=== PATIENT | female | born 1960 | race Caucasian/White ===

== ENCOUNTER → 2016-08-19 | Outpatient (CLI) | payer OTHER ==
[2016-08-05 15:55] VITALS: BP 181/69
[~2016-08-19] VITALS: Ht 152.4 cm; Wt 68.0 kg
[~2016-08-19] MED LIST: ESCI10TA PO; HYDR-971 PO; LEVO112T2 PO; OMEP20TA PO; PANT40TA3 PO; SINCALIDE 1.36 MCG in IV NORMAL SALINE 50ML 30 ML IV ONE
--- NOTE | 2016-08-19 08:55 | RAD ---
Indication:Left upper quadrant pain Grayscale images of the abdomen were obtained. Comparison note is made of a previous similar examination 05/15/2007. Liver:A focal mass lesion is not seen and the visualized liver. There is some increased attenuation of the ultrasound beam compatible with fatty infiltration. Gallbladder:There is an echogenic focus adjacent to the wall of the gallbladder compatible with a polyp. This was referenced on the previous exam. No cholelithiasis is seen. The common bile duct diameter of approximately 5 mm is normal Spleen:Normal Pancreas:As visualized normal. Kidneys:Normal Abdominal aorta and IVC:Normal Ancillary findings:None Impression:Fatty infiltration of the liver. Gallbladder polyp.
--- NOTE | 2016-08-19 10:42 | RAD ---
Indication abdominal pain. Hepatobiliary scan was performed. 5.5 mCi of technetium labeled Choletec was administered. 1.4 mcg of CCK was diluted in saline and administered over several minutes. Following the CCK administration a gallbladder ejection fraction calculation was made. There is normal uptake of the radiopharmaceutical in the liver. Activity is seen early in the biliary system and gallbladder. Normal activity is seen in the small bowel. Following the Kinevac administration the estimated gallbladder ejection fraction approaches 90%. IMPRESSION: Normal study
== END | disposition home or self-care (01) ==
LOC: US 07:01
PROVIDERS: ATTEND Internal Medicine Gastroenterology
DX: R10.12 Left upper quadrant pain (principal); Z87.19 Personal history of other diseases of the digestive system; K82.4 Cholesterolosis of gallbladder; K76.0 Fatty (change of) liver, not elsewhere classified
CPT/HCPCS: 76700; 78226; 96374; A9537; J2805

== ENCOUNTER 2017-05-16 19:45 | Emergency (ER) | payer OTHER ==
[~2017-05-16] VITALS: Ht 152.4 cm; Wt 45.4 kg
[~2017-05-16 19:45] MED LIST changes: -ESCI10TA PO; +ESCITALOPRAM OX10 MG PO; -OMEP20TA PO; +OMEP20TA8 PO; -SINCALIDE 1.36 MCG in IV NORMAL SALINE 50ML 30 ML IV ONE
--- NOTE | 2017-05-16 20:19 | PHYS DOC ---
Past Medical History Past Medical History: Asthma, Depression, GERD, Hypothyroid Additional Past Medical Histor: fibroids Past Surgical History: Tubal ligation Alcohol Use: None Drug Use: None Adult General Chief Complaint Chief Complaint: ABDOMINAL PAIN HPI HPI Patient is a 56 year old female who presents with abdominal pain. Pain is epigastric and burning in nature, started this evening, not controlled with home medications. H/o GERD, seen in ED for similar complaints in the past. She 's unsure what normally controls her pain. She see's Dr. Villa. Mild nausea, no vomiting, reports normal stools and urination. No fevers. Review of Systems Review of Systems Constitutional: Denies fever or chills [] Eyes: Denies change in visual acuity, redness, or eye pain [] HENT: Denies nasal congestion or sore throat [] Respiratory: Denies cough or shortness of breath [] Cardiovascular: denies chest pain GI: per hpi : Denies dysuria or hematuria [] Musculoskeletal: Denies back pain or joint pain [] Integument: Denies rash or skin lesions [] Neurologic: Denies headache, focal weakness or sensory changes [] Current Medications Current Medications Current Medications Medications (Trade) Dose Ordered Sig/Mary Start Time Stop Time Status Last Admin Dose Admin Famotidine (Pepcid) 20 mg 1X ONCE 05/16/17 21:00 05/16/17 21:01 DC 05/16/17 20:45 20 MG Haloperidol Lactate (Haldol) 5 mg 1X ONCE 05/16/17 21:00 05/16/17 21:01 DC 05/16/17 20:45 5 MG Multi-Ingredient Mouthwash/Gargle (Gi Cocktail Single Dose) 15 ml 1X ONCE 05/16/17 20:30 05/16/17 20:31 DC 05/16/17 20:10 15 ML Ondansetron HCl (Zofran Odt) 4 mg 1X ONCE 05/16/17 20:30 05/16/17 20:31 DC 05/16/17 20:10 4 MG Allergies Allergies Allergies Coded Allergies Type Severity Reaction Last Updated Verified No Known Drug Allergies 08/05/16 No Physical Exam Physical Exam Constitutional: Well developed, well nourished, no acute distress, non-toxic appearance. Crying HENT: Normocephalic, atraumatic, bilateral external ears normal, oropharynx moist, no oral exudates, nose normal. [] Eyes: PERRLA, EOMI, conjunctiva normal, no discharge. [] Neck: Normal range of motion, no tenderness, supple, no stridor. [] Cardiovascular:Heart rate regular regular rhythm, no murmur [] Lungs & Thorax: Bilateral breath sounds clear to auscultation [] Abdomen: Bowel sounds normal, soft, minimal tenderness in the epigastric region , no guarding or peritoneal signs, negative Campbell's, negative McBurney's Skin: Warm, dry, no erythema, no rash. [] Back: No tenderness, no CVA tenderness. [] Extremities: No tenderness, no cyanosis, no clubbing, ROM intact, no edema. [] Neurologic: Alert and oriented X 3, normal motor function, normal sensory function, no focal deficits noted. [] Psychologic: Affect normal, judgement normal, mood normal. [] Current Patient Data Vital Signs Vital Signs Date Time Temp Pulse Resp B/P (MAP) Pulse Ox O2 Delivery O2 Flow Rate FiO2 05/16/17 19:53 97.9 98 18 149/88 (108) 74 Room Air 97.9 Lab Values Laboratory Tests Test 05/16/17 19:55 05/16/17 20:40 Urine Collection Type Unknown Urine Color Yellow Urine Clarity Clear Urine pH 6.0 Urine Specific [place] >=1.030 Urine Protein Negative mg/dL (NEG-TRACE) Urine Glucose (UA) Negative mg/dL (NEG) Urine Ketones (Stick) Negative mg/dL (NEG) Urine Blood Negative (NEG) Urine Nitrite Negative (NEG) Urine Bilirubin Negative (NEG) Urine Urobilinogen Dipstick 0.2 mg/dL (0.2 mg/dL) Urine Leukocyte Esterase Negative (NEG) Urine RBC Occ /HPF (0-2) Urine WBC Occ /HPF (0-4) Urine Squamous Epithelial Cells Many /LPF Urine Bacteria Many /HPF (0-FEW) Urine Mucus Slight /LPF White Blood Count 7.0 x10^3/uL (4.0-11.0) Red Blood Count 4.24 x10^6/uL (3.50-5.40) Hemoglobin 10.8 g/dL (12.0-15.5) L Hematocrit 33.8 % (36.0-47.0) L Mean Corpuscular Volume 80 fL (79-100) Mean Corpuscular Hemoglobin 26 pg (25-35) Mean Corpuscular Hemoglobin Concent 32 g/dL (31-37) Red Cell Distribution Width 18.7 % (11.5-14.5) H Platelet Count 267 x10^3/uL (140-400) Neutrophils (%) (Auto) 63 % (31-73) Lymphocytes (%) (Auto) 28 % (24-48) Monocytes (%) (Auto) 7 % (0-9) Eosinophils (%) (Auto) 1 % (0-3) Basophils (%) (Auto) 1 % (0-3) Neutrophils # (Auto) 4.4 x10^3uL (1.8-7.7) Lymphocytes # (Auto) 1.9 x10^3/uL (1.0-4.8) Monocytes # (Auto) 0.5 x10^3/uL (0.0-1.1) Eosinophils # (Auto) 0.1 x10^3/uL (0.0-0.7) Basophils # (Auto) 0.1 x10^3/uL (0.0-0.2) Sodium Level 137 mmol/L (136-145) Potassium Level 3.4 mmol/L (3.5-5.1) L Chloride Level 103 mmol/L (98-107) Carbon Dioxide Level 27 mmol/L (21-32) Anion Gap 7 (6-14) Blood Urea Nitrogen 13 mg/dL (7-20) Creatinine 0.9 mg/dL (0.6-1.0) Estimated GFR (Cockcroft-Gault) 65.2 Glucose Level 129 mg/dL (70-99) H Calcium Level 8.8 mg/dL (8.5-10.1) Total Bilirubin 0.1 mg/dL (0.2-1.0) L Direct Bilirubin < 0.1 mg/dL (0.0-0.2) Aspartate Amino Transferase (AST) 21 U/L (15-37) Alanine Aminotransferase (ALT) 27 U/L (14-59) Alkaline Phosphatase 82 U/L (46-116) Total Protein 6.7 g/dL (6.4-8.2) Albumin 3.3 g/dL (3.4-5.0) L Lipase 187 U/L (73-393) Laboratory Tests 05/16/17 20:40 Laboratory Tests 05/16/17 20:40 EKG EKG [] Radiology/Procedures Radiology/Procedures [] Course & Med Decision Making Course & Med Decision Making Pertinent Labs and Imaging studies reviewed. (See chart for details) Initially attempted Zofran ODT and GI cocktail. After approximate 40 minutes rechecked on the patient and she reported no improvement of her symptoms area however, the patient was talking on her phone and appeared in no distress until she started to tell me how her pain hadn't gotten any better and she immediately started crying. She was talking to her work and telling them that she would not be coming in tonight. I ordered an IV with IV Pepcid and Haldol. Labs were ordered along with urinalysis. Pt improved, requesting work note, no acute findings on ED workup, urine dirty and pt asx. DC'd with return precautions and f/u with Dr. King Story Disclaimer Jez Disclaimer This electronic medical record was generated, in whole or in part, using a voice recognition dictation system. Departure Departure Impression: Primary Impression: Abdominal pain Disposition: HOME, SELF-CARE Condition: IMPROVED Referrals: Clif VILLA MD (PCP) CHRISTEN BRADEN MD May 16, 2017 20:19
[2017-05-16] MEDS ORDERED: ONDANSETRON ODT 4 MG TAB.RAPDIS. PO ONE (20:30)
[2017-05-16] MEDS ORDERED: LIDO:MAALOX:DONNATAL 1:1:1 15 ML SINGLE DOSE SWSW ONE (20:30)
[2017-05-16 20:47] LABS: BILIRUBIN,URINE NEGATIVE (NEG); GLUCOSE,URINE NEGATIVE (NEG); NITRITE,URINE NEGATIVE (NEG); PROTEIN,URINE NEGATIVE (NEG-TRACE); UROBILINOGEN,URINE 0.2 mg/dL (0.2 mg/dL)
[2017-05-16 20:48] LABS: BASO # 0.1 x10^3/uL (0.0-0.2); BASO % 1 % (0-3); EOS % 1 % (0-3); HEMATOCRIT 33.8 % (36.0-47.0); HEMOGLOBIN 10.8 g/dL (12.0-15.5); LYMPH # 1.9 x10^3/uL (1.0-4.8); LYMPH % 28 % (24-48); MEAN CORPUSCULAR HEMOGLOBIN 26 pg (25-35); MEAN CORPUSCULAR HGB CONC 32 g/dL (31-37); MEAN CORPUSCULAR VOLUME 80 fL (79-100); MONO % 7 % (0-9); NEUT % 63 % (31-73); PLATELET COUNT 267 x10^3/uL (140-400); RED BLOOD COUNT 4.24 x10^6/uL (3.50-5.40); RED CELL DISTRIBUTION WIDTH 18.7 % (11.5-14.5)
[2017-05-16 20:54] LABS: ANION GAP 7 (6-14); BLOOD UREA NITROGEN 13 mg/dL (7-20); CALCIUM 8.8 mg/dL (8.5-10.1); CARBON DIOXIDE 27 mmol/L (21-32); CHLORIDE 103 mmol/L (98-107); CREATININE 0.9 mg/dL (0.6-1.0); GFR 65.2; GLUCOSE 129 mg/dL (70-99); POTASSIUM 3.4 mmol/L (3.5-5.1); SODIUM 137 mmol/L (136-145)
[2017-05-16 20:56] LABS: BACTERIA,URINE MANY /HPF (0-FEW); RBC,URINE OCC /HPF (0-2); SQUAMOUS EPITHELIAL CELL,UR MANY /LPF; WBC,URINE OCC /HPF (0-4)
[2017-05-16 20:58] VITALS: BP 120/60
[2017-05-16] MEDS ORDERED: FAMOTIDINE 20 MG/2 ML VIAL IVP ONE (21:00)
[2017-05-16] MEDS ORDERED: HALOPERIDOL LACTATE 5 MG/ML VIAL. IVP ONE (21:00)
[2017-05-16 21:02] LABS: ALBUMIN 3.3 g/dL (3.4-5.0); ALK PHOS 82 U/L (46-116); ALT (SGPT) 27 U/L (14-59); AST (SGOT) 21 U/L (15-37); DIRECT BILIRUBIN < 0.1 mg/dL (0.0-0.2); TOTAL BILIRUBIN 0.1 mg/dL (0.2-1.0); TOTAL PROTEIN 6.7 g/dL (6.4-8.2)
== END 2017-05-16 21:18 | disposition home or self-care (01) ==
LOC: ER 19:45
DX: R10.13 Epigastric pain (principal); R11.0 Nausea; J45.909 Unspecified asthma, uncomplicated; F32.9 Major depressive disorder, single episode, unspecified; E03.9 Hypothyroidism, unspecified; K21.9 Gastro-esophageal reflux disease without esophagitis
CPT/HCPCS: 36415; 80048; 80076; 81001; 83690; 85025; 87086; 96374; 96375; 99284; J1630; Q0162; S0028

== ENCOUNTER 2017-08-28 03:22 | Emergency (ER) | payer OTHER | END 2017-08-28 04:24 | disposition home or self-care (01) | LOC: ER 03:22 | DX: S63.502A Unspecified sprain of left wrist, initial encounter (principal); J45.909 Unspecified asthma, uncomplicated; F32.9 Major depressive disorder, single episode, unspecified; K21.9 Gastro-esophageal reflux disease without esophagitis; E03.9 Hypothyroidism, unspecified; X58.XXXA Exposure to other specified factors, initial encounter; Y93.89 Activity, other specified; Y92.69 Other specified industrial and construction area as the place of occurrence of the external cause; Y99.8 Other external cause status | CPT/HCPCS: 29125; 73110; 99284-25 ==

== ENCOUNTER 2017-12-11 17:07 | Emergency (ER) | payer OTHER ==
[2017-12-11] MEDS: HYDROcodone/APAP 5/325MG 1 TAB TABLET PO (17:45)
== END 2017-12-11 18:15 | disposition home or self-care (01) ==
LOC: ER 17:07
DX: K08.89 Other specified disorders of teeth and supporting structures (principal); E03.9 Hypothyroidism, unspecified; K21.9 Gastro-esophageal reflux disease without esophagitis; J45.909 Unspecified asthma, uncomplicated
CPT/HCPCS: 99283

== ENCOUNTER 2017-12-26 05:27 | Emergency (ER) | payer OTHER | END 2017-12-26 05:54 | disposition home or self-care (01) | LOC: ER 05:27 | DX: K05.10 Chronic gingivitis, plaque induced (principal); J45.909 Unspecified asthma, uncomplicated; K21.9 Gastro-esophageal reflux disease without esophagitis; E03.9 Hypothyroidism, unspecified | CPT/HCPCS: 99283 ==

== ENCOUNTER 2018-01-08 10:27 | Emergency (ER) | payer OTHER ==
[2018-01-08 11:01] LABS: URINE HCG POC HCG NEGATIVE (Negative)
[2018-01-08] MEDS: IV NORMAL SALINE 1000ML BAG 1,000 ML IV (11:04)
[2018-01-08 11:06] LABS: BILIRUBIN,URINE NEGATIVE (NEG); CLARITY,URINE CLEAR; COLOR,URINE YELLOW; GLUCOSE,URINE NEGATIVE (NEG); NITRITE,URINE NEGATIVE (NEG); PH,URINE 5.5; PROTEIN,URINE NEGATIVE (NEG-TRACE); UROBILINOGEN,URINE 0.2 mg/dL (0.2 mg/dL)
[2018-01-08 11:12] LABS: AGAP ISTAT 15 mmol/L (6-14); BUN ISTAT 13 mg/dL (8-26); CHLORIDE ISTAT 105 mmol/L (98-110); CREATININE ISTAT 0.7 mg/dL (0.5-1.4); GLUCOSE ISTAT 110 mg/dL (70-99); HEMATOCRIT ISTAT 29 % (36-40); HEMOGLOBIN ISTAT 9.9 g/dL (12-15); ION CA ISTAT 1.13 mmol/L (1.13-1.32); POTASSIUM ISTAT 3.7 mmol/L (3.5-5.0); SODIUM ISTAT 138 mmol/L (135-145); TOT CO2 ISTAT 22 mmol/L (23-32)
[2018-01-08 11:22] LABS: BACTERIA,URINE FEW /HPF (0-FEW); RBC,URINE 0 /HPF (0-2); SQUAMOUS EPITHELIAL CELL,UR MANY /LPF; WBC,URINE OCC /HPF (0-4); YEAST,URINE PRESENT /HPF
== END 2018-01-08 11:49 | disposition home or self-care (01) ==
LOC: ER 10:27
DX: R42 Dizziness and giddiness (principal); E78.00 Pure hypercholesterolemia, unspecified
CPT/HCPCS: 36415; 80047; 81001; 81025; 85014; 85018; 93005; 96360; 99285-25; J7030

== ENCOUNTER 2018-06-26 12:59 | Emergency (ER) | payer OTHER ==
[~2018-06-26] VITALS: Ht 162.6 cm; Wt 59.0 kg
[~2018-06-26 12:59] MED LIST changes: +AMOX875T PO; +CLIN300C8 PO; +NAPR-514 PO
[2018-06-26] MEDS ORDERED: PSEUDOEPHEDRINE 30 MG TABLET. PO STA (13:33)
[2018-06-26] MEDS ORDERED: IPRATRPIUM/ALBUTEROL 0.5/2.5MG 3 ML NEBU. NEB ONE (13:45)
[2018-06-26] MEDS ORDERED: AMOXICILLIN/K CLAV 875/125MG TABLET. PO ONE (13:45)
[2018-06-26] MEDS ORDERED: BENZONATATE 100 MG CAPSULE. PO ONE (13:45)
--- NOTE | 2018-06-26 14:14 | RAD ---
CHEST PA LATERAL History: cough and chest pain x 1 week Comparison: May 20, 2014 Findings: 2 views of the chest are submitted. There is no infiltrate, pneumothorax, or effusion. There is moderate size hiatal hernia. Pericardial cardiac silhouette is stable, borderline in size.. Impression: 1. No acute radiographic abnormality is identified. There is hiatal hernia. Electronically signed by: Taye Loepz MD (06/26/2018 2:10 PM) [id number]
[2018-06-26] MEDS ORDERED: PSEU120T58 PO (14:48)
[2018-06-26] MEDS ORDERED: AMOX1TAB61 PO (14:48)
[2018-06-26] MEDS ORDERED: BENZ100C PO (14:48)
--- NOTE | 2018-06-26 14:48 | PHYS DOC ---
Past Medical History Past Medical History: High Cholesterol, Uterine Fibroids Additional Past Medical Histor: fibroids Past Surgical History: Tubal ligation Alcohol Use: None Drug Use: None Adult General Chief Complaint Chief Complaint: Congestion HPI HPI Patient is a 57 year old female with a history of high cholesterol who presents today complaining of cough, sore throat and nasal congestion for one week. Patient denies any fever. She states she has history of sinus infections and feels her symptoms have gotten worse in the last 3 days despite trying over- the-counter remedies. Patient denies any fever. Review of Systems Review of Systems Constitutional: Denies fever or chills [] Eyes: Denies change in visual acuity, redness, or eye pain [] HENT: Reports nasal congestion and sore throat [] Respiratory: Reports cough denies shortness of breath [] Cardiovascular: No additional information not addressed in HPI [] GI: Denies abdominal pain, nausea, vomiting, bloody stools or diarrhea [] : Denies dysuria or hematuria [] Musculoskeletal: Denies back pain or joint pain [] Integument: Denies rash or skin lesions [] Neurologic: Denies headache, focal weakness or sensory changes [] All other systems were reviewed and found to be within normal limits, except as documented in this note. Current Medications Current Medications Current Medications Medications (Trade) Dose Ordered Sig/Mary Start Time Stop Time Status Last Admin Dose Admin Albuterol/ Ipratropium (Duoneb) 3 ml 1X ONCE 06/26/18 13:45 06/26/18 13:46 DC 06/26/18 14:00 3 ML Amoxicillin/ Clavulanate Potassium (Augmentin 875/ 125mg) 1 tab 1X ONCE 06/26/18 13:45 06/26/18 13:46 DC 06/26/18 13:52 1 TAB Benzonatate (Tessalon Perle) 100 mg 1X ONCE 06/26/18 13:45 06/26/18 13:46 DC 06/26/18 13:51 100 MG Pseudoephedrine HCl (Sudafed) 30 mg 1X STAT 06/26/18 13:33 06/26/18 13:37 DC 06/26/18 13:59 30 MG Allergies Allergies Allergies Coded Allergies Type Severity Reaction Last Updated Verified No Known Drug Allergies 01/08/18 No Physical Exam Physical Exam Constitutional: Well developed, well nourished, no acute distress, non-toxic appearance. [] HENT: Normocephalic, atraumatic, bilateral external ears normal, oropharynx moist, no oral exudates, patient sounds congested nasally. Bilateral maxillary sinus tenderness on exam. Frontal sinuses are also tendon exam. Eyes: PERRLA, EOMI, conjunctiva normal, no discharge. [] Neck: Normal range of motion, no tenderness, supple, no stridor. [] Cardiovascular:Heart rate regular rhythm, no murmur [] Lungs & Thorax: Bilateral breath sounds clear to auscultation [] Abdomen: Bowel sounds normal, soft, no tenderness, no masses, no pulsatile masses. [] Skin: Warm, dry, no erythema, no rash. [] Back: No tenderness, no CVA tenderness. [] Extremities: No tenderness, no cyanosis, no clubbing, ROM intact, no edema. [] Neurologic: Alert and oriented X 3, normal motor function, normal sensory function, no focal deficits noted. [] Psychologic: Affect normal, judgement normal, mood normal. [] Current Patient Data Vital Signs Vital Signs Date Time Temp Pulse Resp B/P (MAP) Pulse Ox O2 Delivery O2 Flow Rate FiO2 06/26/18 14:03 97 Room Air 06/26/18 13:37 98.1 82 20 142/75 (97) 98.1 EKG EKG [] Radiology/Procedures Radiology/Procedures []PROCEDURE: CHEST PA & LATERAL CHEST PA LATERAL History: cough and chest pain x 1 week Comparison: May 20, 2014 Findings: 2 views of the chest are submitted. There is no infiltrate, pneumothorax, or effusion. There is moderate size hiatal hernia. Pericardial cardiac silhouette is stable, borderline in size.. Impression: 1. No acute radiographic abnormality is identified. There is hiatal hernia. Electronically signed by: Nina Castaneda MD (06/26/2018 2:10 PM) [facility] DICTATED and SIGNED BY: NINA CASTANEDA MD DATE: 06/26/18 141 Course & Med Decision Making Course & Med Decision Making Pertinent Labs and Imaging studies reviewed. (See chart for details) This is a 57-year-old female patient presenting to the ED today with cough and congestion for one week. Patient has history of sinus infection and symptoms are consistent with it. 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 Chest x-ray interpreted by radiologist was negative for any acute findings. Patient will be discharged with Augmentin, Tessalon Perles, and prescription for pseudoephedrine. Follow-up with PCP in one week. Jez Disclaimer Dragon Disclaimer This electronic medical record was generated, in whole or in part, using a voice recognition dictation system. Departure Departure Impression: Primary Impression: Acute sinusitis Additional Impression: Cough Disposition: 01 HOME, SELF-CARE Condition: STABLE Referrals: Clif RIZVI MD (PCP) follow up in one week Patient Instructions: Cough, Adult, [id number], Sinusitis Additional Instructions: You were evaluated in the emergency room and noted to have a sinus infection. We put you on antibiotics, ensure you complete them. Take the rest of the prescribed medications as ordered. Follow-up with your doctor in 1-2 weeks. Scripts Pseudoephedrine Hcl (PSEUDOEPHEDRINE) 120 Mg Tablet.er 1 TAB PO BID, #14 TAB Prov: LINH MCINTYRE APRN 06/26/18 Benzonatate (TESSALON PERLE) 100 Mg Capsule 1 CAP PO TID, #30 CAP Prov: LINH MCINTYRE APRN 18 Amoxicillin/Potassium Clav (AUGMENTIN 875-125 TABLET) 1 Each Tablet 1 TAB PO BID, #20 TAB Prov: LINH MCINTYRE APRN 06/26/18 Problem Qualifiers Primary Impression: Acute sinusitis Sinusitis location: maxillary Recurrence: non-recurrent Qualified Codes: J01.00 - Acute maxillary sinusitis, unspecified LINH MCINTYRE APRN Jun 26, 2018 14:48
[2018-06-26 14:59] VITALS: BP 129/62
== END 2018-06-26 14:59 | disposition home or self-care (01) ==
LOC: ER 12:59
DX: J01.00 Acute maxillary sinusitis, unspecified (principal); E78.00 Pure hypercholesterolemia, unspecified
CPT/HCPCS: 71046; 94640; 99284; J7620

== ENCOUNTER → 2018-08-02 | Outpatient (CLI) | payer OTHER ==
[~2018-08-02] MED LIST changes: +AMOX1TAB61 PO; +BENZ100C PO; +HYDR-3164 PO; -HYDR-971 PO; +PSEU120T58 PO
--- NOTE | 2018-08-03 10:36 | RAD ---
DATE: 08/02/2018 12:30 PM EXAM: MAMMO JANNY SCREENING BILATERAL HISTORY: routine screening evaluation COMPARISON: Baseline Bilateral CC and MLO views of the breasts were performed. Bilateral breast tomosynthesis was performed in CC and MLO projections. This study was interpreted with the benefit of Computerized Aided Detection (CAD ). Breast Density: The breast parenchyma is primarily fatty replaced. Breast parenchyma level density A. FINDINGS: No suspicious masses, microcalcifications or architectural distortion is present to suggest malignancy in either breast. The visualized axillae are unremarkable. IMPRESSION: No mammographic evidence of malignancy. BI-RADS CATEGORY: 1 NEGATIVE RECOMMENDED FOLLOW-UP: 12M 12 MONTH FOLLOW-UP Annual screening mammography is recommended, unless clinically indicated sooner based on symptoms or change in physical exam. PQRS compliance statement: Patient information was entered into a reminder system with a target due date 08/02/2019 for the next mammogram. Mammography is a sensitive method for finding small breast cancers, but it does not detect them all and is not a substitute for careful clinical examination. A negative mammogram does not negate a clinically suspicious finding and should not result in delay in biopsying a clinically suspicious abnormality. "Our facility is accredited by the [employer] Mammography Program." MTDD
== END | disposition home or self-care (01) ==
LOC: MAMMO 07:49
PROVIDERS: ATTEND Family Medicine
DX: Z12.31 Encounter for screening mammogram for malignant neoplasm of breast (principal)
CPT/HCPCS: 77063; 77067

== ENCOUNTER → 2018-09-25 | Day surgery (SDC) | payer OTHER ==
[~2018-09-25] MED LIST changes: +FERR325T14 PO; +GUAI-108 PO; +HYDROmorphone 2 MG/ML VIAL IV PRN; +IV RINGERS,LACTATED 1000ML 1,000 ML IV SCH; +LEVO125T5 PO; +LIDOCAINE 1% PF 2 ML VIAL. ID PRN; +MORPHINE SULFATE 4 MG/ML VIAL. IV PRN; +OXYC1TAB15 PO; -PANT40TA3 PO; +PANT40TA77 PO; +POLY17PO28 PO; +PRIM250T PO; +PROCHLORPERAZINE 10 MG/2 ML VIAL. IV PRN; +PROPOFOL 40 ML IV ONE; +VALA500T PO; +fentaNYL PF VIAL 100 MCG/2 ML VIAL IV PRN
[2018-09-25 16:33] VITALS: BP 152/79
== END | disposition home or self-care (01) ==
LOC: ENDOS 15:19
PROVIDERS: ATTEND Internal Medicine Gastroenterology
DX: K29.50 Unspecified chronic gastritis without bleeding (principal); I10 Essential (primary) hypertension; Z85.850 Personal history of malignant neoplasm of thyroid; D64.9 Anemia, unspecified; K21.9 Gastro-esophageal reflux disease without esophagitis; Z79.899 Other long term (current) drug therapy
CPT/HCPCS: 43235; J2704

== ENCOUNTER → 2018-10-04 | Outpatient (CLI) | payer OTHER ==
[2018-09-25 16:33] VITALS: BP 152/79
[~2018-10-04] MED LIST changes: -GUAI-108 PO; -HYDROmorphone 2 MG/ML VIAL IV PRN; -IV RINGERS,LACTATED 1000ML 1,000 ML IV SCH; -LEVO125T5 PO; -LIDOCAINE 1% PF 2 ML VIAL. ID PRN; -MORPHINE SULFATE 4 MG/ML VIAL. IV PRN; -OXYC1TAB15 PO; +PANT40TA3 PO; -PANT40TA77 PO; -POLY17PO28 PO; -PROCHLORPERAZINE 10 MG/2 ML VIAL. IV PRN; -PROPOFOL 40 ML IV ONE; -fentaNYL PF VIAL 100 MCG/2 ML VIAL IV PRN
--- NOTE | 2018-10-04 14:46 | RAD ---
Radionuclide gastric emptying study, 10/04/2018: HISTORY: Abdominal pain and nausea The study was performed utilizing a solid test meal radiolabeled with 2.0 mCi of technetium 99m sulfur colloid. The following gastric retention values were obtained: 1 hour-42 percent 2 hours-21 percent 3 hours-11 percent 4 hours-5 percent. These values are in the normal range. A T1/T2 of 38 minutes was also calculated, which is in the normal range. IMPRESSION: Normal gastric emptying study Electronically signed by: Dino Moore MD (10/04/2018 2:43 PM) [facility]
== END | disposition home or self-care (01) ==
LOC: NM 08:51
PROVIDERS: ATTEND Internal Medicine Gastroenterology
DX: R10.13 Epigastric pain (principal); R14.0 Abdominal distension (gaseous)
CPT/HCPCS: 78264; A9541

== ENCOUNTER 2018-11-02 05:10 | Emergency (ER) | payer OTHER ==
[~2018-11-02] VITALS: Ht 152.4 cm; Wt 47.6 kg
[2018-11-02 05:10] VITALS: BP 133/83
--- NOTE | 2018-11-02 05:42 | PHYS DOC ---
Past Medical History Past Medical History: High Cholesterol, Uterine Fibroids Additional Past Medical Histor: fibroids Past Surgical History: Tubal ligation Alcohol Use: None Drug Use: None Adult General Chief Complaint Chief Complaint: SORE THROAT HPI HPI Patient is a 58-year-old female who presents with complaint of sore throat, cough congestion and just not feeling well. She denies any fever. She denies any chest pain or shortness breath. She indicates the cough is been nonproductive. Review of Systems Review of Systems Constitutional: Denies fever or chills [] HENT: Positive congestion and sore throat [] Respiratory: Positive cough without shortness of breath [] Cardiovascular: No additional information not addressed in HPI [] Neurologic: Denies headache, focal weakness or sensory changes [] Allergies Allergies Allergies Coded Allergies Type Severity Reaction Last Updated Verified No Known Drug Allergies 09/25/18 No Physical Exam Physical Exam Constitutional: Well developed, well nourished, no acute distress, non-toxic appearance. [] HENT: Normocephalic, atraumatic, TMs are normal-appearing, oropharynx moist, pharyngeal erythema without exudates. Frontal sinuses are tender to palpation. [ ] Cardiovascular: Regular rate and rhythm[] Lungs & Thorax: Bilateral breath sounds clear to auscultation [] Neurologic: Alert and oriented X 3, no focal deficits noted. [] Current Patient Data Vital Signs Vital Signs Date Time Temp Pulse Resp B/P (MAP) Pulse Ox O2 Delivery O2 Flow Rate FiO2 11/02/18 05:10 97.8 87 14 133/83 (100) 96 Room Air 97.8 EKG EKG [] Radiology/Procedures Radiology/Procedures [] Course & Med Decision Making Course & Med Decision Making Pertinent Labs and Imaging studies reviewed. (See chart for details) [] Dragon Disclaimer Dragon Disclaimer This electronic medical record was generated, in whole or in part, using a voice recognition dictation system. Departure Departure Impression: Primary Impression: Acute sinusitis Disposition: 01 HOME, SELF-CARE Condition: STABLE Referrals: Clif RIZVI MD (PCP) Patient Instructions: Form - Excuse from Work, School, or Physical Activity, Sinusitis Scripts Amoxicillin/Potassium Clav (AUGMENTIN 875-125 TABLET) 1 Each Tablet 1 TAB PO BID, #20 TAB Prov: ELLY FORD Jr. DO 11/02/18 Problem Qualifiers Primary Impression: Acute sinusitis Sinusitis location: frontal Recurrence: not specified as recurrent Qualified Codes: J01.10 - Acute frontal sinusitis, unspecified ELLY FORD Jr. DO Nov 02, 2018 05:42
[2018-11-02] MEDS ORDERED: AMOX1TAB61 PO (05:49)
== END 2018-11-02 06:04 | disposition home or self-care (01) ==
LOC: ER 05:10
DX: J01.10 Acute frontal sinusitis, unspecified (principal); E78.00 Pure hypercholesterolemia, unspecified
CPT/HCPCS: 87070; 87880; 99283

== ENCOUNTER 2018-12-10 09:41 | Emergency (ER) | payer OTHER ==
[~2018-12-10] VITALS: Ht 154.9 cm; Wt 68.9 kg
[2018-12-10 10:21] VITALS: BP 128/85
[2018-12-10] MEDS ORDERED: LIDO:MAALOX 1:1 20 ML SINGLE DOSE. SWSW ONE (10:45)
--- NOTE | 2018-12-10 11:57 | PHYS DOC ---
Past Medical History Past Medical History: High Cholesterol, Uterine Fibroids Additional Past Medical Histor: fibroids Past Surgical History: Tubal ligation Alcohol Use: None Drug Use: None Adult General Chief Complaint Chief Complaint: GENERALIZED BODY ACHES [facility] HPI Patient is a 58 year old female who presents with a gastric pain from her acid reflux. The patient was scoped approximately 1 month ago by her GI specialist and diagnosed with acid reflux. She does have home meds to take but states that these are not working today. She states when she has this kind of pain she needs to have a GI cocktail. She denies chest pain, diaphoresis or shortness of air. She states that this feels like her other acid reflux attacks. Review of Systems Review of Systems Constitutional: Denies fever or chills [] Eyes: Denies change in visual acuity, redness, or eye pain [] HENT: Denies nasal congestion or sore throat [] Respiratory: Denies cough or shortness of breath [] Cardiovascular: No additional information not addressed in HPI [] GI: see history of present illness : Denies dysuria or hematuria [] Musculoskeletal: Denies back pain or joint pain [] Integument: Denies rash or skin lesions [] Neurologic: Denies headache, focal weakness or sensory changes [] Endocrine: Denies polyuria or polydipsia [] All other systems were reviewed and found to be within normal limits, except as documented in this note. Current Medications Current Medications Current Medications Medications (Trade) Dose Ordered Sig/Mary Start Time Stop Time Status Last Admin Dose Admin Multi-Ingredient Mouthwash/Gargle (Gi Cocktail) 20 ml 1X ONCE 12/10/18 10:45 12/10/18 10:46 DC 12/10/18 11:12 20 ML Allergies Allergies Allergies Coded Allergies Type Severity Reaction Last Updated Verified No Known Drug Allergies 09/25/18 No Physical Exam Physical Exam Constitutional: Well developed, well nourished, no acute distress, non-toxic appearance. [] Cardiovascular:Heart rate regular rhythm, no murmur [] Lungs & Thorax: Bilateral breath sounds clear to auscultation [] Abdomen: Bowel sounds normal, soft, epigastric tenderness, no masses, no pulsatile masses. [] Skin: Warm, dry, no erythema, no rash. [] Back: No tenderness, no CVA tenderness. [] Extremities: No tenderness, no cyanosis, no clubbing, ROM intact, no edema. [] Neurologic: Alert and oriented X 3, normal motor function, normal sensory f unction, no focal deficits noted. [] Psychologic: Affect normal, judgement normal, mood normal. [] Current Patient Data Vital Signs Vital Signs Date Time Temp Pulse Resp B/P (MAP) Pulse Ox O2 Delivery O2 Flow Rate FiO2 12/10/18 10:21 98.1 69 18 128/85 (99) 97 Room Air 98.1 EKG EKG [] Radiology/Procedures Radiology/Procedures [] Course & Med Decision Making Course & Med Decision Making Pertinent Labs and Imaging studies reviewed. (See chart for details) []The patient was given a GI cocktail with relief of her symptoms. Dragon Disclaimer Dragon Disclaimer This electronic medical record was generated, in whole or in part, using a voice recognition dictation system. Departure Departure Impression: Primary Impression: Acid reflux Disposition: HOME, SELF-CARE Condition: STABLE Referrals: Clif RIZVI MD (PCP) Patient Instructions: Diet for Gastroesophageal Reflux Disease, Adult Additional Instructions: Take your home medications as directed. Follow-up with your GI specialist for further evaluation and management of your chronic acid reflux. If worsening return to the emergency department. LISA KEY APRN Dec 10, 2018 11:57
== END 2018-12-10 12:08 | disposition home or self-care (01) ==
LOC: ER 09:41
DX: K21.9 Gastro-esophageal reflux disease without esophagitis (principal); E78.00 Pure hypercholesterolemia, unspecified; Z98.51 Tubal ligation status
CPT/HCPCS: 99283

== ENCOUNTER → 2019-01-02 | Outpatient (CLI) | payer OTHER ==
[2018-12-10 10:21] VITALS: BP 128/85
[2019-01-02 07:11] LABS: BASO % 1 % (0-3); EOS # 0.1 x10^3/uL (0.0-0.7); EOS % 1 % (0-3); HEMATOCRIT 44.6 % (36.0-47.0); HEMOGLOBIN 14.8 g/dL (12.0-15.5); LYMPH # 1.5 x10^3/uL (1.0-4.8); LYMPH % 28 % (24-48); MEAN CORPUSCULAR HEMOGLOBIN 30 pg (25-35); MEAN CORPUSCULAR HGB CONC 33 g/dL (31-37); MEAN CORPUSCULAR VOLUME 89 fL (79-100); MONO # 0.5 x10^3/uL (0.0-1.1); MONO % 9 % (0-9); NEUT # 3.2 x10^3uL (1.8-7.7); NEUT % 61 % (31-73); PLATELET COUNT 272 x10^3/uL (140-400); RED CELL DISTRIBUTION WIDTH 18.7 % (11.5-14.5); WHITE BLOOD COUNT 5.3 x10^3/uL (4.0-11.0)
[2019-01-02 08:06] LABS: ALBUMIN 3.8 g/dL (3.4-5.0); ALBUMIN/GLOBULIN RATIO 1.2 (1.0-1.7); CALCIUM 9.2 mg/dL (8.5-10.1); CREATININE 0.8 mg/dL (0.6-1.0); GFR 74.2; POTASSIUM 3.6 mmol/L (3.5-5.1); TOTAL BILIRUBIN 0.6 mg/dL (0.2-1.0); TOTAL PROTEIN 7.1 g/dL (6.4-8.2)
[2019-01-02 16:13] LABS: HEMOGLOBIN A1C 5.7 % (4.8-5.6)
== END | disposition home or self-care (01) ==
LOC: LAB 05:40
PROVIDERS: ATTEND Family Medicine
DX: D64.9 Anemia, unspecified (principal); E03.9 Hypothyroidism, unspecified; R53.83 Other fatigue; R73.09 Other abnormal glucose
CPT/HCPCS: 36415; 80053; 82607; 82746; 83036; 83540; 83550; 84443; 85025

== ENCOUNTER 2019-03-19 09:31 | Inpatient (IN) | payer OTHER ==
[~2019-03-19] VITALS: Ht 152.4 cm; Wt 69.6 kg
[~2019-03-19 09:31] MED LIST changes: -PANT40TA3 PO; +PANT40TA77 PO
--- NOTE | 2019-03-19 10:56 | EKG ---
[facility] [address] [place] [address] Test Date: 2019-03-19 Test Time: 10:39:47 Pat Name: NIMISHA BLAKE Department: Room: Gender: F [employer] Officer: FORTINO : 1960 Requested By: BARB YE Order Number: [id number] Reading MD: Measurements Intervals [place] Rate: 58 P: 34 IN: 152 QRS: -18 QRSD: 86 T: -12 QT: 404 QTc: 400 Interpretive Statements SINUS RHYTHM LEFTWARD AXIS CONSIDER LEFT VENTRICULAR HYPERTROPHY QRS(T) CONTOUR ABNORMALITY CONSISTENT WITH ANTEROSEPTAL INFARCT PROBABLY OLD ABNORMAL ECG No previous ECG available for comparison
[2019-03-19 11:05] LABS: BASO % 1 % (0-3); EOS % 1 % (0-3); HEMATOCRIT 43.5 % (36.0-47.0); HEMOGLOBIN 14.9 g/dL (12.0-15.5); LYMPH # 1.4 x10^3/uL (1.0-4.8); LYMPH % 28 % (24-48); MEAN CORPUSCULAR HEMOGLOBIN 32 pg (25-35); MEAN CORPUSCULAR HGB CONC 34 g/dL (31-37); MEAN CORPUSCULAR VOLUME 95 fL (79-100); MONO # 0.4 x10^3/uL (0.0-1.1); MONO % 8 % (0-9); NEUT # 3.3 x10^3/uL (1.8-7.7); NEUT % 63 % (31-73); PLATELET COUNT 235 x10^3/uL (140-400); RED BLOOD COUNT 4.59 x10^6/uL (3.50-5.40); RED CELL DISTRIBUTION WIDTH 13.7 % (11.5-14.5); WHITE BLOOD COUNT 5.2 x10^3/uL (4.0-11.0)
--- NOTE | 2019-03-19 11:12 | PHYS DOC ---
Past Medical History Past Medical History: High Cholesterol, Uterine Fibroids Additional Past Medical Histor: fibroids, ACID REFLUX Past Surgical History: Tubal ligation Alcohol Use: None Drug Use: None Adult General Chief Complaint Chief Complaint: DIZZY/LIGHT HEADED HPI HPI Patient is a 58 year old -year-old female presents with epigastric pain starting last evening which is worse this morning after eating. Patient reports lightheaded dizziness, and fatigued this morning while at work. Abdominal pain is worse with palpation. Reports nausea, no vomiting. No episodes of loose stools yesterday. No fever chills or sweats. No other acute symptoms or complaints.[] Review of Systems Review of Systems Review symptoms as prescribed. All other review symptoms are negative. All other systems were reviewed and found to be within normal limits, except as documented in this note. Current Medications Current Medications Current Medications Medications (Trade) Dose Ordered Sig/Mary Start Time Stop Time Status Last Admin Dose Admin Famotidine (Pepcid Vial) 20 mg 1X ONCE 03/19/19 11:15 03/19/19 11:16 DC 03/19/19 11:21 20 MG Fentanyl Citrate (Fentanyl 2ml Vial) 50 mcg 1X ONCE 03/19/19 11:15 03/19/19 11:16 DC 03/19/19 11:21 50 MCG Morphine Sulfate (Morphine Sulfate) 4 mg 1X ONCE 03/19/19 12:15 03/19/19 12:16 DC 03/19/19 12:20 4 MG Ondansetron HCl (Zofran) 4 mg 1X ONCE 03/19/19 11:15 03/19/19 11:16 DC 03/19/19 11:21 4 MG Allergies Allergies Allergies Coded Allergies Type Severity Reaction Last Updated Verified No Known Drug Allergies 09/25/18 No Physical Exam Physical Exam Constitutional: Well developed, anxious moderate discomfort secondary to pain.. [] HENT: Normocephalic, atraumatic, bilateral external ears normal, oropharynx moist, no oral exudates, nose normal. [] Eyes: PERRLA, EOMI, conjunctiva normal, no discharge. [] Neck: Normal range of motion, no tenderness, supple, no stridor. [] Cardiovascular:Heart rate regular rhythm, no murmur [] Lungs & Thorax: Bilateral breath sounds clear to auscultation [] Abdomen: Bowel sounds normal, soft, gastric pain, tenderness, no pulsatile masses. [] Skin: Warm, dry, no erythema, no rash. [] Back: No tenderness. [] Extremities: No tenderness, no edema. [] Neurologic: Alert and oriented X 3, normal motor function, normal sensory function, no focal deficits noted. [] Psychologic: Affect normal, judgement normal, mood normal. [] Current Patient Data Vital Signs Vital Signs Date Time Temp Pulse Resp B/P (MAP) Pulse Ox O2 Delivery O2 Flow Rate FiO2 03/19/19 12:20 18 97 Room Air 03/19/19 10:35 97.7 67 104/61 (75) 97.7 Lab Values Laboratory Tests Test 03/19/19 10:50 03/19/19 10:54 03/19/19 11:55 Glucose (Fingerstick) 79 mg/dL (70-99) White Blood Count 5.2 x10^3/uL (4.0-11.0) Red Blood Count 4.59 x10^6/uL (3.50-5.40) Hemoglobin 14.9 g/dL (12.0-15.5) Hematocrit 43.5 % (36.0-47.0) Mean Corpuscular Volume 95 fL (79-100) Mean Corpuscular Hemoglobin 32 pg (25-35) Mean Corpuscular Hemoglobin Concent 34 g/dL (31-37) Red Cell Distribution Width 13.7 % (11.5-14.5) Platelet Count 235 x10^3/uL (140-400) Neutrophils (%) (Auto) 63 % (31-73) Lymphocytes (%) (Auto) 28 % (24-48) Monocytes (%) (Auto) 8 % (0-9) Eosinophils (%) (Auto) 1 % (0-3) Basophils (%) (Auto) 1 % (0-3) Neutrophils # (Auto) 3.3 x10^3/uL (1.8-7.7) Lymphocytes # (Auto) 1.4 x10^3/uL (1.0-4.8) Monocytes # (Auto) 0.4 x10^3/uL (0.0-1.1) Eosinophils # (Auto) 0.0 x10^3/uL (0.0-0.7) Basophils # (Auto) 0.0 x10^3/uL (0.0-0.2) Sodium Level 142 mmol/L (136-145) Potassium Level 4.0 mmol/L (3.5-5.1) Chloride Level 106 mmol/L (98-107) Carbon Dioxide Level 27 mmol/L (21-32) Anion Gap 9 (6-14) Blood Urea Nitrogen 12 mg/dL (7-20) Creatinine 0.7 mg/dL (0.6-1.0) Estimated GFR (Cockcroft-Gault) 86.6 BUN/Creatinine Ratio 17 (6-20) Glucose Level 90 mg/dL (70-99) Calcium Level 9.0 mg/dL (8.5-10.1) Total Bilirubin 0.3 mg/dL (0.2-1.0) Aspartate Amino Transferase (AST) 21 U/L (15-37) Alanine Aminotransferase (ALT) 20 U/L (14-59) Alkaline Phosphatase 102 U/L (46-116) Troponin I Quantitative < 0.017 ng/mL (0.000-0.055) Total Protein 7.2 g/dL (6.4-8.2) Albumin 3.8 g/dL (3.4-5.0) Albumin/Globulin Ratio 1.1 (1.0-1.7) Lipase 121 U/L (73-393) Urine Collection Type Unknown Urine Color Yellow Urine Clarity Clear Urine pH 5.5 Urine Specific [place] 1.015 Urine Protein Negative mg/dL (NEG-TRACE) Urine Glucose (UA) Negative mg/dL (NEG) Urine Ketones (Stick) Negative mg/dL (NEG) Urine Blood Negative (NEG) Urine Nitrite Negative (NEG) Urine Bilirubin Negative (NEG) Urine Urobilinogen Dipstick 0.2 mg/dL (0.2 mg/dL) Urine Leukocyte Esterase Negative (NEG) Urine RBC Rare /HPF (0-2) Urine WBC Occ /HPF (0-4) Urine Squamous Epithelial Cells Few /LPF Urine Bacteria Few /HPF (0-FEW) Laboratory Tests 03/19/19 10:54 Laboratory Tests 03/19/19 10:54 EKG EKG [EKG: Reviewed] Radiology/Procedures Radiology/Procedures [Abdominal ultrasound: Sludge present.] Course & Med Decision Making Course & Med Decision Making Pertinent Labs and Imaging studies reviewed. (See chart for details) [Persistent midepigastric pain despite repeat chronic pain medication, hasn't gallbladder. Patient states she has had similar gallbladder attacks. Will admit to PCP with general surgical consult.] Dragon Disclaimer Dragon Disclaimer This electronic medical record was generated, in whole or in part, using a voice recognition dictation system. Departure Departure Impression: Primary Impression: Epigastric abdominal pain Additional Impression: Biliary colic Disposition: ADMITTED INPATIENT Condition: STABLE Referrals: Clif RIZVI MD (PCP) Problem Qualifiers BARB YE DO Mar 19, 2019 11:11
[2019-03-19 11:14] LABS: CREATININE 0.7 mg/dL (0.6-1.0); GFR 86.6
[2019-03-19] MEDS ORDERED: FAMOTIDINE 20 MG/2 ML VIAL IVP ONE (11:15)
[2019-03-19] MEDS ORDERED: fentaNYL PF VIAL 100 MCG/2 ML VIAL IV ONE (11:15)
[2019-03-19] MEDS ORDERED: ONDANSETRON PF 4 MG/2 ML VIAL. IV ONE (11:15)
[2019-03-19 11:20] LABS: ALBUMIN 3.8 g/dL (3.4-5.0); ALBUMIN/GLOBULIN RATIO 1.1 (1.0-1.7); TOTAL BILIRUBIN 0.3 mg/dL (0.2-1.0); TOTAL PROTEIN 7.2 g/dL (6.4-8.2)
--- NOTE | 2019-03-19 11:53 | RAD ---
EXAM: Abdomen sonogram. HISTORY: Pain. TECHNIQUE: Sonographic imaging of the abdomen was performed. COMPARISON: 08/19/2016 FINDINGS: The liver is normal in size. No focal hepatic lesion is seen. The there is suspected gallbladder sludge. The common bile duct is normal in caliber. The right kidney is unremarkable. The pancreas and inferior cava are obscured due to body habitus. IMPRESSION: 1. Suspected gallbladder sludge. 2. Obscured midline structures due to bowel gas. Electronically signed by: Sudha Kowalski MD (03/19/2019 11:50 AM) [facility]
[2019-03-19] MEDS ORDERED: MORPHINE SULFATE 4 MG/ML VIAL. IV ONE ×2 (12:15→14:15)
[2019-03-19 12:24] LABS: BILIRUBIN,URINE NEGATIVE (NEG); CLARITY,URINE CLEAR; COLOR,URINE YELLOW
[2019-03-19 12:25] LABS: BACTERIA,URINE FEW /HPF (0-FEW); NITRITE,URINE NEGATIVE (NEG); PH,URINE 5.5; PROTEIN,URINE NEGATIVE (NEG-TRACE); RBC,URINE RARE /HPF (0-2); SQUAMOUS EPITHELIAL CELL,UR FEW /LPF; UROBILINOGEN,URINE 0.2 mg/dL (0.2 mg/dL); WBC,URINE OCC /HPF (0-4)
[2019-03-19] MEDS ORDERED: ONDANSETRON PF 4 MG/2 ML VIAL. IV PRN (14:30)
[2019-03-19] MEDS ORDERED: POTASSIUM CL 20MEQ D5-0.45NACL 1,000 ML IV ONE (14:30)
[2019-03-19] MEDS ORDERED: LEVO125T5 PO (17:53)
[2019-03-19] MEDS: MORPHINE SULFATE 2 MG/ML VIAL. IV PRN ×2 (18:36→20:57)
[2019-03-19 19:00] VITALS: BP 99/45
[2019-03-19] MEDS: FAMOTIDINE 20 MG/2 ML VIAL IVP SCH (20:57)
[2019-03-19 23:00] VITALS: BP 100/57
[2019-03-20] MEDS: MORPHINE SULFATE 2 MG/ML VIAL. IV PRN ×2 (01:52→09:37)
[2019-03-20 03:00] VITALS: BP 104/47
[2019-03-20 07:00] VITALS: BP 101/58
--- NOTE | 2019-03-20 09:00 | NUR ---
SW consulted for Advance directives. Chart reviewed and discussed with RN. Pt lives at home and is an employee at [employer]. Pt completed form and is provided with Original and copies to take home. A copy also placed in pt's chart. No other SW needs noted at this time. Discussed with RN.
[2019-03-20] MEDS: FAMOTIDINE 20 MG/2 ML VIAL IVP SCH ×2 (09:37→20:48)
--- NOTE | 2019-03-20 09:53 | PDOC2 ---
CONSULT Date of Consult Date of Consult DATE: 03/20/19 TIME: 09:49 History of Present Illness Reason for Visit: The patient is a 58 year old female who is employed at [employer]. While working she developed severe upper abdominal pain. The pain was located in the upper mid abdomen with radiation to the right and left. She states she has had multiple of similar episodes in the past. She has seen other MDs and was told she has "gallbladder problems". She reports associated nausea, and denies changes in bowel function. Past Medical History Past Medical History anxiety Past Surgical History Past Surgical History tubal ligation Social History No Current Problem List Problem List Problems Medical Problems: (1) Biliary colic Status: Acute (2) Epigastric abdominal pain Status: Acute Current Medications Current Medications Current Medications Famotidine (Pepcid Vial) 20 mg 1X ONCE IVP Last administered on 03/19/19at 11:21; Start 03/19/19 at 11:15; Stop 03/19/19 at 11:16; Status DC Ondansetron HCl (Zofran) 4 mg 1X ONCE IV Last administered on 03/19/19at 11:21; Start 03/19/19 at 11:15; Stop 03/19/19 at 11:16; Status DC Fentanyl Citrate (Fentanyl 2ml Vial) 50 mcg 1X ONCE IV Last administered on 03/19/19at 11:21; Start 03/19/19 at 11:15; Stop 03/19/19 at 11:16; Status DC Morphine Sulfate (Morphine Sulfate) 4 mg 1X ONCE IV Last administered on 03/19/19at 12:20; Start 03/19/19 at 12:15; Stop 03/19/19 at 12:16; Status DC Morphine Sulfate (Morphine Sulfate) 4 mg 1X ONCE IV ; Start 03/19/19 at 14:15; Stop 03/19/19 at 14:18; Status DC Ondansetron HCl (Zofran) 4 mg PRN Q8HRS PRN IV NAUSEA/VOMITING Last administered on 03/20/19at 01:52; Start 03/19/19 at 14:30; Stop 03/20/19 at 14:29 Morphine Sulfate (Morphine Sulfate) 2 mg PRN Q2HR PRN IV PAIN Last administered on 03/20/19at 09:38; Start 03/19/19 at 14:30; Stop 03/20/19 at 14:29 Famotidine (Pepcid Vial) 20 mg Q12HR IVP Last administered on 03/20/19at 09:38; Start 03/19/19 at 21:00 Potassium Chloride/Dextrose/ Sod Cl 1,000 ml @ 125 mls/hr 1X ONCE IV Last administered on 03/19/19at 14:43; Start 03/19/19 at 14:30; Stop 03/19/19 at 22:29; Status DC Lorazepam (Ativan Inj) 0.5 mg 1X ONCE IV Last administered on 03/19/19at 14:57; Start 03/19/19 at 15:00; Stop 03/19/19 at 15:01; Status DC Lorazepam (Ativan Inj) 1 mg PRN Q6HRS PRN IV ANXIETY / AGITATION; Start 03/19/19 at 18:30 Active Scripts Active Augmentin 875-125 Tablet (Amoxicillin/Potassium Clav) 1 Each Tablet 1 Tab PO BID Reported Levothyroxine Sodium 125 Mcg Tablet 125 Mcg PO DAILY Ferrous Sulfate 325 Mg Tablet 1 Tab PO DAILY Valacyclovir (Valacyclovir Hcl) 500 Mg Tablet 1 Tab PO DAILY Primidone 250 Mg Tablet 250 Mg PO DAILY Omeprazole 20 Mg Tablet.dr 1 Tab PO DAILY Synthroid (Levothyroxine Sodium) 112 Mcg Tablet 125 Mcg PO DAILY Allergies Allergies: Coded Allergies: No Known Drug Allergies (Unverified , 09/25/18) ROS General: No: Chills, Night Sweats, Fatigue, Malaise, Appetite, Other PSYCHOLOGICAL ROS: No: Anxiety, Behavioral Disorder, Concentration difficultie, Decreased libido, Depression, Disorientation, Hallucinations, Hostility, Irritab lity, Memory difficulties, Mood Swings, Obsessive thoughts, Physical abuse, Sexual abuse, Sleep disturbances, Suicidal ideation, Other Eyes: No Blurry vision, No Decreased vision, No Double vision, No Dry eyes, No Excessive tearing, No Eye Pain, No Itchy Eyes, No Loss of vision, No Photophobia, No Scotomata, No Uses contacts, No Uses glasses, No Other HEENT: No: Heacaches, Visual Changes, Hearing change, Nasal congestion, Nasal discharge, Oral lesions, Sinus pain, Sore Throat, Epistaxis, Sneezing, Snoring, Tinnitus, Vertigo, Vocal changes, Other Hematological and Lymphatic: No: Bleeding Problems, Blood Clots, Blood Transfusions, Brusing, Night Sweats, Pallor, Swollen Lymph Nodes, Other ENDOCRINE: No: Breast Changes, Galactorrhea, Hair Pattern Changes, Hot Flashes, Malaise/lethargy, Mood Swings, Palpitations, Polydipsia/polyuria, Skin Changes, Temperature Intolerance, Unexpected Weight Changes, Other Cardiovascular: No Chest Pain, No Palpitations, No Orthopnea, No Paroxysmal Noc. Dyspnea, No Edema, No Lt Headedness, No Other Gastrointestinal: Yes Nausea, Yes Abdominal Pain Genitourinary: No Dysuria, No Frequency, No Incontinence, No Hematuria, No Retention, No Discharge, No Urgency, No Pain, No Flank Pain, No Other, No , No , No , No , No , No , No Musculoskeletal: No Gait Disturbance, No Joint Pain, No Joint Stiffness, No Joint Swelling, No Muscle Pain, No Muscular Weakness, No Pain In:, No Swelling In:, No Other Neurological: No Behavorial Changes, No Bowel/Bladder ControlChng, No Confusion, No Dizziness, No Gait Disturbance, No Headaches, No Impaired Coord/balance, No Memory Loss, No Numbness/Tingling, No Seizures, No Speech Problems, No Tremors, No Visual Changes, No Weakness, No Other Skin: No Dry Skin, No Eczema, No Hair Changes, No Lumps, No Mole Changes, No Mottling, No Nail Changes, No Pruritus, No Rash, No Skin Lesion Changes, No Other, No Acne Physical Exam General: Alert, Oriented X3, Cooperative HEENT: Atraumatic Lungs: Clear to auscultation Abdomen: Soft (tender in upper abdomen, R and L upper quadrants, no masses) Extremities: No clubbing, No cyanosis Skin: No rashes Neuro: Normal speech, Strength at 5/5 X4 ext Psych/Mental Status: Mental status NL MUSCULOSKELETAL: No joint tenderness, No deformity Vitals VITALS Vital Signs Date Time Temp Pulse Resp B/P (MAP) Pulse Ox O2 Delivery O2 Flow Rate FiO2 03/20/19 09:38 20 Room Air 03/20/19 07:00 97.9 73 101/58 (72) 100 97.9 Labs Labs Laboratory Tests Test 03/19/19 10:50 03/19/19 10:54 03/19/19 11:55 Glucose (Fingerstick) 79 mg/dL (70-99) White Blood Count 5.2 x10^3/uL (4.0-11.0) Red Blood Count 4.59 x10^6/uL (3.50-5.40) Hemoglobin 14.9 g/dL (12.0-15.5) Hematocrit 43.5 % (36.0-47.0) Mean Corpuscular Volume 95 fL (79-100) Mean Corpuscular Hemoglobin 32 pg (25-35) Mean Corpuscular Hemoglobin Concent 34 g/dL (31-37) Red Cell Distribution Width 13.7 % (11.5-14.5) Platelet Count 235 x10^3/uL (140-400) Neutrophils (%) (Auto) 63 % (31-73) Lymphocytes (%) (Auto) 28 % (24-48) Monocytes (%) (Auto) 8 % (0-9) Eosinophils (%) (Auto) 1 % (0-3) Basophils (%) (Auto) 1 % (0-3) Neutrophils # (Auto) 3.3 x10^3/uL (1.8-7.7) Lymphocytes # (Auto) 1.4 x10^3/uL (1.0-4.8) Monocytes # (Auto) 0.4 x10^3/uL (0.0-1.1) Eosinophils # (Auto) 0.0 x10^3/uL (0.0-0.7) Basophils # (Auto) 0.0 x10^3/uL (0.0-0.2) Sodium Level 142 mmol/L (136-145) Potassium Level 4.0 mmol/L (3.5-5.1) Chloride Level 106 mmol/L (98-107) Carbon Dioxide Level 27 mmol/L (21-32) Anion Gap 9 (6-14) Blood Urea Nitrogen 12 mg/dL (7-20) Creatinine 0.7 mg/dL (0.6-1.0) Estimated GFR (Cockcroft-Gault) 86.6 BUN/Creatinine Ratio 17 (6-20) Glucose Level 90 mg/dL (70-99) Calcium Level 9.0 mg/dL (8.5-10.1) Total Bilirubin 0.3 mg/dL (0.2-1.0) Aspartate Amino Transf (AST/SGOT) 21 U/L (15-37) Alanine Aminotransferase (ALT/SGPT) 20 U/L (14-59) Alkaline Phosphatase 102 U/L (46-116) Troponin I Quantitative < 0.017 ng/mL (0.000-0.055) Total Protein 7.2 g/dL (6.4-8.2) Albumin 3.8 g/dL (3.4-5.0) Albumin/Globulin Ratio 1.1 (1.0-1.7) Lipase 121 U/L (73-393) Urine Collection Type Unknown Urine Color Yellow Urine Clarity Clear Urine pH 5.5 Urine Specific [place] 1.015 Urine Protein Negative mg/dL (NEG-TRACE) Urine Glucose (UA) Negative mg/dL (NEG) Urine Ketones (Stick) Negative mg/dL (NEG) Urine Blood Negative (NEG) Urine Nitrite Negative (NEG) Urine Bilirubin Negative (NEG) Urine Urobilinogen Dipstick 0.2 mg/dL (0.2 mg/dL) Urine Leukocyte Esterase Negative (NEG) Urine RBC Rare /HPF (0-2) Urine WBC Occ /HPF (0-4) Urine Squamous Epithelial Cells Few /LPF Urine Bacteria Few /HPF (0-FEW) Laboratory Tests Test 03/19/19 10:50 03/19/19 10:54 03/19/19 11:55 Glucose (Fingerstick) 79 mg/dL (70-99) White Blood Count 5.2 x10^3/uL (4.0-11.0) Red Blood Count 4.59 x10^6/uL (3.50-5.40) Hemoglobin 14.9 g/dL (12.0-15.5) Hematocrit 43.5 % (36.0-47.0) Mean Corpuscular Volume 95 fL (79-100) Mean Corpuscular Hemoglobin 32 pg (25-35) Mean Corpuscular Hemoglobin Concent 34 g/dL (31-37) Red Cell Distribution Width 13.7 % (11.5-14.5) Platelet Count 235 x10^3/uL (140-400) Neutrophils (%) (Auto) 63 % (31-73) Lymphocytes (%) (Auto) 28 % (24-48) Monocytes (%) (Auto) 8 % (0-9) Eosinophils (%) (Auto) 1 % (0-3) Basophils (%) (Auto) 1 % (0-3) Neutrophils # (Auto) 3.3 x10^3/uL (1.8-7.7) Lymphocytes # (Auto) 1.4 x10^3/uL (1.0-4.8) Monocytes # (Auto) 0.4 x10^3/uL (0.0-1.1) Eosinophils # (Auto) 0.0 x10^3/uL (0.0-0.7) Basophils # (Auto) 0.0 x10^3/uL (0.0-0.2) Sodium Level 142 mmol/L (136-145) Potassium Level 4.0 mmol/L (3.5-5.1) Chloride Level 106 mmol/L (98-107) Carbon Dioxide Level 27 mmol/L (21-32) Anion Gap 9 (6-14) Blood Urea Nitrogen 12 mg/dL (7-20) Creatinine 0.7 mg/dL (0.6-1.0) Estimated GFR (Cockcroft-Gault) 86.6 BUN/Creatinine Ratio 17 (6-20) Glucose Level 90 mg/dL (70-99) Calcium Level 9.0 mg/dL (8.5-10.1) Total Bilirubin 0.3 mg/dL (0.2-1.0) Aspartate Amino Transf (AST/SGOT) 21 U/L (15-37) Alanine Aminotransferase (ALT/SGPT) 20 U/L (14-59) Alkaline Phosphatase 102 U/L (46-116) Troponin I Quantitative < 0.017 ng/mL (0.000-0.055) Total Protein 7.2 g/dL (6.4-8.2) Albumin 3.8 g/dL (3.4-5.0) Albumin/Globulin Ratio 1.1 (1.0-1.7) Lipase 121 U/L (73-393) Urine Collection Type Unknown Urine Color Yellow Urine Clarity Clear Urine pH 5.5 Urine Specific [place] 1.015 Urine Protein Negative mg/dL (NEG-TRACE) Urine Glucose (UA) Negative mg/dL (NEG) Urine Ketones (Stick) Negative mg/dL (NEG) Urine Blood Negative (NEG) Urine Nitrite Negative (NEG) Urine Bilirubin Negative (NEG) Urine Urobilinogen Dipstick 0.2 mg/dL (0.2 mg/dL) Urine Leukocyte Esterase Negative (NEG) Urine RBC Rare /HPF (0-2) Urine WBC Occ /HPF (0-4) Urine Squamous Epithelial Cells Few /LPF Urine Bacteria Few /HPF (0-FEW) Images Images Abdominal Sonogram: IMPRESSION: 1. Suspected gallbladder sludge. 2. Obscured midline structures due to bowel gas. Assessment/Plan Assessment/Plan Abdominal pain, consistent with biliary colic, gallbladder sludge. I discussed surgical treatment with the patient with lap kaelyn, the details and risks were discussed. She understands and would like to proceed. JULIUS MENDEZ MD Mar 20, 2019 09:53
[2019-03-20 11:00] VITALS: BP 108/60
--- NOTE | 2019-03-20 11:24 | NUR ---
Late entry: The patient, NIMISHA BLAKE, 58 y/o, F admitted by Clif RIZVI MD, was given written information regarding hospital policies, unit procedures and contact persons. Valuables were checked sent home with fam. Daughter at bedside.
[2019-03-20] MEDS ORDERED: SURGICEL HEMOSTAT 4X8 EACH. ONE (12:17)
[2019-03-20] MEDS ORDERED: IOHEXOL 300 MG/ML 50 ML VIAL. ONE (12:17)
[2019-03-20] MEDS ORDERED: BUPIVACAINE MPF 0.5% 30 ML VIAL. ONE (12:30)
[2019-03-20] MEDS ORDERED: fentaNYL PF VIAL 100 MCG/2 ML VIAL ONE ×2 (12:37→15:19)
[2019-03-20] MEDS ORDERED: PROPOFOL 20 ML IV ONE (12:37)
[2019-03-20] MEDS ORDERED: ONDANSETRON PF 4 MG/2 ML VIAL. ONE (12:37)
[2019-03-20] MEDS ORDERED: DEXAMETHASONE SOD PHOS 4 MG/ML VIAL ONE (12:37)
[2019-03-20] MEDS ORDERED: ROCURONIUM 50 MG/5 ML VIAL. ONE (12:38)
[2019-03-20] MEDS ORDERED: SUCCINYLCHOLINE 200 MG/10 ML VIAL. ONE (13:09)
[2019-03-20] MEDS: IV RINGERS,LACTATED 1000ML 1,000 ML IV SCH ×2 (13:15→16:36)
[2019-03-20] MEDS ORDERED: PHENYLEPHRINE in 0.9% NACL PF 1 MG/10 ML SYRINGE. IV ONE (14:04)
[2019-03-20] MEDS ORDERED: GLYCOPYRROLATE 1 MG/5 ML VIAL. ONE (14:27)
[2019-03-20] MEDS ORDERED: NEOSTIGMINE METHYLSULFATE 5 MG/5 ML SYRINGE. ONE (14:28)
[2019-03-20] MEDS ORDERED: LIDOCAINE 2% PF 5 ML VIAL. ONE (14:29)
[2019-03-20] MEDS ORDERED: KETOROLAC 30 MG/ML INJ FOR OR. INJ ONE (14:29)
[2019-03-20] MEDS ORDERED: SEVOFLURANE 61 TO 120 MINUTES. IH ONE (14:30)
--- NOTE | 2019-03-20 14:30 | PDOC1 ---
History and Physical Date of Admission Date of Admission 03/19/19 Identification/Chief Complaint Chief Complaint sudden severe RUQ abdominal pain with nausea History of Present Illness History of Present Illness She works here at [employer] and yesterday am developed sudden onset of abdominal pain and source determined to likely be from diseased gallbladder, admitted for pain and nausea control and surgical consultation and agreed to lap kaelyn as tx Past Medical History Cardiovascular: HTN GI: GERD, Other ([place]) Psych: Anxiety Infectious disease: Herpes simplex2 ENT: No pertinent hx Renal/: No pertinent hx Endocrine: No pertinent hx Dermatology: No pertinent hx Past Surgical History Past Surgical History: Tubal Ligation Social History Smoke: No Current Problem List Problem List Problems Medical Problems: (1) Biliary colic Status: Acute (2) Epigastric abdominal pain Status: Acute Current Medications Current Medications Current Medications Medications (Trade) Dose Ordered Sig/Mary Start Time Stop Time Status Last Admin Dose Admin Bupivacaine HCl (Sensorcaine Mpf 0.5%) 30 ml STK-MED ONCE 03/20/19 12:30 03/20/19 13:30 DC Cefazolin Sodium/ Dextrose 50 ml @ 100 mls/hr 1X PREOP PRN 03/20/19 13:21 03/21/19 13:20 Cellulose (Surgicel Hemostat 4x8) 1 each STK-MED ONCE 03/20/19 12:17 03/20/19 13:17 DC Dexamethasone Sodium Phosphate (Decadron) 4 mg STK-MED ONCE 03/20/19 12:37 03/20/19 12:37 DC Famotidine (Pepcid Vial) 20 mg Q12HR 03/19/19 21:00 03/20/19 09:38 20 MG Fentanyl Citrate (Fentanyl 2ml Vial) 100 mcg STK-MED ONCE 03/20/19 12:37 03/20/19 12:38 DC Iohexol (Omnipaque 300 Mg/ml) 50 ml STK-MED ONCE 03/20/19 12:17 03/20/19 13:17 DC Lorazepam (Ativan Inj) 1 mg PRN Q6HRS PRN 03/19/19 18:30 Morphine Sulfate (Morphine Sulfate) 2 mg PRN Q2HR PRN 03/19/19 14:30 03/20/19 14:29 03/20/19 09:38 2 MG Ondansetron HCl (Zofran) 4 mg STK-MED ONCE 03/20/19 12:37 03/20/19 12:37 DC Phenylephrine HCl (PHENYLEPHRINE in 0.9% NACL PF) 1 mg STK-MED ONCE 03/20/19 14:04 03/20/19 14:04 DC Potassium Chloride/Dextrose/ Sod Cl 1,000 ml @ 125 mls/hr 1X ONCE 03/19/19 14:30 03/19/19 22:29 DC 03/19/19 14:43 125 MLS/HR Propofol 20 ml @ As Directed STK-MED ONCE 03/20/19 12:37 03/20/19 12:37 DC Rocuronium [place] (Zemuron) 50 mg STK-MED ONCE 03/20/19 12:38 03/20/19 12:38 DC Succinylcholine Chloride (Anectine) 200 mg STK-MED ONCE 03/20/19 13:09 03/20/19 13:09 DC Allergies Allergies Allergies Coded Allergies Type Severity Reaction Last Updated Verified No Known Drug Allergies 09/25/18 No ROS Review of System CONSTITUTIONAL: No fever or chills EYES: No recent changes SKIN: No rash or itching CARDIOVASCULAR: No chest pain, syncope, palpitations, or edema RESPIRATORY: No SOB or cough GASTROINTESTINAL: see HPI NEUROLOGICAL: No headaches or weakness ENDOCRINE: No cold or heat intolerance GENITOURINARY: No urgency or frequency of urination MUSCULOSKELETAL: No back pain or joint pain LYMPHATICS: No enlarged lymph nodes PSYCHIATRIC: + anxiety Physical Exam Physical Exam GEN.: No apparent distress. Alert and oriented. HEENT: Head is normocephalic, atraumatic NECK: Supple. LUNGS: Clear to auscultation. HEART: RRR, S1, S2 present. Peripheral pulses intact ABDOMEN: Soft, nontender. Positive bowel sounds. EXTREMITIES: Without any cyanosis. NEUROLOGIC: Normal speech, normal tone PSYCHIATRIC: Normal affect, normal mood. SKIN: No ulcerations Vitals Vitals Vital Signs Date Time Temp Pulse Resp B/P (MAP) Pulse Ox O2 Delivery O2 Flow Rate FiO2 03/20/19 14:14 16 Room Air 03/20/19 12:52 97.8 55 130/71 95 97.8 Labs Labs Laboratory Tests Test 03/19/19 10:50 03/19/19 10:54 03/19/19 11:55 Glucose (Fingerstick) 79 mg/dL (70-99) White Blood Count 5.2 x10^3/uL (4.0-11.0) Red Blood Count 4.59 x10^6/uL (3.50-5.40) Hemoglobin 14.9 g/dL (12.0-15.5) Hematocrit 43.5 % (36.0-47.0) Mean Corpuscular Volume 95 fL (79-100) Mean Corpuscular Hemoglobin 32 pg (25-35) Mean Corpuscular Hemoglobin Concent 34 g/dL (31-37) Red Cell Distribution Width 13.7 % (11.5-14.5) Platelet Count 235 x10^3/uL (140-400) Neutrophils (%) (Auto) 63 % (31-73) Lymphocytes (%) (Auto) 28 % (24-48) Monocytes (%) (Auto) 8 % (0-9) Eosinophils (%) (Auto) 1 % (0-3) Basophils (%) (Auto) 1 % (0-3) Neutrophils # (Auto) 3.3 x10^3/uL (1.8-7.7) Lymphocytes # (Auto) 1.4 x10^3/uL (1.0-4.8) Monocytes # (Auto) 0.4 x10^3/uL (0.0-1.1) Eosinophils # (Auto) 0.0 x10^3/uL (0.0-0.7) Basophils # (Auto) 0.0 x10^3/uL (0.0-0.2) Sodium Level 142 mmol/L (136-145) Potassium Level 4.0 mmol/L (3.5-5.1) Chloride Level 106 mmol/L (98-107) Carbon Dioxide Level 27 mmol/L (21-32) Anion Gap 9 (6-14) Blood Urea Nitrogen 12 mg/dL (7-20) Creatinine 0.7 mg/dL (0.6-1.0) Estimated GFR (Cockcroft-Gault) 86.6 BUN/Creatinine Ratio 17 (6-20) Glucose Level 90 mg/dL (70-99) Calcium Level 9.0 mg/dL (8.5-10.1) Total Bilirubin 0.3 mg/dL (0.2-1.0) Aspartate Amino Transf (AST/SGOT) 21 U/L (15-37) Alanine Aminotransferase (ALT/SGPT) 20 U/L (14-59) Alkaline Phosphatase 102 U/L (46-116) Troponin I Quantitative < 0.017 ng/mL (0.000-0.055) Total Protein 7.2 g/dL (6.4-8.2) Albumin 3.8 g/dL (3.4-5.0) Albumin/Globulin Ratio 1.1 (1.0-1.7) Lipase 121 U/L (73-393) Urine Collection Type Unknown Urine Color Yellow Urine Clarity Clear Urine pH 5.5 Urine Specific [place] 1.015 Urine Protein Negative mg/dL (NEG-TRACE) Urine Glucose (UA) Negative mg/dL (NEG) Urine Ketones (Stick) Negative mg/dL (NEG) Urine Blood Negative (NEG) Urine Nitrite Negative (NEG) Urine Bilirubin Negative (NEG) Urine Urobilinogen Dipstick 0.2 mg/dL (0.2 mg/dL) Urine Leukocyte Esterase Negative (NEG) Urine RBC Rare /HPF (0-2) Urine WBC Occ /HPF (0-4) Urine Squamous Epithelial Cells Few /LPF Urine Bacteria Few /HPF (0-FEW) VTE Prophylaxis Ordered VTE Prophylaxis Devices: No VTE Pharmacological Prophylaxi: No Assessment/Plan Assessment/Plan abdominal pain, likely gallbladder origin - surgical consult for Clif Whaley MD Mar 20, 2019 2:30 pm
--- NOTE | 2019-03-20 14:46 | PDOC4 ---
Operative Note Operative Note Operative Note: Preoperative Diagnosis: Biliary colic Postoperative Diagnosis: Same Procedure: Laparoscopic cholecystectomy with intraoperative cholangiogram Surgeons: David Manager Car: Mima MOSLEY Anesthesia: Gen. Estimated Blood Loss: 10 mL Specimen: Gallbladder to pathology Drains: None Complications: None Indications: The patient is a 58 year old who is been experiencing recurrent upper abdominal pain consistent with biliary colic. She reported to the ER with worsening pain and a sonogram showed gallbladder sludge. Surgical treatment was offered by means of a laparoscopic cholecystectomy. The risks of surgery were discussed which include bleeding, infection, bile duct injury, bile leak, pain, the potential for additional surgeries or procedures. The patient understands and would like to proceed. Description: The patient was taken to the operating room and laid supine on the operating table. General anesthesia was performed. The abdomen was prepped with ChloraPrep and draped in a standard surgical fashion. A small supraumbilical incision was made with a scalpel. The Veress needle was then inserted and a pneumoperitoneum was then created. A 5 mm trocar was then inserted and the laparoscope was introduced. In the upper midabdomen a 5 mm trocar was inserted and in the right upper quadrant two 2.3 mm mini lap graspers were inserted. The gallbladder was retracted cephalad. The cystic duct was dissected free from surrounding tissues. One clip was placed on the duct near the gallbladder junction. An opening was made in the duct and a c holangiocatheter placed within and secured with a clip. Using contrast dye and fluoroscopy an intraoperative cholangiogram was performed that appeared unremarkable. The clip and catheter were then withdrawn. Three clips were placed on the cystic duct and it was divided. The cystic artery was then identified, dissected free, doubly clipped and divided as well. The gallbladder was then mobilized away from the liver with cautery. The umbilical 5 millimeter trocar was exchanged for an 11 millimeter trocar. The gallbladder was then placed in an endoscopic bag and extracted at the umbilical trocar site. The fascia there was closed with an 0 Vicryl suture. All blood and irrigation fluid was suctioned and hemostasis was good. The remaining ports were removed and the pneumoperitoneum was relieved. The skin incisions were injected with half percent Marcaine with epinephrine, and all were closed using 4-0 Monocryl suture. Steri-Strips and dressings were then applied. The patient tolerated the procedure well and was sent to the recovery room in stable condition. At the end of the case all counts were correct. JULIUS MENDEZ MD Mar 20, 2019 14:46
--- NOTE | 2019-03-20 14:56 | RAD ---
EXAM: Intraoperative cholangiogram. HISTORY: Cholecystectomy. COMPARISON: None. FINDINGS: 3 fluoroscopic images were obtained during an intraoperative cholangiogram. The total fluoroscopy time is 0.21 minutes. The images demonstrate contrast opacification of a mildly dilated downstream biliary tree and proximal duodenum. No retained stone is seen within the opacified biliary tree. IMPRESSION: Intraoperative galactogram without evidence of retained stone. There is mild common bile duct dilatation. Electronically signed by: Sudha Kowalski MD (03/20/2019 2:53 PM) [place] [id number]
[2019-03-20] MEDS ORDERED: oxyCODONE/APAP 5/325 1 TAB TABLET PO PRN (15:00)
[2019-03-20] MEDS ORDERED: IV RINGERS,LACTATED 1000ML 1,000 ML IV SCH (15:21)
[2019-03-20] MEDS ORDERED: HYDROmorphone 2 MG/ML VIAL IV PRN (15:30)
[2019-03-20] MEDS ORDERED: LIDOCAINE 1% PF 2 ML VIAL. ID PRN (15:30)
[2019-03-20] MEDS ORDERED: fentaNYL PF VIAL 100 MCG/2 ML VIAL IV PRN ×2 (15:30)
[2019-03-20] MEDS ORDERED: ONDANSETRON PF 4 MG/2 ML VIAL. IV PRN (15:30)
[2019-03-20] MEDS ORDERED: MORPHINE SULFATE 2 MG/ML VIAL. IV PRN (15:30)
[2019-03-20] MEDS ORDERED: PROCHLORPERAZINE 10 MG/2 ML VIAL. IV PRN (15:30)
[2019-03-20 19:00] VITALS: BP 135/78
[2019-03-20] MEDS: oxyCODONE/APAP 5/325 1 TAB TABLET PO PRN (20:50)
[2019-03-20 23:59] VITALS: BP 153/63
[2019-03-21] MEDS: oxyCODONE/APAP 5/325 1 TAB TABLET PO PRN ×4 (01:35→22:36)
[2019-03-21 03:28] VITALS: BP 104/56
[2019-03-21 07:00] VITALS: BP 125/63
--- NOTE | 2019-03-21 08:53 | PDOC ---
PROGRESS NOTES Subjective Anxious, tremor present, no nausea or vomiting, no chest pain or SOA, typical post op pain, able to get up with assist Objective Afebrile General: anxious, A&O Heart: RRR Lungs: CTA Abd: dressings dry, bowels quiet Ext: no C/C/E Vital Signs Vital Signs Date Time Temp Pulse Resp B/P (MAP) Pulse Ox O2 Delivery O2 Flow Rate FiO2 03/21/19 07:33 22 Room Air 03/21/19 07:00 98.0 42 125/63 (83) 94 98.0 03/20/19 16:38 2.0 I & O Intake and Output 03/21/19 06:59 Intake Total 1375 ml Output Total 215 ml Balance 1160 ml Intake Oral 525 ml IV Total 850 ml Output Urine Total 205 ml Estimated Blood Loss 10 ml # Voids 2 Assessment and Plan (1) Biliary colic Status: Acute (2) Epigastric abdominal pain Status: Acute POD #1 lap kaelyn, post op care - add prn bowel meds, pain control Clif RIZVI MD Mar 21, 2019 08:53
[2019-03-21] MEDS ORDERED: FERROUS SULFATE 325 MG TABLET. PO SCH (09:00)
[2019-03-21] MEDS: PRIMIDONE 250 MG TABLET PO SCH (09:00)
[2019-03-21] MEDS: valACYclovir 500 MG TABLET. PO SCH (09:59)
[2019-03-21] MEDS: PANTOPRAZOLE 40 MG TABLET.DR. PO SCH (09:59)
[2019-03-21] MEDS: POLYETHYLENE GLYCOL 3350 17 GM PACKET. PO PRN (10:00)
[2019-03-21] MEDS: FAMOTIDINE 20 MG/2 ML VIAL IVP SCH ×2 (10:00→20:35)
--- NOTE | 2019-03-21 10:14 | PDOC ---
PROGRESS NOTES Subjective Subjective complains of pain, worse with coughing Objective Objective Vital Signs Date Time Temp Pulse Resp B/P (MAP) Pulse Ox O2 Delivery O2 Flow Rate FiO2 03/21/19 10:01 18 Room Air 03/21/19 07:00 98.0 42 125/63 (83) 94 98.0 03/20/19 16:38 2.0 Intake and Output 03/21/19 06:59 Intake Total 1375 ml Output Total 215 ml Balance 1160 ml Intake Oral 525 ml IV Total 850 ml Output Urine Total 205 ml Estimated Blood Loss 10 ml # Voids 2 Physical Exam Abdomen: Soft Assessment Assessment Problems Medical Problems: (1) Biliary colic Status: Acute (2) Epigastric abdominal pain Status: Acute Plan Plan of Care Stable postop, pain control today, add toradol, prob DC tomorrow Comment Review of Relevant I have reviewed the following items willian (where applicable) has been applied. Labs Laboratory Tests Test 03/19/19 10:50 03/19/19 10:54 03/19/19 11:55 Glucose (Fingerstick) 79 mg/dL (70-99) White Blood Count 5.2 x10^3/uL (4.0-11.0) Red Blood Count 4.59 x10^6/uL (3.50-5.40) Hemoglobin 14.9 g/dL (12.0-15.5) Hematocrit 43.5 % (36.0-47.0) Mean Corpuscular Volume 95 fL (79-100) Mean Corpuscular Hemoglobin 32 pg (25-35) Mean Corpuscular Hemoglobin Concent 34 g/dL (31-37) Red Cell Distribution Width 13.7 % (11.5-14.5) Platelet Count 235 x10^3/uL (140-400) Neutrophils (%) (Auto) 63 % (31-73) Lymphocytes (%) (Auto) 28 % (24-48) Monocytes (%) (Auto) 8 % (0-9) Eosinophils (%) (Auto) 1 % (0-3) Basophils (%) (Auto) 1 % (0-3) Neutrophils # (Auto) 3.3 x10^3/uL (1.8-7.7) Lymphocytes # (Auto) 1.4 x10^3/uL (1.0-4.8) Monocytes # (Auto) 0.4 x10^3/uL (0.0-1.1) Eosinophils # (Auto) 0.0 x10^3/uL (0.0-0.7) Basophils # (Auto) 0.0 x10^3/uL (0.0-0.2) Sodium Level 142 mmol/L (136-145) Potassium Level 4.0 mmol/L (3.5-5.1) Chloride Level 106 mmol/L (98-107) Carbon Dioxide Level 27 mmol/L (21-32) Anion Gap 9 (6-14) Blood Urea Nitrogen 12 mg/dL (7-20) Creatinine 0.7 mg/dL (0.6-1.0) Estimated GFR (Cockcroft-Gault) 86.6 BUN/Creatinine Ratio 17 (6-20) Glucose Level 90 mg/dL (70-99) Calcium Level 9.0 mg/dL (8.5-10.1) Total Bilirubin 0.3 mg/dL (0.2-1.0) Aspartate Amino Transf (AST/SGOT) 21 U/L (15-37) Alanine Aminotransferase (ALT/SGPT) 20 U/L (14-59) Alkaline Phosphatase 102 U/L (46-116) Troponin I Quantitative < 0.017 ng/mL (0.000-0.055) Total Protein 7.2 g/dL (6.4-8.2) Albumin 3.8 g/dL (3.4-5.0) Albumin/Globulin Ratio 1.1 (1.0-1.7) Lipase 121 U/L (73-393) Urine Collection Type Unknown Urine Color Yellow Urine Clarity Clear Urine pH 5.5 Urine Specific At[place]issa 1.015 Urine Protein Negative mg/dL (NEG-TRACE) Urine Glucose (UA) Negative mg/dL (NEG) Urine Ketones (Stick) Negative mg/dL (NEG) Urine Blood Negative (NEG) Urine Nitrite Negative (NEG) Urine Bilirubin Negative (NEG) Urine Urobilinogen Dipstick 0.2 mg/dL (0.2 mg/dL) Urine Leukocyte Esterase Negative (NEG) Urine RBC Rare /HPF (0-2) Urine WBC Occ /HPF (0-4) Urine Squamous Epithelial Cells Few /LPF Urine Bacteria Few /HPF (0-FEW) Medications Current Medications Famotidine (Pepcid Vial) 20 mg 1X ONCE IVP Last administered on 03/19/19 11:21; Start 03/19/19 at 11:15; Stop 03/19/19 at 11:16; Status DC Ondansetron HCl (Zofran) 4 mg 1X ONCE IV Last administered on 03/19/19 11:21; Start 03/19/19 at 11:15; Stop 03/19/19 at 11:16; Status DC Fentanyl Citrate (Fentanyl 2ml Vial) 50 mcg 1X ONCE IV Last administered on 03/19/19 11:21; Start 03/19/19 at 11:15; Stop 03/19/19 at 11:16; Status DC Morphine Sulfate (Morphine Sulfate) 4 mg 1X ONCE IV Last administered on 03/19/19 12:20; Start 03/19/19 at 12:15; Stop 03/19/19 at 12:16; Status DC Morphine Sulfate (Morphine Sulfate) 4 mg 1X ONCE IV ; Start 03/19/19 at 14:15; Stop 03/19/19 at 14:18; Status DC Ondansetron HCl (Zofran) 4 mg PRN Q8HRS PRN IV NAUSEA/VOMITING Last administered on 03/20/19 01:52; Start 03/19/19 at 14:30; Stop 03/20/19 at 14:29; Status DC Morphine Sulfate (Morphine Sulfate) 2 mg PRN Q2HR PRN IV PAIN Last administered on 03/20/19 09:38; Start 03/19/19 at 14:30; Stop 03/20/19 at 14:29; Status DC Famotidine (Pepcid Vial) 20 mg Q12HR IVP Last administered on 03/21/19 10:01; Start 03/19/19 at 21:00 Potassium Chloride/Dextrose/ Sod Cl 1,000 ml @ 125 mls/hr 1X ONCE IV Last adm inistered on 03/19/19 14:43; Start 03/19/19 at 14:30; Stop 03/19/19 at 22:29; Status DC Lorazepam (Ativan Inj) 0.5 mg 1X ONCE IV Last administered on 03/19/19 14:57; Start 03/19/19 at 15:00; Stop 03/19/19 at 15:01; Status DC Lorazepam (Ativan Inj) 1 mg PRN Q6HRS PRN IV ANXIETY / AGITATION Last administered on 03/21/19at 10:01; Start 03/19/19 at 18:30 Propofol 20 ml @ As Directed STK-MED ONCE IV ; Start 03/20/19 at 12:37; Stop 03/20/19 at 12:37; Status DC Ondansetron HCl (Zofran) 4 mg STK-MED ONCE .ROUTE ; Start 03/20/19 at 12:37; Stop 03/20/19 at 12:37; Status DC Dexamethasone Sodium Phosphate (Decadron) 4 mg STK-MED ONCE .ROUTE ; Start 03/20/19 at 12:37; Stop 03/20/19 at 12:37; Status DC Fentanyl Citrate (Fentanyl 2ml Vial) 100 mcg STK-MED ONCE .ROUTE ; Start 03/20/19 at 12:37; Stop 03/20/19 at 12:38; Status DC Rocuronium [place] (Zemuron) 50 mg STK-MED ONCE .ROUTE ; Start 03/20/19 at 12:38; Stop 03/20/19 at 12:38; Status DC Succinylcholine Chloride (Anectine) 200 mg STK-MED ONCE .ROUTE ; Start 03/20/19 at 13:09; Stop 03/20/19 at 13:09; Status DC Iohexol (Omnipaque 300 Mg/ml) 50 ml STK-MED ONCE .ROUTE Last administered on 03/20/19at 14:35; Start 03/20/19 at 12:17; Stop 03/20/19 at 13:17; Status DC Cellulose (Surgicel Hemostat 4x8) 1 each STK-MED ONCE .ROUTE ; Start 03/20/19 at 12:17; Stop 03/20/19 at 13:17; Status DC Cefazolin Sodium/ Dextrose 50 ml @ 100 mls/hr 1X PREOP PRN IV Pre Op dose Last administered on 03/20/19at 14:23; Start 03/20/19 at 13:21; Stop 03/21/19 at 13:20 Bupivacaine HCl (Sensorcaine Mpf 0.5%) 30 ml STK-MED ONCE .ROUTE Last administered on 03/20/19at 14:47; Start 03/20/19 at 12:30; Stop 03/20/19 at 13:30; Status DC Phenylephrine HCl (PHENYLEPHRINE in 0.9% NACL PF) 1 mg STK-MED ONCE IV ; Start 03/20/19 at 14:04; Stop 03/20/19 at 14:04; Status DC Glycopyrrolate (Robinul) 1 mg STK-MED ONCE .ROUTE ; Start 03/20/19 at 14:27; Stop 03/20/19 at 14:28; Status DC Neostigmine Methylsulfate (Neostigmine Methylsulfate) 5 mg STK-MED ONCE .ROUTE ; Start 03/20/19 at 14:28; Stop 03/20/19 at 14:28; Status DC Ketorolac Tromethamine (Toradol For Or Only) 30 mg STK-MED ONCE INJ ; Start 03/20/19 at 14:29; Stop 03/20/19 at 14:29; Status DC Lidocaine HCl (Lidocaine Pf 2% Vial) 5 ml STK-MED ONCE .ROUTE ; Start 03/20/19 at 14:29; Stop 03/20/19 at 14:30; Status DC Sevoflurane (Ultane) 60 ml STK-MED ONCE IH ; Start 03/20/19 at 14:30; Stop 03/20/19 at 14:30; Status DC Ringer's Solution 1,000 ml @ 125 mls/hr Q8H IV Last administered on 03/20/19at 14:39; Start 03/20/19 at 13:00; Stop 03/21/19 at 00:59; Status DC Oxycodone/ Acetaminophen (Percocet 5/325) 1 tab PRN Q4HRS PRN PO PAIN; Start 03/20/19 at 15:00 Oxycodone/ Acetaminophen (Percocet 5/325) 2 tab PRN Q4HRS PRN PO PAIN Last administered on 03/21/19at 07:33; Start 03/20/19 at 15:00 Fentanyl Citrate (Fentanyl 2ml Vial) 100 mcg STK-MED ONCE .ROUTE ; Start 03/20/19 at 15:19; Stop 03/20/19 at 15:20; Status DC Ondansetron HCl (Zofran) 4 mg PRN Q6HRS PRN IV NAUSEA/VOMITING Last administered on 03/20/19at 20:54; Start 03/20/19 at 15:30; Stop 03/21/19 at 15:29 Fentanyl Citrate (Fentanyl 2ml Vial) 25 mcg PRN Q5MIN PRN IV MILD PAIN 1-3 Last administered on 03/20/19at 16:22; Start 03/20/19 at 15:30; Stop 03/21/19 at 08:45; Status DC Fentanyl Citrate (Fentanyl 2ml Vial) 50 mcg PRN Q5MIN PRN IV MODERATE TO SEVERE PAIN Last administered on 03/20/19at 16:38; Start 03/20/19 at 15:30; Stop 03/21/19 at 08:45; Status DC Morphine Sulfate (Morphine Sulfate) 1 mg PRN Q10MIN PRN IV SEVERE PAIN 7-10; S tart 03/20/19 at 15:30; Stop 03/21/19 at 08:45; Status DC Ringer's Solution 1,000 ml @ 30 mls/hr Q24H IV ; Start 03/20/19 at 15:21; Stop 03/21/19 at 03:20; Status DC Lidocaine HCl (Xylocaine-Mpf 1% 2ml Vial) 2 ml PRN 1X PRN ID PRIOR TO IV START; Start 03/20/19 at 15:30; Stop 03/21/19 at 15:29 Hydromorphone HCl (Dilaudid) 0.5 mg PRN Q10MIN PRN IV SEV PAIN, Second choice; Start 03/20/19 at 15:30; Stop 03/21/19 at 08:45; Status DC Prochlorperazine Edisylate (Compazine) 5 mg PACU PRN PRN IV NAUSEA, MRX1; Start 03/20/19 at 15:30; Stop 03/21/19 at 15:29 Ferrous Sulfate (Feosol) 325 mg DAILY PO ; Start 03/21/19 at 09:00; Stop 03/21/19 at 08:56; Status DC Primidone (Mysoline) 250 mg DAILY PO ; Start 03/21/19 at 09:00 Valacyclovir HCl (Valtrex) 500 mg DAILY PO Last administered on 03/21/19at 10:01; Start 03/21/19 at 09:00 Pantoprazole Sodium (Protonix) 40 mg DAILYAC PO Last administered on 03/21/19at 10:01; Start 03/21/19 at 07:30 Polyethylene Glycol (miraLAX PACKET) 17 gm PRN DAILY PRN PO CONSTIPATION Last administered on 03/21/19at 10:01; Start 03/21/19 at 08:45 Active Scripts Active Augmentin 875-125 Tablet (Amoxicillin/Potassium Clav) 1 Each Tablet 1 Tab PO BID Reported Levothyroxine Sodium 125 Mcg Tablet 125 Mcg PO DAILY Ferrous Sulfate 325 Mg Tablet 1 Tab PO DAILY Valacyclovir (Valacyclovir Hcl) 500 Mg Tablet 1 Tab PO DAILY Primidone 250 Mg Tablet 250 Mg PO DAILY Omeprazole 20 Mg Tablet.dr 1 Tab PO DAILY Synthroid (Levothyroxine Sodium) 112 Mcg Tablet 125 Mcg PO DAILY Vitals/I & O Vital Sign - Last 24 Hours 03/20/19 03/20/19 03/20/19 03/20/19 11:00 12:52 14:14 14:51 Temp 98.4 97.8 98.4 97.8 Pulse 50 55 Resp 17 18 16 B/P (MAP) 108/60 (76) 130/71 Pulse Ox 94 95 O2 Delivery Room Air Room Air Room Air Mask O2 Flow Rate 8 03/20/19 03/20/19 03/20/19 03/20/19 14:51 15:06 15:21 15:36 Temp 97.6 97.6 97.6 97.6 Pulse 66 46 50 48 Resp 14 16 16 16 B/P (MAP) 133/75 119/43 118/87 116/52 Pulse Ox 99 98 97 97 O2 Delivery Simple Mask Simple Mask Nasal Cannula Nasal Cannula O2 Flow Rate 8 8 2 2 03/20/19 03/20/19 03/20/19 03/20/19 15:51 16:22 16:38 18:40 Pulse 54 Resp 18 18 26 16 B/P (MAP) 110/61 Pulse Ox 97 97 97 O2 Delivery Nasal Cannula Nasal Cannula Nasal Cannula O2 Flow Rate 2 2.0 2.0 03/20/19 03/20/19 03/20/19 03/20/19 19:00 19:57 20:54 23:01 Temp 97.6 97.6 Pulse 99 Resp 17 B/P (MAP) 135/78 (97) Pulse Ox 96 O2 Delivery Room Air Room Air Room Air Room Air 03/20/19 03/21/19 03/21/19 03/21/19 23:59 01:35 03:03 03:28 Temp 97.6 98.0 97.6 98.0 Pulse 59 60 Resp 18 18 B/P (MAP) 153/63 (93) 104/56 (72) Pulse Ox 94 95 O2 Delivery Room Air Room Air Room Air Room Air 03/21/19 03/21/19 03/21/19 07:00 07:33 10:01 Temp 98.0 98.0 Pulse 42 Resp 16 22 18 B/P (MAP) 125/63 (83) Pulse Ox 94 O2 Delivery Room Air Room Air Room Air Intake and Output 03/20/19 03/20/19 03/21/19 14:59 22:59 06:59 Intake Total 700 ml 275 ml 400 ml Output Total 215 ml Balance 485 ml 275 ml 400 ml JULIUS MENDEZ MD Mar 21, 2019 10:14
[2019-03-21] MEDS ORDERED: KETOROLAC 30 MG/ML VIAL. IV PRN (10:15)
[2019-03-21 11:00] VITALS: BP 85/46
[2019-03-21 15:00] VITALS: BP 103/59
[2019-03-21 19:00] VITALS: BP 106/59
[2019-03-21 22:49] VITALS: BP 89/53
[2019-03-22 02:56] VITALS: BP_SYST 100; BP_DIAS 53; BP_DIAS 55
[2019-03-22 07:00] VITALS: BP 119/86
[2019-03-22] MEDS: ALBUTEROL SULFATE 2.5 MG/3 ML NEBU. NEB SCH ×3 (09:00→15:38)
[2019-03-22] MEDS ORDERED: ALPRAZolam 0.5 MG TABLET PO PRN (09:00)
[2019-03-22] MEDS ORDERED: guaiFENesin DM 600/30MG 1 TAB TAB.ER.12H PO SCH (09:00)
[2019-03-22] MEDS: oxyCODONE/APAP 5/325 1 TAB TABLET PO PRN ×2 (09:15→16:48)
[2019-03-22] MEDS: PRIMIDONE 250 MG TABLET PO SCH (09:16)
[2019-03-22] MEDS: PANTOPRAZOLE 40 MG TABLET.DR. PO SCH (09:16)
[2019-03-22] MEDS: FAMOTIDINE 20 MG/2 ML VIAL IVP SCH (09:17)
[2019-03-22] MEDS: BENZONATATE 100 MG CAPSULE. PO SCH ×2 (09:17→16:44)
[2019-03-22] MEDS: valACYclovir 500 MG TABLET. PO SCH (09:18)
[2019-03-22] MEDS: POLYETHYLENE GLYCOL 3350 17 GM PACKET. PO PRN (09:38)
--- NOTE | 2019-03-22 09:38 | PDOC ---
SURGICAL PROGRESS NOTE Subjective Patient doing okay tolerated diet she does have a cough she has difficulty getting phlegm up she says and hurts when she does cough Vital Signs Vital Signs Date Time Temp Pulse Resp B/P (MAP) Pulse Ox O2 Delivery O2 Flow Rate FiO2 03/22/19 09:28 98 03/22/19 09:22 20 Room Air 03/22/19 07:00 98.1 61 119/86 (97) 98.1 I&O Intake and Output 03/22/19 06:59 Intake Total 1160 ml Balance 1160 ml Intake Oral 1160 ml # Voids 5 PATIENT HAS A RODRIGUEZ: No General: Alert, Oriented X3, Cooperative, mild distress Lungs: Other (cough) Abdomen: Normal bowel sounds, Soft, Other (mild incisional tenderness wounds clean dry and intact) Problem List Problems Medical Problems: (1) Biliary colic Status: Acute (2) Epigastric abdominal pain Status: Acute Assessment/Plan Status post laparoscopic cholecystectomy from surgical point of view she could be discharged to home to follow-up with Dr. Cee in 2 weeks FAMILIA MELÉNDEZ MD Mar 22, 2019 09:38
[2019-03-22 11:00] VITALS: BP 114/65
[2019-03-22 15:00] VITALS: BP 105/58
[2019-03-22] MEDS ORDERED: GUAI-108 PO (16:07)
[2019-03-22] MEDS ORDERED: OXYC1TAB15 PO (16:07)
[2019-03-22] MEDS ORDERED: POLY17PO28 PO (16:07)
--- NOTE | 2019-03-22 16:48 | PDOC3 ---
Discharge Summary [facility] Date of Admission: Mar 19, 2019 Discharge Date: Mar 22, 2019 Admitting Diagnosis biliary colic Final Diagnosis Problems Medical Problems: (1) Biliary colic Status: Acute (2) Epigastric abdominal pain Status: Acute CONSULTS Hernandez Daphnie art, [facility] Brief Hospital Course Ms. Ag is a 58 old who presented with abdominal pain from biliary colic and taken to OR / for lap kaelyn, needed an extra post op day due to pain, cough, anxiety but now ready for discharge. She is making arrangements for help at home. She will be off work this week and f/u with me and surgery in the next week or two Disposition home Diet lo fat Scheduled Guaifenesin/Dextromethorphan (Mucinex Dm Er 600-30 Mg Tablet), 1 TAB PO BID Levothyroxine Sodium (Levothyroxine Sodium), 125 MCG PO DAILY, (Reported) Omeprazole (Omeprazole), 1 TAB PO DAILY, (Reported) Primidone (Primidone), 250 MG PO DAILY, (Reported) Valacyclovir Hcl (Valacyclovir), 1 TAB PO DAILY, (Reported) Scheduled PRN Oxycodone/Apap 5-325 (Percocet 5-325 Mg Tablet ), 1 TAB PO PRN Q4HRS PRN for PAIN Oxycodone/Apap 5-325 (Percocet 5-325 Mg Tablet ), 2 TAB PO PRN Q4HRS PRN for PAIN Polyethylene Glycol 3350 (Polyethylene Glycol 3350), 17 GM PO PRN DAILY PRN for CONSTIPATION Discontinued Medications Amoxicillin/Potassium Clav (Augmentin 875-125 Tablet), 1 TAB PO BID Ferrous Sulfate (Ferrous Sulfate), 1 TAB PO DAILY, (Reported) Levothyroxine Sodium (Synthroid), 125 MCG PO DAILY, (Reported) Follow Up 1-2 weeks Clif RIZVI MD Mar 22, 2019 4:48 pm
--- NOTE | 2019-03-25 14:07 | PATHOLOGY ---
[facility] Accession Number: [id number] . 01 Material submitted: . gallbladder - GALLBLADDER . 01 Clinical history: . Biliary colic . . 02 Diagnosis: Gallbladder, laparoscopic cholecystectomy: - Cholesterolosis, focal. - Chronic cholecystitis. ([facility] 03/25/2019) QTP/03/25/2019 . 02 Comment: There are no calculi present within the gallbladder lumen or specimen container. Sections of the gallbladder show focal microscopic cholesterolosis and patchy mild chronic inflammation. There is no evidence of malignancy. ([facility] 03/25/2019) . 02 Electronically signed: . Nick Huertas MD, Pathologist NPI- [id number] . 01 Gross description: . Received in formalin labeled "Ancelmo, Capri, gallbladder," is an intact, turgid gallbladder measuring 8.1 x 2.9 x 2.8 cm in greatest dimensions. The serosal surface is smooth to shaggy and dark green in appearance, partially covered in yellow adipose tissue. Opening the specimen reveals a velvety, dark green mucosa measuring 0.1 cm in thickness, with a gallbladder wall thickness of up to 0.3 cm including attached adipose tissue. A single dark yellow-green possible mucosal polyp is noted, measuring 0.2 cm in maximum dimension and extending to within 5.1 cm of the infundibulum. Calculi are not present within the specimen or specimen container. Facilities Maintenance Manager sections of the infundibulum, body and fundus are submitted in cassette A1, to include the possible mucosal polyp ([facility]; 03/22/2019) XDC/XDC . 02 Pathologist provided ICD-10: K81.1, K82.4 . 02 CPT . 945135 Specimen Comment: A courtesy copy of this report has been sent to Specimen Comment: [phone], . Specimen Comment: Report sent to / DR RIZVI Performed at: [address] [place], [place] [id number] MD Jaylen Butler MD Phone: [phone] Performed at: [facility] [address] [place], [place] [id number] MD Nick Huertas MD Phone: [phone]
== END 2019-03-22 16:50 | disposition home or self-care (01) | DRG 419 ==
LOC: ER 09:31 → 5 NORTH 15:20
PROVIDERS: ADMIT Family Medicine; ATTEND Family Medicine
PROC: BF101ZZ Fluoroscopy of Bile Ducts using Low Osmolar Contrast (ICD-10-PCS; 2019-03-20)
PROC: 0FT44ZZ Resection of Gallbladder, Percutaneous Endoscopic Approach (ICD-10-PCS; principal; 2019-03-20 12:45)
DX: K80.50 Calculus of bile duct without cholangitis or cholecystitis without obstruction (principal); E78.00 Pure hypercholesterolemia, unspecified; F41.9 Anxiety disorder, unspecified; I10 Essential (primary) hypertension; K21.9 Gastro-esophageal reflux disease without esophagitis; K59.00 Constipation, unspecified; K82.8 Other specified diseases of gallbladder; Z98.51 Tubal ligation status
CPT/HCPCS: 36415; 74300; 76705; 80053; 81001; 82962; 83690; 84484; 85025; 88304; 93005; 94640; 96361; 96374; 96375; A7015; G0238; J0330; J0696; J1100; J1885; J2001; J2060; J2270; J2370; J2405; J2704; J2710; J3010; J3490; J7030; J7120; J7613; Q9967; 99285-25; G0378

== ENCOUNTER → 2019-05-21 | Outpatient (CLI) | payer OTHER ==
[~2019-05-21] MED LIST changes: +GUAI-108 PO; +LEVO125T5 PO; +OXYC1TAB15 PO; +POLY17PO28 PO
[2019-05-21 10:28] LABS: BASO % 1 % (0-3); EOS # 0.1 x10^3/uL (0.0-0.7); EOS % 1 % (0-3); HEMATOCRIT 44.1 % (36.0-47.0); LYMPH # 1.5 x10^3/uL (1.0-4.8); LYMPH % 35 % (24-48); MEAN CORPUSCULAR HEMOGLOBIN 32 pg (25-35); MEAN CORPUSCULAR HGB CONC 34 g/dL (31-37); MEAN CORPUSCULAR VOLUME 94 fL (79-100); MONO # 0.4 x10^3/uL (0.0-1.1); MONO % 9 % (0-9); NEUT # 2.2 x10^3/uL (1.8-7.7); NEUT % 54 % (31-73); PLATELET COUNT 245 x10^3/uL (140-400); RED BLOOD COUNT 4.67 x10^6/uL (3.50-5.40); RED CELL DISTRIBUTION WIDTH 13.2 % (11.5-14.5); WHITE BLOOD COUNT 4.2 x10^3/uL (4.0-11.0)
== END ==
LOC: LAB 10:08
PROVIDERS: ATTEND Family Medicine
DX: E53.8 Deficiency of other specified B group vitamins (principal); E03.9 Hypothyroidism, unspecified; D64.9 Anemia, unspecified
CPT/HCPCS: 36415; 82607; 84443; 85025

== ENCOUNTER 2019-07-27 07:33 | Emergency (ER) | payer OTHER ==
[~2019-07-27] VITALS: Ht 167.6 cm; Wt 71.7 kg
[2019-07-27 07:37] VITALS: BP 114/68
[2019-07-27] MEDS ORDERED: DICL50TA4 PO (08:09)
[2019-07-27] MEDS ORDERED: TRAM50TA PO (08:09)
[2019-07-27] MEDS ORDERED: ORPH100T PO (08:09)
--- NOTE | 2019-07-27 08:09 | PHYS DOC ---
Past Medical History Past Medical History: High Cholesterol, Uterine Fibroids Additional Past Medical Histor: fibroids, ACID REFLUX Past Surgical History: Tubal ligation Alcohol Use: None Drug Use: None Adult General Chief Complaint Chief Complaint: BACK PAIN OR INJURY [facility] is a 58-year-old female who presents with complaint of left-sided lower back pain after moving an ICU bed by herself last yesterday. She states the motor was not on and she feels like she must have strained her back when she was twisting and trying to pull the bed. She rates pain as moderate and states that pain is worsened with movement. She denies any radiation of the pain into her legs and has no loss of bowel or bladder control.[] Review of Systems Review of Systems Constitutional: Denies fever or chills [] Respiratory: Denies cough or shortness of breath [] Cardiovascular: No additional information not addressed in HPI [] Musculoskeletal: Complains of lower back pain [] Integument: Denies rash or skin lesions [] Neurologic: Denies headache, focal weakness or sensory changes [] Current Medications Current Medications Current Medications Medications (Trade) Dose Ordered Sig/Mary Start Time Stop Time Status Last Admin Dose Admin Ketorolac Tromethamine (Toradol Im) 60 mg 1X ONCE 07/27/19 08:15 07/27/19 08:16 Orphenadrine Citrate (Norflex) 60 mg 1X ONCE 07/27/19 08:15 07/27/19 08:16 Allergies Allergies Allergies Coded Allergies Type Severity Reaction Last Updated Verified No Known Drug Allergies 09/25/18 No Physical Exam Physical Exam Constitutional: Well developed, well nourished, no acute distress, non-toxic appearance. [] Cardiovascular: Regular rate and rhythm[] Lungs & Thorax: Bilateral breath sounds clear to auscultation [] Skin: Warm, dry, no erythema, no rash. [] Back: There is tenderness to palpation with palpable spasm noted around T12 on the left, extending down into the lumbar paraspinal musculature. [] Neurologic: Alert and oriented X 3, normal motor function, normal sensory function, no focal deficits noted. [] Current Patient Data Vital Signs Vital Signs Date Time Temp Pulse Resp B/P (MAP) Pulse Ox O2 Delivery O2 Flow Rate FiO2 07/27/19 07:37 98.2 82 18 114/68 (83) 96 Room Air 98.2 EKG EKG [] Radiology/Procedures Radiology/Procedures [] Course & Med Decision Making Course & Med Decision Making Pertinent Labs and Imaging studies reviewed. (See chart for details) [] Dragon Disclaimer Dragon Disclaimer This electronic medical record was generated, in whole or in part, using a voice recognition dictation system. Departure Departure Impression: Primary Impression: Acute lumbar myofascial strain Disposition: 01 HOME, SELF-CARE Condition: STABLE Referrals: Clif RIZVI MD (PCP) Patient Instructions: Form - Excuse from Work, School, or Physical Activity, Lumbosacral Strain Scripts Diclofenac Sodium (DICLOFENAC SODIUM) 50 Mg Tablet.dr 1 TAB PO BID PRN for PAIN, #20 TAB Prov: ELLY FORD Jr. DO 07/27/19 Orphenadrine Citrate (ORPHENADRINE CITRATE) 100 Mg Tablet.er 1 TAB PO BID PRN for MUSCLE SPASMS, #14 TAB Prov: ELLY FORD Jr. DO 07/27/19 Tramadol Hcl (TRAMADOL HCL) 50 Mg Tablet 50 MG PO Q6HRS PRN for PAIN, #1 TAB Prov: ELLY FORD Jr. DO 07/27/19 Problem Qualifiers Primary Impression: Acute lumbar myofascial strain Encounter type: initial encounter Qualified Codes: S39.012A - Strain of muscle, fascia and tendon of lower back, initial encounter ELLY FORD Jr. DO Jul 27, 2019 08:09
[2019-07-27] MEDS ORDERED: KETOROLAC 60 MG/2 ML VIAL. IM ONE (08:15)
[2019-07-27] MEDS ORDERED: ORPHENADRINE CITRATE 60 MG/2 ML VIAL. IM ONE (08:15)
== END 2019-07-27 08:57 | disposition home or self-care (01) ==
LOC: ER 07:33
DX: S39.012A Strain of muscle, fascia and tendon of lower back, initial encounter (principal); D25.9 Leiomyoma of uterus, unspecified; E78.00 Pure hypercholesterolemia, unspecified; Z98.51 Tubal ligation status; X58.XXXA Exposure to other specified factors, initial encounter; Y93.89 Activity, other specified; Y92.89 Other specified places as the place of occurrence of the external cause; Y99.8 Other external cause status
CPT/HCPCS: 96372; 99284; J1885; J2360

== ENCOUNTER 2019-10-23 19:13 | Emergency (ER) | payer OTHER ==
[~2019-10-23] VITALS: Ht 154.9 cm; Wt 47.7 kg
[~2019-10-23 19:13] MED LIST changes: +DICL50TA4 PO; +ORPH100T PO; +TRAM50TA PO; -VALA500T PO; +VALA500T9 PO
[2019-10-23 19:45] LABS: BASO # 0.1 x10^3/uL (0.0-0.2); BASO % 1 % (0-3); EOS # 0.1 x10^3/uL (0.0-0.7); EOS % 1 % (0-3); HEMATOCRIT 39.2 % (36.0-47.0); HEMOGLOBIN 13.1 g/dL (12.0-15.5); LYMPH # 3.2 x10^3/uL (1.0-4.8); LYMPH % 36 % (24-48); MEAN CORPUSCULAR HEMOGLOBIN 30 pg (25-35); MEAN CORPUSCULAR HGB CONC 33 g/dL (31-37); MEAN CORPUSCULAR VOLUME 90 fL (79-100); MONO # 0.9 x10^3/uL (0.0-1.1); MONO % 10 % (0-9); NEUT # 4.5 x10^3/uL (1.8-7.7); NEUT % 52 % (31-73); PLATELET COUNT 322 x10^3/uL (140-400); RED BLOOD COUNT 4.36 x10^6/uL (3.50-5.40); RED CELL DISTRIBUTION WIDTH 14.2 % (11.5-14.5); WHITE BLOOD COUNT 8.8 x10^3/uL (4.0-11.0)
[2019-10-23 19:54] LABS: PROTHROMBIN TIME PATIENT 12.2 SEC (11.7-14.0)
[2019-10-23] MEDS: IV NORMAL SALINE 1000ML BAG 1,000 ML IV SCH (19:57)
[2019-10-23 20:19] LABS: CREATININE 0.9 mg/dL (0.6-1.0); GFR 64.5; POTASSIUM 3.3 mmol/L (3.5-5.1)
[2019-10-23 20:24] LABS: ALBUMIN 3.5 g/dL (3.4-5.0); ALBUMIN/GLOBULIN RATIO 1.1 (1.0-1.7); TOTAL BILIRUBIN 0.2 mg/dL (0.2-1.0); TOTAL PROTEIN 6.7 g/dL (6.4-8.2)
--- NOTE | 2019-10-23 20:52 | PHYS DOC ---
Past Medical History Past Medical History: GERD, High Cholesterol, Hypothyroid, Uterine Fibroids Additional Past Medical Histor: fibroids, ACID REFLUX Past Surgical History: Tubal ligation Smoking Status: Never Smoker Alcohol Use: None Drug Use: None Adult General Chief Complaint Chief Complaint: SHORTNESS OF BREATH HPI HPI Patient is a 59 year old female with history of hypothyroidism, GERD, dyslipidemia who presents with complaint of shortness of breath. Patient states she was walking her dog about an hour and half minutes prior to arrival here and felt sudden onset of shortness of breath without cough, chest pain, fever and chills, focal neuro deficit. Patient states she went to home and rest and her shortness of breath partially improved but he still feels shortness of breath. Patient denies history of the same problem. Patient complaining of mild nasal c ongestion without sore throat, earache, nausea and vomiting, diarrhea and constipation. Patient had O2 sat of 99% at room air at arrival to ER. Review of Systems Review of Systems Constitutional: Denies fever or chills [] Eyes: Denies change in visual acuity, redness, or eye pain [] HENT: Denies nasal congestion or sore throat [] Respiratory: Denies cough, report shortness of breath [] Cardiovascular: No additional information not addressed in HPI [] GI: Denies abdominal pain, nausea, vomiting, bloody stools or diarrhea [] : Denies dysuria or hematuria [] Musculoskeletal: Denies back pain or joint pain [] Integument: Denies rash or skin lesions [] Neurologic: Denies headache, focal weakness or sensory changes [] Endocrine: Denies polyuria or polydipsia [] All other systems were reviewed and found to be within normal limits, except as documented in this note. Current Medications Current Medications Current Medications Medications (Trade) Dose Ordered Sig/Mary Start Time Stop Time Status Last Admin Dose Admin Lorazepam (Ativan Inj) 0.5 mg 1X ONCE 10/23/19 19:45 10/23/19 19:46 DC 10/23/19 19:58 0.5 MG Potassium Chloride (Klor-Con) 40 meq 1X ONCE 10/23/19 21:00 10/23/19 21:01 DC 10/23/19 21:21 40 MEQ Sodium Chloride 1,000 ml @ 1,000 mls/hr 1X ONCE 10/23/19 21:30 10/23/19 22:29 DC Allergies Allergies Allergies Coded Allergies Type Severity Reaction Last Updated Verified No Known Drug Allergies 09/25/18 No Physical Exam Physical Exam Constitutional: Well developed, well nourished, mild distress, non-toxic appearance. [] HENT: Normocephalic, atraumatic, bilateral external ears normal, oropharynx moist, no oral exudates, nose normal. [] Eyes: PERRLA, EOMI, conjunctiva normal, no discharge. [] Neck: Normal range of motion, no tenderness, supple, no stridor. [] Cardiovascular:Heart rate regular rhythm, no murmur [] Lungs & Thorax: Hyperventilation, bilateral breath sounds clear to auscultation [] Abdomen: Bowel sounds normal, soft, no tenderness, no masses, no pulsatile masses. [] Skin: Warm, dry, no erythema, no rash. [] Back: No tenderness, no CVA tenderness. [] Extremities: No tenderness, no cyanosis, no clubbing, ROM intact, no edema. [] Neurologic: Alert and oriented X 3, normal motor function, normal sensory function, no focal deficits noted. [] Psychologic: Affect anxious, judgement normal, mood normal. [] Current Patient Data Vital Signs Vital Signs Date Time Temp Pulse Resp B/P (MAP) Pulse Ox O2 Delivery O2 Flow Rate FiO2 10/23/19 21:40 98.7 63 20 110/64 (79) 98 Room Air 98.7 Lab Values Laboratory Tests Test 10/23/19 19:30 10/23/19 19:55 White Blood Count 8.8 x10^3/uL (4.0-11.0) Red Blood Count 4.36 x10^6/uL (3.50-5.40) Hemoglobin 13.1 g/dL (12.0-15.5) Hematocrit 39.2 % (36.0-47.0) Mean Corpuscular Volume 90 fL (79-100) Mean Corpuscular Hemoglobin 30 pg (25-35) Mean Corpuscular Hemoglobin Concent 33 g/dL (31-37) Red Cell Distribution Width 14.2 % (11.5-14.5) Platelet Count 322 x10^3/uL (140-400) Neutrophils (%) (Auto) 52 % (31-73) Lymphocytes (%) (Auto) 36 % (24-48) Monocytes (%) (Auto) 10 % (0-9) H Eosinophils (%) (Auto) 1 % (0-3) Basophils (%) (Auto) 1 % (0-3) Neutrophils # (Auto) 4.5 x10^3/uL (1.8-7.7) Lymphocytes # (Auto) 3.2 x10^3/uL (1.0-4.8) Monocytes # (Auto) 0.9 x10^3/uL (0.0-1.1) Eosinophils # (Auto) 0.1 x10^3/uL (0.0-0.7) Basophils # (Auto) 0.1 x10^3/uL (0.0-0.2) Prothrombin Time 12.2 SEC (11.7-14.0) Prothrombin Time INR 0.9 (0.8-1.1) Lactic Acid Level 1.5 mmol/L (0.4-2.0) Sodium Level 143 mmol/L (136-145) Potassium Level 3.3 mmol/L (3.5-5.1) L Chloride Level 108 mmol/L (98-107) H Carbon Dioxide Level 26 mmol/L (21-32) Anion Gap 9 (6-14) Blood Urea Nitrogen 20 mg/dL (7-20) Creatinine 0.9 mg/dL (0.6-1.0) Estimated GFR (Cockcroft-Gault) 64.5 BUN/Creatinine Ratio 22 (6-20) H Glucose Level 108 mg/dL (70-99) H Calcium Level 9.0 mg/dL (8.5-10.1) Total Bilirubin 0.2 mg/dL (0.2-1.0) Aspartate Amino Transferase (AST) 18 U/L (15-37) Alanine Aminotransferase (ALT) 22 U/L (14-59) Alkaline Phosphatase 113 U/L (46-116) Creatine Kinase 131 U/L (26-192) Troponin I Quantitative < 0.017 ng/mL (0.000-0.055) KB-Epj-W-Type Natriuretic Peptide 52 pg/mL (0-124) Total Protein 6.7 g/dL (6.4-8.2) Albumin 3.5 g/dL (3.4-5.0) Albumin/Globulin Ratio 1.1 (1.0-1.7) Laboratory Tests 10/23/19 19:30 Laboratory Tests 10/23/19 19:55 EKG EKG EKG interpreted by me. EKG 1927 showed normal sinus rhythm at rate of 81 with multiple artifact, leftward axis, poor R wave progression anteroseptal leads, no acute ST and T wave elevation. Radiology/Procedures Radiology/Procedures [facility] [address] [place] [address] IMAGING REPORT Signed PATIENT: NIMISHA BLAKE ACCOUNT: [id number] : 1960 LOCATION: ER AGE: 59 SEX: F EXAM STATUS: REG ER ORD. PHYSICIAN: CLARIE WEBSTER MD REASON: Shortness of breath PROCEDURE: PORTABLE CHEST 1V EXAM: AP View of the chest DATE: 10/23/2019 7:32 PM INDICATION: Shortness of breath COMPARISON: 06/26/2018 FINDINGS/ IMPRESSION: The heart is not enlarged. Mediastinal and hilar contours are normal. Patchy opacities left lung base likely atelectasis. Trace left pleural effusion. No pneumothorax. Electronically signed by: Franklin Wolf MD (10/23/2019 10:02 PM) [id number] DICTATED and SIGNED BY: FRANKLIN WOLF MD DATE: 10/23/192201 Course & Med Decision Making Course & Med Decision Making Pertinent Labs and Imaging studies reviewed. (See chart for details) Evaluation of patient ER showed 59-year-old female patient presented to ER with complaining of shortness of breath. Patient had stressful condition at work today. Patient had a stable vital sign and O2 sat 0f 98% without oxygen but had anxiety and hyperventilation. Patient treated with IV fluids and Ativan with improvement of her condition. Patient had unremarkable labs except for potassium of 3.3 and treated with oral potassium. I've spoken with the patient and/or caregivers. I've explained the patient's condition, diagnosis and treatment plan based on information available to me at this time. I've answered the patient's and/or caregivers questions and addressed any concerns. The patient and/or caregivers have a good understanding the patient's diagnosis, condition and treatment plan as can be expected at this point. Vital signs have been stabilized. The patient's condition is stable for discharge from the emergency department. The patient will pursue further outpatient evaluation with her primary care provider or other designated consulting physician as outlined in the discharge instructions. Patient and/or caregivers are agreeable to this plan of care and follow-up instructions have been explained in detail. The patient and/or caregivers have received these instructions in written format and expressed understanding of these discharge instructions. The patient and her caregivers are aware that if any significant change in condition or worsening of symptoms should prompt him to immediately return to this of the closest emergency department. If an emergent department is not readily available I would encourage him to call 911. Dragon Disclaimer Dragon Disclaimer This electronic medical record was generated, in whole or in part, using a voice recognition dictation system. Departure Departure Impression: Primary Impression: Panic attack Additional Impression: Hypokalemia Disposition: HOME, SELF-CARE (At 2119) Condition: IMPROVED Referrals: Clif RIZVI MD (PCP) Patient Instructions: Anxiety and Panic Attacks, Hypokalemia Additional Instructions: Drink plenty of liquids Follow-up with your primary care physician in 3-5 days Return to ER if not getting better Scripts Hydroxyzine Hcl (HYDROXYZINE HCL) 25 Mg Tablet 1 TAB PO TID PRN for ANXIETY, #10 TAB Prov: CLAIRE WEBSTER MD 10/23/19 Problem Qualifiers CLAIRE WEBSTER MD Oct 23, 2019 20:52
[2019-10-23] MEDS: POTASSIUM CHLORIDE 20 MEQ TABLET.ER. PO ONE (21:21)
[2019-10-23] MEDS ORDERED: HYDR25TA PO (21:30)
[2019-10-23] MEDS: IV NORMAL SALINE 1000ML BAG 1,000 ML IV ONE (21:30)
[2019-10-23 21:40] VITALS: BP 110/64
--- NOTE | 2019-10-23 22:05 | RAD ---
EXAM: AP View of the chest DATE: 10/23/2019 7:32 PM INDICATION: Shortness of breath COMPARISON: 06/26/2018 FINDINGS/ IMPRESSION: The heart is not enlarged. Mediastinal and hilar contours are normal. Patchy opacities left lung base likely atelectasis. Trace left pleural effusion. No pneumothorax. Electronically signed by: Franklin Nieves MD (10/23/2019 10:02 PM) [id number]
--- NOTE | 2019-10-24 05:27 | EKG ---
[address] [place] [address] Test Date: 2019-10-23 Test Time: 19:28:55 Pat Name: NIMISHA BLAKE Department: Room: Gender: F [employer]: : 1960 Requested By: CLAIRE WEBSTER Order Number: [id number] Reading MD: Measurements Intervals [place] Rate: 81 P: NE: QRS: -24 QRSD: 98 T: -8 QT: 354 QTc: 412 Interpretive Statements ATRIAL FLUTTER LEFTWARD AXIS CONSIDER LEFT VENTRICULAR HYPERTROPHY QRS(T) CONTOUR ABNORMALITY CONSISTENT WITH ANTEROSEPTAL INFARCT PROBABLY OLD ABNORMAL ECG RI6.01 No previous ECG available for comparison
== END 2019-10-23 21:39 | disposition home or self-care (01) ==
LOC: ER 19:13
DX: F41.0 Panic disorder [episodic paroxysmal anxiety] (principal); E87.6 Hypokalemia; R06.02 Shortness of breath; R09.81 Nasal congestion; K21.9 Gastro-esophageal reflux disease without esophagitis; E78.00 Pure hypercholesterolemia, unspecified; E03.9 Hypothyroidism, unspecified; Z98.51 Tubal ligation status
CPT/HCPCS: 71045; 80053; 82550; 83605; 83880; 84484; 85025; 85610; 87040; 93005; 96374; 99285; J2060; J7030; 36415

== ENCOUNTER → 2019-11-12 | Outpatient (CLI) | payer OTHER ==
[2019-10-23 21:40] VITALS: BP 110/64
[~2019-11-12] MED LIST changes: +HYDR25TA PO
--- NOTE | 2019-11-12 10:09 | RAD ---
CHEST PA LATERAL Clinical indications: Walking pneumonia. Follow-up study. COMPARISON: October 23, 2019. Findings: The previously seen left lung base infiltrate or atelectasis with small subpleural effusion has resolved. No pneumothorax is seen. Again seen is a moderate-sized hiatal hernia. Heart size is stable. The pulmonary vasculature and both tracey are unremarkable. The osseous structures appear intact. Impression: Clearing of left lung base infiltrate or atelectasis and small left-sided pleural effusion seen previously. No new finding. Moderate-sized hiatal hernia. Electronically signed by: Haseeb Moreira MD (11/12/2019 10:07 AM) [id number]
== END | disposition home or self-care (01) ==
LOC: RAD 09:13
PROVIDERS: ATTEND Family Medicine
DX: J18.9 Pneumonia, unspecified organism (principal); K44.9 Diaphragmatic hernia without obstruction or gangrene
CPT/HCPCS: 71046

== ENCOUNTER → 2019-12-04 | Outpatient (CLI) | payer OTHER ==
--- NOTE | 2019-12-04 10:51 | KCIC ---
Study: CR LUMBAR SPINE MIN 4V Indication: Right-sided low back pain. No known injury. Comparison: None recently. Findings: 5 nonrib-bearing lumbar vertebral elements. No acute fracture or aggressive osseous process is identified. No pars interarticularis defect appreciated on the oblique views. Facet degeneration is greatest at L4-L5 particularly on the left. Grade 1 anterolisthesis of L4 on L5. Disc space narrowing at L5-S1 with a ventral bridging osteophyte lateralized to the left. Cholecystectomy clips. Impression: 1. Grade 1 anterolisthesis of L4 on L5 in the setting of facet degeneration on the left more so than right. Less pronounced facet degeneration at the adjacent levels. 2. Disc space narrowing at L5-S1 with maintained disc space height elsewhere. Electronically signed by: ALIX POLO MD (12/04/2019 10:48 AM) [id number]
== END | disposition home or self-care (01) ==
LOC: KCIC 10:12
PROVIDERS: ATTEND Family Medicine
DX: M43.16 Spondylolisthesis, lumbar region (principal); M48.07 Spinal stenosis, lumbosacral region; M47.816 Spondylosis without myelopathy or radiculopathy, lumbar region; M25.78 Osteophyte, vertebrae
CPT/HCPCS: 72110

== ENCOUNTER → 2020-01-23 | Outpatient (CLI) | payer OTHER ==
--- NOTE | 2020-01-23 11:09 | RAD ---
MRI Lumbar Spine without contrast History: Lumbar spondylosis Technique: Multiplanar, multi sequential noncontrast MR imaging was performed of the lumbar spine. Comparison: None Findings: Most inferior fully formed although rudimentary and narrowed intervertebral disc space is considered L5-S1 for this report. Lumbar vertebral body stature is maintained. There is negligible anterior spondylolisthesis at what is considered L4-5. There is moderate narrowing of what is considered L5-S1 intervertebral disc space with associated degenerative endplate change. There are small hemangiomas of L3, L1, T12 vertebral bodies. Conus terminates near the inferior aspect of L1. There are posterior and anterior annular tears at L2-3. L1-L2: This level was not included on the axial images, neural foramina and spinal canal adequate. L2-L3: This level was not included on the axial images, neural foramina and spinal canal overall adequate. L3-L4: Spinal canal and neural foramina are adequate. L4-L5: There is mild to moderate left facet degenerative change, minimally on the right. Spinal canal and neural foramina are adequate. L5-S1: Neural foramina and spinal canal are adequate. Impression: 1. There is degenerative disc disease at L5-S1 although also likely degree of narrowing of the intervertebral disc space on a developmental basis. There is no significant lumbar spinal stenosis or neural foramina compromise. There is minimal grade 1 anterior spondylolisthesis at L4-5 at which there is facet degenerative change. Electronically signed by: Taye Lopez MD (01/23/2020 11:06 AM) [id number]
== END ==
LOC: MRI 09:26
PROVIDERS: ATTEND Family Medicine
DX: M51.37 Other intervertebral disc degeneration, lumbosacral region (principal); M48.07 Spinal stenosis, lumbosacral region; M43.16 Spondylolisthesis, lumbar region
CPT/HCPCS: 72148

== ENCOUNTER → 2020-01-27 | Outpatient (CLI) | payer OTHER ==
[2020-01-27 16:19] LABS: BASO % 1 % (0-3); EOS # 0.1 x10^3/uL (0.0-0.7); EOS % 1 % (0-3); HEMATOCRIT 30.5 % (36.0-47.0); LYMPH # 1.6 x10^3/uL (1.0-4.8); LYMPH % 37 % (24-48); MEAN CORPUSCULAR HEMOGLOBIN 26 pg (25-35); MEAN CORPUSCULAR HGB CONC 33 g/dL (31-37); MEAN CORPUSCULAR VOLUME 79 fL (79-100); MONO # 0.5 x10^3/uL (0.0-1.1); MONO % 11 % (0-9); NEUT # 2.2 x10^3/uL (1.8-7.7); NEUT % 50 % (31-73); PLATELET COUNT 380 x10^3/uL (140-400); RED BLOOD COUNT 3.89 x10^6/uL (3.50-5.40); RED CELL DISTRIBUTION WIDTH 18.1 % (11.5-14.5); WHITE BLOOD COUNT 4.3 x10^3/uL (4.0-11.0)
== END | disposition home or self-care (01) ==
LOC: LAB 11:07
PROVIDERS: ATTEND Family Medicine
DX: E03.9 Hypothyroidism, unspecified (principal); D64.9 Anemia, unspecified; R53.83 Other fatigue; R53.1 Weakness; E53.8 Deficiency of other specified B group vitamins
CPT/HCPCS: 36415; 82607; 82728; 83540; 83550; 84443; 85025

== ENCOUNTER → 2020-04-17 | Outpatient (CLI) | payer OTHER ==
[~2020-04-17] MED LIST changes: +ALBU2.5V8 IH; +APIX5TAB PO; +ASCO-78 PO; +BACL10TA PO; +FERR-36 PO; +SUCR1TAB PO
== END | disposition home or self-care (01) ==
LOC: LAB 11:52
PROVIDERS: ATTEND Internal Medicine Pulmonary Disease
DX: Z20.828 Contact with and (suspected) exposure to other viral communicable diseases (principal)
CPT/HCPCS: U0003-CS

== ENCOUNTER 2020-05-05 11:25 | Inpatient (IN) | payer OTHER ==
[2020-05-05] VITALS (10 sets, daily range): BP systolic 120–142; BP diastolic 61–85
[~2020-05-05] VITALS: Ht 152.4 cm; Wt 76.8 kg
[~2020-05-05 11:25] MED LIST changes: -ALBU2.5V8 IH; -APIX5TAB PO; -ASCO-78 PO; -BACL10TA PO; -FERR-36 PO; -SUCR1TAB PO
[2020-05-05] MEDS ORDERED: IV NORMAL SALINE 1000ML BAG 1,000 ML IV SCH (12:01)
--- NOTE | 2020-05-05 12:04 | PHYS DOC ---
Past Medical History Past Medical History: GERD, High Cholesterol, Hypothyroid, Uterine Fibroids Additional Past Medical Histor: fibroids, ACID REFLUX Past Surgical History: Tubal ligation Smoking Status: Never Smoker Alcohol Use: None Drug Use: None General Adult EDM: Chief Complaint: CHEST PAIN HPI: HPI: Patient is a 59 year old female who presents with midsternal chest pain that does not radiate and dizziness and SOA with exertion intermittently for the last 2 days. She states that the SOA has been going on for a few months and she has an inhaler that she uses for that. Denies smoking. Patient is unable to tell me if she has asthma or COPD and to why the doctor ordered her the albuterol inhaler. She states is a sharp type pain. She states nothing makes it worse or better. She states she is not taken aspirin. She states that she does not have any heart history but her family does have heart history. She rates her pain a 10 out of 10. Patient denies nausea, vomiting, abdominal pain, cough, fever, headache, focal weakness, vision changes, numbness or tingling, syncope. She states she was working today here at [employer] when she started to be diaphoretic, short of breath and dizzy. Patient has a history of acid reflux, uterine fibroids, high cholesterol, hypothyroidism. Review of Systems: Review of Systems: Constitutional: Denies fever or chills. [] Eyes: Denies change in visual acuity. [] HENT: Denies nasal congestion or sore throat. [] Respiratory: Denies cough. + shortness of breath. [] Cardiovascular: + chest pain or denies edema. [] GI: Denies abdominal pain, nausea, vomiting, bloody stools or diarrhea. [] : Denies dysuria. [] Musculoskeletal: Denies back pain or joint pain. [] Integument: Denies rash. Diaphoresis. [] Neurologic: Denies headache, focal weakness or sensory changes. Positive for dizziness. [] Endocrine: Denies polyuria or polydipsia. [] Lymphatic: Denies swollen glands. [] Psychiatric: Denies depression or anxiety. [] Heart Score: HEART Score for Chest Pain: HEART Score for Chest Pain Response (Comments) Value History Slighlty/Non-Suspicious 0 ECG Normal 0 Age >45 - < 65 1 Risk Factors 1 or 2 Risk Factors 1 Troponin < Normal Limit 0 Total 2 Risk Factors: Risk Factors: DM, Current or recent (<one month) smoker, HTN, HLP, family history of CAD, obesity. Risk Scores: Score 0 - 3: 2.5% MACE over next 6 weeks - Discharge Home Score 4 - 6: 20.3% MACE over next 6 weeks - Admit for Clinical Observation Score 7 - 10: 72.7% MACE over next 6 weeks - Early Invasive Strategies Allergies: Allergies: Allergies Coded Allergies Type Severity Reaction Last Updated Verified No Known Drug Allergies 09/25/18 No Physical Exam: PE: Constitutional: Well developed, well nourished, no acute distress, non-toxic appearance. [] HENT: Normocephalic, atraumatic, bilateral external ears normal, oropharynx moist, no oral exudates, nose normal. [] Eyes: PERRLA, EOMI, conjunctiva normal, no discharge. [] Neck: Normal range of motion, no tenderness, supple, no stridor. [] Cardiovascular:Heart rate regular rhythm, no murmur [] Lungs & Thorax: Bilateral breath sounds clear to auscultation [] Abdomen: Bowel sounds normal, soft, no tenderness, no masses, no pulsatile masses. [] Skin: Warm, dry, no erythema, no rash. [] Back: No tenderness, no CVA tenderness. [] Extremities: No tenderness, no cyanosis, no clubbing, ROM intact, no edema. [] Neurologic: Alert and oriented X 3, normal motor function, normal sensory function, no focal deficits noted. [] Psychologic: Affect normal, judgement normal, mood normal. Normal physical exam [] Current Patient Data: Vital Signs: Vital Signs Date Time Temp Pulse Resp B/P (MAP) Pulse Ox O2 Delivery O2 Flow Rate FiO2 05/05/20 11:38 100.0 96 20 153/71 (98) 96 Room Air 100.0 EKG: EK and read by Dr. Downing as sinus rhythm and no STEMI. [] Radiology/Procedures: Radiology/Procedures: [] Impression: [facility] [address] [place] [address] IMAGING REPORT Signed PATIENT: NIMISHA BLAKE ACCOUNT: [id number] : 1960 LOCATION: ER AGE: 59 SEX: F EXAM STATUS: REG ER ORD. PHYSICIAN: ASHOK SANTOS APRN REASON: chest pain PROCEDURE: PORTABLE CHEST 1V PORTABLE CHEST 1V History: Chest pain Comparison: November 12, 2019 Findings: Single view of the chest is submitted. There is again hiatal hernia. Pericardial cardiac silhouette is similar, somewhat prominent. There is no dependent pleural fluid, pneumothorax, or lobar infiltrate. Impression: 1. No acute radiographic abnormality is identified. 2. There is again hiatal hernia. Electronically signed by: Nina Castaneda MD (05/05/2020 12:41 PM) [id number] DICTATED and SIGNED BY: NINA CASTANEDA MD DATE: 05/05/20 1241 [facility] [address] [place] [address] IMAGING REPORT Signed PATIENT: NIMISHA BLAKE ACCOUNT: [id number] : 1960 LOCATION: ER AGE: 59 SEX: F EXAM STATUS: REG ER ORD. PHYSICIAN: ASHOK SANTOS APRN REASON: chest pain, soa, diarrhea, low hemoglobin PROCEDURE: CT ANGIO CHEST ABD PELVIS CT angiography chest, abdomen and pelvis with contrast HISTORY: Chest pain, shortness of breath. TECHNIQUE: CT imaging the chest with 3-D MIP reconstructions of the arteries with 75 mL Omnipaque 350 intravenous contrast. Exposure: One or more of the following individualized dose reduction techniques were utilized for this examination: 1. Automated exposure control 2. Adjustment of the mA and/or kV according to patient size 3. Use of iterative reconstruction technique Chest findings: There are pulmonary artery emboli with nonocclusive filling defects at the left lower lobe and right upper lobe. There may be additional small peripheral subpleural right lower lobe pulmonary artery emboli as well although this is a region of motion artifact. Mild cardia megaly. Hiatal hernia of the upper stomach. No thoracic aortic aneurysm or dissection is mild motion artifact at the ascending aorta limiting assessment for subtle dissection. Ascending aorta diameter 3.1 cm. No adenopathy. Smooth pulmonary interstitial thickening at segments of the upper and lower lobes could represent mild interstitial edema. No pleural effusions. Bones unremarkable. Abdomen findings: No aneurysm or dissection of the abdominal aorta or arteries. No thrombus, stenosis or occlusion of the aorta or arteries either. Kidneys, adrenal glands, spleen unremarkable. Prominence of the common bile duct likely related to cholecystectomy. Indeterminate 6 mm hypodense lesion segment 4 the liver image [address] abdomen imaging from 2011 to small characterize due to volume averaging. 1 cm fatty density focus at the head of the pancreas is stable to CT imaging in 2011 considered benign. No obstruction or inflammation of the GI tract. No abdominal fluid or adenopathy. Lower lumbar disc disease and facet arthritis. Pelvis findings: No aneurysm, dissection, thrombus, stenosis or occlusion of the iliac arteries. Uterus, ovaries, bladder, rectum and bones are unremarkable. No pelvic fluid or adenopathy. IMPRESSION: 1. Pulmonary emboli as described above. 2. No aneurysm or dissection of the thoracic aorta, abdominal aorta or iliac arteries. 3. Mild pulmonary interstitial thickening may represent mild interstitial edema. No pleural effusions. 4. 0.6 cm hypodense lesion of the liver segment [address] CT imaging. This is indeterminate. This could be further assessed with outpatient MR imaging. 5. Hiatal hernia of the upper stomach. FOR INTERNAL CODING PURPOSES Critical result: Findings discussed with ASHOK SANTOS at 05/05/2020 2:36 PM. RESULT CODE: (C) Electronically signed by: Bailee Leahy MD (05/05/2020 2:41 PM) [id number] DICTATED and SIGNED BY: BAILEE LEAHY MD DATE: 05/05/20 1441 Course & Med Decision Making: Course & Med Decision Making Pertinent Labs and Imaging studies reviewed. (See chart for details) COVID-19 CRITERIA: The patient was evaluated during the global COVID-19 pandemic, and that diagnosis was suspected/considered upon their initial presentation. Their evaluation, treatment and testing was consistent with current guidelines for patients who present with complaints or symptoms that may be related to COVID-19. See HPI. Lungs are clear to auscultation all lobes. Speaks in full complete sentences. Ambulatory with steady gait. No extremity edema. Skin pink warm and dry. Patient states that she does have a history of uterine fibroids but states that she has not been bleeding vaginally or rectally. I have ordered 1 unit of packed RBC for the patient. Patient is admitted to Dr Ordonez. 1334 Patient now tells me that she hasa been having diarrhea intermittently for the last year but still denies blood in stool. 1435: Radiology called me and stated that the patient has bilateral PE's. I have relayed this message to Dr. Ordonez who states that he will order medication for this. [] Dragon Disclaimer: Dragon Disclaimer: This electronic medical record was generated, in whole or in part, using a voice recognition dictation system. Departure Departure Impression: Primary Impression: Low hemoglobin Additional Impression: Pulmonary embolism Qualified Codes: I26.99 - Other pulmonary embolism without acute cor pulmonale Disposition: ADMITTED INPATIENT Admitting Physician: EKATERINA Condition: STABLE Referrals: Clif RIZVI MD (PCP) Justicifation of Admission Dx: Justifications for Admission: Justification of Admission Dx: Yes (low hemoglobin) ASHOK SANTOS ANIMAL KILLER May 05, 2020 12:04
[2020-05-05] MEDS ORDERED: FAMOTIDINE 20 MG/2 ML VIAL IVP ONE (12:15)
[2020-05-05] MEDS ORDERED: ASPIRIN 325 MG TABLET PO ONE (12:15)
[2020-05-05 12:16] LABS: BASO % 1 % (0-3); EOS % 0 % (0-3); LYMPH % 13 % (24-48); MEAN CORPUSCULAR HEMOGLOBIN 17 pg (25-35); MEAN CORPUSCULAR HGB CONC 29 g/dL (31-37); MEAN CORPUSCULAR VOLUME 58 fL (79-100); MONO # 0.5 x10^3/uL (0.0-1.1); MONO % 6 % (0-9); NEUT # 6.5 x10^3/uL (1.8-7.7); NEUT % 81 % (31-73); PLATELET COUNT 311 x10^3/uL (140-400); RED BLOOD COUNT 3.23 x10^6/uL (3.50-5.40); RED CELL DISTRIBUTION WIDTH 22.4 % (11.5-14.5); WHITE BLOOD COUNT 8.1 x10^3/uL (4.0-11.0)
[2020-05-05 12:27] LABS: HEMATOCRIT 18.8 % (36.0-47.0); HEMOGLOBIN 5.4 g/dL (12.0-15.5)
[2020-05-05 12:29] LABS: PROTHROMBIN TIME PATIENT 13.3 SEC (11.7-14.0)
[2020-05-05 12:33] LABS: AMPHETAMINE/METHAMPHETAMINE NEG (NEG); BARBITURATES POS (NEG); BENZODIAZEPINES NEG (NEG); CANNABINOIDS NEG (NEG); COCAINE NEG (NEG); METHADONE NEG (NEG); OPIATES NEG (NEG); PHENCYCLIDINE NEG (NEG)
[2020-05-05 12:33] LABS: CALCIUM 8.9 mg/dL (8.5-10.1); CREATININE 0.8 mg/dL (0.6-1.0); D-DIMER 2.09 ug/mlFEU (0.00-0.50); GFR 73.9; POTASSIUM 3.7 mmol/L (3.5-5.1)
[2020-05-05 12:40] LABS: BILIRUBIN,URINE NEGATIVE (NEG); CLARITY,URINE CLEAR; COLOR,URINE YELLOW; NITRITE,URINE NEGATIVE (NEG); PH,URINE 5.5 (<5.0-8.0); PROTEIN,URINE NEGATIVE (NEG-TRACE); UROBILINOGEN,URINE 0.2 mg/dL (0.2 mg/dL)
[2020-05-05 12:41] LABS: SQUAMOUS EPITHELIAL CELL,UR MANY /LPF
[2020-05-05 12:41] LABS: ALBUMIN 3.6 g/dL (3.4-5.0); TOTAL BILIRUBIN 0.4 mg/dL (0.2-1.0); TOTAL PROTEIN 7.2 g/dL (6.4-8.2)
[2020-05-05 12:42] LABS: BACTERIA,URINE MANY /HPF (0-FEW)
--- NOTE | 2020-05-05 12:44 | RAD ---
PORTABLE CHEST 1V History: Chest pain Comparison: November 12, 2019 Findings: Single view of the chest is submitted. There is again hiatal hernia. Pericardial cardiac silhouette is similar, somewhat prominent. There is no dependent pleural fluid, pneumothorax, or lobar infiltrate. Impression: 1. No acute radiographic abnormality is identified. 2. There is again hiatal hernia. Electronically signed by: Taye Lopez MD (05/05/2020 12:41 PM) [id number]
[2020-05-05 13:03] LABS: ANISOCYTOSIS MOD; HYPOCHROMIA MARKED; MICROCYTOSIS MARKED; OVALOCYTES MOD; PLT ESTIMATE ADEQUATE (ADEQUATE); POLYCHROMASIA SLIGHT; TEAR DROP CELLS FEW
[2020-05-05 13:41] LABS: FECAL OB PT NEGATIVE (NEG)
[2020-05-05] MEDS ORDERED: IOHEXOL 350 MG/ML 100 ML VIAL. IV ONE (13:45)
[2020-05-05] MEDS ORDERED: CONTRAST GIVEN. MC PRN (13:45)
--- NOTE | 2020-05-05 14:44 | RAD ---
CT angiography chest, abdomen and pelvis with contrast HISTORY: Chest pain, shortness of breath. TECHNIQUE: CT imaging the chest with 3-D MIP reconstructions of the arteries with 75 mL Omnipaque 350 intravenous contrast. Exposure: One or more of the following individualized dose reduction techniques were utilized for this examination: 1. Automated exposure control 2. Adjustment of the mA and/or kV according to patient size 3. Use of iterative reconstruction technique Chest findings: There are pulmonary artery emboli with nonocclusive filling defects at the left lower lobe and right upper lobe. There may be additional small peripheral subpleural right lower lobe pulmonary artery emboli as well although this is a region of motion artifact. Mild cardia megaly. Hiatal hernia of the upper stomach. No thoracic aortic aneurysm or dissection is mild motion artifact at the ascending aorta limiting assessment for subtle dissection. Ascending aorta diameter 3.1 cm. No adenopathy. Smooth pulmonary interstitial thickening at segments of the upper and lower lobes could represent mild interstitial edema. No pleural effusions. Bones unremarkable. Abdomen findings: No aneurysm or dissection of the abdominal aorta or arteries. No thrombus, stenosis or occlusion of the aorta or arteries either. Kidneys, adrenal glands, spleen unremarkable. Prominence of the common bile duct likely related to cholecystectomy. Indeterminate 6 mm hypodense lesion segment 4 the liver image [address] abdomen imaging from 2010 to small characterize due to volume averaging. 1 cm fatty density focus at the head of the pancreas is stable to CT imaging in 2011 considered benign. No obstruction or inflammation of the GI tract. No abdominal fluid or adenopathy. Lower lumbar disc disease and facet arthritis. Pelvis findings: No aneurysm, dissection, thrombus, stenosis or occlusion of the iliac arteries. Uterus, ovaries, bladder, rectum and bones are unremarkable. No pelvic fluid or adenopathy. IMPRESSION: 1. Pulmonary emboli as described above. 2. No aneurysm or dissection of the thoracic aorta, abdominal aorta or iliac arteries. 3. Mild pulmonary interstitial thickening may represent mild interstitial edema. No pleural effusions. 4. 0.6 cm hypodense lesion of the liver segment [address] CT imaging. This is indeterminate. This could be further assessed with outpatient MR imaging. 5. Hiatal hernia of the upper stomach. FOR INTERNAL CODING PURPOSES Critical result: Findings discussed with ASHOK SANTOS at 05/05/2020 2:36 PM. RESULT CODE: (C) Electronically signed by: Tavon Leahy MD (05/05/2020 2:41 PM) [id number]
[2020-05-05] MEDS ORDERED: POTASSIUM CHLORIDE 20 MEQ TABLET.ER. PO PRN (16:15)
[2020-05-05] MEDS ORDERED: POTASSIUM CHLORIDE 10MEQ 100 ML IV PRN (16:15)
[2020-05-05] MEDS ORDERED: SENNOSIDES 8.6 MG TABLET PO PRN (16:15)
[2020-05-05] MEDS ORDERED: HEPARIN for IV BOLUS 10,000 UNIT/10 ML VIAL. IV ONE (16:15)
[2020-05-05] MEDS ORDERED: DEXTROSE 50% 25 GM / 50ML DISP.SYRIN. IV PRN (16:15)
[2020-05-05] MEDS ORDERED: ACETAMINOPHEN 325 MG TABLET. PO PRN (16:15)
[2020-05-05] MEDS ORDERED: POTASSIUM CHLORIDE 10MEQ 100 ML IV SCH (16:15)
[2020-05-05] MEDS ORDERED: HEPARIN for IV BOLUS 10,000 UNIT/10 ML VIAL. IV PRN (16:15)
[2020-05-05] MEDS ORDERED: ONDANSETRON PF 4 MG/2 ML VIAL. IVP PRN (16:15)
[2020-05-05] MEDS ORDERED: MAGNESIUM SULFATE 2GM 50 ML IV SCH (16:15)
[2020-05-05] MEDS ORDERED: DOCUSATE SODIUM 100 MG CAPSULE. PO PRN (16:15)
--- NOTE | 2020-05-05 16:15 | PDOC1 ---
History and Physical Date of Service: DOS: DATE: 05/05/20 TIME: 15:56 Chief Complaint: Chief Complain: Dizziness and generalized weakness History of Present Illness: HPI: 59 year old female who presents with midsternal chest pain that does not radiate and dizziness and SOA with exertion intermittently for the last 2 days. She states that the SOA has been going on for a few months and she has an inhaler that she uses for that. Denies smoking. Patient is unable to tell me if she has asthma or COPD and to why the doctor ordered her the albuterol inhaler. She states is a sharp type pain. She states nothing makes it worse or better. She states she is not taken aspirin. She states that she does not have any heart history but her family does have heart history. She rates her pain a 10 out of 10. Patient denies nausea, vomiting, abdominal pain, cough, fever, headache, focal weakness, vision changes, numbness or tingling, syncope. She states she was working today here at [employer] [facility] when she started to be diaphoretic, short of breath and dizzy. Patient has a history of acid reflux, uterine fibroids, high cholesterol, hypothyroidism. Past Medical/Surgical History: PMH/PSH: Past Medical History: GERD, High Cholesterol, Hypothyroid, Uterine Fibroids, ACID REFLUX Past Surgical History: Tubal ligation Allergies: Allergies: Coded Allergies: No Known Drug Allergies (Unverified , 09/25/18) Family History: Family History: Reviewed and none reported Social History: Social History: Smoking Status: Never Smoker Alcohol Use: None Drug Use: None Current Medications: Current Medications Current Medications Aspirin (Barron Aspirin) 325 mg 1X ONCE PO Last administered on 05/05/20at 12:16; Start 05/05/20 at 12:15; Stop 05/05/20 at 12:16; Status DC Sodium Chloride 1,000 ml @ 1,000 mls/hr Q1H IV Last administered on 05/05/20at 12:16; Start 05/05/20 at 12:01; Stop 05/05/20 at 13:00; Status DC Famotidine (Pepcid Vial) 20 mg 1X ONCE IVP Last administered on 05/05/20at 12:16; Start 05/05/20 at 12:15; Stop 05/05/20 at 12:16; Status DC Iohexol (Omnipaque 350 Mg/ml) 75 ml 1X ONCE IV Last administered on 05/05/20at 13:46; Start 05/05/20 at 13:45; Stop 05/05/20 at 13:46; Status DC Info (CONTRAST GIVEN -- Rx MONITORING) 1 each PRN DAILY PRN MC SEE COMMENTS; Start 05/05/20 at 13:45; Stop 05/07/20 at 13:44 Active Scripts Active Hydroxyzine Hcl 25 Mg Tablet 1 Tab PO TID PRN Diclofenac Sodium 50 Mg Tablet.dr 1 Tab PO BID PRN Orphenadrine Citrate 100 Mg Tablet.er 1 Tab PO BID PRN Tramadol Hcl 50 Mg Tablet 50 Mg PO Q6HRS PRN Percocet 5-325 Mg Tablet (Oxycodone/Acetaminophen) 1 Each Tablet 2 Tab PO PRN Q4HRS PRN 7 Days Polyethylene Glycol 3350 17 Gm Powd.pack 17 Gm PO PRN DAILY PRN 14 Days Mucinex Dm Er 600-30 Mg Tablet (Guaifenesin/Dextromethorphan) 1 Each Tab.er.12h 1 Tab PO BID 14 Days Percocet 5-325 Mg Tablet (Oxycodone/Acetaminophen) 1 Each Tablet 1 Tab PO PRN Q4HRS PRN 7 Days Reported Levothyroxine Sodium 125 Mcg Tablet 125 Mcg PO DAILY Valacyclovir (Valacyclovir Hcl) 500 Mg Tablet 1 Tab PO DAILY Primidone 250 Mg Tablet 250 Mg PO DAILY Omeprazole 20 Mg Tablet. 1 Tab PO DAILY ROS: Review of Systems Review of System REVIEW OF SYSTEMS: GENERAL: Denies weakness SKIN: No bruising, hair changes or rashes. EYES: No blurred, double or loss of vision. NOSE AND THROAT: No history of nosebleeds, hoarseness or sore throat. HEART: No history of palpitations, chest pain or shortness of breath on exertion. LUNGS: Denies cough, hemoptysis, wheezing or shortness of breath. GASTROINTESTINAL: Denies changes in appetite, nausea, vomiting, diarrhea or constipation. GENITOURINARY: No history of frequency, urgency, hesitancy or nocturia. NEUROLOGIC: Denies history of numbness, tingling, or tremor. PSYCHIATRIC: No history of panic, anxiety or depression. ENDOCRINE: No history of heat or cold intolerance, polyuria or polydipsia. EXTREMITIES: Denies joint pain, pain on walking or stiffness. Physical Exam: Vital Signs: Vital Signs Date Time Temp Pulse Resp B/P (MAP) Pulse Ox O2 Delivery O2 Flow Rate FiO2 05/05/20 15:38 99.5 84 18 120/70 99.5 05/05/20 14:29 98 Room Air Physcial Exam: GEN: No apparent distress. Alert and oriented HEENT: Normal cephalic, atraumatic, external auditory canals are patent EYES: Extraocular muscles are intact, pupil are equally round and reactive to light and accommodation MUSCULOSKELETAL: Well developed , well nourished, good range of motion ENDOCRINE: No thyromegaly was palpated LYMPHATICS: No cervical chain or axillary nodes were noted HEMATOPOIETIC: No bruising NECK: Supple, no JVD, no thyromegaly was noted LUNGS: Clear to auscultation in all lung jordan without rhonchi or wheezing HEART: RRR, S!, S2 present. Peripheral pulses intact, no obvious murmurs noted ABDOMEN: Soft, nontender. Positive bowel sounds, no organomegaly, normal bowel sounds EXTREMITIES: Without clubbing, cyanosis, or edema. Pedal pulses intact. Negative Homans sign NEUROLOGIC: Normal speech and tone. A&O x 3, moves all extremities, no obvious focal deficits PSYCHIATRIC: Normal affect, normal mood. Stable SKIN: No ulcerations or rashes, good skin turgor, no jaundice VASCULAR: Good capillary refill, neurovascular bundle appears to be intact Labs: Labs: Laboratory Tests Test 05/05/20 11:55 05/05/20 12:11 05/05/20 13:25 White Blood Count 8.1 x10^3/uL (4.0-11.0) Red Blood Count 3.23 x10^6/uL (3.50-5.40) Hemoglobin 5.4 g/dL (12.0-15.5) Hematocrit 18.8 % (36.0-47.0) Mean Corpuscular Volume 58 fL (79-100) Mean Corpuscular Hemoglobin 17 pg (25-35) Mean Corpuscular Hemoglobin Concent 29 g/dL (31-37) Red Cell Distribution Width 22.4 % (11.5-14.5) Platelet Count 311 x10^3/uL (140-400) Neutrophils (%) (Auto) 81 % (31-73) Lymphocytes (%) (Auto) 13 % (24-48) Monocytes (%) (Auto) 6 % (0-9) Eosinophils (%) (Auto) 0 % (0-3) Basophils (%) (Auto) 1 % (0-3) Neutrophils # (Auto) 6.5 x10^3/uL (1.8-7.7) Lymphocytes # (Auto) 1.0 x10^3/uL (1.0-4.8) Monocytes # (Auto) 0.5 x10^3/uL (0.0-1.1) Eosinophils # (Auto) 0.0 x10^3/uL (0.0-0.7) Basophils # (Auto) 0.0 x10^3/uL (0.0-0.2) Platelet Estimate Adequate (ADEQUATE) Polychromasia Slight Hypochromasia Marked Anisocytosis Mod Microcytosis Marked Tear Drop Cells Few Ovalocytes Mod Prothrombin Time 13.3 SEC (11.7-14.0) Prothromb Time International Ratio 1.1 (0.8-1.1) D-Dimer (Bel) 2.09 ug/mlFEU (0.00-0.50) Sodium Level 139 mmol/L (136-145) Potassium Level 3.7 mmol/L (3.5-5.1) Chloride Level 104 mmol/L (98-107) Carbon Dioxide Level 23 mmol/L (21-32) Anion Gap 12 (6-14) Blood Urea Nitrogen 12 mg/dL (7-20) Creatinine 0.8 mg/dL (0.6-1.0) Estimated GFR (Cockcroft-Gault) 73.9 BUN/Creatinine Ratio 15 (6-20) Glucose Level 99 mg/dL (70-99) Calcium Level 8.9 mg/dL (8.5-10.1) Total Bilirubin 0.4 mg/dL (0.2-1.0) Aspartate Amino Transf (AST/SGOT) 23 U/L (15-37) Alanine Aminotransferase (ALT/SGPT) 18 U/L (14-59) Alkaline Phosphatase 99 U/L (46-116) Troponin I Quantitative < 0.017 ng/mL (0.000-0.055) GN-Uru-G-Type Natriuretic Peptide 95 pg/mL (0-124) Total Protein 7.2 g/dL (6.4-8.2) Albumin 3.6 g/dL (3.4-5.0) Albumin/Globulin Ratio 1.0 (1.0-1.7) Lipase 89 U/L (73-393) Urine Collection Type Unknown Urine Color Yellow Urine Clarity Clear Urine pH 5.5 (<5.0-8.0) Urine Specific [place] 1.020 (1.000-1.030) Urine Protein Negative mg/dL (NEG-TRACE) Urine Glucose (UA) Negative mg/dL (NEG) Urine Ketones (Stick) 15 mg/dL (NEG) Urine Blood Negative (NEG) Urine Nitrite Negative (NEG) Urine Bilirubin Negative (NEG) Urine Urobilinogen Dipstick 0.2 mg/dL (0.2 mg/dL) Urine Leukocyte Esterase Negative (NEG) Urine RBC 1-2 /HPF (0-2) Urine WBC 1-4 /HPF (0-4) Urine Squamous Epithelial Cells Many /LPF Urine Bacteria Many /HPF (0-FEW) Urine Mucus Marked /LPF Urine Opiates Screen Neg (NEG) Urine Methadone Screen Neg (NEG) Urine Barbiturates Pos (NEG) Urine Phencyclidine Screen Neg (NEG) Urine Amphetamine/Methamphetamine Neg (NEG) Urine Benzodiazepines Screen Neg (NEG) Urine Cocaine Screen Neg (NEG) Urine Cannabinoids Screen Neg (NEG) Urine Ethyl Alcohol Neg (NEG) Stool Occult Blood Negative (NEG) Laboratory Tests Test 05/05/20 11:55 05/05/20 12:11 05/05/20 13:25 White Blood Count 8.1 x10^3/uL (4.0-11.0) Red Blood Count 3.23 x10^6/uL (3.50-5.40) Hemoglobin 5.4 g/dL (12.0-15.5) Hematocrit 18.8 % (36.0-47.0) Mean Corpuscular Volume 58 fL (79-100) Mean Corpuscular Hemoglobin 17 pg (25-35) Mean Corpuscular Hemoglobin Concent 29 g/dL (31-37) Red Cell Distribution Width 22.4 % (11.5-14.5) Platelet Count 311 x10^3/uL (140-400) Neutrophils (%) (Auto) 81 % (31-73) Lymphocytes (%) (Auto) 13 % (24-48) Monocytes (%) (Auto) 6 % (0-9) Eosinophils (%) (Auto) 0 % (0-3) Basophils (%) (Auto) 1 % (0-3) Neutrophils # (Auto) 6.5 x10^3/uL (1.8-7.7) Lymphocytes # (Auto) 1.0 x10^3/uL (1.0-4.8) Monocytes # (Auto) 0.5 x10^3/uL (0.0-1.1) Eosinophils # (Auto) 0.0 x10^3/uL (0.0-0.7) Basophils # (Auto) 0.0 x10^3/uL (0.0-0.2) Platelet Estimate Adequate (ADEQUATE) Polychromasia Slight Hypochromasia Marked Anisocytosis Mod Microcytosis Marked Tear Drop Cells Few Ovalocytes Mod Prothrombin Time 13.3 SEC (11.7-14.0) Prothromb Time International Ratio 1.1 (0.8-1.1) D-Dimer (Bel) 2.09 ug/mlFEU (0.00-0.50) Sodium Level 139 mmol/L (136-145) Potassium Level 3.7 mmol/L (3.5-5.1) Chloride Level 104 mmol/L (98-107) Carbon Dioxide Level 23 mmol/L (21-32) Anion Gap 12 (6-14) Blood Urea Nitrogen 12 mg/dL (7-20) Creatinine 0.8 mg/dL (0.6-1.0) Estimated GFR (Cockcroft-Gault) 73.9 BUN/Creatinine Ratio 15 (6-20) Glucose Level 99 mg/dL (70-99) Calcium Level 8.9 mg/dL (8.5-10.1) Total Bilirubin 0.4 mg/dL (0.2-1.0) Aspartate Amino Transf (AST/SGOT) 23 U/L (15-37) Alanine Aminotransferase (ALT/SGPT) 18 U/L (14-59) Alkaline Phosphatase 99 U/L (46-116) Troponin I Quantitative < 0.017 ng/mL (0.000-0.055) FY-Axa-N-Type Natriuretic Peptide 95 pg/mL (0-124) Total Protein 7.2 g/dL (6.4-8.2) Albumin 3.6 g/dL (3.4-5.0) Albumin/Globulin Ratio 1.0 (1.0-1.7) Lipase 89 U/L (73-393) Urine Collection Type Unknown Urine Color Yellow Urine Clarity Clear Urine pH 5.5 (<5.0-8.0) Urine Specific [place] 1.020 (1.000-1.030) Urine Protein Negative mg/dL (NEG-TRACE) Urine Glucose (UA) Negative mg/dL (NEG) Urine Ketones (Stick) 15 mg/dL (NEG) Urine Blood Negative (NEG) Urine Nitrite Negative (NEG) Urine Bilirubin Negative (NEG) Urine Urobilinogen Dipstick 0.2 mg/dL (0.2 mg/dL) Urine Leukocyte Esterase Negative (NEG) Urine RBC 1-2 /HPF (0-2) Urine WBC 1-4 /HPF (0-4) Urine Squamous Epithelial Cells Many /LPF Urine Bacteria Many /HPF (0-FEW) Urine Mucus Marked /LPF Urine Opiates Screen Neg (NEG) Urine Methadone Screen Neg (NEG) Urine Barbiturates Pos (NEG) Urine Phencyclidine Screen Neg (NEG) Urine Amphetamine/Methamphetamine Neg (NEG) Urine Benzodiazepines Screen Neg (NEG) Urine Cocaine Screen Neg (NEG) Urine Cannabinoids Screen Neg (NEG) Urine Ethyl Alcohol Neg (NEG) Stool Occult Blood Negative (NEG) Images: Images CT chest/ABD/Pelvis IMPRESSION: 1. Pulmonary emboli as described above. 2. No aneurysm or dissection of the thoracic aorta, abdominal aorta or iliac arteries. 3. Mild pulmonary interstitial thickening may represent mild interstitial edema. No pleural effusions. 4. 0.6 cm hypodense lesion of the liver segment [address] from [address] CT imaging. This is indeterminate. This could be further assessed with outpatient MR imaging. 5. Hiatal hernia of the upper stomach. Assessment/Plan Assessment/Plan Generalized weakness due to microcytic anemia due to iron deficiency versus acute blood loss Acute bilateral pulmonary emboli, hemodynamically stable Multiple hypodense liver lesions concerning for metastasis due to colorectal malignancy Hiatal hernia Low health literacy History of uterine fibroids, however CT imaging does not reveal any obvious lesions in her uterus Questionable history of asthma versus COPD Admit to medicine for further management Transfused 2 units PRBC Continue heparin IV drip Pending GI evaluation for liver lesions and hiatal hernia and low hemoglobin PE treatment for DVT prophylaxis Protonix GI prophylaxis ADA diet Full code Discussed with RN and SW Disposition pending GI evaluation Surrogate decision maker is the Justifications for Admission Other Justification CARLOS MANE MD May 05, 2020 16:15
[2020-05-05] MEDS: IPRATRPIUM/ALBUTEROL 0.5/2.5MG 3 ML NEBU. NEB SCH ×2 (16:25→18:48)
[2020-05-05] MEDS ORDERED: ELECTROLYTE (NON-ICU) PROTOCOL MC PRN (16:30)
[2020-05-05] MEDS: HEPARIN 25,000UTS/250ML PREMIX 250 ML IV PRN (16:45)
--- NOTE | 2020-05-05 16:50 | NUR ---
SW following. Reviewed chart and spoke with RN. SW consulted for discharge planning. Pt from home. PT/OT to evaluate. Pt currently on room air, IV Dextrose, COVID pending. Hgb is 5.4. SW following.
[2020-05-05] MEDS ORDERED: MAGNESIUM OXIDE 400 MG TABLET PO SCH (21:00)
[2020-05-06] VITALS (10 sets, daily range): BP systolic 109–144; BP diastolic 53–75
[2020-05-06] MEDS: HEPARIN for IV BOLUS 10,000 UNIT/10 ML VIAL. IV PRN ×3 (00:06→21:35)
[2020-05-06 05:45] LABS: BASO # 0.1 x10^3/uL (0.0-0.2); BASO % 1 % (0-3); EOS % 1 % (0-3); HEMATOCRIT 22.9 % (36.0-47.0); HEMOGLOBIN 7.3 g/dL (12.0-15.5); LYMPH # 1.6 x10^3/uL (1.0-4.8); LYMPH % 22 % (24-48); MEAN CORPUSCULAR HEMOGLOBIN 21 pg (25-35); MEAN CORPUSCULAR HGB CONC 32 g/dL (31-37); MEAN CORPUSCULAR VOLUME 64 fL (79-100); MONO # 0.7 x10^3/uL (0.0-1.1); MONO % 9 % (0-9); NEUT % 68 % (31-73); PLATELET COUNT 272 x10^3/uL (140-400); RED BLOOD COUNT 3.57 x10^6/uL (3.50-5.40); RED CELL DISTRIBUTION WIDTH 30.4 % (11.5-14.5); WHITE BLOOD COUNT 7.4 x10^3/uL (4.0-11.0)
[2020-05-06 06:04] LABS: CALCIUM 8.5 mg/dL (8.5-10.1); CREATININE 0.6 mg/dL (0.6-1.0); MAGNESIUM 2.1 mg/dL (1.8-2.4); PHOSPHORUS 3.2 mg/dL (2.6-4.7); POTASSIUM 3.7 mmol/L (3.5-5.1)
--- NOTE | 2020-05-06 08:00 | EKG ---
[facility] [address] [place] [address] Test Date: 2020-05-05 Test Time: 11:34:11 Pat Name: NIMISHA BLAKE Department: Room: Gender: F Trim Mounter: : 1960 Requested By: ASHOK SANTOS Order Number: [id number] Reading MD: Measurements Intervals [place] Rate: 98 P: 50 DC: 144 QRS: -14 QRSD: 82 T: 28 QT: 356 QTc: 456 Interpretive Statements SINUS RHYTHM LEFT ATRIAL ABNORMALITY LEFTWARD AXIS QRS(T) CONTOUR ABNORMALITY CONSISTENT WITH ANTEROSEPTAL INFARCT PROBABLY OLD ABNORMAL ECG RI6.02 No previous ECG available for comparison
[2020-05-06] MEDS: IPRATRPIUM/ALBUTEROL 0.5/2.5MG 3 ML NEBU. NEB SCH ×4 (08:10→20:01)
--- NOTE | 2020-05-06 08:25 | PDOC2 ---
GI CONSULT Date of Service: DATE: 05/06/20 TIME: 08:21 Reason For Consult: liver lesions HPI: HPI: 59 y/o female seen this morning w/ Dr. Dela Cruz. Presented w/ CP, SOA, dizziness. Imaging noted PEs, now on Heparin. Also noted w/ profound anemia. We are asked to see re: liver lesion on CT. Says she thinks her PCP said she was anemic. Denies hematemesis, hematochezia, and melena. Has some stomach pain after eating (though currently without abdominal pain) and poor appetite. Reviewed past office notes - has been seen for epigastric pain w/ bloating, anorexia, weight loss, and nausea - improved w/ omeprazole. Colonoscopy 07/2018: non-bleeding internal hemorrhoids, otherwise normal exam. EGD 09/2018: normal esophagus, chronic gastritis, normal duodenum. No biopsies. GES 09/2018: normal. S/p cholecystectomy 03/2019 (path: focal cholesterolosis, chronic cholecystitis). CT this time noted hiatal hernia and 0.6cm hypodense indeterminate lesion of liver - suggestion to assess w/ outpt MRI. Fatty liver on past US. Iron deficient and low folate w/ normal B12 in 01/2020. Hepatitis panel, Hemoccult negative, and COVID test negative this admission. Currently short of breath and feeling really cold w/ RLE pain. Med list includes Diclofenac. PMH: PMH: per chart: HTN, thyroid cancer, tubal ligation, thyroidectomy FH: Family History: No pertinent hx Social History: Smoke: No ALCOHOL: none Drugs: None ROS: GEN: +chills HEENT: Denies blurred vision, sore throat CV: Denies chest pain RESP: +SOA GI: Per HPI : Denies hematuria, dysuria ENDO: Denies weight changes NEURO: Denies confusion, dizziness MSK: +RLE pain SKIN: Denies jaundice, pruritus Vitals: Vitals: Vital Signs Date Time Temp Pulse Resp B/P (MAP) Pulse Ox O2 Delivery O2 Flow Rate FiO2 05/06/20 08:10 96 Room Air 05/06/20 03:51 99.0 81 18 123/69 (87) 99.0 Labs: Labs: Laboratory Tests Test 05/05/20 11:55 05/05/20 12:11 05/05/20 12:05/05/20 13:25 White Blood Count 8.1 x10^3/uL (4.0-11.0) Red Blood Count 3.23 x10^6/uL (3.50-5.40) Hemoglobin 5.4 g/dL (12.0-15.5) Hematocrit 18.8 % (36.0-47.0) Mean Corpuscular Volume 58 fL (79-100) Mean Corpuscular Hemoglobin 17 pg (25-35) Mean Corpuscular Hemoglobin Concent 29 g/dL (31-37) Red Cell Distribution Width 22.4 % (11.5-14.5) Platelet Count 311 x10^3/uL (140-400) Neutrophils (%) (Auto) 81 % (31-73) Lymphocytes (%) (Auto) 13 % (24-48) Monocytes (%) (Auto) 6 % (0-9) Eosinophils (%) (Auto) 0 % (0-3) Basophils (%) (Auto) 1 % (0-3) Neutrophils # (Auto) 6.5 x10^3/uL (1.8-7.7) Lymphocytes # (Auto) 1.0 x10^3/uL (1.0-4.8) Monocytes # (Auto) 0.5 x10^3/uL (0.0-1.1) Eosinophils # (Auto) 0.0 x10^3/uL (0.0-0.7) Basophils # (Auto) 0.0 x10^3/uL (0.0-0.2) Platelet Estimate Adequate (ADEQUATE) Polychromasia Slight Hypochromasia Marked Anisocytosis Mod Microcytosis Marked Tear Drop Cells Few Ovalocytes Mod Prothrombin Time 13.3 SEC (11.7-14.0) Prothromb Time International Ratio 1.1 (0.8-1.1) D-Dimer (Bel) 2.09 ug/mlFEU (0.00-0.50) Sodium Level 139 mmol/L (136-145) Potassium Level 3.7 mmol/L (3.5-5.1) Chloride Level 104 mmol/L (98-107) Carbon Dioxide Level 23 mmol/L (21-32) Anion Gap 12 (6-14) Blood Urea Nitrogen 12 mg/dL (7-20) Creatinine 0.8 mg/dL (0.6-1.0) Estimated GFR (Cockcroft-Gault) 73.9 BUN/Creatinine Ratio 15 (6-20) Glucose Level 99 mg/dL (70-99) Calcium Level 8.9 mg/dL (8.5-10.1) Total Bilirubin 0.4 mg/dL (0.2-1.0) Aspartate Amino Transf (AST/SGOT) 23 U/L (15-37) Alanine Aminotransferase (ALT/SGPT) 18 U/L (14-59) Alkaline Phosphatase 99 U/L (46-116) Troponin I Quantitative < 0.017 ng/mL (0.000-0.055) QE-Rla-W-Type Natriuretic Peptide 95 pg/mL (0-124) Total Protein 7.2 g/dL (6.4-8.2) Albumin 3.6 g/dL (3.4-5.0) Albumin/Globulin Ratio 1.0 (1.0-1.7) Lipase 89 U/L (73-393) Hepatitis A IgM Antibody Nonreactive (Nonreactive) Hepatitis B Surface Antigen Nonreactive (Nonreactive) Hepatitis B Core IgM Antibody Nonreactive (Nonreactive) Hepatitis C IgG Antibody Nonreactive (Nonreactive) Urine Collection Type Unknown Urine Color Yellow Urine Clarity Clear Urine pH 5.5 (<5.0-8.0) Urine Specific [place] 1.020 (1.000-1.030) Urine Protein Negative mg/dL (NEG-TRACE) Urine Glucose (UA) Negative mg/dL (NEG) Urine Ketones (Stick) 15 mg/dL (NEG) Urine Blood Negative (NEG) Urine Nitrite Negative (NEG) Urine Bilirubin Negative (NEG) Urine Urobilinogen Dipstick 0.2 mg/dL (0.2 mg/dL) Urine Leukocyte Esterase Negative (NEG) Urine RBC 1-2 /HPF (0-2) Urine WBC 1-4 /HPF (0-4) Urine Squamous Epithelial Cells Many /LPF Urine Bacteria Many /HPF (0-FEW) Urine Mucus Marked /LPF Urine Opiates Screen Neg (NEG) Urine Methadone Screen Neg (NEG) Urine Barbiturates Pos (NEG) Urine Phencyclidine Screen Neg (NEG) Urine Amphetamine/Methamphetamine Neg (NEG) Urine Benzodiazepines Screen Neg (NEG) Urine Cocaine Screen Neg (NEG) Urine Cannabinoids Screen Neg (NEG) Urine Ethyl Alcohol Neg (NEG) Coronavirus (PCR) Not detected (Not Detected) Stool Occult Blood Negative (NEG) Test 05/05/20 15:05 05/05/20 18:20 05/05/20 23:03 05/06/20 05:25 Troponin I Quantitative < 0.017 ng/mL (0.000-0.055) < 0.017 ng/mL (0.000-0.055) Heparin Anti-Xa Act, Unfractionated 0.22 IU/mL (0.30-0.70) 0.28 IU/mL (0.30-0.70) White Blood Count 7.4 x10^3/uL (4.0-11.0) Red Blood Count 3.57 x10^6/uL (3.50-5.40) Hemoglobin 7.3 g/dL (12.0-15.5) Hematocrit 22.9 % (36.0-47.0) Mean Corpuscular Volume 64 fL (79-100) Mean Corpuscular Hemoglobin 21 pg (25-35) Mean Corpuscular Hemoglobin Concent 32 g/dL (31-37) Red Cell Distribution Width 30.4 % (11.5-14.5) Platelet Count 272 x10^3/uL (140-400) Neutrophils (%) (Auto) 68 % (31-73) Lymphocytes (%) (Auto) 22 % (24-48) Monocytes (%) (Auto) 9 % (0-9) Eosinophils (%) (Auto) 1 % (0-3) Basophils (%) (Auto) 1 % (0-3) Neutrophils # (Auto) 5.0 x10^3/uL (1.8-7.7) Lymphocytes # (Auto) 1.6 x10^3/uL (1.0-4.8) Monocytes # (Auto) 0.7 x10^3/uL (0.0-1.1) Eosinophils # (Auto) 0.0 x10^3/uL (0.0-0.7) Basophils # (Auto) 0.1 x10^3/uL (0.0-0.2) Sodium Level 140 mmol/L (136-145) Potassium Level 3.7 mmol/L (3.5-5.1) Chloride Level 107 mmol/L (98-107) Carbon Dioxide Level 24 mmol/L (21-32) Anion Gap 9 (6-14) Blood Urea Nitrogen 9 mg/dL (7-20) Creatinine 0.6 mg/dL (0.6-1.0) Estimated GFR (Cockcroft-Gault) 103.0 Glucose Level 97 mg/dL (70-99) Calcium Level 8.5 mg/dL (8.5-10.1) Phosphorus Level 3.2 mg/dL (2.6-4.7) Magnesium Level 2.1 mg/dL (1.8-2.4) URINE CULTURE Final Final 20,000 CFU/ML Normal genitourinary yessenia, not indicative of infection on 05/06/20 at 0930 Allergies: Coded Allergies: No Known Drug Allergies (Unverified , 09/25/18) Medications: Current Medications Medications (Trade) Dose Ordered Sig/Mary Route PRN Reason Start Time Stop Time Status Last Admin Dose Admin Aspirin (Barron Aspirin) 325 mg 1X ONCE PO 05/05/20 12:15 05/05/20 12:16 DC 05/05/20 12:16 Sodium Chloride 1,000 ml @ 1,000 mls/hr Q1H IV 05/05/20 12:01 05/05/20 13:00 DC 05/05/20 12:16 Famotidine (Pepcid Vial) 20 mg 1X ONCE IVP 05/05/20 12:15 05/05/20 12:16 DC 05/05/20 12:16 Iohexol (Omnipaque 350 Mg/ml) 75 ml 1X ONCE IV 05/05/20 13:45 05/05/20 13:46 DC 05/05/20 13:46 Heparin Sodium (Porcine) (Heparin Sodium) 4,000 unit 1X ONCE IV 05/05/20 16:15 05/05/20 16:16 DC 05/05/20 16:34 Heparin Sodium/ Dextrose 250 ml @ 0 mls/hr CONT PRN IV PER PROTOCOL 05/05/20 16:15 05/05/20 16:45 Heparin Sodium (Porcine) (Heparin Sodium) 750 unit PRN Q6HRS PRN IV FOR UFH LEVEL 0.2 - 0.29 05/05/20 16:15 05/06/20 07:34 Albuterol/ Ipratropium (Duoneb) 3 ml RTQID NEB 05/05/20 16:30 05/06/20 08:10 Imaging: Imaging: C/A/P CTA IMPRESSION: 1. Pulmonary emboli as described above. 2. No aneurysm or dissection of the thoracic aorta, abdominal aorta or iliac arteries. 3. Mild pulmonary interstitial thickening may represent mild interstitial edema. No pleural effusions. 4. 0.6 cm hypodense lesion of the liver segment [address] from [address] CT imaging. This is indeterminate. This could be further assessed with outpatient MR imaging. 5. Hiatal hernia of the upper stomach. PE: GEN: uncomfortable HEENT: atraumatic, PERRL LUNGS: diminished HEART: RR ABD: NABS, S/ND/NT EXTREMITY: right calf tenderness SKIN: No rashes, no jaundice NEURO/PSYCH: A & O 3, anxious A/P: A/P: PEs, RLE pain JELENA - improved w/ transfusion, no obvious bleeding and negative Hemoccult Liver lesion on CT - normal LFTs, Hep panel negative, radiology recs for outpt MRI Probable h/o GERD w/ chronic anorexia, post-prandial pain - improved w/ PPI - normal EGD and GES 09/2018, CT notes hiatal hernia CRC screen - UTD (07/2018) S/p cholecystectomy H/o fatty liver COVID negative 05/05 -- Continue PPI, monitor Hgb and transfuse as needed, consider addition of iron in some form. ADAT. Plan for outpt scopes and outpt MRI re: liver lesion. Has had a couple past abd US - will review any need to repeat this while inpt w/ Dr. Dela Cruz. HARSHA BAUTISTA May 06, 2020 08:25
[2020-05-06] MEDS ORDERED: ANTI-COAG MONITOR BY PHARMACY. MC PRN (08:30)
--- NOTE | 2020-05-06 09:00 | PDOC ---
PROGRESS NOTES Date of Service: DATE: 05/06/20 TIME: 09:00 Chief Complaint Chief Complaint IMPRESSION: 1. Pulmonary emboli as described above. 2. No aneurysm or dissection of the thoracic aorta, abdominal aorta or iliac arteries. 3. Mild pulmonary interstitial thickening may represent mild interstitial edema. No pleural effusions. 4. 0.6 cm hypodense lesion of the liver segment [address] imaging. This is indeterminate. This could be further assessed with outpatient MR imaging. 5. Hiatal hernia of the upper stomach. IMPRESSION Assessment/Plan Generalized weakness due to microcytic anemia due to iron deficiency versus acute blood loss Acute bilateral pulmonary emboli, hemodynamically stable Multiple hypodense liver lesions concerning for metastasis due to colorectal malignancy Hiatal hernia Low health literacy History of uterine fibroids, however CT imaging does not reveal any obvious lesions in her uterus Questionable history of asthma versus COPD Admit to medicine for further management Transfused 2 units PRBC Continue heparin IV drip Pending GI evaluation for liver lesions and hiatal hernia and low hemoglobin PE treatment for DVT prophylaxis Protonix GI prophylaxis ADA diet Full code Discussed with RN and SW Disposition pending GI evaluation Surrogate decision maker is the GI CONSULT FNH/hepatic adenoma, AVM/hemangioma, and/or malignancy in differential. O/p MRI liver recommended. 37 MIN pt exam, chart review, ,> 50% of time spent with exam, chart review., pt care coordination Justifications for Admission Justifications for Admission Other Justification History of Present Illness History of Present Illness Chief Complaint: Chief Complain: Dizziness and generalized weakness History of Present Illness: HPI: 59 year old female who presents with midsternal chest pain that does not radiate and dizziness and SOA with exertion intermittently for the last 2 days. She states that the SOA has been going on for a few months and she has an inhaler that she uses for that. Denies smoking. Patient is unable to tell me if she has asthma or COPD and to why the doctor ordered her the albuterol inhaler. She states is a sharp type pain. She states nothing makes it worse or better. She states she is not taken aspirin. She states that she does not have any heart history but her family does have heart history. She rates her pain a 10 out of 10. Patient denies nausea, vomiting, abdominal pain, cough, fever, headache, focal weakness, vision changes, numbness or tingling, syncope. She states she was working today here at [place] [facility] when she started to be diaphoretic, short of breath and dizzy. Patient has a history of acid reflux, uterine fibroids, high cholesterol, hypothyroidism. Past Medical/Surgical History: PMH/PSH: Past Medical History: GERD, High Cholesterol, Hypothyroid, Uterine Fibroids, ACID REFLUX Past Surgical History: Tubal ligation Allergies: Allergies: Coded Allergies: No Known Drug Allergies (Unverified , 09/25/18) Family History: Family History: Reviewed and none reported Social History: Social History: Smoking Status: Never Smoker Alcohol Use: None Drug Use: None Vitals Vitals Vital Signs Date Time Temp Pulse Resp B/P (MAP) Pulse Ox O2 Delivery O2 Flow Rate FiO2 05/06/20 08:10 96 Room Air 05/06/20 03:51 99.0 81 18 123/69 (87) 99.0 Physical Exam Physical Exam Physcial Exam: GEN: No apparent distress. Alert and oriented HEENT: Normal cephalic, atraumatic, external auditory canals are patent EYES: Extraocular muscles are intact, pupil are equally round and reactive to light and accommodation MUSCULOSKELETAL: Well developed , well nourished, good range of motion ENDOCRINE: No thyromegaly was palpated LYMPHATICS: No cervical chain or axillary nodes were noted HEMATOPOIETIC: No bruising NECK: Supple, no JVD, no thyromegaly was noted LUNGS: Clear to auscultation in all lung jordan without rhonchi or wheezing HEART: RRR, S!, S2 present. Peripheral pulses intact, no obvious murmurs noted ABDOMEN: Soft, nontender. Positive bowel sounds, no organomegaly, normal bowel sounds EXTREMITIES: Without clubbing, cyanosis, or edema. Pedal pulses intact. Negative Homans sign NEUROLOGIC: Normal speech and tone. A&O x 3, moves all extremities, no o bvious focal deficits PSYCHIATRIC: Normal affect, normal mood. Stable SKIN: No ulcerations or rashes, good skin turgor, no jaundice VASCULAR: Good capillary refill, neurovascular bundle appears to be intact General: Alert, Oriented X3, Cooperative, No acute distress Heart: Regular rate Abdomen: Normal bowel sounds, Soft Extremities: No cyanosis Skin: No breakdown Labs LABS Laboratory Tests Test 05/05/20 11:55 05/05/20 12:11 05/05/20 12:19 05/05/20 13:25 White Blood Count 8.1 x10^3/uL (4.0-11.0) Red Blood Count 3.23 x10^6/uL (3.50-5.40) Hemoglobin 5.4 g/dL (12.0-15.5) Hematocrit 18.8 % (36.0-47.0) Mean Corpuscular Volume 58 fL (79-100) Mean Corpuscular Hemoglobin 17 pg (25-35) Mean Corpuscular Hemoglobin Concent 29 g/dL (31-37) Red Cell Distribution Width 22.4 % (11.5-14.5) Platelet Count 311 x10^3/uL (140-400) Neutrophils (%) (Auto) 81 % (31-73) Lymphocytes (%) (Auto) 13 % (24-48) Monocytes (%) (Auto) 6 % (0-9) Eosinophils (%) (Auto) 0 % (0-3) Basophils (%) (Auto) 1 % (0-3) Neutrophils # (Auto) 6.5 x10^3/uL (1.8-7.7) Lymphocytes # (Auto) 1.0 x10^3/uL (1.0-4.8) Monocytes # (Auto) 0.5 x10^3/uL (0.0-1.1) Eosinophils # (Auto) 0.0 x10^3/uL (0.0-0.7) Basophils # (Auto) 0.0 x10^3/uL (0.0-0.2) Platelet Estimate Adequate (ADEQUATE) Polychromasia Slight Hypochromasia Marked Anisocytosis Mod Microcytosis Marked Tear Drop Cells Few Ovalocytes Mod Prothrombin Time 13.3 SEC (11.7-14.0) Prothromb Time International Ratio 1.1 (0.8-1.1) D-Dimer (Bel) 2.09 ug/mlFEU (0.00-0.50) Sodium Level 139 mmol/L (136-145) Potassium Level 3.7 mmol/L (3.5-5.1) Chloride Level 104 mmol/L (98-107) Carbon Dioxide Level 23 mmol/L (21-32) Anion Gap 12 (6-14) Blood Urea Nitrogen 12 mg/dL (7-20) Creatinine 0.8 mg/dL (0.6-1.0) Estimated GFR (Cockcroft-Gault) 73.9 BUN/Creatinine Ratio 15 (6-20) Glucose Level 99 mg/dL (70-99) Calcium Level 8.9 mg/dL (8.5-10.1) Total Bilirubin 0.4 mg/dL (0.2-1.0) Aspartate Amino Transf (AST/SGOT) 23 U/L (15-37) Alanine Aminotransferase (ALT/SGPT) 18 U/L (14-59) Alkaline Phosphatase 99 U/L (46-116) Troponin I Quantitative < 0.017 ng/mL (0.000-0.055) QF-Uex-G-Type Natriuretic Peptide 95 pg/mL (0-124) Total Protein 7.2 g/dL (6.4-8.2) Albumin 3.6 g/dL (3.4-5.0) Albumin/Globulin Ratio 1.0 (1.0-1.7) Lipase 89 U/L (73-393) Hepatitis A IgM Antibody Nonreactive (Nonreactive) Hepatitis B Surface Antigen Nonreactive (Nonreactive) Hepatitis B Core IgM Antibody Nonreactive (Nonreactive) Hepatitis C IgG Antibody Nonreactive (Nonreactive) Urine Collection Type Unknown Urine Color Yellow Urine Clarity Clear Urine pH 5.5 (<5.0-8.0) Urine Specific [place] 1.020 (1.000-1.030) Urine Protein Negative mg/dL (NEG-TRACE) Urine Glucose (UA) Negative mg/dL (NEG) Urine Ketones (Stick) 15 mg/dL (NEG) Urine Blood Negative (NEG) Urine Nitrite Negative (NEG) Urine Bilirubin Negative (NEG) Urine Urobilinogen Dipstick 0.2 mg/dL (0.2 mg/dL) Urine Leukocyte Esterase Negative (NEG) Urine RBC 1-2 /HPF (0-2) Urine WBC 1-4 /HPF (0-4) Urine Squamous Epithelial Cells Many /LPF Urine Bacteria Many /HPF (0-FEW) Urine Mucus Marked /LPF Urine Opiates Screen Neg (NEG) Urine Methadone Screen Neg (NEG) Urine Barbiturates Pos (NEG) Urine Phencyclidine Screen Neg (NEG) Urine Amphetamine/Methamphetamine Neg (NEG) Urine Benzodiazepines Screen Neg (NEG) Urine Cocaine Screen Neg (NEG) Urine Cannabinoids Screen Neg (NEG) Urine Ethyl Alcohol Neg (NEG) Coronavirus (PCR) Not detected (Not Detected) Stool Occult Blood Negative (NEG) Test 05/05/20 15:05 05/05/20 18:20 05/05/20 23:03 05/06/20 05:25 Troponin I Quantitative < 0.017 ng/mL (0.000-0.055) < 0.017 ng/mL (0.000-0.055) Heparin Anti-Xa Act, Unfractionated 0.22 IU/mL (0.30-0.70) 0.28 IU/mL (0.30-0.70) White Blood Count 7.4 x10^3/uL (4.0-11.0) Red Blood Count 3.57 x10^6/uL (3.50-5.40) Hemoglobin 7.3 g/dL (12.0-15.5) Hematocrit 22.9 % (36.0-47.0) Mean Corpuscular Volume 64 fL (79-100) Mean Corpuscular Hemoglobin 21 pg (25-35) Mean Corpuscular Hemoglobin Concent 32 g/dL (31-37) Red Cell Distribution Width 30.4 % (11.5-14.5) Platelet Count 272 x10^3/uL (140-400) Neutrophils (%) (Auto) 68 % (31-73) Lymphocytes (%) (Auto) 22 % (24-48) Monocytes (%) (Auto) 9 % (0-9) Eosinophils (%) (Auto) 1 % (0-3) Basophils (%) (Auto) 1 % (0-3) Neutrophils # (Auto) 5.0 x10^3/uL (1.8-7.7) Lymphocytes # (Auto) 1.6 x10^3/uL (1.0-4.8) Monocytes # (Auto) 0.7 x10^3/uL (0.0-1.1) Eosinophils # (Auto) 0.0 x10^3/uL (0.0-0.7) Basophils # (Auto) 0.1 x10^3/uL (0.0-0.2) Sodium Level 140 mmol/L (136-145) Potassium Level 3.7 mmol/L (3.5-5.1) Chloride Level 107 mmol/L (98-107) Carbon Dioxide Level 24 mmol/L (21-32) Anion Gap 9 (6-14) Blood Urea Nitrogen 9 mg/dL (7-20) Creatinine 0.6 mg/dL (0.6-1.0) Estimated GFR (Cockcroft-Gault) 103.0 Glucose Level 97 mg/dL (70-99) Calcium Level 8.5 mg/dL (8.5-10.1) Phosphorus Level 3.2 mg/dL (2.6-4.7) Magnesium Level 2.1 mg/dL (1.8-2.4) Assessment and Plan Assessmemt and Plan Problems Medical Problems: (1) Low hemoglobin Status: Acute (2) Pulmonary embolism Status: Acute DPOA REVIEW 17 MIN What Is a Power of Spring Former? A power of document review attorney (POA) is a legal document giving one person (the agent or [id number]-jiry) the power to act for another person (the principal). The agent can have broad legal authority or limited authority to make legal decisions about the principal's property, finances or medical care. The power of document review attorney is frequently used in the event of a principal's illness or disability, or when the principal can't be present to sign necessary legal documents for financial transactions. A power of document review attorney can end for a number of reasons, such as when the principal dies, the principal revokes it, a court invalidates it, the principal divorces their spouse, who happens to be the agent, or the agent can no longer carry out the outlined responsibilities. Conventional POAs lapse when the creator becomes incapacitated, but a durable POA remains in force to enable the agent to manage the creators affairs, and a springing POA comes into effect only if and when the creator of the POA becomes incapacitated. A medical or healthcare POA enables an agent to make medical decisions on behalf of an incapacitated person. [employer] Takeaways A power of document review attorney (POA) is a legal document giving one person, the agent or [id number] the power to act for another person, the principal. The agent can have broad legal authority or limited authority to make decisions about the principal's property, finances or medical care. The power of document review attorney is often used when a principal becomes ill or disabled, or when they can't be present to sign necessary legal documents for financial transactions. Understanding Power of Spring Former A power of document review attorney should be considered when planning for long-term care. There are different types of POAs that fall under either a general power of document review attorney or limited power of document review attorney. A general power of document review attorney acts on behalf of the principal in any and all matters, as allowed by the state. The agent under a general POA agreement may be authorized to take care of issues such as handling bank accounts, signing checks, selling property and assets like stocks, f A limited power of document review attorney gives the agent the power to act on behalf of the principal in specific matters or events. For example, the limited POA may explicitly state that the agent is only allowed to manage the principal's prison accounts. A limited POA may also be limited to a specific period of time (e.g., if the principal will be out of the country for, say, two years). Most madden of document review attorney documents allow an agent to represent the principal in all property and financial matters as long as the principals mental state of mind is good. If a situation occurs where the principal becomes incapable of making decisions for him or herself, the POA agreement would automatically end. However, someone who wants the POA to remain in effect after the persons health deteriorates would need to sign a durable power of document review attorney (DPOA). Comment Comment Review of Relevant I have reviewed the following items willian (where applicable) has been applied. Labs Laboratory Tests Test 05/05/20 11:55 05/05/20 12:11 05/05/20 12:19 05/05/20 13:25 White Blood Count 8.1 x10^3/uL (4.0-11.0) Red Blood Count 3.23 x10^6/uL (3.50-5.40) Hemoglobin 5.4 g/dL (12.0-15.5) Hematocrit 18.8 % (36.0-47.0) Mean Corpuscular Volume 58 fL (79-100) Mean Corpuscular Hemoglobin 17 pg (25-35) Mean Corpuscular Hemoglobin Concent 29 g/dL (31-37) Red Cell Distribution Width 22.4 % (11.5-14.5) Platelet Count 311 x10^3/uL (140-400) Neutrophils (%) (Auto) 81 % (31-73) Lymphocytes (%) (Auto) 13 % (24-48) Monocytes (%) (Auto) 6 % (0-9) Eosinophils (%) (Auto) 0 % (0-3) Basophils (%) (Auto) 1 % (0-3) Neutrophils # (Auto) 6.5 x10^3/uL (1.8-7.7) Lymphocytes # (Auto) 1.0 x10^3/uL (1.0-4.8) Monocytes # (Auto) 0.5 x10^3/uL (0.0-1.1) Eosinophils # (Auto) 0.0 x10^3/uL (0.0-0.7) Basophils # (Auto) 0.0 x10^3/uL (0.0-0.2) Platelet Estimate Adequate (ADEQUATE) Polychromasia Slight Hypochromasia Marked Anisocytosis Mod Microcytosis Marked Tear Drop Cells Few Ovalocytes Mod Prothrombin Time 13.3 SEC (11.7-14.0) Prothromb Time International Ratio 1.1 (0.8-1.1) D-Dimer (Bel) 2.09 ug/mlFEU (0.00-0.50) Sodium Level 139 mmol/L (136-145) Potassium Level 3.7 mmol/L (3.5-5.1) Chloride Level 104 mmol/L (98-107) Carbon Dioxide Level 23 mmol/L (21-32) Anion Gap 12 (6-14) Blood Urea Nitrogen 12 mg/dL (7-20) Creatinine 0.8 mg/dL (0.6-1.0) Estimated GFR (Cockcroft-Gault) 73.9 BUN/Creatinine Ratio 15 (6-20) Glucose Level 99 mg/dL (70-99) Calcium Level 8.9 mg/dL (8.5-10.1) Total Bilirubin 0.4 mg/dL (0.2-1.0) Aspartate Amino Transf (AST/SGOT) 23 U/L (15-37) Alanine Aminotransferase (ALT/SGPT) 18 U/L (14-59) Alkaline Phosphatase 99 U/L (46-116) Troponin I Quantitative < 0.017 ng/mL (0.000-0.055) XX-Ndz-B-Type Natriuretic Peptide 95 pg/mL (0-124) Total Protein 7.2 g/dL (6.4-8.2) Albumin 3.6 g/dL (3.4-5.0) Albumin/Globulin Ratio 1.0 (1.0-1.7) Lipase 89 U/L (73-393) Hepatitis A IgM Antibody Nonreactive (Nonreactive) Hepatitis B Surface Antigen Nonreactive (Nonreactive) Hepatitis B Core IgM Antibody Nonreactive (Nonreactive) Hepatitis C IgG Antibody Nonreactive (Nonreactive) Urine Collection Type Unknown Urine Color Yellow Urine Clarity Clear Urine pH 5.5 (<5.0-8.0) Urine Specific [place] 1.020 (1.000-1.030) Urine Protein Negative mg/dL (NEG-TRACE) Urine Glucose (UA) Negative mg/dL (NEG) Urine Ketones (Stick) 15 mg/dL (NEG) Urine Blood Negative (NEG) Urine Nitrite Negative (NEG) Urine Bilirubin Negative (NEG) Urine Urobilinogen Dipstick 0.2 mg/dL (0.2 mg/dL) Urine Leukocyte Esterase Negative (NEG) Urine RBC 1-2 /HPF (0-2) Urine WBC 1-4 /HPF (0-4) Urine Squamous Epithelial Cells Many /LPF Urine Bacteria Many /HPF (0-FEW) Urine Mucus Marked /LPF Urine Opiates Screen Neg (NEG) Urine Methadone Screen Neg (NEG) Urine Barbiturates Pos (NEG) Urine Phencyclidine Screen Neg (NEG) Urine Amphetamine/Methamphetamine Neg (NEG) Urine Benzodiazepines Screen Neg (NEG) Urine Cocaine Screen Neg (NEG) Urine Cannabinoids Screen Neg (NEG) Urine Ethyl Alcohol Neg (NEG) Coronavirus (PCR) Not detected (Not Detected) Stool Occult Blood Negative (NEG) Test 05/05/20 15:05 05/05/20 18:20 05/05/20 23:03 05/06/20 05:25 Troponin I Quantitative < 0.017 ng/mL (0.000-0.055) < 0.017 ng/mL (0.000-0.055) Heparin Anti-Xa Act, Unfractionated 0.22 IU/mL (0.30-0.70) 0.28 IU/mL (0.30-0.70) White Blood Count 7.4 x10^3/uL (4.0-11.0) Red Blood Count 3.57 x10^6/uL (3.50-5.40) Hemoglobin 7.3 g/dL (12.0-15.5) Hematocrit 22.9 % (36.0-47.0) Mean Corpuscular Volume 64 fL (79-100) Mean Corpuscular Hemoglobin 21 pg (25-35) Mean Corpuscular Hemoglobin Concent 32 g/dL (31-37) Red Cell Distribution Width 30.4 % (11.5-14.5) Platelet Count 272 x10^3/uL (140-400) Neutrophils (%) (Auto) 68 % (31-73) Lymphocytes (%) (Auto) 22 % (24-48) Monocytes (%) (Auto) 9 % (0-9) Eosinophils (%) (Auto) 1 % (0-3) Basophils (%) (Auto) 1 % (0-3) Neutrophils # (Auto) 5.0 x10^3/uL (1.8-7.7) Lymphocytes # (Auto) 1.6 x10^3/uL (1.0-4.8) Monocytes # (Auto) 0.7 x10^3/uL (0.0-1.1) Eosinophils # (Auto) 0.0 x10^3/uL (0.0-0.7) Basophils # (Auto) 0.1 x10^3/uL (0.0-0.2) Sodium Level 140 mmol/L (136-145) Potassium Level 3.7 mmol/L (3.5-5.1) Chloride Level 107 mmol/L (98-107) Carbon Dioxide Level 24 mmol/L (21-32) Anion Gap 9 (6-14) Blood Urea Nitrogen 9 mg/dL (7-20) Creatinine 0.6 mg/dL (0.6-1.0) Estimated GFR (Cockcroft-Gault) 103.0 Glucose Level 97 mg/dL (70-99) Calcium Level 8.5 mg/dL (8.5-10.1) Phosphorus Level 3.2 mg/dL (2.6-4.7) Magnesium Level 2.1 mg/dL (1.8-2.4) Laboratory Tests Test 05/05/20 11:55 05/05/20 12:11 05/05/20 12:19 05/05/20 13:25 White Blood Count 8.1 x10^3/uL (4.0-11.0) Red Blood Count 3.23 x10^6/uL (3.50-5.40) Hemoglobin 5.4 g/dL (12.0-15.5) Hematocrit 18.8 % (36.0-47.0) Mean Corpuscular Volume 58 fL (79-100) Mean Corpuscular Hemoglobin 17 pg (25-35) Mean Corpuscular Hemoglobin Concent 29 g/dL (31-37) Red Cell Distribution Width 22.4 % (11.5-14.5) Platelet Count 311 x10^3/uL (140-400) Neutrophils (%) (Auto) 81 % (31-73) Lymphocytes (%) (Auto) 13 % (24-48) Monocytes (%) (Auto) 6 % (0-9) Eosinophils (%) (Auto) 0 % (0-3) Basophils (%) (Auto) 1 % (0-3) Neutrophils # (Auto) 6.5 x10^3/uL (1.8-7.7) Lymphocytes # (Auto) 1.0 x10^3/uL (1.0-4.8) Monocytes # (Auto) 0.5 x10^3/uL (0.0-1.1) Eosinophils # (Auto) 0.0 x10^3/uL (0.0-0.7) Basophils # (Auto) 0.0 x10^3/uL (0.0-0.2) Platelet Estimate Adequate (ADEQUATE) Polychromasia Slight Hypochromasia Marked Anisocytosis Mod Microcytosis Marked Tear Drop Cells Few Ovalocytes Mod Prothrombin Time 13.3 SEC (11.7-14.0) Prothromb Time International Ratio 1.1 (0.8-1.1) D-Dimer (Bel) 2.09 ug/mlFEU (0.00-0.50) Sodium Level 139 mmol/L (136-145) Potassium Level 3.7 mmol/L (3.5-5.1) Chloride Level 104 mmol/L (98-107) Carbon Dioxide Level 23 mmol/L (21-32) Anion Gap 12 (6-14) Blood Urea Nitrogen 12 mg/dL (7-20) Creatinine 0.8 mg/dL (0.6-1.0) Estimated GFR (Cockcroft-Gault) 73.9 BUN/Creatinine Ratio 15 (6-20) Glucose Level 99 mg/dL (70-99) Calcium Level 8.9 mg/dL (8.5-10.1) Total Bilirubin 0.4 mg/dL (0.2-1.0) Aspartate Amino Transf (AST/SGOT) 23 U/L (15-37) Alanine Aminotransferase (ALT/SGPT) 18 U/L (14-59) Alkaline Phosphatase 99 U/L (46-116) Troponin I Quantitative < 0.017 ng/mL (0.000-0.055) DS-Bfx-K-Type Natriuretic Peptide 95 pg/mL (0-124) Total Protein 7.2 g/dL (6.4-8.2) Albumin 3.6 g/dL (3.4-5.0) Albumin/Globulin Ratio 1.0 (1.0-1.7) Lipase 89 U/L (73-393) Hepatitis A IgM Antibody Nonreactive (Nonreactive) Hepatitis B Surface Antigen Nonreactive (Nonreactive) Hepatitis B Core IgM Antibody Nonreactive (Nonreactive) Hepatitis C IgG Antibody Nonreactive (Nonreactive) Urine Collection Type Unknown Urine Color Yellow Urine Clarity Clear Urine pH 5.5 (<5.0-8.0) Urine Specific [place] 1.020 (1.000-1.030) Urine Protein Negative mg/dL (NEG-TRACE) Urine Glucose (UA) Negative mg/dL (NEG) Urine Ketones (Stick) 15 mg/dL (NEG) Urine Blood Negative (NEG) Urine Nitrite Negative (NEG) Urine Bilirubin Negative (NEG) Urine Urobilinogen Dipstick 0.2 mg/dL (0.2 mg/dL) Urine Leukocyte Esterase Negative (NEG) Urine RBC 1-2 /HPF (0-2) Urine WBC 1-4 /HPF (0-4) Urine Squamous Epithelial Cells Many /LPF Urine Bacteria Many /HPF (0-FEW) Urine Mucus Marked /LPF Urine Opiates Screen Neg (NEG) Urine Methadone Screen Neg (NEG) Urine Barbiturates Pos (NEG) Urine Phencyclidine Screen Neg (NEG) Urine Amphetamine/Methamphetamine Neg (NEG) Urine Benzodiazepines Screen Neg (NEG) Urine Cocaine Screen Neg (NEG) Urine Cannabinoids Screen Neg (NEG) Urine Ethyl Alcohol Neg (NEG) Coronavirus (PCR) Not detected (Not Detected) Stool Occult Blood Negative (NEG) Test 05/05/20 15:05 05/05/20 18:20 05/05/20 23:03 05/06/20 05:25 Troponin I Quantitative < 0.017 ng/mL (0.000-0.055) < 0.017 ng/mL (0.000-0.055) Heparin Anti-Xa Act, Unfractionated 0.22 IU/mL (0.30-0.70) 0.28 IU/mL (0.30-0.70) White Blood Count 7.4 x10^3/uL (4.0-11.0) Red Blood Count 3.57 x10^6/uL (3.50-5.40) Hemoglobin 7.3 g/dL (12.0-15.5) Hematocrit 22.9 % (36.0-47.0) Mean Corpuscular Volume 64 fL (79-100) Mean Corpuscular Hemoglobin 21 pg (25-35) Mean Corpuscular Hemoglobin Concent 32 g/dL (31-37) Red Cell Distribution Width 30.4 % (11.5-14.5) Platelet Count 272 x10^3/uL (140-400) Neutrophils (%) (Auto) 68 % (31-73) Lymphocytes (%) (Auto) 22 % (24-48) Monocytes (%) (Auto) 9 % (0-9) Eosinophils (%) (Auto) 1 % (0-3) Basophils (%) (Auto) 1 % (0-3) Neutrophils # (Auto) 5.0 x10^3/uL (1.8-7.7) Lymphocytes # (Auto) 1.6 x10^3/uL (1.0-4.8) Monocytes # (Auto) 0.7 x10^3/uL (0.0-1.1) Eosinophils # (Auto) 0.0 x10^3/uL (0.0-0.7) Basophils # (Auto) 0.1 x10^3/uL (0.0-0.2) Sodium Level 140 mmol/L (136-145) Potassium Level 3.7 mmol/L (3.5-5.1) Chloride Level 107 mmol/L (98-107) Carbon Dioxide Level 24 mmol/L (21-32) Anion Gap 9 (6-14) Blood Urea Nitrogen 9 mg/dL (7-20) Creatinine 0.6 mg/dL (0.6-1.0) Estimated GFR (Cockcroft-Gault) 103.0 Glucose Level 97 mg/dL (70-99) Calcium Level 8.5 mg/dL (8.5-10.1) Phosphorus Level 3.2 mg/dL (2.6-4.7) Magnesium Level 2.1 mg/dL (1.8-2.4) Medications Current Medications Aspirin (Hoffmeister [place] Aspirin) 325 mg 1X ONCE PO Last administered on 05/05/20at 12:16; Start 05/05/20 at 12:15; Stop 05/05/20 at 12:16; Status DC Sodium Chloride 1,000 ml @ 1,000 mls/hr Q1H IV Last administered on 05/05/20at 12:16; Start 05/05/20 at 12:01; Stop 05/05/20 at 13:00; Status DC Famotidine (Pepcid Vial) 20 mg 1X ONCE IVP Last administered on 05/05/20at 12:16; Start 05/05/20 at 12:15; Stop 05/05/20 at 12:16; Status DC Iohexol (Omnipaque 350 Mg/ml) 75 ml 1X ONCE IV Last administered on 05/05/20at 13:46; Start 05/05/20 at 13:45; Stop 05/05/20 at 13:46; Status DC Info (CONTRAST GIVEN -- Rx MONITORING) 1 each PRN DAILY PRN MC SEE COMMENTS; Start 05/05/20 at 13:45; Stop 05/07/20 at 13:44 Heparin Sodium (Porcine) (Heparin Sodium) 4,000 unit 1X ONCE IV Last administered on 05/05/20at 16:34; Start 05/05/20 at 16:15; Stop 05/05/20 at 16:16; Status DC Heparin Sodium/ Dextrose 250 ml @ 0 mls/hr CONT PRN IV PER PROTOCOL Last administered on 05/05/20at 16:45; Start 05/05/20 at 16:15 Heparin Sodium (Porcine) (Heparin Sodium) 1,500 unit PRN Q6HRS PRN IV FOR UFH LEVEL LESS THAN 0.2; Start 05/05/20 at 16:15 Heparin Sodium (Porcine) (Heparin Sodium) 750 unit PRN Q6HRS PRN IV FOR UFH LEVEL 0.2 - 0.29 Last administered on 05/06/20at 07:34; Start 05/05/20 at 16:15 Sennosides (Senna) 17.2 mg PRN BID PRN PO CONSTIPATION; Start 05/05/20 at 16:15 Docusate Sodium (Colace) 100 mg PRN DAILY PRN PO HARD STOOLS; Start 05/05/20 at 16:15 Ondansetron HCl (Zofran) 4 mg PRN Q6HRS PRN IVP NAUSEA/VOMITING; Start 05/05/20 at 16:15 Albuterol/ Ipratropium (Duoneb) 3 ml RTQID NEB Last administered on 05/06/20at 08:10; Start 05/05/20 at 16:30 Potassium Chloride (Klor-Con) 40 meq 1X PRN PO PER PROTOCOL; Start 05/05/20 at 16:15; Status UNV Magnesium Oxide (Magnesium Oxide) 400 mg BID PO ; Start 05/05/20 at 21:00; Stop 05/07/20 at 09:01; Status UNV Potassium Chloride/Water 100 ml @ 100 mls/hr Q1H IV ; Start 05/05/20 at 16:15; Stop 05/05/20 at 20:14; Status UNV Magnesium Sulfate 50 ml @ 25 mls/hr Q24H IV ; Start 05/05/20 at 16:15; Stop 05/07/20 at 18:14; Status UNV Potassium Chloride/Water 100 ml @ 100 mls/hr Q1H PRN IV low k; Start 05/05/20 at 16:15; Status UNV Dextrose (Dextrose 50%-Water Syringe) 12.5 gm PRN Q15MIN PRN IV SEE COMMENTS; Start 05/05/20 at 16:15 Acetaminophen (Tylenol) 650 mg PRN Q4HRS PRN PO TEMP OVER 100.4F OR MILD PAIN; Start 05/05/20 at 16:15 Pantoprazole Sodium (Protonix) 40 mg DAILYAC PO ; Start 05/06/20 at 07:30 Info (Non-Icu Electrolyte Protocol) 1 ea CONT PRN PRN MC SEE COMMENTS; Start 05/05/20 at 16:30 Info (Anti-Coagulation Monitoring By Pharmacy) 1 each PRN DAILY PRN [facility] SEE COMMENTS; Start 05/06/20 at 08:30 Active Scripts Active Hydroxyzine Hcl 25 Mg Tablet 1 Tab PO TID PRN Diclofenac Sodium 50 Mg Tablet. 1 Tab PO BID PRN Orphenadrine Citrate 100 Mg Tablet.er 1 Tab PO BID PRN Tramadol Hcl 50 Mg Tablet 50 Mg PO Q6HRS PRN Percocet 5-325 Mg Tablet (Oxycodone/Acetaminophen) 1 Each Tablet 2 Tab PO PRN Q4HRS PRN 7 Days Polyethylene Glycol 3350 17 Gm Powd.pack 17 Gm PO PRN DAILY PRN 14 Days Mucinex Dm Er 600-30 Mg Tablet (Guaifenesin/Dextromethorphan) 1 Each Tab.er.12h 1 Tab PO BID 14 Days Percocet 5-325 Mg Tablet (Oxycodone/Acetaminophen) 1 Each Tablet 1 Tab PO PRN Q4HRS PRN 7 Days Reported Levothyroxine Sodium 125 Mcg Tablet 125 Mcg PO DAILY Valacyclovir (Valacyclovir Hcl) 500 Mg Tablet 1 Tab PO DAILY Primidone 250 Mg Tablet 250 Mg PO DAILY Omeprazole 20 Mg Tablet. 1 Tab PO DAILY Vitals/I & O Vital Sign - Last 24 Hours 05/05/20 05/05/20 05/05/20 05/05/20 11:38 11:59 12:29 12:59 Temp 100.0 100.0 Pulse 96 90 96 86 Resp 20 24 25 24 B/P (MAP) 153/71 (98) 137/66 (89) 149/64 (92) 144/68 (93) Pulse Ox 96 98 99 97 O2 Delivery Room Air Room Air Room Air Room Air 05/05/20 05/05/20 05/05/20 05/05/20 13:29 14:29 14:31 14:46 Temp 98.8 98.8 98.8 98.8 Pulse 88 84 85 86 Resp B/P (MAP) 126/58 (80) 142/68 (92) 142/68 137/61 Pulse Ox 99 98 O2 Delivery Room Air Room Air 05/05/20 05/05/20 05/05/20 05/05/20 15:14 15:38 16:47 17:00 Temp 99.0 99.5 99.3 99.6 99.0 99.5 99.3 99.6 Pulse 82 84 87 81 Resp B/P (MAP) 135/63 120/70 139/77 142/76 (98) Pulse Ox 98 O2 Delivery Room Air 05/05/20 05/05/20 05/05/20 05/05/20 19:55 20:00 23:15 23:24 Temp 98.6 99.6 99.3 98.6 99.6 99.3 Pulse 86 83 54 Resp B/P (MAP) 138/85 (102) 133/70 133/70 (91) Pulse Ox 98 96 O2 Delivery Room Air Room Air Room Air 05/05/20 05/06/20 05/06/20 05/06/20 23:30 00:30 01:30 02:30 Temp 99.5 99.1 99.0 98.8 99.5 99.1 99.0 98.8 Pulse 80 82 83 85 Resp B/P (MAP) 123/71 128/70 130/72 126/75 05/06/20 05/06/20 03:51 08:10 Temp 99.0 99.0 Pulse 81 Resp B/P (MAP) 123/69 (87) Pulse Ox 96 96 O2 Delivery Room Air Room Air Intake and Output 05/05/20 05/05/20 05/06/20 15:00 23:00 07:00 Intake Total 280 ml 780 ml 810 ml Balance 280 ml 780 ml 810 ml Justicifation of Admission Dx: Justifications for Admission: Justification of Admission Dx: Yes (low hemoglobin) FAMILIA MONTANO MD May 06, 2020 09:00
[2020-05-06] MEDS: PANTOPRAZOLE 40 MG TABLET.DR. PO SCH (11:03)
[2020-05-06] MEDS ORDERED: ALBU2.5V8 IH (13:54)
[2020-05-06] MEDS ORDERED: SUCR1TAB PO (13:54)
[2020-05-06] MEDS ORDERED: ASCO-78 PO (13:54)
[2020-05-06] MEDS ORDERED: BACL10TA PO (13:54)
--- NOTE | 2020-05-06 16:51 | NUR ---
SW following. Reviewed chart and spoke with RN. Pt now on 2l . Pt does not have home 02. 6 min walk may be needed to determine 02 needs at discharge. PT evaluated this patient and the recommendation is home, independent. SW to continue following for discharge planning. Addendum: 05/07/20 at 1127 by ELLA JORDAN pt transferred to [facility] to follow.
[2020-05-06] MEDS: HEPARIN 25,000UTS/250ML PREMIX 250 ML IV PRN (19:00)
[2020-05-06] MEDS ORDERED: traMADol 50 MG TABLET PO PRN ×2 (19:15→19:45)
[2020-05-06] MEDS: BACLOFEN 10 MG TABLET. PO SCH (20:33)
[2020-05-06] MEDS: ZOLPIDEM 5 MG TABLET. PO PRN (20:33)
[2020-05-06] MEDS: SUCRALFATE 1 GM TABLET. PO SCH (20:34)
[2020-05-06] MEDS ORDERED: CYCLOBENZAPRINE 10 MG TABLET. PO PRN (21:00)
[2020-05-07 02:07] VITALS: BP 101/54
[2020-05-07 05:01] LABS: HEMATOCRIT 24.9 % (36.0-47.0); HEMOGLOBIN 7.8 g/dL (12.0-15.5); RED BLOOD COUNT 3.85 x10^6/uL (3.50-5.40); RED CELL DISTRIBUTION WIDTH 30.8 % (11.5-14.5); WHITE BLOOD COUNT 7.1 x10^3/uL (4.0-11.0)
[2020-05-07] MEDS: LEVOTHYROXINE 125 MCG TABLET PO SCH (05:49)
[2020-05-07 06:04] VITALS: BP 104/58
[2020-05-07] MEDS: SUCRALFATE 1 GM TABLET. PO SCH ×2 (06:59→16:50)
[2020-05-07] MEDS: PANTOPRAZOLE 40 MG TABLET.DR. PO SCH (06:59)
[2020-05-07] MEDS: IPRATRPIUM/ALBUTEROL 0.5/2.5MG 3 ML NEBU. NEB SCH ×4 (07:20→19:31)
[2020-05-07] MEDS: ASCORBIC ACID 500 MG TABLET PO SCH (08:59)
[2020-05-07] MEDS: PRIMIDONE 250 MG TABLET PO SCH (08:59)
[2020-05-07] MEDS: BACLOFEN 10 MG TABLET. PO SCH ×4 (08:59→20:21)
[2020-05-07] MEDS: valACYclovir 500 MG TABLET. PO SCH (08:59)
[2020-05-07] MEDS ORDERED: NON FORMULARY ITEM (Omeprazole 1 TAB) PO SCH (09:00)
[2020-05-07] MEDS ORDERED: ANTI-COAG MONITOR BY PHARMACY. MC PRN (09:15)
--- NOTE | 2020-05-07 09:48 | NUR ---
SS following for discharge planning. SS reviewed pt chart and discussed with pt RN. Pt is from home and is currently requiring oxygen. COVID19 negative. Pt has bilateral PE's. Pt on Heparin drip which is being transitioned to PO Heparin. PT/OT recommended home independent. Six minute walker being ordered. Pt has no home oxygen. Discharge plan is to home when medically ready. SS will continue to follow for discharge planning.
--- NOTE | 2020-05-07 09:55 | PDOC ---
Date of Service: DATE: 05/07/20 TIME: 09:51 Subjective: Subjective: Feels better today. Breathing a little bit better, a little less pain in leg. No abd pain. Tolerating diet and wants regular food. Had a runny stool which is not unusual for her. No bleeding. Objective: Vital Signs: Vital Signs Date Time Temp Pulse Resp B/P (MAP) Pulse Ox O2 Delivery O2 Flow Rate FiO2 05/07/20 08:00 Nasal Cannula 2.0 05/07/20 07:22 99 05/07/20 06:04 98.8 78 22 104/58 (73) 98.8 Labs: Laboratory Tests Test 05/06/20 13:45 05/06/20 20:42 05/07/20 04:15 Heparin Anti-Xa Act, Unfractionated 0.30 IU/mL 0.23 IU/mL 0.44 IU/mL White Blood Count 7.1 x10^3/uL Red Blood Count 3.85 x10^6/uL Hemoglobin 7.8 g/dL Hematocrit 24.9 % Mean Corpuscular Volume 65 fL Mean Corpuscular Hemoglobin 20 pg Mean Corpuscular Hemoglobin Concent 31 g/dL Red Cell Distribution Width 30.8 % Platelet Count 287 x10^3/uL PE: GEN: NAD LUNGS: diminished HEART: RRR ABD: S/ND/NT NEURO/PSYCH: A & O 3, anxious A/P: PEs JELENA - stable after transfusion; 'scopes UTD Liver lesion on CT - normal LFTs, Hep panel negative, h/o fatty liver on past US, radiology recs for outpt MRI GERD - controlled w/ PPI -- ADAT as ordered yesterday. Continue PPI, monitor Hgb. Monitor stools. Plan for outpt MRI and 'scopes. Justicifation of Admission Dx: Justifications for Admission: Justification of Admission Dx: Yes (low hemoglobin) HARSHA BAUTISTA May 07, 2020 09:55
[2020-05-07 11:00] VITALS: BP 111/56
--- NOTE | 2020-05-07 11:18 | PDOC ---
PROGRESS NOTES Date of Service: DATE: 05/07/20 TIME: 11:16 Chief Complaint Chief Complaint IMPRESSION: 1. Pulmonary emboli as described above. 2. No aneurysm or dissection of the thoracic aorta, abdominal aorta or iliac arteries. 3. Mild pulmonary interstitial thickening may represent mild interstitial edema. No pleural effusions. 4. 0.6 cm hypodense lesion of the liver segment [address] imaging. This is indeterminate. This could be further assessed with outpatient MR imaging. 5. Hiatal hernia of the upper stomach. IMPRESSION Assessment/Plan Generalized weakness due to microcytic anemia due to iron deficiency versus acute blood loss Acute bilateral pulmonary emboli, hemodynamically stable Multiple hypodense liver lesions concerning for metastasis due to colorectal malignancy Hiatal hernia Low health literacy History of uterine fibroids, however CT imaging does not reveal any obvious lesions in her uterus Questionable history of asthma versus COPD Admit to medicine for further management Transfused 2 units PRBC Continue heparin IV drip Pending GI evaluation for liver lesions and hiatal hernia and low hemoglobin PE treatment for DVT prophylaxis Protonix GI prophylaxis ADA diet Full code Discussed with RN and SW Disposition pending GI evaluation Surrogate decision maker is the GI CONSULT FNH/hepatic adenoma, AVM/hemangioma, and/or malignancy in differential. O/p MRI liver recommended. Justifications for Admission Justifications for Admission Other Justification History of Present Illness History of Present Illness Chief Complaint: Chief Complain: Dizziness and generalized weakness History of Present Illness: HPI: 59 year old female who presents with midsternal chest pain that does not radiate and dizziness and SOA with exertion intermittently for the last 2 days. She states that the SOA has been going on for a few months and she has an inhaler that she uses for that. Denies smoking. Patient is unable to tell me if she has asthma or COPD and to why the doctor ordered her the albuterol inh aler. She states is a sharp type pain. She states nothing makes it worse or better. She states she is not taken aspirin. She states that she does not have any heart history but her family does have heart history. She rates her pain a 10 out of 10. Patient denies nausea, vomiting, abdominal pain, cough, fever, headache, focal weakness, vision changes, numbness or tingling, syncope. She states she was working today here at [place] [facility] when she started to be diaphoretic, short of breath and dizzy. Patient has a history of acid reflux, uterine fibroids, high cholesterol, hypothyroidism. 05/07: Patient overall feeling better, still quite debilitated feels weak reassurance has been provided. Discussed the concern for a possible malignancy in her colon the need for further evaluation in the outpatient setting when transitioning to [facility]. Vitals Vitals Vital Signs Date Time Temp Pulse Resp B/P (MAP) Pulse Ox O2 Delivery O2 Flow Rate FiO2 05/07/20 11:00 98.7 90 18 111/56 (74) 97 Nasal Cannula 2.0 98.7 Physical Exam Physical Exam Physcial Exam: GEN: No apparent distress. Alert and oriented HEENT: Normal cephalic, atraumatic, external auditory canals are patent EYES: Extraocular muscles are intact, pupil are equally round and reactive to light and accommodation MUSCULOSKELETAL: Well developed , well nourished, good range of motion ENDOCRINE: No thyromegaly was palpated LYMPHATICS: No cervical chain or axillary nodes were noted HEMATOPOIETIC: No bruising NECK: Supple, no JVD, no thyromegaly was noted LUNGS: Clear to auscultation in all lung jordan without rhonchi or wheezing HEART: RRR, S!, S2 present. Peripheral pulses intact, no obvious murmurs noted ABDOMEN: Soft, nontender. Positive bowel sounds, no organomegaly, normal bowel sounds EXTREMITIES: Without clubbing, cyanosis, or edema. Pedal pulses intact. Negative Homans sign NEUROLOGIC: Normal speech and tone. A&O x 3, moves all extremities, no obvious focal deficits PSYCHIATRIC: Normal affect, normal mood. Stable SKIN: No ulcerations or rashes, good skin turgor, no jaundice VASCULAR: Good capillary refill, neurovascular bundle appears to be intact General: Alert, Oriented X3, Cooperative, No acute distress Heart: Regular rate Abdomen: Normal bowel sounds, Soft Extremities: No cyanosis Skin: No breakdown Labs LABS Laboratory Tests Test 05/06/20 13:45 05/06/20 20:42 05/07/20 04:15 Heparin Anti-Xa Act, Unfractionated 0.30 IU/mL (0.30-0.70) 0.23 IU/mL (0.30-0.70) 0.44 IU/mL (0.30-0.70) White Blood Count 7.1 x10^3/uL (4.0-11.0) Red Blood Count 3.85 x10^6/uL (3.50-5.40) Hemoglobin 7.8 g/dL (12.0-15.5) Hematocrit 24.9 % (36.0-47.0) Mean Corpuscular Volume 65 fL (79-100) Mean Corpuscular Hemoglobin 20 pg (25-35) Mean Corpuscular Hemoglobin Concent 31 g/dL (31-37) Red Cell Distribution Width 30.8 % (11.5-14.5) Platelet Count 287 x10^3/uL (140-400) Assessment and Plan Assessmemt and Plan Problems Medical Problems: (1) Low hemoglobin Status: Acute (2) Pulmonary embolism Status: Acute Comment Review of Relevant I have reviewed the following items willian (where applicable) has been applied. Labs Laboratory Tests Test 05/05/20 11:55 05/05/20 12:11 05/05/20 12:19 05/05/20 13:25 White Blood Count 8.1 x10^3/uL (4.0-11.0) Red Blood Count 3.23 x10^6/uL (3.50-5.40) Hemoglobin 5.4 g/dL (12.0-15.5) Hematocrit 18.8 % (36.0-47.0) Mean Corpuscular Volume 58 fL (79-100) Mean Corpuscular Hemoglobin 17 pg (25-35) Mean Corpuscular Hemoglobin Concent 29 g/dL (31-37) Red Cell Distribution Width 22.4 % (11.5-14.5) Platelet Count 311 x10^3/uL (140-400) Neutrophils (%) (Auto) 81 % (31-73) Lymphocytes (%) (Auto) 13 % (24-48) Monocytes (%) (Auto) 6 % (0-9) Eosinophils (%) (Auto) 0 % (0-3) Basophils (%) (Auto) 1 % (0-3) Neutrophils # (Auto) 6.5 x10^3/uL (1.8-7.7) Lymphocytes # (Auto) 1.0 x10^3/uL (1.0-4.8) Monocytes # (Auto) 0.5 x10^3/uL (0.0-1.1) Eosinophils # (Auto) 0.0 x10^3/uL (0.0-0.7) Basophils # (Auto) 0.0 x10^3/uL (0.0-0.2) Platelet Estimate Adequate (ADEQUATE) Polychromasia Slight Hypochromasia Marked Anisocytosis Mod Microcytosis Marked Tear Drop Cells Few Ovalocytes Mod Prothrombin Time 13.3 SEC (11.7-14.0) Prothromb Time International Ratio 1.1 (0.8-1.1) D-Dimer (Bel) 2.09 ug/mlFEU (0.00-0.50) Sodium Level 139 mmol/L (136-145) Potassium Level 3.7 mmol/L (3.5-5.1) Chloride Level 104 mmol/L (98-107) Carbon Dioxide Level 23 mmol/L (21-32) Anion Gap 12 (6-14) Blood Urea Nitrogen 12 mg/dL (7-20) Creatinine 0.8 mg/dL (0.6-1.0) Estimated GFR (Cockcroft-Gault) 73.9 BUN/Creatinine Ratio 15 (6-20) Glucose Level 99 mg/dL (70-99) Calcium Level 8.9 mg/dL (8.5-10.1) Total Bilirubin 0.4 mg/dL (0.2-1.0) Aspartate Amino Transf (AST/SGOT) 23 U/L (15-37) Alanine Aminotransferase (ALT/SGPT) 18 U/L (14-59) Alkaline Phosphatase 99 U/L (46-116) Troponin I Quantitative < 0.017 ng/mL (0.000-0.055) PR-Hib-G-Type Natriuretic Peptide 95 pg/mL (0-124) Total Protein 7.2 g/dL (6.4-8.2) Albumin 3.6 g/dL (3.4-5.0) Albumin/Globulin Ratio 1.0 (1.0-1.7) Lipase 89 U/L (73-393) Hepatitis A IgM Antibody Nonreactive (Nonreactive) Hepatitis B Surface Antigen Nonreactive (Nonreactive) Hepatitis B Core IgM Antibody Nonreactive (Nonreactive) Hepatitis C IgG Antibody Nonreactive (Nonreactive) Urine Collection Type Unknown Urine Color Yellow Urine Clarity Clear Urine pH 5.5 (<5.0-8.0) Urine Specific [place] 1.020 (1.000-1.030) Urine Protein Negative mg/dL (NEG-TRACE) Urine Glucose (UA) Negative mg/dL (NEG) Urine Ketones (Stick) 15 mg/dL (NEG) Urine Blood Negative (NEG) Urine Nitrite Negative (NEG) Urine Bilirubin Negative (NEG) Urine Urobilinogen Dipstick 0.2 mg/dL (0.2 mg/dL) Urine Leukocyte Esterase Negative (NEG) Urine RBC 1-2 /HPF (0-2) Urine WBC 1-4 /HPF (0-4) Urine Squamous Epithelial Cells Many /LPF Urine Bacteria Many /HPF (0-FEW) Urine Mucus Marked /LPF Urine Opiates Screen Neg (NEG) Urine Methadone Screen Neg (NEG) Urine Barbiturates Pos (NEG) Urine Phencyclidine Screen Neg (NEG) Urine Amphetamine/Methamphetamine Neg (NEG) Urine Benzodiazepines Screen Neg (NEG) Urine Cocaine Screen Neg (NEG) Urine Cannabinoids Screen Neg (NEG) Urine Ethyl Alcohol Neg (NEG) Coronavirus (PCR) Not detected (Not Detected) Stool Occult Blood Negative (NEG) Test 05/05/20 15:05 05/05/20 18:20 05/05/20 23:03 05/06/20 05:25 Troponin I Quantitative < 0.017 ng/mL (0.000-0.055) < 0.017 ng/mL (0.000-0.055) Heparin Anti-Xa Act, Unfractionated 0.22 IU/mL (0.30-0.70) 0.28 IU/mL (0.30-0.70) White Blood Count 7.4 x10^3/uL (4.0-11.0) Red Blood Count 3.57 x10^6/uL (3.50-5.40) Hemoglobin 7.3 g/dL (12.0-15.5) Hematocrit 22.9 % (36.0-47.0) Mean Corpuscular Volume 64 fL (79-100) Mean Corpuscular Hemoglobin 21 pg (25-35) Mean Corpuscular Hemoglobin Concent 32 g/dL (31-37) Red Cell Distribution Width 30.4 % (11.5-14.5) Platelet Count 272 x10^3/uL (140-400) Neutrophils (%) (Auto) 68 % (31-73) Lymphocytes (%) (Auto) 22 % (24-48) Monocytes (%) (Auto) 9 % (0-9) Eosinophils (%) (Auto) 1 % (0-3) Basophils (%) (Auto) 1 % (0-3) Neutrophils # (Auto) 5.0 x10^3/uL (1.8-7.7) Lymphocytes # (Auto) 1.6 x10^3/uL (1.0-4.8) Monocytes # (Auto) 0.7 x10^3/uL (0.0-1.1) Eosinophils # (Auto) 0.0 x10^3/uL (0.0-0.7) Basophils # (Auto) 0.1 x10^3/uL (0.0-0.2) Sodium Level 140 mmol/L (136-145) Potassium Level 3.7 mmol/L (3.5-5.1) Chloride Level 107 mmol/L (98-107) Carbon Dioxide Level 24 mmol/L (21-32) Anion Gap 9 (6-14) Blood Urea Nitrogen 9 mg/dL (7-20) Creatinine 0.6 mg/dL (0.6-1.0) Estimated GFR (Cockcroft-Gault) 103.0 Glucose Level 97 mg/dL (70-99) Calcium Level 8.5 mg/dL (8.5-10.1) Phosphorus Level 3.2 mg/dL (2.6-4.7) Magnesium Level 2.1 mg/dL (1.8-2.4) Test 05/06/20 13:45 05/06/20 20:42 05/07/20 04:15 Heparin Anti-Xa Act, Unfractionated 0.30 IU/mL (0.30-0.70) 0.23 IU/mL (0.30-0.70) 0.44 IU/mL (0.30-0.70) White Blood Count 7.1 x10^3/uL (4.0-11.0) Red Blood Count 3.85 x10^6/uL (3.50-5.40) Hemoglobin 7.8 g/dL (12.0-15.5) Hematocrit 24.9 % (36.0-47.0) Mean Corpuscular Volume 65 fL (79-100) Mean Corpuscular Hemoglobin 20 pg (25-35) Mean Corpuscular Hemoglobin Concent 31 g/dL (31-37) Red Cell Distribution Width 30.8 % (11.5-14.5) Platelet Count 287 x10^3/uL (140-400) Laboratory Tests Test 05/06/20 13:45 05/06/20 20:42 05/07/20 04:15 Heparin Anti-Xa Act, Unfractionated 0.30 IU/mL (0.30-0.70) 0.23 IU/mL (0.30-0.70) 0.44 IU/mL (0.30-0.70) White Blood Count 7.1 x10^3/uL (4.0-11.0) Red Blood Count 3.85 x10^6/uL (3.50-5.40) Hemoglobin 7.8 g/dL (12.0-15.5) Hematocrit 24.9 % (36.0-47.0) Mean Corpuscular Volume 65 fL (79-100) Mean Corpuscular Hemoglobin 20 pg (25-35) Mean Corpuscular Hemoglobin Concent 31 g/dL (31-37) Red Cell Distribution Width 30.8 % (11.5-14.5) Platelet Count 287 x10^3/uL (140-400) Microbiology 05/05/20 Urine Culture - Final, Complete Medications Current Medications Aspirin (Barron Aspirin) 325 mg 1X ONCE PO Last administered on 05/05/20at 12:16; Start 05/05/20 at 12:15; Stop 05/05/20 at 12:16; Status DC Sodium Chloride 1,000 ml @ 1,000 mls/hr Q1H IV Last administered on 05/05/20at 12:16; Start 05/05/20 at 12:01; Stop 05/05/20 at 13:00; Status DC Famotidine (Pepcid Vial) 20 mg 1X ONCE IVP Last administered on 05/05/20at 12:16; Start 05/05/20 at 12:15; Stop 05/05/20 at 12:16; Status DC Iohexol (Omnipaque 350 Mg/ml) 75 ml 1X ONCE IV Last administered on 05/05/20at 13:46; Start 05/05/20 at 13:45; Stop 05/05/20 at 13:46; Status DC Info (CONTRAST GIVEN -- Rx MONITORING) 1 each PRN DAILY PRN MC SEE COMMENTS; Start 05/05/20 at 13:45; Stop 05/07/20 at 13:44 Heparin Sodium (Porcine) (Heparin Sodium) 4,000 unit 1X ONCE IV Last administered on 05/05/20at 16:34; Start 05/05/20 at 16:15; Stop 05/05/20 at 16:16; Status DC Heparin Sodium/ Dextrose 250 ml @ 0 mls/hr CONT PRN IV PER PROTOCOL Last admi nistered on 05/06/20at 19:00; Start 05/05/20 at 16:15 Heparin Sodium (Porcine) (Heparin Sodium) 1,500 unit PRN Q6HRS PRN IV FOR UFH LEVEL LESS THAN 0.2; Start 05/05/20 at 16:15 Heparin Sodium (Porcine) (Heparin Sodium) 750 unit PRN Q6HRS PRN IV FOR UFH LE SARAH 0.2 - 0.29 Last administered on 05/06/20at 21:35; Start 05/05/20 at 16:15 Sennosides (Senna) 17.2 mg PRN BID PRN PO CONSTIPATION; Start 05/05/20 at 16:15 Docusate Sodium (Colace) 100 mg PRN DAILY PRN PO HARD STOOLS; Start 05/05/20 at 16:15 Ondansetron HCl (Zofran) 4 mg PRN Q6HRS PRN IVP NAUSEA/VOMITING; Start 05/05/20 at 16:15 Albuterol/ Ipratropium (Duoneb) 3 ml RTQID NEB Last administered on 05/07/20at 07:20; Start 05/05/20 at 16:30 Potassium Chloride (Klor-Con) 40 meq 1X PRN PO PER PROTOCOL; Start 05/05/20 at 16:15; Status UNV Magnesium Oxide (Magnesium Oxide) 400 mg BID PO ; Start 05/05/20 at 21:00; Stop 05/07/20 at 09:01; Status UNV Potassium Chloride/Water 100 ml @ 100 mls/hr Q1H IV ; Start 05/05/20 at 16:15; Stop 05/05/20 at 20:14; Status UNV Magnesium Sulfate 50 ml @ 25 mls/hr Q24H IV ; Start 05/05/20 at 16:15; Stop 05/07/20 at 18:14; Status UNV Potassium Chloride/Water 100 ml @ 100 mls/hr Q1H PRN IV low k; Start 05/05/20 at 16:15; Status UNV Dextrose (Dextrose 50%-Water Syringe) 12.5 gm PRN Q15MIN PRN IV SEE COMMENTS; Start 05/05/20 at 16:15 Acetaminophen (Tylenol) 650 mg PRN Q4HRS PRN PO TEMP OVER 100.4F OR MILD PAIN; Start 05/05/20 at 16:15 Pantoprazole Sodium (Protonix) 40 mg DAILYAC PO Last administered on 05/07/20at 06:59; Start 05/06/20 at 07:30 Info (Non-Icu Electrolyte Protocol) 1 ea CONT PRN PRN MC SEE COMMENTS; Start 05/05/20 at 16:30 Info (Anti-Coagulation Monitoring By Pharmacy) 1 each PRN DAILY PRN MC SEE COMMENTS Last administered on 05/07/20at 09:25; Start 05/06/20 at 08:30 Baclofen (Lioresal) 10 mg QID PO Last administered on 05/07/20at 08:59; Start 05/06/20 at 21:00 Levothyroxine Sodium (Synthroid) 125 mcg DAILY06 PO Last administered on 05/07/20at 05:49; Start 05/07/20 at 06:00 Primidone (Mysoline) 250 mg DAILY PO Last administered on 05/07/20at 08:59; Start 05/07/20 at 09:00 Sucralfate (Carafate) 1 gm BIDAC PO Last administered on 05/07/20at 06:59; Start 05/06/20 at 21:00 Tramadol HCl (Ultram) 50 mg Q6HRS PRN PO MILD TO MODERATE PAIN; Start 05/06/20 at 19:15; Stop 05/06/20 at 19:36; Status DC Valacyclovir HCl (Valtrex) 500 mg DAILY PO Last administered on 05/07/20at 08:59; Start 05/07/20 at 09:00 Ascorbic Acid (Vitamin C) 500 mg DAILY PO Last administered on 05/07/20at 08:59; Start 05/07/20 at 09:00 Non-Formulary Medication (Omeprazole ) 1 tab DAILY PO ; Start 05/07/20 at 09:00; Status UNV Cyclobenzaprine HCl (Flexeril) 10 mg PRN TID PRN PO MUSCLE SPASMS; Start 05/06/20 at 21:00 Zolpidem Tartrate (Ambien) 5 mg PRN QHS PRN PO INSOMNIA Last administered on 05/06/20at 20:33; Start 05/06/20 at 19:30 Tramadol HCl (Ultram) 50 mg PRN Q6HRS PRN PO MODERATE-SEVERE PAIN; Start 05/06/20 at 19:45 Info (Anti-Coagulation Monitoring By Pharmacy) 1 each PRN DAILY PRN MC SEE COMMENTS; Start 05/07/20 at 09:15; Stop 05/07/20 at 09:22; Status DC Active Scripts Active Orphenadrine Citrate 100 Mg Tablet.er 1 Tab PO BID PRN Tramadol Hcl 50 Mg Tablet 50 Mg PO Q6HRS PRN Reported Proair Hfa Inhaler (Albuterol Sulfate) 8.5 Gm Hfa.aer.ad 2 Puff IH PRN Q4-6HRS PRN 21 Days Vitamin C (Ascorbate Calcium) 500 Mg Tablet 500 Mg PO DAILY Sucralfate 1 Gm Tablet 1 Gm PO BID Baclofen 10 Mg Tablet 10 Mg PO QID Levothyroxine Sodium 125 Mcg Tablet 125 Mcg PO DAILY Valacyclovir (Valacyclovir Hcl) 500 Mg Tablet 1 Tab PO DAILY Primidone 250 Mg Tablet 250 Mg PO DAILY Omeprazole 20 Mg Tablet. 1 Tab PO DAILY Vitals/I & O Vital Sign - Last 24 Hours 05/06/20 05/06/20 05/06/20 05/06/20 11:44 15:05 16:30 16:59 Temp 99.6 98.4 99.6 98.4 Pulse 86 90 Resp 24 24 B/P (MAP) 126/60 (82) 144/66 (92) Pulse Ox 99 100 99 97 O2 Delivery Nasal Cannula Nasal Cannula Nasal Cannula Nasal Cannula O2 Flow Rate 2.0 2.0 05/06/20 05/06/20 05/06/20 05/06/20 19:09 20:00 20:02 22:15 Temp 98.6 99.2 98.6 99.2 Pulse 85 90 Resp 22 20 B/P (MAP) 119/60 (79) 109/58 (75) Pulse Ox 96 99 O2 Delivery Room Air Nasal Cannula Nasal Cannula Nasal Cannula O2 Flow Rate 2.0 2.0 2.0 05/07/20 05/07/20 05/07/20 05/07/20 02:07 06:04 07:22 08:00 Temp 98.9 98.8 98.9 98.8 Pulse 80 78 Resp 22 B/P (MAP) 101/54 (70) 104/58 (73) Pulse Ox 96 97 99 O2 Delivery Nasal Cannula Nasal Cannula Nasal Cannula Nasal Cannula O2 Flow Rate 2.0 2.0 2.0 2.0 05/07/20 11:00 Temp 98.7 98.7 Pulse 90 Resp 18 B/P (MAP) 111/56 (74) Pulse Ox 97 O2 Delivery Nasal Cannula O2 Flow Rate 2.0 Intake and Output 05/06/20 05/06/20 05/07/20 15:00 23:00 07:00 Intake Total 500 ml Output Total 600 ml 500 ml Balance -100 ml -500 ml Justicifation of Admission Dx: Justifications for Admission: Justification of Admission Dx: Yes (low hemoglobin) CELESTE DOBSON MD May 07, 2020 11:18
[2020-05-07] MEDS: APIXABAN 5 MG TABLET. PO SCH ×2 (11:52→20:21)
[2020-05-07] MEDS ORDERED: IRON SUCROSE COMPLEX 400 MG in IV NORMAL SALINE 250ML 250 ML IV ONE (12:30)
[2020-05-07 15:00] VITALS: BP 129/60
[2020-05-07 18:53] VITALS: BP 113/60
[2020-05-07] MEDS: ZOLPIDEM 5 MG TABLET. PO PRN (20:21)
[2020-05-07 22:37] VITALS: BP 108/56
[2020-05-08 02:11] VITALS: BP 109/61
[2020-05-08] MEDS: LEVOTHYROXINE 125 MCG TABLET PO SCH (06:19)
[2020-05-08 07:00] VITALS: BP 106/62
[2020-05-08] MEDS: IPRATRPIUM/ALBUTEROL 0.5/2.5MG 3 ML NEBU. NEB SCH ×2 (07:20→11:35)
[2020-05-08] MEDS: PANTOPRAZOLE 40 MG TABLET.DR. PO SCH (08:06)
[2020-05-08] MEDS: ASCORBIC ACID 500 MG TABLET PO SCH (08:06)
[2020-05-08] MEDS: valACYclovir 500 MG TABLET. PO SCH (08:06)
[2020-05-08] MEDS: SUCRALFATE 1 GM TABLET. PO SCH (08:06)
[2020-05-08] MEDS: APIXABAN 5 MG TABLET. PO SCH (08:07)
[2020-05-08] MEDS: BACLOFEN 10 MG TABLET. PO SCH ×2 (08:07→12:03)
[2020-05-08] MEDS: PRIMIDONE 250 MG TABLET PO SCH (08:08)
--- NOTE | 2020-05-08 10:05 | PDOC ---
Date of Service: DATE: 05/08/20 TIME: 10:00 Subjective: Subjective: Sister wants me to explain what's going on - the words "colon mass" are written on the white board. Objective: Vital Signs: Vital Signs Date Time Temp Pulse Resp B/P (MAP) Pulse Ox O2 Delivery O2 Flow Rate FiO2 05/08/20 08:00 Nasal Cannula 2.0 05/08/20 07:20 96 05/08/20 07:00 98.1 86 20 106/62 (77) 98.1 Labs: Laboratory Tests Test 05/07/20 11:45 Heparin Anti-Xa Act, Unfractionated 0.32 IU/mL PE: GEN: NAD - sister present LUNGS: diminished HEART: RRR ABD: S/ND/NT NEURO/PSYCH: A & O 3, anxious A/P: PEs - now on Eliquis JELENA - stable after transfusion; 'scopes UTD (normal colonoscopy 07/2018, unremarkable EGD 09/2018) - s/p iron infusion 05/[address] - normal LFTs, Hep panel negative, h/o fatty liver on past US, radiology recs for outpt MRI GERD - controlled w/ PPI -- Time spent w/ pt and sister, all questions answered in great detail to their satisfaction. Continue PPI, take PO iron QD-BID as outpt and use Miralax as needed (discussed because she expressed concern for past constipation w/ iron). Plan for outpt MRI and 'scopes - our office will contact - they request we call sister Alejandro . Justicifation of Admission Dx: Justifications for Admission: Justification of Admission Dx: Yes (low hemoglobin) HARSHA BAUTISTA May 08, 2020 10:05
[2020-05-08 11:00] VITALS: BP 118/63
[2020-05-08] MEDS ORDERED: APIX5TAB PO ×2 (11:17)
--- NOTE | 2020-05-08 12:22 | NUR ---
SS following up with discharge planning. SS reviewed pt chart and discussed with pt RN. Pt is currently on room air. Pt passed six minute walk. PT/OT recommended home independent. Discharge order on the chart for home with self care.
[2020-05-08] MEDS ORDERED: FERR-36 PO (12:31)
--- NOTE | 2020-05-08 12:31 | PDOC3 ---
Discharge Summary Visit Information Date of Admission: May 05, 2020 Date of Discharge: May 08, 2020 Admitting Diagnosis Comment: Assessment/Plan Generalized weakness due to microcytic anemia due to iron deficiency versus acute blood loss Acute bilateral pulmonary emboli, hemodynamically stable Multiple hypodense liver lesions concerning for metastasis due to colorectal malignancy Hiatal hernia Low health literacy History of uterine fibroids, however CT imaging does not reveal any obvious lesions in her uterus Questionable history of asthma versus COPD Final Diagnosis Problems Medical Problems: (1) Low hemoglobin Status: Acute (2) Pulmonary embolism Status: Acute Generalized weakness due to microcytic anemia due to iron deficiency versus acute blood loss Acute bilateral pulmonary emboli, hemodynamically stable Multiple hypodense liver lesions concerning for metastasis due to colorectal malignancy Hiatal hernia Low health literacy History of uterine fibroids, however CT imaging does not reveal any obvious lesions in her uterus Questionable history of asthma versus COPD Brief Hospital Course Allergies Allergies Coded Allergies Type Severity Reaction Last Updated Verified No Known Drug Allergies 09/25/18 No Vital Signs Vital Signs Date Time Temp Pulse Resp B/P (MAP) Pulse Ox O2 Delivery O2 Flow Rate FiO2 05/08/20 11:35 86 Room Air 05/08/20 11:00 97.7 84 22 118/63 (81) 97.7 05/08/20 08:00 2.0 Lab Results Laboratory Tests Test 05/06/20 13:45 05/06/20 20:42 05/07/20 04:15 05/07/20 11:45 Heparin Anti-Xa Act, Unfractionated 0.30 IU/mL (0.30-0.70) 0.23 IU/mL (0.30-0.70) 0.44 IU/mL (0.30-0.70) 0.32 IU/mL (0.30-0.70) White Blood Count 7.1 x10^3/uL (4.0-11.0) Red Blood Count 3.85 x10^6/uL (3.50-5.40) Hemoglobin 7.8 g/dL (12.0-15.5) Hematocrit 24.9 % (36.0-47.0) Mean Corpuscular Volume 65 fL (79-100) Mean Corpuscular Hemoglobin 20 pg (25-35) Mean Corpuscular Hemoglobin Concent 31 g/dL (31-37) Red Cell Distribution Width 30.8 % (11.5-14.5) Platelet Count 287 x10^3/uL (140-400) Brief Hospital Course HPI: 59 year old female who presents with midsternal chest pain that does not radiate and dizziness and SOA with exertion intermittently for the last 2 days. She states that the SOA has been going on for a few months and she has an inhaler that she uses for that. Denies smoking. Patient is unable to tell me if she has asthma or COPD and to why the doctor ordered her the albuterol inhaler. She states is a sharp type pain. She states nothing makes it worse or better. She states she is not taken aspirin. She states that she does not have any heart history but her family does have heart history. She rates her pain a 10 out of 10. Patient denies nausea, vomiting, abdominal pain, cough, fever, headache, focal weakness, vision changes, numbness or tingling, syncope. She states she was working today here at [employer] [facility] [employer] [facility] when she started to be diaphoretic, short of breath and dizzy. Patient has a history of acid reflux, uterine fibroids, high cholesterol, hypothyroidism. Patient admitted to the medical floor with telemetry and no new treatments showed close monitoring given the degree of anemia. The patient did not give a history of active bleeding no hematochezia no hematemesis, patient CT scan revealed a hepatic flexure that could well be a mass. Patient also had evidence of liver lesions that will need to be looked into. Patient was started on heparin but transition to apixaban on the second hospital stay. She has been on apixaban for the last 36 hours it has not presented any adverse event or reactions from the medication. Signs and symptoms of concern and when to seek medical attention was discussed with the patient prior to discharge. Her sister was at bedside as well and all of the concerns were addressed to the best of my abilities. I have encouraged her to follow-up with her primary care physician within 1 week and from there determine whether the patient is fit to return back to work. She works in the [employer] or our institution and her work is quite physical and involves lifting heavy objects. At the present time the patient seems quite debilitated from her acute disease. I stressed the importance of close following up with GI and hematology as well. All concerns were addressed to the best of my abilities. She is in good spirits to be going home later in the day She received 2 units of packed red blood cells and an infusion of iron prior to dismissal. Iron supplementation will be added to her medications Gen.: well-developed well-nourished in no apparent distress Head: Normal shape atraumatic Eyes: Pupils equal reactive to light and accommodation, normal conjunctivae and lids Ears: Normal shape Nose: Normal shape no trauma Mouth: No exudates of the back of throat no thrush no lesions Neck: Supple no JVD no carotid bruit or lymphadenopathy no thyromegaly Chest: Lungs clear to auscultation with good inspiratory effort no crackles rales or rhonchi Cardiovascular: S1-S2 regular rhythm no murmurs gallops or rubs Abdomen: Bowel sounds present soft nontender no hepatosplenomegaly appreciated sign Extremities: No clubbing no cyanosis no edema peripheral pulses palpated bilaterally Neurological: Alert awake oriented in person time place and situation, cranial nerves II through XII intact, no motor or sensory deficits appreciated Psych: Appropriate mood, cooperative Assessment Assessment CT chest IMPRESSION: 1. Pulmonary emboli as described above. 2. No aneurysm or dissection of the thoracic aorta, abdominal aorta or iliac arteries. 3. Mild pulmonary interstitial thickening may represent mild interstitial edema. No pleural effusions. 4. 0.6 cm hypodense lesion of the liver segment [address] CT imaging. This is indeterminate. This could be further assessed with outpatient MR imaging. 5. Hiatal hernia of the upper stomach. Discharge Information Condition at Discharge: Improved Follow Up: Weeks Disposition/Orders: D/C to Home Scheduled Apixaban (Eliquis) 5 Mg Tablet, 10 MG PO BID for PE for 6 Days, #24 Prescribed by: CELESTE DOBSON MD on 05/08/20 1117 Apixaban (Eliquis) 5 Mg Tablet, 5 MG PO BID for PE for 30 Days, #60 Prescribed by: CELESTE DOBSON MD on 05/08/20 1117 Ascorbate Calcium (Vitamin C) 500 Mg Tablet, 500 MG PO DAILY for supplement, (Reported) Entered as Reported by: VARGHESE VILLANUEVA on 05/06/20 1354 Last Taken: UNKNOWN on Unknown Date & Time Last Action: Converted on 05/06/201915 by TAMICA SANCHEZ Baclofen (Baclofen) 10 Mg Tablet, 10 MG PO QID for MUSCLE RELAXER, #30 Ref 0 (Re ported) Entered as Reported by: VARGHESE VILLANUEVA on 05/06/201353 Last Taken: UNKNOWN on Unknown Date & Time Last Action: Continued on 05/06/201915 by TAMICA SANCHEZ Levothyroxine Sodium (Levothyroxine Sodium) 125 Mcg Tablet, 125 MCG PO DAILY for hypothyroid, (Reported) Entered as Reported by: KIKO BYNUM RN on 03/19/19 175 Last Action: Continued on 05/06/201915 by TAMICA SANCHEZ Omeprazole (Omeprazole) 20 Mg Tablet.dr, 1 TAB PO DAILY, #90 Ref 1 (Reported) Entered as Reported by: YAQUELIN PARISI on 08/05/16 1403 Last Action: Converted on 05/06/201915 by TAMICA SANCHEZ Primidone (Primidone) 250 Mg Tablet, 250 MG PO DAILY for anxiety, (Reported) Entered as Reported by: YAQUELIN PARISI on 09/25/18 1538 Last Action: Continued on 05/06/201915 by TAMICA SANCHEZ Sucralfate (Sucralfate) 1 Gm Tablet, 1 GM PO BID for other, (Reported) Entered as Reported by: VARGHESE VILLANUEVA on 05/06/201353 Last Taken: UNKNOWN on Unknown Date & Time Last Action: Continued on 05/06/201915 by TAMICA SANCHEZ Valacyclovir Hcl (Valacyclovir) 500 Mg Tablet, 1 TAB PO DAILY for unknown, #90 Ref 3 (Reported) Entered as Reported by: YAQUELIN PARISI on 09/25/18 1539 Last Action: Continued on 05/06/201915 by TAMICA SANCHEZ Scheduled PRN Albuterol Sulfate (Proair Hfa Inhaler) 8.5 Gm Hfa.aer.ad, 2 PUFF IH PRN Q4-6HRS PRN for wheezing for 21 Days, #1 Ref 0 (Reported) Entered as Reported by: VARGHESE VILLANUEVA on 05/06/201353 Last Taken: UNKNOWN on Unknown Date & Time Last Action: New Order on 05/06/201353 by VARGHESE VILLANUEVA Orphenadrine Citrate (Orphenadrine Citrate) 100 Mg Tablet.er, 1 TAB PO BID PRN for MUSCLE SPASMS, #14 Prescribed by: ELLY FORD D.O. on 07/27/19808 Last Action: Converted on 05/06/201915 by TAMICA SANCHEZ Tramadol Hcl (Tramadol Hcl) 50 Mg Tablet, 50 MG PO Q6HRS PRN for PAIN, #1 Prescribed by: ELLY FORD D.O. on 07/27/19808 Last Action: Continued on 05/06/201915 by TAMICA SANCHEZ Justicifation of Admission Dx: Justifications for Admission: Justification of Admission Dx: Yes (low hemoglobin) CELESTE DOBSON MD May 08, 2020 12:30
--- NOTE | 2020-05-08 13:30 | NUR ---
Discharge Note: NIMISHA BLAKE Discharge instructions and discharge home medications reviewed with Patient and a copy given. All questions have been answered and understanding verbalized. The following instructions and handouts were given: pulmonary embolism, apixaban, ferrous sulfate Patient discharged to home with self care via wheelchair.
== END 2020-05-08 13:35 | disposition home or self-care (01) | DRG 811 ==
LOC: ER 11:25 → 6 SOUTH 12:36 → 2 NORTH 14:41 → ED HOLD 15:10 → 6 SOUTH 16:39 → 2 NORTH 05-06 16:58
PROVIDERS: ADMIT Internal Medicine; ATTEND Internal Medicine
PROC: 30233N1 Transfusion of Nonautologous Red Blood Cells into Peripheral Vein, Percutaneous Approach (ICD-10-PCS; principal; 2020-05-05)
DX: D50.9 Iron deficiency anemia, unspecified (principal); I26.99 Other pulmonary embolism without acute cor pulmonale; E78.00 Pure hypercholesterolemia, unspecified; I10 Essential (primary) hypertension; K21.9 Gastro-esophageal reflux disease without esophagitis; K44.9 Diaphragmatic hernia without obstruction or gangrene; M47.9 Spondylosis, unspecified; J44.9 Chronic obstructive pulmonary disease, unspecified; D62 Acute posthemorrhagic anemia; M51.9 Unspecified thoracic, thoracolumbar and lumbosacral intervertebral disc disorder; Z20.828 Contact with and (suspected) exposure to other viral communicable diseases; Z90.49 Acquired absence of other specified parts of digestive tract; Z98.51 Tubal ligation status
CPT/HCPCS: 36415; 36430; 71045; 71275; 74174; 80048; 80053; 80307; 81001; 82274; 83690; 83735; 83880; 84100; 84484; 85025; 85027; 85379; 85520; 85610; 86705; 86709; 86803; 86850; 86900; 86901; 86920; 87086; 87340; 93005; 94618; 94640; 94760; 96361; 96374; 99285; J1644; J1756; J3490; J7030; J7050; P9016; Q9967; 97110-GP; 97530-GO; 97530-GP; 97535-GO; G0378; U0003-CS

== ENCOUNTER 2020-05-17 20:35 | Inpatient (IN) | payer OTHER ==
[~2020-05-17] VITALS: Ht 165.1 cm; Wt 77.6 kg
[~2020-05-17 20:35] MED LIST changes: +ALBU2.5V8 IH; +APIX5TAB PO; +ASCO-78 PO; +BACL10TA PO; +FERR-36 PO; +SUCR1TAB PO
--- NOTE | 2020-05-17 20:47 | PHYS DOC ---
Past Medical History Past Medical History: GERD, High Cholesterol, Hypothyroid, Uterine Fibroids Additional Past Medical Histor: fibroids, ACID REFLUX Past Surgical History: Cholecystectomy, Tubal ligation Smoking Status: Never Smoker Alcohol Use: None Drug Use: None General Adult EDM: Chief Complaint: CHEST PAIN HPI: HPI: Patient is a 59 year old female who arrives with chief complaint of chest pain. Patient describes substernal chest pressure that is 5 out of 10 and nonradiating that began at 7 PM tonight. Nothing makes his symptoms worse nothing makes it better. Patient was recently hospitalized with pulmonary embolisms and is on anticoagulations for this. Patient also complains of right leg pain that is old. Patient denies any fevers chills or cough. Patient does have some shortness of breath. Review of Systems: Review of Systems: Constitutional: Denies fever or chills. [] Eyes: Denies change in visual acuity. [] HENT: Denies nasal congestion or sore throat. [] Respiratory: Denies cough but has shortness of breath. [] Cardiovascular: Complains of chest pain and swelling in the right leg GI: Denies abdominal pain, nausea, vomiting, bloody stools or diarrhea. [] : Denies dysuria. [] Musculoskeletal: Denies back pain or joint pain. [] Integument: Denies rash. [] Neurologic: Denies headache, focal weakness or sensory changes. [] Endocrine: Denies polyuria or polydipsia. [] Lymphatic: Denies swollen glands. [] Psychiatric: Denies depression or anxiety. [] Heart Score: HEART Score for Chest Pain: HEART Score for Chest Pain Response (Comments) Value History Moderately Suspicious 1 ECG Nonspecific Repolarizatio 1 Age >45 - < 65 1 Risk Factors 1 or 2 Risk Factors 1 Total 4 Risk Factors: Risk Factors: DM, Current or recent (<one month) smoker, HTN, HLP, family history of CAD, obesity. Risk Scores: Score 0 - 3: 2.5% MACE over next 6 weeks - Discharge Home Score 4 - 6: 20.3% MACE over next 6 weeks - Admit for Clinical Observation Score 7 - 10: 72.7% MACE over next 6 weeks - Early Invasive Strategies Allergies: Allergies: Allergies Coded Allergies Type Severity Reaction Last Updated Verified No Known Drug Allergies 09/25/18 No Physical Exam: PE: Constitutional: Well developed, well nourished, no acute distress, non-toxic appearance. [] HENT: Normocephalic, atraumatic, bilateral external ears normal, no trismus nose normal. [] Eyes: PERRLA, EOMI, conjunctiva normal, no discharge. [] Neck: Normal range of motion, no tenderness, supple, no stridor. [] Cardiovascular:Heart rate regular rhythm, peripheral pulse intact cap refill is brisk Lungs & Thorax: Bilateral breath sounds clear, no respiratory distress Abdomen: soft, no tenderness, no masses, no pulsatile masses. [] Skin: Warm, dry, no erythema, no rash. [] Back: No tenderness, no CVA tenderness. [] Extremities: No tenderness, no cyanosis, no clubbing, ROM intact, swelling to right calf Neurologic: Alert and oriented X 3, normal motor function, normal sensory function, no focal deficits noted. [] Psychologic: Affect normal, judgement normal, mood normal. [] Current Patient Data: Labs: Laboratory Tests Test 05/17/20 20:56 White Blood Count 6.7 x10^3/uL Red Blood Count 4.26 x10^6/uL Hemoglobin 9.9 g/dL Hematocrit 31.3 % Mean Corpuscular Volume 74 fL Mean Corpuscular Hemoglobin 23 pg Mean Corpuscular Hemoglobin Concent 32 g/dL Red Cell Distribution Width 38.9 % Platelet Count 494 x10^3/uL Neutrophils (%) (Auto) 59 % Lymphocytes (%) (Auto) 31 % Monocytes (%) (Auto) 7 % Eosinophils (%) (Auto) 2 % Basophils (%) (Auto) 1 % Neutrophils # (Auto) 3.9 x10^3/uL Lymphocytes # (Auto) 2.1 x10^3/uL Monocytes # (Auto) 0.4 x10^3/uL Eosinophils # (Auto) 0.1 x10^3/uL Basophils # (Auto) 0.1 x10^3/uL Platelet Estimate Increased Polychromasia Slight Hypochromasia Slight Poikilocytosis Slight Anisocytosis Marked Microcytosis Slight Ovalocytes Few Prothrombin Time 15.5 SEC Prothromb Time International Ratio 1.3 Activated Partial Thromboplast Time 31 SEC Sodium Level 141 mmol/L Potassium Level 3.7 mmol/L Chloride Level 105 mmol/L Carbon Dioxide Level 27 mmol/L Anion Gap 9 Blood Urea Nitrogen 11 mg/dL Creatinine 0.8 mg/dL Estimated GFR (Cockcroft-Gault) 73.9 BUN/Creatinine Ratio 14 Glucose Level 102 mg/dL Calcium Level 9.2 mg/dL Total Bilirubin 0.2 mg/dL Aspartate Amino Transf (AST/SGOT) 17 U/L Alanine Aminotransferase (ALT/SGPT) 18 U/L Alkaline Phosphatase 100 U/L Troponin I Quantitative < 0.017 ng/mL SZ-Crh-X-Type Natriuretic Peptide 41 pg/mL Total Protein 6.7 g/dL Albumin 3.6 g/dL Albumin/Globulin Ratio 1.2 Lipase 107 U/L Current Medications Medications (Trade) Dose Ordered Sig/Mary Route PRN Reason Start Time Stop Time Status Last Admin Dose Admin Aspirin (Aspirin Chewable) 324 mg 1X ONCE PO 05/17/20 21:00 05/17/20 21:01 DC 05/17/20 20:54 Iohexol (Omnipaque 350 Mg/ml) 90 ml 1X ONCE IV 05/17/20 21:45 05/17/20 21:46 DC 05/17/20 21:36 Morphine Sulfate (Morphine Sulfate) 4 mg 1X ONCE IV 05/17/20 21:30 05/17/20 21:35 DC 05/17/20 21:36 Info (CONTRAST GIVEN -- Rx MONITORING) 1 each PRN DAILY PRN MC SEE COMMENTS 05/17/20 21:45 05/19/20 21:44 Vital Signs: Vital Signs Date Time Temp Pulse Resp B/P (MAP) Pulse Ox O2 Delivery O2 Flow Rate FiO2 05/17/20 21:36 16 98 Room Air 05/17/20 21:35 72 17 108/57 (74) 98 Room Air 05/17/20 20:38 98.8 94 18 154/84 (107) 97 Room Air 98.8 EKG: EKG: EKG interpreted by me poor quality, normal sinus rhythm with left axis deviation normal intervals nonspecific ST changes, rate of 84 [] Radiology/Procedures: Radiology/Procedures: [][facility] [address] [place], [place] [id number] IMAGING REPORT Signed PATIENT: NIMISHA BLAKE ACCOUNT: [id number] : 1960 LOCATION: ER AGE: 59 SEX: F EXAM STATUS: REG ER ORD. PHYSICIAN: JULIUS BOWSER MD REASON: CP, HX OF PE, SOA, OMNI 350 90 ML IV PROCEDURE: CT ANGIOGRAPHY CHEST CT ANGIOGRAPHY CHEST History: Chest pain. Shortness of breath. Technique: CT of the chest was performed with intravenous contrast. PE protocol. Maximum intensity projection coronal and sagittal reconstructions were performed. Exposure: One or more of the following individualized dose reduction techniques were utilized for this examination: 1. Automated exposure control 2. Adjustment of the mA and/or kV according to patient size 3. Use of iterative reconstruction technique. Comparison: May 05, 2020 Findings: Chest: No pulmonary embolism. Resolved previously seen pulmonary emboli. No aortic aneurysm or dissection. No pathologic lymphadenopathy. Large hiatal hernia. Mild bilateral lower lobe linear atelectasis adjacent to the hiatal hernia. Mild scattered groundglass opacities most prominent within the upper lobes. Upper abdomen: Tiny right hepatic lobe hypodensity, too small to further characterize, unchanged. Prior cholecystectomy. Bones: No pathologic osseous lesions. Impression: 1. No pulmonary embolism. 2. Mild scattered groundglass opacities, can be seen with infectious or inflammatory process. 3. Large hiatal hernia. Electronically signed by: Dom Mccray DO (05/17/2020 9:55 PM) [facility] DICTATED and SIGNED BY: DOM MCCRAY DO DATE: 05/17/20 2155 [facility] [address] [place], [place] [id number] IMAGING REPORT Signed PATIENT: NIMISHA BLAKE ACCOUNT: [id number] : 1960 LOCATION: ER AGE: 59 SEX: F EXAM STATUS: REG ER ORD. PHYSICIAN: JULIUS BOWSER MD REASON: CHEST PAIN PROCEDURE: PORTABLE CHEST 1V PORTABLE CHEST 1V History: Reason: CHEST PAIN / Spl. Instructions: / History: Comparison: May 05, 2020 Findings: Low lung volumes. Patchy bibasilar opacities. No pneumothorax. No pleural effusion. Hiatal hernia. Unchanged heart size. Impression: 1. Low lung volumes. 2. Hiatal hernia. Electronically signed by: Dom Mccray DO (05/17/2020 9:42 PM) [facility] DICTATED and SIGNED BY: DOM MCCRAY DO DATE: 05/17/202141 Course & Med Decision Making: Course & Med Decision Making Pertinent Labs and Imaging studies reviewed. (See chart for details) [] 59 female presents with substernal chest pain. Patient had recent pulmonary embolism is on anticoagulation. CTA does not reveal pulmonary blood some but has groundglass opacities. Patient will be swab for coronavirus and covered w ith Zithromax for atypical pneumonia. Patient also has chest pain and has a heart score 4 will need to be admitted for rule out [place]. Discussed with Dr. Linn who will admit. Dragon Disclaimer: Dragon Disclaimer: This electronic medical record was generated, in whole or in part, using a voice recognition dictation system. Departure Departure Impression: Primary Impression: Chest pain Additional Impression: Suspected COVID-19 virus infection Disposition: ADMITTED INPATIENT Admitting Physician: EKATERINA CASTRO) Referrals: Clif RIZVI MD (PCP) JULIUS BOWSER MD May 17, 2020 20:47
[2020-05-17] MEDS ORDERED: ASPIRIN CHEWABLE 81 MG TABLET. PO ONE (21:00)
[2020-05-17 21:04] LABS: BASO # 0.1 x10^3/uL (0.0-0.2); BASO % 1 % (0-3); EOS # 0.1 x10^3/uL (0.0-0.7); EOS % 2 % (0-3); HEMATOCRIT 31.3 % (36.0-47.0); HEMOGLOBIN 9.9 g/dL (12.0-15.5); LYMPH # 2.1 x10^3/uL (1.0-4.8); LYMPH % 31 % (24-48); MEAN CORPUSCULAR HEMOGLOBIN 23 pg (25-35); MEAN CORPUSCULAR HGB CONC 32 g/dL (31-37); MEAN CORPUSCULAR VOLUME 74 fL (79-100); MONO # 0.4 x10^3/uL (0.0-1.1); MONO % 7 % (0-9); NEUT # 3.9 x10^3/uL (1.8-7.7); NEUT % 59 % (31-73); PLATELET COUNT 494 x10^3/uL (140-400); RED BLOOD COUNT 4.26 x10^6/uL (3.50-5.40); RED CELL DISTRIBUTION WIDTH 38.9 % (11.5-14.5); WHITE BLOOD COUNT 6.7 x10^3/uL (4.0-11.0)
[2020-05-17 21:14] LABS: CALCIUM 9.2 mg/dL (8.5-10.1); CREATININE 0.8 mg/dL (0.6-1.0); GFR 73.9; POTASSIUM 3.7 mmol/L (3.5-5.1); PROTHROMBIN TIME PATIENT 15.5 SEC (11.7-14.0)
[2020-05-17 21:20] LABS: ALBUMIN 3.6 g/dL (3.4-5.0); ALBUMIN/GLOBULIN RATIO 1.2 (1.0-1.7); TOTAL BILIRUBIN 0.2 mg/dL (0.2-1.0); TOTAL PROTEIN 6.7 g/dL (6.4-8.2)
[2020-05-17 21:26] LABS: PLT ESTIMATE INCREASED (ADEQUATE)
[2020-05-17 21:27] LABS: ANISOCYTOSIS MARKED; HYPOCHROMIA SLIGHT; MICROCYTOSIS SLIGHT; OVALOCYTES FEW; POIKILOCYTOSIS SLIGHT; POLYCHROMASIA SLIGHT
[2020-05-17] MEDS ORDERED: MORPHINE SULFATE 4 MG/ML VIAL. IV ONE (21:30)
[2020-05-17] MEDS ORDERED: IOHEXOL 350 MG/ML 100 ML VIAL. IV ONE (21:45)
[2020-05-17] MEDS ORDERED: CONTRAST GIVEN. MC PRN (21:45)
--- NOTE | 2020-05-17 21:45 | RAD ---
PORTABLE CHEST 1V History: Reason: CHEST PAIN / Spl. Instructions: / History: Comparison: May 05, 2020 Findings: Low lung volumes. Patchy bibasilar opacities. No pneumothorax. No pleural effusion. Hiatal hernia. Unchanged heart size. Impression: 1. Low lung volumes. 2. Hiatal hernia. Electronically signed by: Dom Mccray DO (05/17/2020 9:42 PM) [facility]
--- NOTE | 2020-05-17 21:58 | RAD ---
CT ANGIOGRAPHY CHEST History: Chest pain. Shortness of breath. Technique: CT of the chest was performed with intravenous contrast. PE protocol. Maximum intensity projection coronal and sagittal reconstructions were performed. Exposure: One or more of the following individualized dose reduction techniques were utilized for this examination: 1. Automated exposure control 2. Adjustment of the mA and/or kV according to patient size 3. Use of iterative reconstruction technique. Comparison: May 05, 2020 Findings: Chest: No pulmonary embolism. Resolved previously seen pulmonary emboli. No aortic aneurysm or dissection. No pathologic lymphadenopathy. Large hiatal hernia. Mild bilateral lower lobe linear atelectasis adjacent to the hiatal hernia. Mild scattered groundglass opacities most prominent within the upper lobes. Upper abdomen: Tiny right hepatic lobe hypodensity, too small to further characterize, unchanged. Prior cholecystectomy. Bones: No pathologic osseous lesions. Impression: 1. No pulmonary embolism. 2. Mild scattered groundglass opacities, can be seen with infectious or inflammatory process. 3. Large hiatal hernia. Electronically signed by: Dom Mccray DO (05/17/2020 9:55 PM) [facility]
[2020-05-17] MEDS ORDERED: AZITHRMYCN 500MG IVPB FOR OMNI 250 ML IV ONE (22:15)
[2020-05-17] MEDS ORDERED: ONDANSETRON PF 4 MG/2 ML VIAL. IV PRN (22:15)
[2020-05-17] MEDS ORDERED: NON FORMULARY ITEM (Orphenadrine Citrate 1 TAB) PO PRN (23:45)
[2020-05-18] MEDS: FERROUS SULFATE 325 MG TABLET. PO SCH ×3 (00:42→18:03)
[2020-05-18] MEDS: APIXABAN 5 MG TABLET. PO SCH ×3 (00:42→21:14)
[2020-05-18] MEDS: traMADol 50 MG TABLET PO PRN ×3 (00:42→21:14)
[2020-05-18 03:00] VITALS: BP 103/59
[2020-05-18] MEDS: LEVOTHYROXINE 125 MCG TABLET PO SCH (05:46)
[2020-05-18 07:00] VITALS: BP 107/60
[2020-05-18] MEDS ORDERED: FLU VACC QS 2020-21(6MOS+)/PF 0.5 ML SYRINGE. VAX IM ONE (09:00)
[2020-05-18] MEDS: PRIMIDONE 250 MG TABLET PO SCH (09:00)
[2020-05-18] MEDS ORDERED: BACLOFEN 10 MG TABLET. PO SCH (09:00)
--- NOTE | 2020-05-18 09:10 | PDOC1 ---
History and Physical Date of Service: DOS: DATE: 05/18/20 TIME: 09:07 Chief Complaint: Chief Complain: Chest pain History of Present Illness: HPI: Patient is a 59-year-old female with past medical history of GERD, dyslipidemia, hypothyroidism, uterine fibroids and a recent admission on May 05 of this year for pulmonary embolism. Patient was discharged with Eliquis at that time and she was told to follow-up with her PCP for further work-up. During her last hospitalization she was found to have several hypodense liver lesions which needed to be worked up. Patient is unable to explain what type of work-up or next test she needed to complete. However, she did state that she had an appointment with a specialist sometime in May. Patient does have low health literacy. Patient comes to this hospitalization with a main complaint of substernal chest pain that is 5 out of 10 and nonradiating that began 7 PM last night. There is no alleviating or exacerbating factors. Denies fevers, shortness of breath, abdominal pain, diarrhea, cough, nausea vomiting, or dizziness. Patient states that she does have some intermittent swelling of her right lower extremity whenever she walks. This improves when she lies down and elevates her legs. Past Medical/Surgical History: PMH/PSH: Past Medical History: GERD, High Cholesterol, Hypothyroid, Uterine fibroids Past Surgical History: Cholecystectomy, Tubal ligation Allergies: Allergies: Coded Allergies: No Known Drug Allergies (Unverified , 09/25/18) Family History: Family History: Reviewed and none reported Social History: Social History: Smoking Status: Never Smoker Alcohol Use: None Drug Use: None Current Medications: Current Medications Current Medications Aspirin (Aspirin Chewable) 324 mg 1X ONCE PO Last administered on 05/17/20at 20:54; Start 05/17/20 at 21:00; Stop 05/17/20 at 21:01; Status DC Iohexol (Omnipaque 350 Mg/ml) 90 ml 1X ONCE IV Last administered on 05/17/20at 21:36; Start 05/17/20 at 21:45; Stop 05/17/20 at 21:46; Status DC Morphine Sulfate (Morphine Sulfate) 4 mg 1X ONCE IV Last administered on 05/17/20at 21:36; Start 05/17/20 at 21:30; Stop 05/17/20 at 21:35; Status DC Info (CONTRAST GIVEN -- Rx MONITORING) 1 each PRN DAILY PRN MC SEE COMMENTS; Start 05/17/20 at 21:45; Stop 05/19/20 at 21:44 Azithromycin 250 ml @ 250 mls/hr 1X ONCE IV Last administered on 05/17/20at 22:16; Start 05/17/20 at 22:15; Stop 05/17/20 at 23:14; Status DC Ondansetron HCl (Zofran) 4 mg PRN Q8HRS PRN IV NAUSEA/VOMITING; Start 05/17/20 at 22:15; Stop 05/18/20 at 22:14 Apixaban (Eliquis) 10 mg BID PO Last administered on 05/18/20at 00:42; Start 05/18/20 at 00:45 Baclofen (Lioresal) 10 mg QID PO ; Start 05/18/20 at 09:00; Stop 05/18/20 at 00:53; Status DC Ferrous Sulfate (Feosol) 325 mg BIDWMEALS PO Last administered on 05/18/20at 00:42; Start 05/18/20 at 00:45 Levothyroxine Sodium (Synthroid) 125 mcg DAILY06 PO Last administered on 05/18/20at 05:46; Start 05/18/20 at 06:00 Primidone (Mysoline) 250 mg DAILY PO ; Start 05/18/20 at 09:00 Sucralfate (Carafate) 1 gm BIDBFRMEAL PO ; Start 05/18/20 at 07:30 Tramadol HCl (Ultram) 50 mg PRN Q6HRS PRN PO PAIN Last administered on 05/18/20at 00:42; Start 05/17/20 at 23:45 Valacyclovir HCl (Valtrex) 500 mg DAILY PO ; Start 05/18/20 at 09:00 Ascorbic Acid (Vitamin C) 500 mg DAILY PO ; Start 05/18/20 at 09:00 Pantoprazole Sodium (Protonix) 40 mg DAILYAC PO ; Start 05/18/20 at 07:30 Non-Formulary Medication (Orphenadrine Citrate ) 1 tab BID PRN PO MUSCLE SPASMS; Start 05/17/20 at 23:45; Status UNV Influenza Virus Vaccine Quadrival (Fluzone Quad Syringe) 0.5 ml ONCE ONCE VAX IM ; Start 05/18/20 at 09:00; Stop 05/18/20 at 09:01; Status DC Active Scripts Active Iron (Ferrous Sulfate) 325 Mg Tablet 1 Tab PO BID 30 Days Eliquis (Apixaban) 5 Mg Tablet 5 Mg PO BID 30 Days Eliquis (Apixaban) 5 Mg Tablet 10 Mg PO BID 6 Days Orphenadrine Citrate 100 Mg Tablet.er 1 Tab PO BID PRN Tramadol Hcl 50 Mg Tablet 50 Mg PO Q6HRS PRN Reported Proair Hfa Inhaler (Albuterol Sulfate) 8.5 Gm Hfa.aer.ad 2 Puff IH PRN Q4-6HRS PRN 21 Days Vitamin C (Ascorbate Calcium) 500 Mg Tablet 500 Mg PO DAILY Sucralfate 1 Gm Tablet 1 Gm PO BID Baclofen 10 Mg Tablet 10 Mg PO QID Levothyroxine Sodium 125 Mcg Tablet 125 Mcg PO DAILY Valacyclovir (Valacyclovir Hcl) 500 Mg Tablet 1 Tab PO DAILY Primidone 250 Mg Tablet 250 Mg PO DAILY Omeprazole 20 Mg Tablet.dr 1 Tab PO DAILY ROS: Review of Systems Review of System REVIEW OF SYSTEMS: GENERAL: Denies weakness SKIN: No bruising, hair changes or rashes. EYES: No blurred, double or loss of vision. NOSE AND THROAT: No history of nosebleeds, hoarseness or sore throat. HEART: No history of palpitations, chest pain or shortness of breath on exertion. LUNGS: Denies cough, hemoptysis, wheezing or shortness of breath. GASTROINTESTINAL: Denies changes in appetite, nausea, vomiting, diarrhea or constipation. GENITOURINARY: No history of frequency, urgency, hesitancy or nocturia. NEUROLOGIC: Denies history of numbness, tingling, or tremor. PSYCHIATRIC: No history of panic, anxiety or depression. ENDOCRINE: No history of heat or cold intolerance, polyuria or polydipsia. EXTREMITIES: Denies joint pain, pain on walking or stiffness. Physical Exam: Vital Signs: Vital Signs Date Time Temp Pulse Resp B/P (MAP) Pulse Ox O2 Delivery O2 Flow Rate FiO2 05/18/20 07:00 97.8 67 17 107/60 (76) 98 Room Air 97.8 Physcial Exam: GEN: No apparent distress. Alert and oriented HEENT: Normal cephalic, atraumatic, external auditory canals are patent EYES: Extraocular muscles are intact, pupil are equally round and reactive to light and accommodation MUSCULOSKELETAL: Well developed , well nourished, good range of motion ENDOCRINE: No thyromegaly was palpated LYMPHATICS: No cervical chain or axillary nodes were noted HEMATOPOIETIC: No bruising NECK: Supple, no JVD, no thyromegaly was noted LUNGS: Clear to auscultation in all lung jordan without rhonchi or wheezing HEART: RRR, S!, S2 present. Peripheral pulses intact, no obvious murmurs noted ABDOMEN: Soft, nontender. Positive bowel sounds, no organomegaly, normal bowel sounds EXTREMITIES: Without clubbing, cyanosis, or edema. Pedal pulses intact. Negative Homans sign NEUROLOGIC: Normal speech and tone. A&O x 3, moves all extremities, no obvious focal deficits PSYCHIATRIC: Normal affect, normal mood. Stable SKIN: No ulcerations or rashes, good skin turgor, no jaundice VASCULAR: Good capillary refill, neurovascular bundle appears to be intact Labs: Labs: Laboratory Tests Test 05/17/20 20:56 05/18/20 00:15 05/18/20 04:00 White Blood Count 6.7 x10^3/uL (4.0-11.0) Red Blood Count 4.26 x10^6/uL (3.50-5.40) Hemoglobin 9.9 g/dL (12.0-15.5) Hematocrit 31.3 % (36.0-47.0) Mean Corpuscular Volume 74 fL (79-100) Mean Corpuscular Hemoglobin 23 pg (25-35) Mean Corpuscular Hemoglobin Concent 32 g/dL (31-37) Red Cell Distribution Width 38.9 % (11.5-14.5) Platelet Count 494 x10^3/uL (140-400) Neutrophils (%) (Auto) 59 % (31-73) Lymphocytes (%) (Auto) 31 % (24-48) Monocytes (%) (Auto) 7 % (0-9) Eosinophils (%) (Auto) 2 % (0-3) Basophils (%) (Auto) 1 % (0-3) Neutrophils # (Auto) 3.9 x10^3/uL (1.8-7.7) Lymphocytes # (Auto) 2.1 x10^3/uL (1.0-4.8) Monocytes # (Auto) 0.4 x10^3/uL (0.0-1.1) Eosinophils # (Auto) 0.1 x10^3/uL (0.0-0.7) Basophils # (Auto) 0.1 x10^3/uL (0.0-0.2) Platelet Estimate Increased (ADEQUATE) Polychromasia Slight Hypochromasia Slight Poikilocytosis Slight Anisocytosis Marked Microcytosis Slight Ovalocytes Few Prothrombin Time 15.5 SEC (11.7-14.0) Prothromb Time International Ratio 1.3 (0.8-1.1) Activated Partial Thromboplast Time 31 SEC (24-38) Sodium Level 141 mmol/L (136-145) Potassium Level 3.7 mmol/L (3.5-5.1) Chloride Level 105 mmol/L (98-107) Carbon Dioxide Level 27 mmol/L (21-32) Anion Gap 9 (6-14) Blood Urea Nitrogen 11 mg/dL (7-20) Creatinine 0.8 mg/dL (0.6-1.0) Estimated GFR (Cockcroft-Gault) 73.9 BUN/Creatinine Ratio 14 (6-20) Glucose Level 102 mg/dL (70-99) Calcium Level 9.2 mg/dL (8.5-10.1) Total Bilirubin 0.2 mg/dL (0.2-1.0) Aspartate Amino Transf (AST/SGOT) 17 U/L (15-37) Alanine Aminotransferase (ALT/SGPT) 18 U/L (14-59) Alkaline Phosphatase 100 U/L (46-116) Troponin I Quantitative < 0.017 ng/mL (0.000-0.055) < 0.017 ng/mL (0.000-0.055) < 0.017 ng/mL (0.000-0.055) NL-Dcs-B-Type Natriuretic Peptide 41 pg/mL (0-124) Total Protein 6.7 g/dL (6.4-8.2) Albumin 3.6 g/dL (3.4-5.0) Albumin/Globulin Ratio 1.2 (1.0-1.7) Lipase 107 U/L (73-393) Laboratory Tests Test 05/17/20 20:56 05/18/20 00:15 05/18/20 04:00 White Blood Count 6.7 x10^3/uL (4.0-11.0) Red Blood Count 4.26 x10^6/uL (3.50-5.40) Hemoglobin 9.9 g/dL (12.0-15.5) Hematocrit 31.3 % (36.0-47.0) Mean Corpuscular Volume 74 fL (79-100) Mean Corpuscular Hemoglobin 23 pg (25-35) Mean Corpuscular Hemoglobin Concent 32 g/dL (31-37) Red Cell Distribution Width 38.9 % (11.5-14.5) Platelet Count 494 x10^3/uL (140-400) Neutrophils (%) (Auto) 59 % (31-73) Lymphocytes (%) (Auto) 31 % (24-48) Monocytes (%) (Auto) 7 % (0-9) Eosinophils (%) (Auto) 2 % (0-3) Basophils (%) (Auto) 1 % (0-3) Neutrophils # (Auto) 3.9 x10^3/uL (1.8-7.7) Lymphocytes # (Auto) 2.1 x10^3/uL (1.0-4.8) Monocytes # (Auto) 0.4 x10^3/uL (0.0-1.1) Eosinophils # (Auto) 0.1 x10^3/uL (0.0-0.7) Basophils # (Auto) 0.1 x10^3/uL (0.0-0.2) Platelet Estimate Increased (ADEQUATE) Polychromasia Slight Hypochromasia Slight Poikilocytosis Slight Anisocytosis Marked Microcytosis Slight Ovalocytes Few Prothrombin Time 15.5 SEC (11.7-14.0) Prothromb Time International Ratio 1.3 (0.8-1.1) Activated Partial Thromboplast Time 31 SEC (24-38) Sodium Level 141 mmol/L (136-145) Potassium Level 3.7 mmol/L (3.5-5.1) Chloride Level 105 mmol/L (98-107) Carbon Dioxide Level 27 mmol/L (21-32) Anion Gap 9 (6-14) Blood Urea Nitrogen 11 mg/dL (7-20) Creatinine 0.8 mg/dL (0.6-1.0) Estimated GFR (Cockcroft-Gault) 73.9 BUN/Creatinine Ratio 14 (6-20) Glucose Level 102 mg/dL (70-99) Calcium Level 9.2 mg/dL (8.5-10.1) Total Bilirubin 0.2 mg/dL (0.2-1.0) Aspartate Amino Transf (AST/SGOT) 17 U/L (15-37) Alanine Aminotransferase (ALT/SGPT) 18 U/L (14-59) Alkaline Phosphatase 100 U/L (46-116) Troponin I Quantitative < 0.017 ng/mL (0.000-0.055) < 0.017 ng/mL (0.000-0.055) < 0.017 ng/mL (0.000-0.055) CF-Osz-R-Type Natriuretic Peptide 41 pg/mL (0-124) Total Protein 6.7 g/dL (6.4-8.2) Albumin 3.6 g/dL (3.4-5.0) Albumin/Globulin Ratio 1.2 (1.0-1.7) Lipase 107 U/L (73-393) Images: Images CXR Impression: 1. Low lung volumes. 2. Hiatal hernia. CHEST CTA Impression: 1. No pulmonary embolism. 2. Mild scattered groundglass opacities, can be seen with infectious or inflammatory process. 3. Large hiatal hernia. Assessment/Plan Assessment/Plan Atypical chest pain Microcytic anemia History of pulmonary embolism currently on Eliquis Multiple liver lesions concerning for malignancy Pending cardiology evaluation Pending echocardiogram We will order right lower extremity DVT ultrasound for swelling Eliquis for DVT prophylaxis Protonix GI prophylaxis ADA diet Full code Discussed with RN and SW Disposition inpatient care as above, will anticipate discharge for tomorrow after echocardiogram is completed Surrogate decision maker is the Justifications for Admission Other Justification PE and low Hb CARLOS MANE MD May 18, 2020 09:10
--- NOTE | 2020-05-18 09:12 | PDOC2 ---
TORIE SLOAN MANAGER COST 05/18/20 0912: CARDIAC CONSULT DATE OF CONSULT Date of Consult DATE: 05/18/20 TIME: 09:03 REASON FOR CONSULT Reason for Consult: Chest pain REFERRING PHYSICIAN Referring Physician: Kamran SOURCE Source: Chart review, Patient HISTORY OF PRESENT ILLNESS HISTORY OF PRESENT ILLNESS This is a pleasant 69 yo female admitted for complains of chest pain. Reports that this is sharp midchest and lasts for seconds but frequent. This is nonradiating and no associated significnat SOA, palpitations nor nausea or vomiting. She does have hx of barrets and hiatal hernia. She was recently here few weeks ago and was noted with PE concomitant with severe anemia to which she was transfused. Still unclear etiology in regards to her profound anemia but her Hgb is currently stable and apparently repeat CTA was noted negative for PE. No hx of CAD nor arrhythmias. PAST MEDICAL HISTORY Cardiovascular: Hyperlipidemia Pulmonary: Pulmonary embolus CENTRAL NERVOUS SYSTEM: Other (tremors) GI: Constipation, GERD, Other (barretts; hiatal hernia;schatskis ring) Heme/Onc: Anemia NOS (recent with transfusion) Hepatobiliary: Cholelithiasis Psych: Anxiety Musculoskeletal: low back pain, Osteoarthritis ENT: Allergic Rhinitis Renal/: UTI Endocrine: Hypothyroidism Dermatology: No pertinent hx PAST SURGICAL HISTORY Past Surgical History: Cholecystectomy, Tubal Ligation FAMILY HISTORY Family History: Heart Disease SOCIAL HISTORY Smoke: No ALCOHOL: none Drugs: None Lives: with Family CURRENT MEDICATIONS CURRENT MEDICATIONS Current Medications Medications (Trade) Dose Ordered Sig/Mary Route PRN Reason Start Time Stop Time Status Last Admin Dose Admin Aspirin (Aspirin Chewable) 324 mg 1X ONCE PO 05/17/20 21:00 05/17/20 21:01 DC 05/17/20 20:54 Iohexol (Omnipaque 350 Mg/ml) 90 ml 1X ONCE IV 05/17/20 21:45 05/17/20 21:46 DC 05/17/20 21:36 Morphine Sulfate (Morphine Sulfate) 4 mg 1X ONCE IV 05/17/20 21:30 05/17/20 21:35 DC 05/17/20 21:36 Azithromycin 250 ml @ 250 mls/hr 1X ONCE IV 05/17/20 22:15 05/17/20 23:14 DC 05/17/20 22:16 Apixaban (Eliquis) 10 mg BID PO 05/18/20 00:45 05/18/20 00:42 Ferrous Sulfate (Feosol) 325 mg BIDWMEALS PO 05/18/20 00:45 05/18/20 00:42 Levothyroxine Sodium (Synthroid) 125 mcg DAILY06 PO 05/18/20 06:00 05/18/20 05:46 Tramadol HCl (Ultram) 50 mg PRN Q6HRS PRN PO PAIN 05/17/20 23:45 05/18/20 00:42 ALLERGIES ALLERGIES: Coded Allergies: No Known Drug Allergies (Unverified , 09/25/18) PHYSICAL EXAM General: Alert, Oriented X3, Cooperative, No acute distress HEENT: Atraumatic, Mucous membr. moist/pink Lungs: Other (diminished) Heart: Regular rate (SR no ectopies), Normal S1, Normal S2, No murmurs Abdomen: Soft Extremities: No cyanosis, No edema Skin: No breakdown, No significant lesion Neuro: Normal speech, Sensation intact, Other (arm tremors) Psych/Mental Status: Mental status NL, Mood NL MUSCULOSKELETAL: Osteoarthritic changes both hands VITALS/I&O VITALS/I&O: Vital Signs Date Time Temp Pulse Resp B/P (MAP) Pulse Ox O2 Delivery O2 Flow Rate FiO2 05/18/20 07:00 97.8 67 17 107/60 (76) 98 Room Air 97.8 I & O 05/17/20 05/17/20 05/18/20 15:00 23:00 07:00 Intake Total 200 ml Balance 200 ml LABS Lab: Laboratory Tests Test 05/17/20 20:56 05/18/20 00:15 05/18/20 04:00 White Blood Count 6.7 x10^3/uL (4.0-11.0) Red Blood Count 4.26 x10^6/uL (3.50-5.40) Hemoglobin 9.9 g/dL (12.0-15.5) L Hematocrit 31.3 % (36.0-47.0) L Mean Corpuscular Volume 74 fL (79-100) L Mean Corpuscular Hemoglobin 23 pg (25-35) L Mean Corpuscular Hemoglobin Concent 32 g/dL (31-37) Red Cell Distribution Width 38.9 % (11.5-14.5) H Platelet Count 494 x10^3/uL (140-400) H Neutrophils (%) (Auto) 59 % (31-73) Lymphocytes (%) (Auto) 31 % (24-48) Monocytes (%) (Auto) 7 % (0-9) Eosinophils (%) (Auto) 2 % (0-3) Basophils (%) (Auto) 1 % (0-3) Neutrophils # (Auto) 3.9 x10^3/uL (1.8-7.7) Lymphocytes # (Auto) 2.1 x10^3/uL (1.0-4.8) Monocytes # (Auto) 0.4 x10^3/uL (0.0-1.1) Eosinophils # (Auto) 0.1 x10^3/uL (0.0-0.7) Basophils # (Auto) 0.1 x10^3/uL (0.0-0.2) Platelet Estimate Increased (ADEQUATE) Polychromasia Slight Hypochromasia Slight Poikilocytosis Slight Anisocytosis Marked Microcytosis Slight Ovalocytes Few Prothrombin Time 15.5 SEC (11.7-14.0) H Prothrombin Time INR 1.3 (0.8-1.1) H Activated Partial Thromboplast Time 31 SEC (24-38) Sodium Level 141 mmol/L (136-145) Potassium Level 3.7 mmol/L (3.5-5.1) Chloride Level 105 mmol/L (98-107) Carbon Dioxide Level 27 mmol/L (21-32) Anion Gap 9 (6-14) Blood Urea Nitrogen 11 mg/dL (7-20) Creatinine 0.8 mg/dL (0.6-1.0) Estimated GFR (Cockcroft-Gault) 73.9 BUN/Creatinine Ratio 14 (6-20) Glucose Level 102 mg/dL (70-99) H Calcium Level 9.2 mg/dL (8.5-10.1) Total Bilirubin 0.2 mg/dL (0.2-1.0) Aspartate Amino Transferase (AST) 17 U/L (15-37) Alanine Aminotransferase (ALT) 18 U/L (14-59) Alkaline Phosphatase 100 U/L (46-116) Troponin I Quantitative < 0.017 ng/mL (0.000-0.055) < 0.017 ng/mL (0.000-0.055) < 0.017 ng/mL (0.000-0.055) OJ-Zme-B-Type Natriuretic Peptide 41 pg/mL (0-124) Total Protein 6.7 g/dL (6.4-8.2) Albumin 3.6 g/dL (3.4-5.0) Albumin/Globulin Ratio 1.2 (1.0-1.7) Lipase 107 U/L (73-393) Laboratory Tests 05/17/20 20:56 Laboratory Tests 05/17/20 20:56 ASSESSMENT/PLAN ASSESSMENT/PLAN 1. Atypical CP: trops nml EKG SR with LVH and LAFB. Suspect pain is from GI 2. PUI 3. Hx of barrets esophagus and large hiatal hernia 4. Recent PE and profound anemia requiring blood transfusion (etiology unknown): Noted in 05/05/2020 Hgb stable with eliquis. CTA reveled no further PE 5. Hypothyroidism 6. Microcytic hypochromic anemia: Hgb stable at 9.9 Recommendations 1. Unclear how her CTA would be negative for PE after 2 weeks of anticoagulation. Venous doppler pending and woul consider TTE if void negative and note RV for any semblance of PE 2. Continue reflux meds per PCP. Pt told me that she has stopped her PPI and [id number]. 3. Nothing further cardiac tee. ANGLE MONTANA MD 05/18/20 2004: CARDIAC CONSULT ASSESSMENT/PLAN ASSESSMENT/PLAN Agree with EXTERMINATOR HELPER's assessment and plan. CP atypical and prob GI etiology AL ruled out Plan outpatient echo and ischemic evaluation Thank you for your consultation TORIE SLOAN APRN May 18, 2020 09:12 ANGLE MONTANA MD May 18, 2020 20:04
[2020-05-18] MEDS: valACYclovir 500 MG TABLET. PO SCH (09:42)
[2020-05-18] MEDS: ASCORBIC ACID 500 MG TABLET PO SCH (09:42)
[2020-05-18] MEDS: SUCRALFATE 1 GM TABLET. PO SCH ×2 (09:42→18:03)
[2020-05-18] MEDS: PANTOPRAZOLE 40 MG TABLET.DR. PO SCH (09:42)
[2020-05-18 11:01] VITALS: BP 116/56
[2020-05-18 14:59] VITALS: BP 105/58
--- NOTE | 2020-05-18 16:28 | NUR ---
SW following. Spoke with RN and reviewed chart. SW consulted to evaluate for discharge planning needs. Pt from home. Pt currently on PO medications, room air, cardiac diet. Pt has a sister and daughter listed as contacts. Pt COVID pending so SW attempted to call into pt's room- no answer. SW following.
--- NOTE | 2020-05-18 19:10 | RAD ---
Right lower extremity venous Doppler dated 05/18/2020. No comparison available. Clinical data indication: Swelling. History of pulmonary embolus. FINDINGS: Grayscale, color-flow and spectral waveform analysis performed to include the deep venous system of the right lower extremity. There is normal compressibility, phasicity and augmentation of flow of the common femoral vein, superficial femoral vein and popliteal vein. There is occlusive filling defect within the posterior tibial vein and both peroneal veins. IMPRESSION: Study is positive for deep vein thrombosis involving the veins of the right calf. Electronically signed by: Rajendra Liriano MD (05/18/2020 7:08 PM) HECTOR
[2020-05-18 19:37] VITALS: BP 137/67
[2020-05-18 23:44] VITALS: BP 117/60
[2020-05-19 03:55] VITALS: BP_SYST 122
[2020-05-19] MEDS: LEVOTHYROXINE 125 MCG TABLET PO SCH (06:35)
[2020-05-19 07:10] VITALS: BP 115/62
[2020-05-19] MEDS: ASCORBIC ACID 500 MG TABLET PO SCH (08:30)
[2020-05-19] MEDS: FERROUS SULFATE 325 MG TABLET. PO SCH (08:30)
[2020-05-19] MEDS: PRIMIDONE 250 MG TABLET PO SCH (08:30)
[2020-05-19] MEDS: SUCRALFATE 1 GM TABLET. PO SCH (08:31)
[2020-05-19] MEDS: PANTOPRAZOLE 40 MG TABLET.DR. PO SCH (08:31)
[2020-05-19] MEDS: valACYclovir 500 MG TABLET. PO SCH (08:31)
[2020-05-19] MEDS ORDERED: APIXABAN 5 MG TABLET. PO SCH (09:00)
[2020-05-19 11:03] VITALS: BP 107/57
--- NOTE | 2020-05-19 12:18 | DISCH ---
DISCHARGE INSTRUCTIONS Condition on Discharge Condition on Discharge: Stable Activity After Discharge Activity Instructions for Disc: Activity as tolerated Lifting Instructions after Dis: No heavy lifting Exercise Instruction after Dis: Progress as tolerated Driving Instructions after Dis: No driving for 2 weeks Weight Bearing Status after Di: As tolerated Diet after Discharge Diet after Discharge: Regular Diet Texture: Regular Liquid Texture: Thin Liquid Swallowing Supervision: None needed Wound Incision Care Wound/Incision Care: No wound care needed Checks after Discharge Checks after discharge: Check your Temp as needed DC Comment: CBC, CMP, echocardiogram, need to keep colonoscopy appointment this month Follow-Up Follow up with: PCP within 2 weeks of discharge Follow Up With: Career Placement Specialist as previously planned Treatment/Equipment after DC Adaptive Equipment Issued: None CARLOS MANE MD May 19, 2020 12:18
[2020-05-19] MEDS: traMADol 50 MG TABLET PO PRN (13:31)
--- NOTE | 2020-05-19 15:25 | NUR ---
Pt discharged to home with family. Discharge instructions reviewed and discussed follow up with GI and Cardiology. Patient verbalized understanding. Patient already has follow up with primary care physician.
--- NOTE | 2020-05-19 17:11 | NUR ---
SW following. Spoke with RN and reviewed chart. Pt from home and will discharge today, self-care. No SW needs at discharge per RN.
--- NOTE | 2020-05-19 18:08 | PDOC3 ---
[facility]-Discharge Summary Date of Admission: Date of Admission: May 18, 2020 Date of Discharge: Date of Discharge: May 19, 2020 Admission Diagnosis: Admitting Diagnosis: Atypical chest pain Microcytic anemia History of pulmonary embolism currently on Eliquis Multiple liver lesions concerning for malignancy Discharge Diagnosis: Discharge Diagnosis: Atypical chest pain Microcytic anemia History of pulmonary embolism currently on Eliquis Multiple liver lesions concerning for malignancy There is occlusive filling defect within the posterior tibial vein and both peroneal veins Consults: Consults: cardiology Hospital Course: Hospital Course: 59-year-old female with past medical history of GERD, dyslipidemia, hypothyroidism, uterine fibroids and a recent admission on May 05 of this year for pulmonary embolism. Patient was discharged with Eliquis at that time and she was told to follow-up with her PCP for further work-up. During her last hospitalization she was found to have several hypodense liver lesions which needed to be worked up. Patient is unable to explain what type of work-up or next test she needed to complete. However, she did state that she had an appointment with a specialist sometime in May. Patient does have low health literacy. Patient comes to this hospitalization with a main complaint of substernal chest pain that is 5 out of 10 and nonradiating that began 7 PM last night. There is no alleviating or exacerbating factors. Denies fevers, shortness of breath, abdominal pain, diarrhea, cough, nausea vomiting, or dizziness. Patient states that she does have some intermittent swelling of her right lower extremity whenever she walks. This improves when she lies down and elevates her legs. Patient was admitted for further care and observation. Her chest pain resolved spontaneously, she also did complain of RLE pain during walking for which an US was ordered in order to confirm her hypercoagulated stated due to her recent Dx of PE. There was a thrombosis in her RLE and there was no changes made to her current management. She will need to follow with her GI specialist in order to complete her colonoscopy. The rest of her hospital course was uneventful. P atient will also need to get an Echo when available to investigate if there is any cor pulmonale associated with her PE that may be related to her chest pain. Disposition: Disposition/Orders: D/C to Home, Instructions/Orders Activity: Activity: Resume previous activity Diet: Diet: Cardiac Medications: Home Meds Active Scripts Ferrous Sulfate (IRON) 325 Mg Tablet, 1 TAB PO BID for iron deficiency for 30 Days, #60 TAB 0 Refills Prov:CELESTE DOBSON MD 05/08/20 Apixaban (ELIQUIS) 5 Mg Tablet, 5 MG PO BID for PE for 30 Days, #60 TAB Prov:CELESTE DOBSON MD 05/08/20 Orphenadrine Citrate (ORPHENADRINE CITRATE) 100 Mg Tablet.er, 1 TAB PO BID PRN for MUSCLE SPASMS, #14 TAB Prov:ELLY FORD Jr. DO 07/27/19 Tramadol Hcl (TRAMADOL HCL) 50 Mg Tablet, 50 MG PO Q6HRS PRN for PAIN, #1 TAB Prov:ELLY FORD Jr. DO 07/27/19 Reported Medications Albuterol Sulfate (PROAIR HFA INHALER) 8.5 Gm Hfa.aer.ad, 2 PUFF IH PRN Q4-6HRS PRN for wheezing for 21 Days, #1 INHALER 0 Refills 05/06/20 Ascorbate Calcium (VITAMIN C) 500 Mg Tablet, 500 MG PO DAILY for supplement, TAB 05/06/20 Sucralfate (SUCRALFATE) 1 Gm Tablet, 1 GM PO BID for other, TAB 05/06/20 Baclofen (BACLOFEN) 10 Mg Tablet, 10 MG PO QID for MUSCLE RELAXER, #30 TAB 0 Refills 05/06/20 Levothyroxine Sodium (LEVOTHYROXINE SODIUM) 125 Mcg Tablet, 125 MCG PO DAILY for hypothyroid 03/19/19 Valacyclovir Hcl (VALACYCLOVIR) 500 Mg Tablet, 1 TAB PO DAILY for unknown, #90 TAB 3 Refills 09/25/18 Primidone (PRIMIDONE) 250 Mg Tablet, 250 MG PO DAILY for anxiety, TAB 09/25/18 Omeprazole (OMEPRAZOLE) 20 Mg Tablet.dr, 1 TAB PO DAILY, #90 TAB 1 Refill 08/05/16 Discontinued Scripts Apixaban (ELIQUIS) 5 Mg Tablet, 10 MG PO BID for PE for 6 Days, #24 TAB Prov:CELESTE DOBSON MD 05/08/20 Scheduled Apixaban (Eliquis), 5 MG PO BID Ascorbate Calcium (Vitamin C), 500 MG PO DAILY, (Reported) Baclofen (Baclofen), 10 MG PO QID, (Reported) Ferrous Sulfate (Iron), 1 TAB PO BID Levothyroxine Sodium (Levothyroxine Sodium), 125 MCG PO DAILY, (Reported) Omeprazole (Omeprazole), 1 TAB PO DAILY, (Reported) Primidone (Primidone), 250 MG PO DAILY, (Reported) Sucralfate (Sucralfate), 1 GM PO BID, (Reported) Valacyclovir Hcl (Valacyclovir), 1 TAB PO DAILY, (Reported) Scheduled PRN Albuterol Sulfate (Proair Hfa Inhaler), 2 PUFF IH PRN Q4-6HRS PRN for wheezing, (Reported) Orphenadrine Citrate (Orphenadrine Citrate), 1 TAB PO BID PRN for MUSCLE SPASMS Tramadol Hcl (Tramadol Hcl), 50 MG PO Q6HRS PRN for PAIN Discontinued Medications Apixaban (Eliquis), 10 MG PO BID Discontinued Reason: COMPLETED Total Time: Total Time: Total time spent was 40 minutes in preparing scripts, discharge planning with SW and RN, and preparing this discharge summary. Patient seen and examined on day of discharge. Justicifation of Admission Dx: Justifications for Admission: Justification of Admission Dx: Yes CARLOS MANE MD May 19, 2020 18:08
== END 2020-05-19 15:25 | disposition home or self-care (01) | DRG 313 ==
LOC: ER 20:35 → 6 SOUTH 22:49 → OBSVTOIN 05-18 14:40
PROVIDERS: ADMIT Internal Medicine; ATTEND Internal Medicine
DX: R07.89 Other chest pain (principal); G21.9 Secondary parkinsonism, unspecified; E78.00 Pure hypercholesterolemia, unspecified; E03.9 Hypothyroidism, unspecified; Z90.49 Acquired absence of other specified parts of digestive tract; Z98.51 Tubal ligation status; E78.5 Hyperlipidemia, unspecified; Z86.711 Personal history of pulmonary embolism; D50.9 Iron deficiency anemia, unspecified; F41.9 Anxiety disorder, unspecified; M19.90 Unspecified osteoarthritis, unspecified site; Z87.440 Personal history of urinary (tract) infections; Z82.49 Family history of ischemic heart disease and other diseases of the circulatory system; Z20.828 Contact with and (suspected) exposure to other viral communicable diseases
CPT/HCPCS: 36415; 71045; 71275; 80053; 83690; 83880; 84484; 85025; 85610; 85730; 90471; 90686; 93005; 93971; 96365; 96375; 99285; G0378; G0379; J0456; J2270; Q9967; U0003-CS

== ENCOUNTER → 2020-05-27 | Outpatient (CLI) | payer OTHER ==
[2020-05-19 11:03] VITALS: BP 107/57
[2020-05-27 14:20] LABS: BASO % 1 % (0-3); EOS # 0.1 x10^3/uL (0.0-0.7); EOS % 2 % (0-3); HEMATOCRIT 37.6 % (36.0-47.0); HEMOGLOBIN 11.6 g/dL (12.0-15.5); LYMPH # 1.2 x10^3/uL (1.0-4.8); LYMPH % 28 % (24-48); MEAN CORPUSCULAR HEMOGLOBIN 25 pg (25-35); MEAN CORPUSCULAR HGB CONC 31 g/dL (31-37); MEAN CORPUSCULAR VOLUME 80 fL (79-100); MONO # 0.3 x10^3/uL (0.0-1.1); MONO % 7 % (0-9); NEUT # 2.7 x10^3/uL (1.8-7.7); NEUT % 63 % (31-73); PLATELET COUNT 418 x10^3/uL (140-400); RED BLOOD COUNT 4.69 x10^6/uL (3.50-5.40); WHITE BLOOD COUNT 4.2 x10^3/uL (4.0-11.0)
[2020-05-27 14:22] LABS: ANISOCYTOSIS MOD; HYPOCHROMIA SLIGHT; MICROCYTOSIS SLIGHT; PLT ESTIMATE INCREASED (ADEQUATE)
[2020-05-27 14:23] LABS: OVALOCYTES OCC; POIKILOCYTOSIS SLIGHT; SCHISTOCYTES OCC; TARGET CELLS OCC
== END ==
LOC: LAB 11:17
PROVIDERS: ATTEND Family Medicine
DX: D64.9 Anemia, unspecified (principal)
CPT/HCPCS: 36415; 85025

== ENCOUNTER → 2020-06-09 | Outpatient (CLI) | payer OTHER ==
[2020-05-19 11:03] VITALS: BP 107/57
[~2020-06-09] MED LIST changes: +GADOTERATE 7.5 MMOL/15ML VIAL. IVP ONE
--- NOTE | 2020-06-09 09:17 | KCIC ---
Examination: VENOUS LOWER EXTREMITY RIGHT History: RT LEG EDEMA; HX OF DVT / Comparison/Correlation: Right lower extremity venous duplex ultrasound 05/18/2020 Findings: Right lower extremity venous duplex ultrasound exam was performed. Compression and augmentation utilized. The right common femoral vein, superficial femoral vein, popliteal vein and posterior tibial veins are unremarkable. The great saphenous vein junction is normal. Note is made of a single occluded peroneal vein. The peroneal vein presents patent. Impression: Occlusive thrombus of a single peroneal vein is still seen in this patient with recent DVT. Notable improvement compared to previous exam overall. Electronically signed by: Primo Cloud MD (06/09/2020 9:14 AM) [id number]
--- NOTE | 2020-06-09 14:24 | KCIC ---
ABDOMEN WO/W CONTRAST Clinical Indication: Reason: HEPATIC LESION / Spl. Instructions: Pt had difficulty with the breath holds. Recent hospitalization for a PE. / History: Pt states this test is for fatty liver. Comparison: CT chest with contrast, CTPE, May 17, 2020. CT angiogram chest abdomen and pelvis with contrast May 05, 2020. TECHNIQUE: Routine multiplanar multiple pulse sequence images of the abdomen are obtained before and after 12 cc of Clariscan IV contrast. Findings: The hypodense lesion in segment 4 of the liver noted on prior CT is confirmed to be an 8 mm benign cyst. There is fatty infiltration of the liver with focal fatty sparing along the gallbladder fossa. Respiratory motion artifact degrades image quality of the postcontrast images. No abnormal enhancement in the liver is seen. No abnormal enhancement in the upper abdomen is seen. Cholecystectomy. The spleen, adrenal glands, and kidneys are normal. Extrahepatic duct is mildly dilated but tapers distally. No filling defect is seen, image 17 of series 8. Focal fat in the pancreas head is stable. Pancreas otherwise homogeneous. There is moderate-sized hiatal hernia. No evidence of bowel obstruction. IMPRESSION: 1. There is an 8 mm benign cyst in the left hepatic lobe accounting for the finding on CT. 2. Fatty infiltration of the liver with focal fatty sparing along the gallbladder fossa. Electronically signed by: Hector Coy MD (06/09/2020 2:21 PM) [id number]
== END ==
LOC: KCIC US 08:00
PROVIDERS: ATTEND Family Medicine
DX: R60.0 Localized edema (principal); K76.9 Liver disease, unspecified; I82.451 Acute embolism and thrombosis of right peroneal vein; K76.89 Other specified diseases of liver; K76.0 Fatty (change of) liver, not elsewhere classified
CPT/HCPCS: 74183; 93971; A9575

== ENCOUNTER → 2020-06-26 | Outpatient (CLI) | payer OTHER ==
[~2020-06-26] MED LIST changes: -GADOTERATE 7.5 MMOL/15ML VIAL. IVP ONE
[2020-06-26 09:50] LABS: BASO % 1 % (0-3); EOS % 1 % (0-3); HEMATOCRIT 41.2 % (36.0-47.0); HEMOGLOBIN 13.3 g/dL (12.0-15.5); LYMPH # 1.2 x10^3/uL (1.0-4.8); LYMPH % 27 % (24-48); MEAN CORPUSCULAR HEMOGLOBIN 28 pg (25-35); MEAN CORPUSCULAR HGB CONC 32 g/dL (31-37); MEAN CORPUSCULAR VOLUME 87 fL (79-100); MONO # 0.3 x10^3/uL (0.0-1.1); MONO % 6 % (0-9); NEUT # 2.8 x10^3/uL (1.8-7.7); NEUT % 65 % (31-73); PLATELET COUNT 289 x10^3/uL (140-400); RED BLOOD COUNT 4.74 x10^6/uL (3.50-5.40); RED CELL DISTRIBUTION WIDTH 26.9 % (11.5-14.5); WHITE BLOOD COUNT 4.3 x10^3/uL (4.0-11.0)
[2020-06-26 10:45] LABS: PLT ESTIMATE ADEQUATE (ADEQUATE)
[2020-06-26 10:50] LABS: ANISOCYTOSIS MARKED; HYPOCHROMIA SLIGHT; POIKILOCYTOSIS SLIGHT
[2020-06-26 10:54] LABS: OVALOCYTES FEW; SCHISTOCYTES OCC; TEAR DROP CELLS OCC
== END ==
LOC: LAB 07:42
PROVIDERS: ATTEND Internal Medicine Gastroenterology
DX: D64.9 Anemia, unspecified (principal)
CPT/HCPCS: 36415; 85025

== ENCOUNTER → 2020-07-06 | Outpatient (CLI) | payer OTHER ==
[~2020-07-06] MED LIST changes: +REGADENOSON 0.4 MG/5 ML DISP.SYRIN. IV ONE
--- NOTE | 2020-07-06 17:16 | RAD ---
MR#: [id number] Date of Study: 07/06/2020 Ordering Physician: ANGLE MONTANA Referring Physician: JITENDRA CASTREJON Tech: RT Kecia (R) (N) APPROVED REPORT Test Type: Pharmacological Stress Nurse/Tech: Shahzad Garrett RN Test Indications: chest pain Cardiac History: asthma, chest pain Medications: See Electronic Medical Record Medical History: See Electronic Medical Record Resting ECG: SR Resting Heart Rate: 57 bpm Resting Blood Pressure: 123/72mmHg Pretest Chest Pain: None Nurse/Tech Notes lungs CTA Consent: The procedure was explained to the patient in lay terms. Informed consent was witnessed. Yang eout was entered into [place]. History and Stress Test performed by ALEX Robbins Pharm. Details Pharmacologic stress testing was performed using 0.4mg per 5ml of regadenoson given intravenously ove r 7-10 seconds. Stress Symptoms No chest pain or symptoms. POST EXERCISE Reason for Termination: Infusion complete Max HR: 105 bpm Max Blood Pressure: 118/70mmHg Blood Pressure response to exercise: Normal blood pressure response during stress. Heart Rate response to exercise: normal response Chest Pain: No. Arrhythmia: No. ST Change: No. INTERPRETATION Stress EKG Conclusion: The resting EKG shows a sinus rhythm with a septal Q wave and nonspecific ST-T wave changes. The stress EKG showed no significant changes from baseline. No EKG evidence of stress-induced ischemia. Imaging Protocol IMAGE PROTOCOL: Rest Tc-99m/stress Tc-99m 1 day Rest: Stress: Viability: Radiopharm.Tc99m KpgdmkxlpAo60v Sestamibi Dose10.5mCi 31.5mCi Duration 13min. 13min. Img Date 07/06/2020 07/06/2020 Inj-Img Olqc21mzd. 60min. Rest Admin Site:IV - Right AntecubitalAdministrator:ALEX Robbins Stress Admin Site: IV - Right AntecubitalAdministrator: LAEX Robbins STRESS DATA End Diast. Vol.94.0mlLVEDV index BSA53.0ml End Syst. Vol.40.0mlLVESV index BSA23.0ml Myocardial Bkus589.0gEject. Gtwmucsl45.0% Stress Scores Regional WT2.00Summed WT16.00 Regional WM0.00Summed WM5.00 LV Perfusion The stress scans showed no significant abnormalities. The rest scans showed no significant abnormalities. Nuclear imaging shows no reversible ischemia or infarct. Wall Motion Normal left ventricular wall function with an ejection fraction of 64%. LV Perf. Quant 17 Seg. SSS3.00 17 Seg. SRS14.00 17 Seg. SDS0.00 Stress Defect Extent (% LAD)3.80Rest Defect Extent (% LAD)23.10Rev. Defect Extent (% LAD)0.00 Stress Defect Extent (% LCX) 20.00Rest Defect Extent (% LCX)53.80Rev. Defect Extent (% LCX)0.00 Stress Defect Extent (% RCA)0.00Rest Defect Extent (% RCA)14.40Rev. Defect Extent (% RCA)0.00 Stress Defect Extent (% CHRISTINA)5.20Rest Defect Extent (% CHRISTINA)32.20Rev. Defect Extent (% CHRISTINA)0.00 Conclusion 1. Abnormal baseline EKG but no EKG evidence of stress-induced ischemia. 2. Nuclear imaging shows no reversible ischemia or infarct. 3. Intact LV systolic function with an ejection fraction of 64%. 4. Moderately low to low risk Lexiscan nuclear stress test. Signed by : Shaun Bloom MD Electronically Approved : 07/06/2020 17:16:31
--- NOTE | 2020-07-06 17:33 | CARD ---
MR#: [id number] Date of Study: 07/06/2020 Ordering Physician: ANGLE MONTANA, Referring Physician: ANGLE MONTANA, Tech: Caro Castillo APPROVED REPORT EXAM: Two-dimensional and M-mode echocardiogram with Doppler and color Doppler. Other Information Quality : GoodHR: 58bpm INDICATION Chest Pain RISK FACTORS Hypertension 2D DIMENSIONS RVDd3.3 (2.9-3.5cm)Left Atrium(2D)2.3 (1.6-4.0cm) IVSd0.7 (0.7-1.1cm)Aortic Root(2D)2.6 (2.0-3.7cm) LVDd4.7 (3.9-5.9cm)LVOT Diameter1.8 (1.8-2.4cm) PWd0.9 (0.7-1.1cm)LVDs3.4 (2.5-4.0cm) FS (%) 27.4 %SV54.9 ml Aortic Valve AoV Peak Vinod.143.5cm/sAoV VTI30.4cm AO Peak GR.8.2mmHgLVOT Peak Vinod.69.3cm/s LVOT VTI 15.27cmAO Mean GR.5mmHg BETO (VMAX)0.46dg0VSO (VTI)1.31cm2 Mitral Valve MV E Kuhukzgx25.7cm/sMV DECEL EGVL481dj MV A Smzvawpa60.4cm/sMV JXF60pm E/A Ratio1.0MVA (PHT)4.52cm2 TDI E/Lateral E'6.4E/Medial E'8.5 Pulmonary Valve PV Peak Ogpqomay67.1cm/sPV Peak Grad.4mmHg Tricuspid Valve TR P. Fldvzpdk992qh/sRAP DMDRKLAN6mxMk TR Peak Gr.04wpIzSEUH97cfTu Pulmonary Vein S1 Wiupwbda13.3cm/sD2 Papjxscx94.2cm/s PVa keeqgkvd016zpxt LEFT VENTRICLE The left ventricle is normal size. There is normal left ventricular wall thickness. The left ventricu lar systolic function is low normal to mildly decreased. The Ejection Fraction is 45-50%. There is m inimal global hypokinesis of the left ventricle. Transmitral Doppler flow pattern is Grade I-abnormal relaxation pattern. RIGHT VENTRICLE The right ventricle is normal size. There is normal right ventricular wall thickness. The right ventr icular systolic function is normal. ATRIA The left atrium size is normal. The right atrium size is normal. The interatrial septum is intact wit h no evidence for an atrial septal defect or patent foramen ovale as noted on 2-D or Doppler imaging. AORTIC VALVE The aortic valve is normal in structure and function. Doppler and Color Flow revealed no significant aortic regurgitation. There is no significant aortic valvular stenosis. MITRAL VALVE The mitral valve is normal in structure and function. There is no evidence of mitral valve prolapse. There is no mitral valve stenosis. Doppler and Color Flow revealed no mitral valve regurgitation note d. TRICUSPID VALVE The tricuspid valve is normal in structure and function. Doppler and Color Flow revealed trace tricus pid regurgitationn with an estimated PAP of 26 mmHg. There is no tricuspid valve stenosis. PULMONIC VALVE The pulmonic valve is not well visualized. Doppler and Color Flow revealed no pulmonic valvular regur gitation. GREAT VESSELS The aortic root is normal in size. The IVC is normal in size and collapses >50% with inspiration. PERICARDIAL EFFUSION There is no evidence of significant pericardial effusion. Critical Notification Critical Value: No <Conclusion> The left ventricle is normal size. The left ventricular systolic function is low normal to mildly decreased. The Ejection Fraction is 45-50%. There is minimal global hypokinesis of the left ventricle. Doppler and Color Flow revealed no significant aortic regurgitation. There is no significant aortic valvular stenosis. Doppler and Color Flow revealed no mitral valve regurgitation noted. Doppler and Color Flow revealed trace tricuspid regurgitation with an estimated PAP of 26 mmHg. Signed by : Shaun Bloom MD Electronically Approved : 07/06/2020 17:33:23
== END ==
LOC: NM 09:41
PROVIDERS: ATTEND Internal Medicine Cardiovascular Disease
DX: I10 Essential (primary) hypertension (principal); R07.9 Chest pain, unspecified; J45.909 Unspecified asthma, uncomplicated
CPT/HCPCS: 78452; 93017; 93306; A9500; J2785

== ENCOUNTER 2020-08-18 06:32 | Emergency (ER) | payer OTHER ==
[~2020-08-18] VITALS: Ht 154.9 cm; Wt 68.1 kg
[~2020-08-18 06:32] MED LIST changes: -CLIN300C8 PO; +CLIN300C9 PO; -POLY17PO28 PO; +POLY17PO52 PO; -REGADENOSON 0.4 MG/5 ML DISP.SYRIN. IV ONE
[2020-08-18 06:43] VITALS: BP 137/77
--- NOTE | 2020-08-18 07:11 | ED.ADGEN ---
Past Medical History Past Medical History: GERD, High Cholesterol, Hypothyroid, Uterine Fibroids Additional Past Medical Histor: fibroids, ACID REFLUX Past Surgical History: Cholecystectomy, Tubal ligation Smoking Status: Never Smoker Alcohol Use: None Drug Use: None General Adult EDM: Chief Complaint: TRAUMA ALERT HPI: HPI: Patient is a 59-year-old female with past paramedical history of pulmonary embolisms on blood thinners who presents to the emergency room after slipping and falling in the parking lot. Patient hit the back of her head but did not lose consciousness. She states she now has a headache and dizziness. She has been taking her blood thinners as prescribed. Headache is dull and achy around the area where she hit her head. She denies any nausea or vomiting. She also is complaining of mild elbow pain. She is able to move her arm without difficulty. She also has some mid back pain. She denies any numbness or weakness in any of her extremities. She does not have any difficulty with walking. Review of Systems: Review of Systems: Complete ROS is negative unless otherwise documented in HPI Current Medications: Current Medications Medications (Trade) Dose Ordered Sig/Mary Start Time Stop Time Status Last Admin Dose Admin Acetaminophen (Tylenol) 1,000 mg 1X ONCE 08/18/20 07:45 08/18/20 07:46 DC 08/18/20 07:43 1,000 MG Allergies: Allergies: Allergies Coded Allergies Type Severity Reaction Last Updated Verified No Known Drug Allergies 09/25/18 No Physical Exam: PE: General: Awake, alert, NAD. Well Nourished, well hydrated. Cooperative HEENT: Atraumatic, EOMI, PERRL, airway patent, moist oral mucosa, no nasal septal hematoma, no facial crepitus or deformity Neck: Supple, trachea midline, no C-spine tenderness Respiratory: CTA bilaterally, normal effort, no wheezing/crackles, no crepitus CV: RRR, no murmur, cap refill <2, 2+ bilateral radial/DP pulses GI: Soft, nondistended, nontender, no masses MSK: No obvious deformities, mild tenderness to the right elbow, mild tenderness to the thoracic spine with bilateral paraspinal tenderness, pelvis stable and nontender Skin: Warm, dry, intact Neuro: A&O x3, speech NL, sensory and motor grossly intact, no focal deficits Psych: Normal affect, normal mood, not suicidal or homicidal Current Patient Data: Vital Signs: Vital Signs Date Time Temp Pulse Resp B/P (MAP) Pulse Ox O2 Delivery O2 Flow Rate FiO2 08/18/20 06:43 98.6 59 20 137/77 (97) 98 Room Air 98.6 EKG: EKG: [] Heart Score: Risk Factors: Risk Factors: DM, Current or recent (<one month) smoker, HTN, HLP, family history of CAD, obesity. Risk Scores: Score 0 - 3: 2.5% MACE over next 6 weeks - Discharge Home Score 4 - 6: 20.3% MACE over next 6 weeks - Admit for Clinical Observation Score 7 - 10: 72.7% MACE over next 6 weeks - Early Invasive Strategies Radiology/Procedures: Radiology/Procedures: [] Course & Med Decision Making: Course & Med Decision Making Pertinent Labs and Imaging studies reviewed. (See chart for details) Patient is a 59-year-old female presents to the emergency room after slipping and falling in the hospital parking lot. Patient did hit her head and is on blood thinners. CT head was ordered to evaluate for intracranial hemorrhage. X-ray of the elbow and thoracic spine were ordered to rule out any acute fracture. Imagining is negative. Discussed with patient signs and symptoms of delayed head bleed on blood thinners. Patient's test results and vitals while in the ED were fully reviewed and discussed with the patient. Patient is stable and at this time does not need admission to the hospital. We have discussed strict return precautions and the importance of following up with their Primary Care Physician. Patient stated understanding and was given an opportunity to ask any questions. Patient is in agreement with plan. Dragon Disclaimer: Dragon Disclaimer: This electronic medical record was generated, in whole or in part, using a voice recognition dictation system. Departure Departure Impression: Primary Impression: Fall Additional Impression: CHI (closed head injury) Disposition: 01 DC HOME SELF CARE/HOMELESS Condition: STABLE Referrals: Clif RIZVI MD (PCP) Patient Instructions: Head Injury, Adult Problem Qualifiers RENE SHANE MD Aug 18, 2020 07:11
--- NOTE | 2020-08-18 07:24 | RAD ---
EXAM: CT Head without IV contrast INDICATION: Reason: fall, blood thinners / Spl. Instructions: / History: TECHNIQUE: Multi-detector row CT images were obtained of the head without the use of IV contrast. All CT scans performed at this facility utilize dose optimization techniques as appropriate to the exam, including the following: Automated exposure control and adjustment of the mA and/or KV according to patient size (this includes techniques or standardized protocols for targeted exams where dose is ind ication/reason for exam). COMPARISON: None FINDINGS: BRAIN PARENCHYMA: No evidence of acute intraparenchymal hemorrhage or infarct. No abnormal parenchyma l density or mass. VENTRICLES & EXTRA-AXIAL SPACES: Ventricles are within normal limits. Basilar cisterns are patent. N o pathologic extra-axial fluid collection or mass. ORBITS: Orbital contents are unremarkable. SINUSES: Visualized paranasal sinuses and mastoid air cells are clear. OSSEOUS & SOFT TISSUES: Calvarium and skull base are intact. IMPRESSION: No acute intracranial process Electronically signed by: Carson Galvin MD (08/18/2020 7:21 AM) [id number]
[2020-08-18] MEDS ORDERED: ACETAMINOPHEN 500 MG TABLET PO ONE (07:45)
--- NOTE | 2020-08-18 07:54 | RAD ---
Right elbow 3 views HISTORY: Pain after a fall 3 views were taken of the right elbow. There is not evidence of an acute fracture or osseous abnormal ity. Fat pads at the elbow are not displaced. IMPRESSION: 1. No fracture noted in the right elbow. Electronically signed by: Lazaro Hunter MD (08/18/2020 7:52 AM) [id number]
--- NOTE | 2020-08-18 07:59 | RAD ---
Thoracic spine 2 views. HISTORY: Fall upper back pain 2 views were taken of the lumbar spine. There is mild scoliosis. There is no acute fracture. Spine is in normal alignment on the lateral view. There is minimal hypertrophic change. IMPRESSION: 1. Slight scoliosis. 2. Minimal hypertrophic changes. 3. No fracture or other acute osseous abnormality. Electronically signed by: Lazaro Hunter MD (08/18/2020 7:57 AM) [id number]
== END 2020-08-18 09:05 | disposition home or self-care (01) ==
LOC: ER 06:32
DX: S09.90XA Unspecified injury of head, initial encounter (principal); R42 Dizziness and giddiness; M54.6 Pain in thoracic spine; R51.9 Headache, unspecified; M25.521 Pain in right elbow; K21.9 Gastro-esophageal reflux disease without esophagitis; E78.00 Pure hypercholesterolemia, unspecified; E03.9 Hypothyroidism, unspecified; Z98.51 Tubal ligation status; Z90.49 Acquired absence of other specified parts of digestive tract; W01.0XXA Fall on same level from slipping, tripping and stumbling without subsequent striking against object, initial encounter; Y93.89 Activity, other specified; Y92.89 Other specified places as the place of occurrence of the external cause; Y99.8 Other external cause status
CPT/HCPCS: 70450; 72072; 73070; 99285-25

== ENCOUNTER 2020-08-24 11:51 | Emergency (ER) | payer OTHER ==
[~2020-08-24] VITALS: Ht 153.7 cm; Wt 73.2 kg
[~2020-08-24 11:51] MED LIST changes: +POLY17PO28 PO; -POLY17PO52 PO
[2020-08-24] MEDS ORDERED: DIPH,PERTUSS(ACELL),TET VAC/PF 0.5 ML SYRINGE. VAX IM ONE (14:15)
[2020-08-24] MEDS ORDERED: LIDOCAINE 2% Multi-Dose 20 ML VIAL. IJ ONE (14:15)
--- NOTE | 2020-08-24 16:00 | PHYS DOC ---
Past Medical History Past Medical History: DVT, GERD, High Cholesterol, Hypothyroid, Uterine F ibroids Additional Past Medical Histor: fibroids, ACID REFLUX,PE Past Surgical History: Cholecystectomy, Tubal ligation Smoking Status: Never Smoker Alcohol Use: None Drug Use: None General Adult EDM: Chief Complaint: LACERATION/AVULSION HPI: HPI: Patient is a 59 year old female presents emergency department reporting that she was reaching for a ceramic cup of her head when it fell broke and cut her right ring finger and thumb at approximately 1130 this morning. She states she does not believe her tetanus status is up-to-date. Patient denies any numbness or tingling, denies any blunt trauma, states that she has no other physical complaints or physical ailments. Patient states that she is on Xarelto for blood clots that have been treated in the past and sometimes has a hard time getting her bleeding stopped. Review of Systems: Review of Systems: 14 body systems of review of systems have been reviewed. See HPI for pertinent positives and negative responses, otherwise all other systems are negative, nonpertinent or noncontributory. Heart Score: Risk Factors: Risk Factors: DM, Current or recent (<one month) smoker, HTN, HLP, family history of CAD, obesity. Risk Scores: Score 0 - 3: 2.5% MACE over next 6 weeks - Discharge Home Score 4 - 6: 20.3% MACE over next 6 weeks - Admit for Clinical Observation Score 7 - 10: 72.7% MACE over next 6 weeks - Early Invasive Strategies Current Medications: Patient reports taking Xarelto, vitamin B12, levothyroxine. Current Medications Medications (Trade) Dose Ordered Sig/Mary Start Time Stop Time Status Last Admin Dose Admin Bacitracin (Bacitracin Zinc Oint Pkt) 1 pkt 1X ONCE 08/24/20 16:15 08/24/20 16:16 Diphtheria/ Tetanus/Acell Pertussis (ADACEL TDap SYRINGE) 0.5 ml ONCE ONCE 08/24/20 14:15 08/24/20 14:16 DC 08/24/20 13:47 0.5 ML Lidocaine HCl (Lidocaine 2% 20ml Vial) 20 ml 1X ONCE 08/24/20 14:15 08/24/20 14:16 DC 08/24/20 13:47 20 ML Allergies: Allergies: Allergies Coded Allergies Type Severity Reaction Last Updated Verified No Known Drug Allergies 08/24/20 No Physical Exam: PE: Constitutional: Well developed, well nourished, no acute distress, non-toxic appearance. HENT: Normocephalic, atraumatic, bilateral external ears normal, oropharynx moist, no oral exudates, nose normal. Eyes: PERRLA, EOMI, conjunctiva normal, no discharge. Neck: Normal range of motion, no tenderness, supple, no stridor. Cardiovascular:Heart rate regular rhythm, no murmur Lungs & Thorax: Bilateral breath sounds clear to auscultation Abdomen: Bowel sounds normal, soft, no tenderness, no masses, no pulsatile masses. Skin: Warm, dry, no erythema, no rash. 1.5 cm laceration to the right ring finger near the PIP joint, distal cap refill less than 2 SECONDS, no tendon involvement appreciated, full passive range of motion without pain. Patient also has 2 minor 1.5 cm lacerations across thumb superficial thickness laceration without bleeding. No loss of sensation, no compartment syndrome noted. Back: No tenderness, no CVA tenderness. Extremities: No tenderness, no cyanosis, no clubbing, ROM intact, no edema. Neurologic: Alert and oriented X 3, normal motor function, normal sensory function, no focal deficits noted. Psychologic: Affect normal, judgement normal, mood normal. Current Patient Data: Vital Signs: Vital Signs Date Time Temp Pulse Resp B/P (MAP) Pulse Ox O2 Delivery O2 Flow Rate FiO2 08/24/20 13:51 98.4 62 16 102/62 (75) 99 Room Air 98.4 EKG: EKG: [] Radiology/Procedures: Radiology/Procedures: [] Course & Med Decision Making: Course & Med Decision Making Pertinent Labs and Imaging studies reviewed. (See chart for details) 59-year-old female patient presents emergency room, vital signs reviewed, had laceration to the right ring finger, see suture repair note. Patient gave verbal understanding of sutures out and 7 days, discharge home instructions, sutured wound care instructions, return to ER precautions or concerns, had no further questions or concerns discharged home without incident. Impression: #1 laceration right ring finger Jez Disclaimer: Jez Disclaimer: This electronic medical record was generated, in whole or in part, using a voice recognition dictation system. Departure Departure Impression: Primary Impression: Laceration of finger Qualified Codes: S61.214A - Laceration without foreign body of right ring finger without damage to nail, initial encounter Disposition: 01 DC HOME SELF CARE/HOMELESS Condition: GOOD Referrals: SARAH VALDEZ (PCP) Patient Instructions: Sutured Wound Care Additional Instructions: We have placed 5 stitches in your right ring finger, please have stitches removed in 7 days, return to the emergency department for worsening symptoms or other concerns. Keep wound clean and dry, cleanse with soap and water daily, keep antibiotic ointment over suture site, and place a Band-Aid over that suture site till sutures are removed in 7 days. Have brought your tetanus status up-to-date today in the emergency department. EMERGENCY DEPARTMENT GENERAL DISCHARGE INSTRUCTIONS Thank you for coming to [facility] Emergency Department (ED) today and trusting us with you care. We trust that you had a positive experience in our Emergency Department. If you wish to speak to the department management, you may call the Director at [phone]. YOUR FOLLOW UP INSTRUCTIONS ARE FOLLOWS: 1. Do you have a private Doctor? If you do not have a private doctor, please ask for a resource list of physicians or clinics that may be able to assist you with follow up care. 2. The Emergency Physicain has interpreted your x-rays. The X-Ray specialist will also review them. If there is a change in the findings, you will be notified in 48 hours when at all possible. 3. A lab test or culture has been done, your results will be reviewed and you will be notified if you need a change in treatment. ADDITIONAL INSTRUCTIONS AND INFORMATION: 1. Your care today has been supervised by a physician who is specially trained in emergency care. Many problems require more than one evaluation for a complete diagnosis and treatment. We recommend that you schedule your follow up appointment as recomm ended to ensure complete treatment of you illness or injury. If you are unable to obtain follow up care and continue to have a problem, or if your condition worsens, we recommend that you return to the ED. 2. We are not able to safely determine your condition over the phone nor are we able to give sound medical advice over the phone. For these safety reasons, if you call for medical advice we will ask you to come to the ED for further evaluation. 3. If you have any questions regarding these discharge instructions please call the ED at [phone]. SAFETY INFORMATION: In the interest of safety, wellness, and injury prevention; we encourage you to wear your sealbelt, if you smoke; quite smoking, and we encourage family to use a protective helmet for bicycling and other sporting events that present an increased risk for head injury. IF YOUR SYMPTOMS WORSEN OR NEW SYMPTOMS DEVELOP, OR YOU HAVE CONCERNS ABOUT YOUR CONDITION; OR IF YOUR CONDITION WORSENS WHILE YOU ARE WAITING FOR YOUR FOLLOW UP APPOINTMENT; EITHER CONTACT YOUR PRIMARY CARE DOCTOR, THE PHYSICIAN WHOSE NAME AND NUMBER YOU WERE GIVEN, OR RETURN TO THE ED IMMEDIATELY. Laceration Repair Lac Repair Indication: Right ring finger laceration Procedure: The patient was placed in the appropriate position and anesthesia around the laceration was achieved per digital block with 2% lidocaine without epinephrine using 4 cc. The area was then cleansed with chlorhexidine soap, fl ushed with 500 cc normal saline.. The laceration was closed with 5 interrupted sutures using 6-0 nylon. The suture site was dressed with bacitracin and Band- Aid per ED nursing staff. Superficial lacerations of the thumb were cleansed and no closer intervention needed other than dressed with Band-Aid. Total repaired wound length: 1.5 cm The patient tolerated the procedure well. Complications: [COMPLICATIONS]. No complications during procedure. JERONIMO MORALEZ APRN Aug 24, 2020 16:00
[2020-08-24 16:15] VITALS: BP 111/62
[2020-08-24] MEDS ORDERED: BACITRACIN TOPICAL OINT PACKET. TP ONE (16:15)
== END 2020-08-24 16:18 | disposition home or self-care (01) ==
LOC: ER 11:51
DX: S61.214A Laceration without foreign body of right ring finger without damage to nail, initial encounter (principal); K21.9 Gastro-esophageal reflux disease without esophagitis; E78.00 Pure hypercholesterolemia, unspecified; E03.9 Hypothyroidism, unspecified; Z86.718 Personal history of other venous thrombosis and embolism; W20.8XXA Other cause of strike by thrown, projected or falling object, initial encounter; Y93.89 Activity, other specified; Y92.89 Other specified places as the place of occurrence of the external cause; Y99.8 Other external cause status
CPT/HCPCS: 12001; 90471; 90715; 99283

== ENCOUNTER 2020-09-01 15:30 | Emergency (ER) | payer OTHER ==
[~2020-09-01] VITALS: Ht 152.4 cm; Wt 45.0 kg
[2020-09-01 15:45] VITALS: BP 117/73
[2020-09-01] MEDS ORDERED: MUPI22OI2 TP (16:14)
--- NOTE | 2020-09-01 16:14 | ED.ADGEN ---
Past Medical History Past Medical History: DVT, GERD, High Cholesterol, Hypothyroid, Uterine F ibroids Additional Past Medical Histor: fibroids, ACID REFLUX,PE Past Surgical History: Cholecystectomy, Tubal ligation Smoking Status: Never Smoker Alcohol Use: None Drug Use: None General Adult EDM: Chief Complaint: SUTURE/STAPLE REMOVAL HPI: HPI: Patient is a 59 year old female who presents to the emergency department for suture removal. Patient reports she has 5 sutures to her right middle finger. She was seen here on the and had the sutures placed. She denies any drainage or bleeding from the site. Patient states her finger has been swollen and red and is tender to touch. She denies any numbness, tingling, or decreased sensation of the affected digit. She currently rates her pain a 5 out of 10 on the pain scale, she denies any alleviating factors. Review of Systems: Review of Systems: Complete ROS is negative unless otherwise noted in HPI. Allergies: Allergies: Allergies Coded Allergies Type Severity Reaction Last Updated Verified No Known Drug Allergies 08/24/20 No Physical Exam: PE: See Above Constitutional: Well developed, well nourished, no acute distress, non-toxic appearance. [] HENT: Normocephalic, atraumatic, bilateral external ears normal, nose normal. [] Eyes: PERRLA, EOMI, conjunctiva normal, no discharge. [] Neck: Normal range of motion, no stridor. [] Cardiovascular:Heart rate regular rhythm Lungs & Thorax: Respirations even and unlabored, no retractions, no respiratory distress Skin: Warm, dry; sutured wound noted to the third digit of the right hand, edges are well approximated, moderate surrounding erythema without any purulent discharge or bleeding, localized edema. Extremities: No cyanosis, ROM intact, no edema. [] Neurologic: Alert and oriented X 3, no focal deficits noted. [] Psychologic: Affect normal, judgement normal, mood normal. [] Current Patient Data: Vital Signs: Vital Signs Date Time Temp Pulse Resp B/P (MAP) Pulse Ox O2 Delivery O2 Flow Rate FiO2 09/01/20 15:45 98.0 72 16 117/73 (88) 96 98.0 09/01/20 15:33 Room Air EKG: EKG: [] Heart Score: Risk Factors: Risk Factors: DM, Current or recent (<one month) smoker, HTN, HLP, family history of CAD, obesity. Risk Scores: Score 0 - 3: 2.5% MACE over next 6 weeks - Discharge Home Score 4 - 6: 20.3% MACE over next 6 weeks - Admit for Clinical Observation Score 7 - 10: 72.7% MACE over next 6 weeks - Early Invasive Strategies Radiology/Procedures: Radiology/Procedures: 5 sutures were removed from wound. The wound was well approximated before and after procedure. Patient tolerated the procedure well. There is some crusting about the wound and mild pus discharge from the wound, No wound dehiscence. Course & Med Decision Making: Course & Med Decision Making Pertinent Labs and Imaging studies reviewed. (See chart for details) [] Dragon Disclaimer: Dragon Disclaimer: This electronic medical record was generated, in whole or in part, using a voice recognition dictation system. Departure Departure Impression: Primary Impression: Visit for suture removal Additional Impression: Infected finger laceration Disposition: 01 DC HOME SELF CARE/HOMELESS Condition: STABLE Referrals: SARAH VALDEZ (PCP) Patient Instructions: Suture Removal-Brief Additional Instructions: Fill the prescription and use it as directed. Take Tylenol or ibuprofen as needed for pain. Follow-up with your primary care doctor as needed, return to the ER if fever develops or symptoms worsen. Scripts Mupirocin (MUPIROCIN OINTMENT) 22 Gm Oint...g. 1 BRIDGETTE TP TID for WOUND CARE for 7 Days, #1 TUBE 0 Refills Prov: CHAPIN MIX PURIFICATION OPERATOR 09/01/20 Problem Qualifiers Additional Impression: Infected finger laceration Encounter type: initial encounter Qualified Codes: S61.219A - Laceration without foreign body of unspecified finger without damage to nail, initial encounter; L08.9 - Local infection of the skin and subcutaneous tissue, unspecified CHAPIN MIX PURIFICATION OPERATOR Sep 01, 2020 16:14
== END 2020-09-01 16:18 | disposition home or self-care (01) ==
LOC: ER 15:30
DX: S61.212A Laceration without foreign body of right middle finger without damage to nail, initial encounter (principal); L08.9 Local infection of the skin and subcutaneous tissue, unspecified; K21.9 Gastro-esophageal reflux disease without esophagitis; E78.00 Pure hypercholesterolemia, unspecified; E03.9 Hypothyroidism, unspecified; Z86.718 Personal history of other venous thrombosis and embolism; Z90.49 Acquired absence of other specified parts of digestive tract; Z98.51 Tubal ligation status; Y28.8XXA Contact with other sharp object, undetermined intent, initial encounter; Y93.89 Activity, other specified; Y92.89 Other specified places as the place of occurrence of the external cause; Y99.8 Other external cause status
CPT/HCPCS: 99283

== ENCOUNTER → 2020-09-18 | Day surgery (SDC) | payer OTHER ==
[~2020-09-18] MED LIST changes: +ATOR10TA60 PO; +IV RINGERS,LACTATED 1000ML 1,000 ML IV SCH; +LIDOCAINE 2% PF 5 ML VIAL. ONE; +LISI-517 PO; +MECL12.582 PO; +MUPI22OI2 TP; -POLY17PO28 PO; +POLY17PO52 PO; +PRIM250T28 PO; +PROPOFOL 10 MG/ML (20ML) VIAL. IV ONE; +RIVA20TA2 PO
[2020-09-18 08:29] VITALS: BP 125/83
--- NOTE | 2020-09-18 08:40 | HP ---
ADMIT DATE: 09/18/2020 UPDATED HISTORY AND PHYSICAL REASON: Iron deficiency anemia. HISTORY OF PRESENT ILLNESS: A 60-year-old female whose past medical history is significant for hypertension; thyroid cancer; pulmonary emboli, on anticoagulation; anemia with dyspnea, is seen for outpatient endoscopy and colonoscopy. She has had some intermittent blood per rectum. Prior exams over 3 years ago were unrevealing at that time. Denies any change in bowel habits, change in weight or appetite, otherwise without additional complaints. PAST MEDICAL HISTORY: Pulmonary emboli, hypertension, thyroid cancer, gastroesophageal reflux disease. ALLERGIES: None. MEDICATIONS: Include albuterol, vitamin C, baclofen, ferrous sulfate, levothyroxine, omeprazole, primidone, sucralfate, valacyclovir. FAMILY AND SOCIAL HISTORY: She is not a drinker or smoker at this time. PAST SURGICAL HISTORY: Significant for cholecystectomy. REVIEW OF SYSTEMS: Per records. PHYSICAL EXAMINATION: GENERAL: Reveals a well-nourished, well-developed female, alert, cooperative, in no acute distress. VITAL SIGNS: Temperature is 98.3, pulse 65, respiratory rate 20. LUNGS: Clear. CARDIOVASCULAR: Reveals an S1, S2 without S3, S4 or appreciable murmur. ABDOMEN: Reveals a soft abdomen, normal bowel sounds, without appreciable hepatosplenomegaly. EXTREMITIES: Reveals no cyanosis, clubbing or edema. IMPRESSION: Iron deficiency anemia, etiology is to be determined. Differential includes Barber's, gastroesophageal or colon cancer, arteriovenous malformations, gastric or colon polyps, inflammatory bowel disease, celiac disease and/or arteriovenous malformations. Therefore, recommend upper endoscopy and colonoscopy to further assess. Risks and benefits of procedure have been previously discussed. The patient is willing to proceed at this time. JULIUS BEARD MD DR: SOFI/malick JOB#: [id number] / [id number]
== END | disposition home or self-care (01) ==
LOC: SURG 05:54
PROVIDERS: ATTEND Internal Medicine Gastroenterology
DX: D50.9 Iron deficiency anemia, unspecified (principal); Z20.822 Contact with and (suspected) exposure to COVID-19; K64.0 First degree hemorrhoids; K63.89 Other specified diseases of intestine; K44.9 Diaphragmatic hernia without obstruction or gangrene; I10 Essential (primary) hypertension; K21.9 Gastro-esophageal reflux disease without esophagitis; Z86.711 Personal history of pulmonary embolism; Z85.850 Personal history of malignant neoplasm of thyroid; Z90.49 Acquired absence of other specified parts of digestive tract; Z79.899 Other long term (current) drug therapy
CPT/HCPCS: 43235; 45378; 87426; C9803; J2704; U0003

== ENCOUNTER → 2020-10-02 | Outpatient (CLI) | payer OTHER ==
[2020-09-18 08:29] VITALS: BP 125/83
[~2020-10-02] MED LIST changes: -ATOR10TA60 PO; -IV RINGERS,LACTATED 1000ML 1,000 ML IV SCH; -LIDOCAINE 2% PF 5 ML VIAL. ONE; -LISI-517 PO; -MECL12.582 PO; +POLY17PO28 PO; -POLY17PO52 PO; -PRIM250T28 PO; -PROPOFOL 10 MG/ML (20ML) VIAL. IV ONE; -RIVA20TA2 PO
[2020-10-02 09:49] LABS: BASO % 1 % (0-3); EOS # 0.1 x10^3/uL (0.0-0.7); EOS % 1 % (0-3); HEMATOCRIT 43.4 % (36.0-47.0); HEMOGLOBIN 14.4 g/dL (12.0-15.5); LYMPH # 1.4 x10^3/uL (1.0-4.8); LYMPH % 25 % (24-48); MEAN CORPUSCULAR HEMOGLOBIN 31 pg (25-35); MEAN CORPUSCULAR HGB CONC 33 g/dL (31-37); MEAN CORPUSCULAR VOLUME 92 fL (79-100); MONO # 0.3 x10^3/uL (0.0-1.1); MONO % 5 % (0-9); NEUT # 3.8 x10^3/uL (1.8-7.7); NEUT % 68 % (31-73); PLATELET COUNT 252 x10^3/uL (140-400); RED BLOOD COUNT 4.71 x10^6/uL (3.50-5.40); RED CELL DISTRIBUTION WIDTH 14.7 % (11.5-14.5); WHITE BLOOD COUNT 5.6 x10^3/uL (4.0-11.0)
[2020-10-02 09:51] LABS: CALCIUM 9.1 mg/dL (8.5-10.1); CREATININE 1.1 mg/dL (0.6-1.0); POTASSIUM 4.1 mmol/L (3.5-5.1)
== END ==
LOC: LAB 09:15
PROVIDERS: ATTEND Family Medicine
DX: E03.9 Hypothyroidism, unspecified (principal); D64.9 Anemia, unspecified
CPT/HCPCS: 36415; 80048; 84443; 85025

== ENCOUNTER → 2020-10-09 | Outpatient (CLI) | payer OTHER ==
[2020-09-18 08:29] VITALS: BP 125/83
[~2020-10-09] MED LIST changes: +ATOR10TA60 PO; +LISI-517 PO; +MECL12.582 PO; -POLY17PO28 PO; +POLY17PO52 PO; +PRIM250T28 PO; +RIVA20TA2 PO
== END ==
LOC: LAB 07:29
PROVIDERS: ATTEND Family Medicine
DX: E03.9 Hypothyroidism, unspecified (principal)
CPT/HCPCS: 36415; 84443

== ENCOUNTER → 2020-10-19 | Outpatient (CLI) | payer OTHER ==
[2020-09-18 08:29] VITALS: BP 125/83
[~2020-10-19] MED LIST changes: -ATOR10TA60 PO; -LISI-517 PO; -MECL12.582 PO; -PRIM250T28 PO; -RIVA20TA2 PO
--- NOTE | 2020-10-19 08:15 | RAD ---
EXAM: Right lower extremity venous Doppler sonogram. HISTORY: DVT follow-up. TECHNIQUE: Eden scale and color Doppler sonographic evaluation of the right lower extremity veins wit h spectral waveform analysis was performed. FINDINGS: There is persistent occlusive thrombus within a right peroneal vein. There is normal color flow, normal compressibility and there are normal spectral waveforms in the remainder of the lower ex tremity veins. IMPRESSION: No significantly change in occlusive venous thrombosis involving a right peroneal vein. Electronically signed by: Sudha Kowalski MD (10/19/2020 8:13 AM) [id number]
== END ==
LOC: US 06:42
PROVIDERS: ATTEND Family Medicine
DX: Z86.718 Personal history of other venous thrombosis and embolism (principal)
CPT/HCPCS: 93971

== ENCOUNTER 2020-11-24 02:31 | Observation (INO) | payer OTHER ==
[~2020-11-24] VITALS: Ht 154.9 cm; Wt 76.1 kg
[2020-11-24 02:58] LABS: BASO # 0.1 x10^3/uL (0.0-0.2); BASO % 1 % (0-3); EOS # 0.1 x10^3/uL (0.0-0.7); EOS % 2 % (0-3); HEMATOCRIT 45.2 % (36.0-47.0); HEMOGLOBIN 15.3 g/dL (12.0-15.5); LYMPH # 2.2 x10^3/uL (1.0-4.8); LYMPH % 36 % (24-48); MEAN CORPUSCULAR HEMOGLOBIN 33 pg (25-35); MEAN CORPUSCULAR HGB CONC 34 g/dL (31-37); MEAN CORPUSCULAR VOLUME 97 fL (79-100); MONO # 0.5 x10^3/uL (0.0-1.1); MONO % 9 % (0-9); NEUT # 3.2 x10^3/uL (1.8-7.7); NEUT % 52 % (31-73); PLATELET COUNT 243 x10^3/uL (140-400); RED BLOOD COUNT 4.64 x10^6/uL (3.50-5.40); RED CELL DISTRIBUTION WIDTH 14.8 % (11.5-14.5); WHITE BLOOD COUNT 6.2 x10^3/uL (4.0-11.0)
[2020-11-24 03:12] LABS: CREATININE 0.9 mg/dL (0.6-1.0); GFR 64.3; POTASSIUM 3.9 mmol/L (3.5-5.1)
--- NOTE | 2020-11-24 03:14 | EKG ---
[facility] [address] [place] [address] Test Date: 2020-11-24 Test Time: 02:39:55 Pat Name: NIMISHA BLAKE Department: Room: Gender: F Bobbin Dumper: : 1960 Requested By: JERONIMO SIMONS Order Number: [id number] Reading MD: Measurements Intervals [place] Rate: 67 P: 90 NC: 156 QRS: -19 QRSD: 90 T: -26 QT: 418 QTc: 445 Interpretive Statements SINUS RHYTHM LEFTWARD AXIS CONSIDER LEFT VENTRICULAR HYPERTROPHY QRS(T) CONTOUR ABNORMALITY CONSISTENT WITH ANTEROSEPTAL INFARCT PROBABLY OLD ABNORMAL ECG RI6.02 No previous ECG available for comparison
--- NOTE | 2020-11-24 03:14 | PHYS DOC ---
Past Medical History Past Medical History: DVT, GERD, High Cholesterol, Hypothyroid, Uterine Fibroids Additional Past Medical Histor: fibroids, ACID REFLUX,PE Past Surgical History: Cholecystectomy, Tubal ligation Smoking Status: Never Smoker Alcohol Use: None Drug Use: None General Adult EDM: Chief Complaint: CHEST PAIN HPI: HPI: Patient is a 60 year old female presents emergency department with chest pain and right leg pain. Patient states that she woke up at 10 PM with abrupt onset 10 out of 10 sharp chest pain located substernally. This pain does not radiate. Patient has not done or taken anything that is improved this pain. This pain is reproducible by pressing down on sternum. Patient also complains of shortness of air that she feel has improved since coming to the emergency department. Patient also complains of right leg pain located in her calf to mid thigh, this began 2 days ago and has been increasing. Patient has a past medical history of DVT which he takes Xarelto as well as pulmonary embolism. Patient has hypertension for which she takes lisinopril. Patient denies any fever, chills, nausea, vomiting. Patient was driven to the emergency department by daughter. Review of Systems: Review of Systems: Constitutional: Denies fever or chills Eyes: Denies redness or eye pain HENT: Denies nasal congestion or sore throat Respiratory: Complains of shortness of breath, denies pleurisy Cardiovascular: Complains of chest pain, denies palpitations GI: Denies abdominal pain, nausea, or vomiting : Denies dysuria or hematuria Musculoskeletal: Complains of right leg pain, denies weakness Integument: Denies rash or skin lesions Neurologic: Denies headache, focal weakness or sensory changes Complete systems were reviewed and found to be within normal limits, except as documented in this note. Heart Score: C/O Chest Pain: Yes HEART Score for Chest Pain: HEART Score for Chest Pain Response (Comments) Value History Slighlty/Non-Suspicious 0 ECG Normal 0 Age >45 - < 65 1 Risk Factors >3 Risk Factors or Hx CAD 2 Troponin < Normal Limit 0 Total 3 Risk Factors: Risk Factors: DM, Current or recent (<one month) smoker, HTN, HLP, family history of CAD, obesity. Risk Scores: Score 0 - 3: 2.5% MACE over next 6 weeks - Discharge Home Score 4 - 6: 20.3% MACE over next 6 weeks - Admit for Clinical Observation Score 7 - 10: 72.7% MACE over next 6 weeks - Early Invasive Strategies Family History: Family History: Mother from heart issues Current Medications: Xarelto, pantoprazole, levothyroxine, sulfcrufate, lisinopril, valacyclovir, ferrous sulfate, B12 Current Medications Medications (Trade) Dose Ordered Sig/Mary Start Time Stop Time Status Last Admin Dose Admin Aspirin (Barron Aspirin) 325 mg 1X ONCE 11/24/20 03:15 11/24/20 03:16 Allergies: Allergies: Allergies Coded Allergies Type Severity Reaction Last Updated Verified No Known Drug Allergies 09/18/20 No Physical Exam: PE: Constitutional: Well developed, well nourished, non-toxic appearance, HENT: Normocephalic, atraumatic Eyes: conjunctiva normal, no discharge Neck: Normal range of motion, no tenderness, supple Lungs & Thorax: No respiratory distress, equal chest rise and fall, pain to palpation on sternum, CTAB, no pleurisy Abdomen: Soft, no tenderness Skin: Warm, dry, no erythema, no rash Back: No tenderness, no CVA tenderness Extremities: Right leg and thigh tenderness to palpation, slight swelling of the right calf relative to the left calf Neurologic: Alert and oriented X 3, normal motor function, normal sensory function, no focal deficits noted Psychologic: Affect normal, judgment normal Current Patient Data: Labs: Laboratory Tests Test 11/24/20 02:44 White Blood Count 6.2 x10^3/uL (4.0-11.0) Red Blood Count 4.64 x10^6/uL (3.50-5.40) Hemoglobin 15.3 g/dL (12.0-15.5) Hematocrit 45.2 % (36.0-47.0) Mean Corpuscular Volume 97 fL (79-100) Mean Corpuscular Hemoglobin 33 pg (25-35) Mean Corpuscular Hemoglobin Concent 34 g/dL (31-37) Red Cell Distribution Width 14.8 % (11.5-14.5) H Platelet Count 243 x10^3/uL (140-400) Neutrophils (%) (Auto) 52 % (31-73) Lymphocytes (%) (Auto) 36 % (24-48) Monocytes (%) (Auto) 9 % (0-9) Eosinophils (%) (Auto) 2 % (0-3) Basophils (%) (Auto) 1 % (0-3) Neutrophils # (Auto) 3.2 x10^3/uL (1.8-7.7) Lymphocytes # (Auto) 2.2 x10^3/uL (1.0-4.8) Monocytes # (Auto) 0.5 x10^3/uL (0.0-1.1) Eosinophils # (Auto) 0.1 x10^3/uL (0.0-0.7) Basophils # (Auto) 0.1 x10^3/uL (0.0-0.2) Laboratory Tests 11/24/20 02:44 EKG: EKG: EKG taken at 2:39 AM. Sinus rhythm, NE interval 156 ms, QRS 90 ms, QT interval 418 ms, QTc 445 ms. Compared with EKG from 10/23/2019: Atrial flutter, heart rate 81 bpm, QT interval 354 ms, QTc 412 ms, QRS interval 98 ms. Radiology/Procedures: Radiology/Procedures: PROCEDURE: CT ANGIOGRAPHY CHEST CTA Chest with contrast: Clinical History: Reason: chest pain, hx of PE and DVT / Spl. Instructions: / History: Shortness of breath. COMPARISON: May 17, 2020 Axial helical images of the chest were obtained after the administration of 100 cc of IV Isovue-370 and timed appropriately for a pulmonary arterial study. Conventional axial reconstruction was performed in addition to coronal, sagittal and bilateral oblique MIP (maximum intensity projection). This study was ordered to detect possible pulmonary embolism. There are no filling defects to suggest pulmonary embolism. There is a moderate size hiatal hernia. Linear opacities in lung bases are likely discoid atelectasis. There is mild bilateral groundglass opacities. There is no mediastinal or hilar lymphadenopathy. The thoracic aorta appears normal. Impression: 1. No evidence of pulmonary embolism. 2. Moderate size hiatal hernia unchanged. 3. Mild groundglass opacities bilaterally are nonspecific and were seen previously and are likely discoid atelectasis. End impression PQRS Compliance Statement: One or more of the following individualized dose reduction techniques were utilized for this examination: 1. Automated exposure control 2. Adjustment of the mA and/or kV according to patient size 3. Use of iterative reconstruction technique Electronically signed by: Philip Griggs III, MD (11/24/2020 3:57 AM) [facility] Course & Med Decision Making: Course & Med Decision Making 60-year-old female presents emergency department with substernal sharp chest pain that began acutely waking her from sleep at 10 PM. This was accompanied by shortness of air. Patient also complains of an increasing pain in her right leg over the past couple days. Patient has a past medical history of DVT in her right leg as well as pulmonary embolism- she is currently taking Xarelto. Patient was given IV fluids, medication for pain, CTA was ordered to rule out pulmonary embolism, labs and cardiac enzymes drawn. CTA was negative for pulmonary embolism but contained mild groundglass opacities bilaterally are nonspecific and were seen previously and are likely discoid atelectasis. Patient continued to have chest pain, heart score of 3 and wanted to be admitted for continued cardiac evaluation. Patient requiring observation admission for further evaluation and treatment. Discussed with Dr. Sam (hospitalist) who is in agreement with admission. Discussed findings and plan with patient, who acknowledges understanding and agreement. Jez Disclaimer: Jez Disclaimer: This electronic medical record was generated, in whole or in part, using a voice recognition dictation system. Departure Departure Impression: Primary Impression: Chest pain Qualified Codes: R07.9 - Chest pain, unspecified Disposition: ADMITTED INPATIENT Admitting Physician: EKATERINA Knight) Condition: STABLE Referrals: Clif RIZVI MD (PCP) JERONIMO SIMONS DO Nov 24, 2020 03:14
[2020-11-24] MEDS ORDERED: ASPIRIN 325 MG TABLET PO ONE (03:15)
[2020-11-24 03:18] LABS: ALBUMIN 3.8 g/dL (3.4-5.0); ALBUMIN/GLOBULIN RATIO 1.1 (1.0-1.7); MAGNESIUM 2.2 mg/dL (1.8-2.4); TOTAL BILIRUBIN 0.3 mg/dL (0.2-1.0); TOTAL PROTEIN 7.2 g/dL (6.4-8.2)
[2020-11-24] MEDS ORDERED: CONTRAST GIVEN. MC PRN (03:30)
[2020-11-24] MEDS ORDERED: IV NORMAL SALINE 1000ML BAG 1,000 ML IV ONE (03:30)
[2020-11-24] MEDS ORDERED: fentaNYL PF VIAL 100 MCG/2 ML VIAL IV ONE (03:30)
--- NOTE | 2020-11-24 03:59 | RAD ---
CTA Chest with contrast: Clinical History: Reason: chest pain, hx of PE and DVT / Spl. Instructions: / History: Shortness of breath. COMPARISON: May 17, 2020 Axial helical images of the chest were obtained after the administration of 100 cc of IV Isovue-370 a nd timed appropriately for a pulmonary arterial study. Conventional axial reconstruction was perform ed in addition to coronal, sagittal and bilateral oblique MIP (maximum intensity projection). This s tudy was ordered to detect possible pulmonary embolism. There are no filling defects to suggest pulmonary embolism. There is a moderate size hiatal hernia. Linear opacities in lung bases are likely discoid atelectasis . There is mild bilateral groundglass opacities. There is no mediastinal or hilar lymphadenopathy. The thoracic aorta appears normal. Impression: 1. No evidence of pulmonary embolism. 2. Moderate size hiatal hernia unchanged. 3. Mild groundglass opacities bilaterally are nonspecific and were seen previously and are likely dis coid atelectasis. End impression PQRS Compliance Statement: One or more of the following individualized dose reduction techniques were utilized for this examinat ion: 1. Automated exposure control 2. Adjustment of the mA and/or kV according to patient size 3. Use of iterative reconstruction technique Electronically signed by: Philip Griggs III, MD (11/24/2020 3:57 AM) [facility]
[2020-11-24] MEDS ORDERED: IOHEXOL 350 MG/ML 100 ML VIAL. IV ONE (04:00)
[2020-11-24] MEDS ORDERED: fentaNYL PF VIAL 100 MCG/2 ML VIAL IV PRN (05:15)
[2020-11-24] MEDS ORDERED: ONDANSETRON PF 4 MG/2 ML VIAL. IV PRN (05:15)
[2020-11-24 05:21] LABS: BILIRUBIN,URINE NEGATIVE (NEG); CLARITY,URINE CLEAR; COLOR,URINE YELLOW; NITRITE,URINE NEGATIVE (NEG); PROTEIN,URINE NEGATIVE (NEG-TRACE); UROBILINOGEN,URINE 0.2 mg/dL (0.2 mg/dL)
[2020-11-24 05:47] LABS: BACTERIA,URINE FEW /HPF (0-FEW); RBC,URINE 0 /HPF (0-2); WBC,URINE OCC /HPF (0-4)
[2020-11-24 05:50] VITALS: BP 115/63
--- NOTE | 2020-11-24 05:50 | NUR ---
Pt here from er. Pt ambulated to bed with no difficulty. Monitor on, VSS, pt denies pain at this time. Admission assessment complete. Bed down, call light within reach. Will continue to monitor.
[2020-11-24] MEDS ORDERED: FERR325T14 PO (06:09)
[2020-11-24] MEDS ORDERED: RIVA20TA2 PO (06:10)
[2020-11-24] MEDS ORDERED: PANT40TA77 PO (06:10)
[2020-11-24] MEDS ORDERED: LISI-517 PO (06:11)
[2020-11-24] MEDS ORDERED: PRIM250T28 PO (06:12)
[2020-11-24 07:00] VITALS: BP 125/66
--- NOTE | 2020-11-24 07:52 | PDOC1 ---
History and Physical Date of Admission Date of Admission DATE: 11/24/20 TIME: 07:33 Identification/Chief Complaint Chief Complaint Chest pain Source Source: Patient History of Present Illness History of Present Illness Ms Ag is a 60yo F w/ PMHx hypertension, hypothyroid, RLE DVT (peroneal) and pulmonary emboli, anemia, GERD who presents to the ED on 11/23/2020 overnight c/o sudden onset chest pain and right leg pain. She awoke at 10 PM with sudden onset 10/10 sharp chest pain located substernally, non-radiating. Patient has not done or taken anything that is improved this pain. This pain is reproducible by pres sing down on sternum. Food and liquid worsen it. She did have EGD and colonoscopy planned in September 2020 Patient also complains of right leg pain located in her calf to mid thigh, this began 2 days ago and has been increasing. Patient has a past medical history of DVT which he takes Xarelto as well as pulmonary embolism. Patient denies any fever, chills, nausea, vomiting. Patient was driven to the emergency department by daughter. She underwent CTPA which was negative for pulmonary emboli. Still with b ibasilar discoid atelectasis. EKG normal sinus rhythm with rate of 67 bpm, leftward axis meets criteria for left ventricular hypertrophy. V1 V2 Q and ST segment consistent with likely prior anteroseptal infarct Labs with WBC 6.2, Hb 15.3, platelets 243, NA 144, K3.9, BUN 13, CR 0.9, glucose 96, mag 2.2, lipase 138, LFTs within normal laboratory limits, D-dimer 0, BNP 45, trop x2 were 0. Admitted for further observation. Past Medical History Cardiovascular: Hyperlipidemia Pulmonary: Pulmonary embolus CENTRAL NERVOUS SYSTEM: Other GI: Constipation, GERD, Other Heme/Onc: Anemia NOS Hepatobiliary: Cholelithiasis Psych: Anxiety Musculoskeletal: low back pain, Osteoarthritis Infectious disease: Herpes simplex2 Renal/: UTI Endocrine: Hypothyroidism Past Surgical History Past Surgical History: Cholecystectomy, Tubal Ligation Family History Family History: Heart Disease Social History Smoke: No ALCOHOL: none Drugs: None Current Problem List Problem List Problems Medical Problems: (1) Chest pain Status: Acute Current Medications Current Medications Current Medications Aspirin (Barron Aspirin) 325 mg 1X ONCE PO Last administered on 11/24/20at 03:21; Start 11/24/20 at 03:15; Stop 11/24/20 at 03:22; Status DC Sodium Chloride 1,000 ml @ 1,000 mls/hr 1X ONCE IV Last administered on 11/24/20at 03:19; Start 11/24/20 at 03:30; Stop 11/24/20 at 04:29; Status DC Fentanyl Citrate (Fentanyl 2ml Vial) 50 mcg 1X ONCE IV Last administered on 11/24/20at 03:22; Start 11/24/20 at 03:30; Stop 11/24/20 at 03:31; Status DC Iohexol (Omnipaque 350 Mg/ml) 100 ml 1X ONCE IV Last administered on 11/24/20at 03:42; Start 11/24/20 at 04:00; Stop 11/24/20 at 04:01; Status DC Info (CONTRAST GIVEN -- Rx MONITORING) 1 each PRN DAILY PRN MC SEE COMMENTS; Start 11/24/20 at 03:30; Stop 11/26/20 at 03:29 Ondansetron HCl (Zofran) 4 mg PRN Q8HRS PRN IV NAUSEA/VOMITING 1ST CHOICE; Start 11/24/20 at 05:15; Stop 11/25/20 at 05:14 Fentanyl Citrate (Fentanyl 2ml Vial) 50 mcg PRN Q2HRS PRN IV SEVERE PAIN 7-10; Start 11/24/20 at 05:15 Active Scripts Active Reported Mysoline (Primidone) 250 Mg Tablet 250 Mg PO DAILY Lisinopril 5 Mg Tablet 1 Tab PO DAILY Xarelto (Rivaroxaban) 20 Mg Tablet 1 Tab PO QHS 30 Days with food Pantoprazole Sodium (Pantoprazole Sodium) 40 Mg Tablet.dr 40 Mg PO DAILYAC Ferrous Sulfate 325 Mg Tablet 1 Tab PO DAILY Proair Hfa Inhaler (Albuterol Sulfate) 8.5 Gm Hfa.aer.ad 2 Puff IH PRN Q4-6HRS PRN 21 Days Vitamin C (Ascorbate Calcium) 500 Mg Tablet 500 Mg PO DAILY Sucralfate 1 Gm Tablet 1 Gm PO BID Levothyroxine Sodium 125 Mcg Tablet 125 Mcg PO DAILY Valacyclovir (Valacyclovir Hcl) 500 Mg Tablet 1 Tab PO DAILY Primidone 250 Mg Tablet 250 Mg PO DAILY Allergies Allergies: Coded Allergies: No Known Drug Allergies (Unverified , 09/18/20) ROS General: YES: Fatigue, Malaise; No: Chills, Night Sweats, Appetite, Other PSYCHOLOGICAL ROS: No: Anxiety, Behavioral Disorder, Concentration difficultie, Decreased libido, Depression, Disorientation, Hallucinations, Hostility, Irritablity, Memory difficulties, Mood Swings, Obsessive thoughts, Physical abuse, Sexual abuse, Sleep disturbances, Suicidal ideation, Other Eyes: No Blurry vision, No Decreased vision, No Double vision, No Dry eyes, No Excessive tearing, No Eye Pain, No Itchy Eyes, No Loss of vision, No Photophobia, No Scotomata, No Uses contacts, No Uses glasses, No Other HEENT: No: Heacaches, Visual Changes, Hearing change, Nasal congestion, Nasal discharge, Oral lesions, Sinus pain, Sore Throat, Epistaxis, Sneezing, Snoring, Tinnitus, Vertigo, Vocal changes, Other ALLERGY AND IMMUNOLOGY: No: Hives, Insect Bite Sensitivity, Itchy/Watery Eyes, Nasal Congestion, Post Nasal Drip, Seasonal Allergies, Other Hematological and Lymphatic: YES: Blood Clots; No: Bleeding Problems, Blood Transfusions, Brusing, Night Sweats, Pallor, Swollen Lymph Nodes, Other ENDOCRINE: No: Breast Changes, Galactorrhea, Hair Pattern Changes, Hot Flashes, Malaise/lethargy, Mood Swings, Palpitations, Polydipsia/polyuria, Skin Changes, Temperature Intolerance, Unexpected Weight Changes, Other Breast: No New/Changing Breast Lumps, No Nipple changes, No Nipple discharge, No Other Respiratory: No: Cough, Hemoptysis, Orthopnea, Pleuritic Pain, Shortness of breath, SOB with excertion, Sputum Changes, Stridor, Tachypnea, Wheezing, Other Cardiovascular: No Chest Pain, No Palpitations, No Orthopnea, No Paroxysmal Noc. Dyspnea, No Edema, No Lt Headedness, No Other Gastrointestinal: No Nausea, No Vomiting, No Abdominal Pain, No Diarrhea, No Constipation, No Melena, No Hematochezia, No Other Genitourinary: No Dysuria, No Frequency, No Incontinence, No Hematuria, No Retention, No Discharge, No Urgency, No Pain, No Flank Pain, No Other, No , No , No , No , No , No , No Musculoskeletal: No Gait Disturbance, No Joint Pain, No Joint Stiffness, No Joint Swelling, No Muscle Pain, No Muscular Weakness, No Pain In:, No Swelling In:, No Other Neurological: No Behavorial Changes, No Bowel/Bladder ControlChng, No Confusion, No Dizziness, No Gait Disturbance, No Headaches, No Impaired Coord/balance, No Memory Loss, No Numbness/Tingling, No Seizures, No Speech Problems, No Tremors, No Visual Changes, No Weakness, No Other Skin: No Dry Skin, No Eczema, No Hair Changes, No Lumps, No Mole Changes, No Mottling, No Nail Changes, No Pruritus, No Rash, No Skin Lesion Changes, No Other, No Acne Physical Exam General: Alert, Oriented X3, Cooperative, mild distress HEENT: Atraumatic, PERRLA, EOMI, Mucous membr. moist/pink Lungs: Clear to auscultation, Normal air movement Heart: S1S2, RRR, no thrills, no rubs, no gallops, no murmurs, other (Sternal reproducible pain) Abdomen: Normal bowel sounds, Soft, No tenderness, No hepatosplenomegaly, No masses Rectal Exam: not examined Extremities: No clubbing, No cyanosis, No edema, Normal pulses, No tenderness/swelling Skin: No rashes, No breakdown, No significant lesion Neuro: Normal gait, Normal speech, Strength at 5/5 X4 ext, Normal tone, Sensation intact, Cranial nerves 3-12 NL, Reflexes 2+ Psych/Mental Status: Mental status NL, Mood NL Vitals Vitals Vital Signs Date Time Temp Pulse Resp B/P (MAP) Pulse Ox O2 Delivery O2 Flow Rate FiO2 11/24/20 06:03 Room Air 11/24/20 05:50 97.9 54 20 115/63 (80) 97 97.9 Labs Labs Laboratory Tests Test 11/24/20 02:44 11/24/20 05:02 11/24/20 06:35 White Blood Count 6.2 x10^3/uL (4.0-11.0) Red Blood Count 4.64 x10^6/uL (3.50-5.40) Hemoglobin 15.3 g/dL (12.0-15.5) Hematocrit 45.2 % (36.0-47.0) Mean Corpuscular Volume 97 fL (79-100) Mean Corpuscular Hemoglobin 33 pg (25-35) Mean Corpuscular Hemoglobin Concent 34 g/dL (31-37) Red Cell Distribution Width 14.8 % (11.5-14.5) Platelet Count 243 x10^3/uL (140-400) Neutrophils (%) (Auto) 52 % (31-73) Lymphocytes (%) (Auto) 36 % (24-48) Monocytes (%) (Auto) 9 % (0-9) Eosinophils (%) (Auto) 2 % (0-3) Basophils (%) (Auto) 1 % (0-3) Neutrophils # (Auto) 3.2 x10^3/uL (1.8-7.7) Lymphocytes # (Auto) 2.2 x10^3/uL (1.0-4.8) Monocytes # (Auto) 0.5 x10^3/uL (0.0-1.1) Eosinophils # (Auto) 0.1 x10^3/uL (0.0-0.7) Basophils # (Auto) 0.1 x10^3/uL (0.0-0.2) D-Dimer (Bel) < 0.27 ug/mlFEU Sodium Level 144 mmol/L (136-145) Potassium Level 3.9 mmol/L (3.5-5.1) Chloride Level 106 mmol/L (98-107) Carbon Dioxide Level 28 mmol/L (21-32) Anion Gap 10 (6-14) Blood Urea Nitrogen 13 mg/dL (7-20) Creatinine 0.9 mg/dL (0.6-1.0) Estimated GFR (Cockcroft-Gault) 64.3 BUN/Creatinine Ratio 14 (6-20) Glucose Level 96 mg/dL (70-99) Calcium Level 9.0 mg/dL (8.5-10.1) Magnesium Level 2.2 mg/dL (1.8-2.4) Total Bilirubin 0.3 mg/dL (0.2-1.0) Aspartate Amino Transf (AST/SGOT) 17 U/L (15-37) Alanine Aminotransferase (ALT/SGPT) 24 U/L (14-59) Alkaline Phosphatase 106 U/L (46-116) Troponin I Quantitative < 0.017 ng/mL (0.000-0.055) < 0.017 ng/mL (0.000-0.055) CS-Zfh-Q-Type Natriuretic Peptide 45 pg/mL (0-124) Total Protein 7.2 g/dL (6.4-8.2) Albumin 3.8 g/dL (3.4-5.0) Albumin/Globulin Ratio 1.1 (1.0-1.7) Lipase 138 U/L (73-393) Urine Collection Type Unknown Urine Color Yellow Urine Clarity Clear Urine pH 6.0 (<5.0-8.0) Urine Specific [place] >=1.030 (1.000-1.030) Urine Protein Negative mg/dL (NEG-TRACE) Urine Glucose (UA) Negative mg/dL (NEG) Urine Ketones (Stick) Negative mg/dL (NEG) Urine Blood Negative (NEG) Urine Nitrite Negative (NEG) Urine Bilirubin Negative (NEG) Urine Urobilinogen Dipstick 0.2 mg/dL (0.2 mg/dL) Urine Leukocyte Esterase Negative (NEG) Urine RBC 0 /HPF (0-2) Urine WBC Occ /HPF (0-4) Urine Squamous Epithelial Cells Mod /LPF Urine Bacteria Few /HPF (0-FEW) Laboratory Tests Test 11/24/20 02:44 11/24/20 05:02 11/24/20 06:35 White Blood Count 6.2 x10^3/uL (4.0-11.0) Red Blood Count 4.64 x10^6/uL (3.50-5.40) Hemoglobin 15.3 g/dL (12.0-15.5) Hematocrit 45.2 % (36.0-47.0) Mean Corpuscular Volume 97 fL (79-100) Mean Corpuscular Hemoglobin 33 pg (25-35) Mean Corpuscular Hemoglobin Concent 34 g/dL (31-37) Red Cell Distribution Width 14.8 % (11.5-14.5) Platelet Count 243 x10^3/uL (140-400) Neutrophils (%) (Auto) 52 % (31-73) Lymphocytes (%) (Auto) 36 % (24-48) Monocytes (%) (Auto) 9 % (0-9) Eosinophils (%) (Auto) 2 % (0-3) Basophils (%) (Auto) 1 % (0-3) Neutrophils # (Auto) 3.2 x10^3/uL (1.8-7.7) Lymphocytes # (Auto) 2.2 x10^3/uL (1.0-4.8) Monocytes # (Auto) 0.5 x10^3/uL (0.0-1.1) Eosinophils # (Auto) 0.1 x10^3/uL (0.0-0.7) Basophils # (Auto) 0.1 x10^3/uL (0.0-0.2) D-Dimer (Bel) < 0.27 ug/mlFEU Sodium Level 144 mmol/L (136-145) Potassium Level 3.9 mmol/L (3.5-5.1) Chloride Level 106 mmol/L (98-107) Carbon Dioxide Level 28 mmol/L (21-32) Anion Gap 10 (6-14) Blood Urea Nitrogen 13 mg/dL (7-20) Creatinine 0.9 mg/dL (0.6-1.0) Estimated GFR (Cockcroft-Gault) 64.3 BUN/Creatinine Ratio 14 (6-20) Glucose Level 96 mg/dL (70-99) Calcium Level 9.0 mg/dL (8.5-10.1) Magnesium Level 2.2 mg/dL (1.8-2.4) Total Bilirubin 0.3 mg/dL (0.2-1.0) Aspartate Amino Transf (AST/SGOT) 17 U/L (15-37) Alanine Aminotransferase (ALT/SGPT) 24 U/L (14-59) Alkaline Phosphatase 106 U/L (46-116) Troponin I Quantitative < 0.017 ng/mL (0.000-0.055) < 0.017 ng/mL (0.000-0.055) TG-Mwb-S-Type Natriuretic Peptide 45 pg/mL (0-124) Total Protein 7.2 g/dL (6.4-8.2) Albumin 3.8 g/dL (3.4-5.0) Albumin/Globulin Ratio 1.1 (1.0-1.7) Lipase 138 U/L (73-393) Urine Collection Type Unknown Urine Color Yellow Urine Clarity Clear Urine pH 6.0 (<5.0-8.0) Urine Specific [place] >=1.030 (1.000-1.030) Urine Protein Negative mg/dL (NEG-TRACE) Urine Glucose (UA) Negative mg/dL (NEG) Urine Ketones (Stick) Negative mg/dL (NEG) Urine Blood Negative (NEG) Urine Nitrite Negative (NEG) Urine Bilirubin Negative (NEG) Urine Urobilinogen Dipstick 0.2 mg/dL (0.2 mg/dL) Urine Leukocyte Esterase Negative (NEG) Urine RBC 0 /HPF (0-2) Urine WBC Occ /HPF (0-4) Urine Squamous Epithelial Cells Mod /LPF Urine Bacteria Few /HPF (0-FEW) Images Images CTA Chest with contrast: Axial helical images of the chest were obtained after the administration of 100 cc of IV Isovue-370 and timed appropriately for a pulmonary arterial study. Conventional axial reconstruction was performed in addition to coronal, sagittal and bilateral oblique MIP (maximum intensity projection). This study was ordered to detect possible pulmonary embolism. There are no filling defects to suggest pulmonary embolism. There is a moderate size hiatal hernia. Linear opacities in lung bases are likely discoid atelectasis. There is mild bilateral groundglass opacities. There is no mediastinal or hilar lymphadenopathy. The thoracic aorta appears normal. Impression: 1. No evidence of pulmonary embolism. 2. Moderate size hiatal hernia unchanged. 3. Mild groundglass opacities bilaterally are nonspecific and were seen previously and are likely discoid atelectasis. VTE Prophylaxis Ordered VTE Prophylaxis Devices: Yes VTE Pharmacological Prophylaxi: Yes Assessment/Plan Assessment/Plan A/P: Chest pain - Likely GERD vs costochondritis more likely, less likely ACS, ruled out PE. Cardiology consulted. Topical voltaren. PPI. Telemetry, trend final troponin Hypothyroidism - TSH > 20, she is symptomatic. Needs levothyroxine adjustment Hypertension - cont home meds RLE DVT and pulmonary emboli - on repeat CTPA no emboli noted. Does have right LE peroneal DVT GERD - needs PPI RLE pain - will obtain tib-fib, ankle XR. FEN - Cardiac diet PPX - xarelto CODE - FULL Dispo - inpatient Justifications for Admission Other Justification PE and low Hb KARRI VALDEZ MD Nov 24, 2020 07:52
[2020-11-24] MEDS ORDERED: ALBUTEROL SULFATE 2.5 MG/3 ML NEBU. INH PRN (08:00)
[2020-11-24] MEDS ORDERED: LEVOTHYROXINE 125 MCG TABLET PO SCH (08:00)
[2020-11-24] MEDS ORDERED: ANTI-COAG MONITOR BY PHARMACY. MC PRN (08:00)
--- NOTE | 2020-11-24 08:34 | PDOC2 ---
TORIE SLOAN COMMERCIAL ADMINISTRATOR 11/24/20 0834: CARDIAC CONSULT DATE OF CONSULT Date of Consult DATE: 11/24/20 TIME: 08:12 REASON FOR CONSULT Reason for Consult: Chest pain REFERRING PHYSICIAN Referring Physician: Michael SOURCE Source: Chart review, Patient HISTORY OF PRESENT ILLNESS HISTORY OF PRESENT ILLNESS This is a pleasant 60 yo female admitted for complains of chest pain. Reports that this started last night about 10 PM sharp in consistency but did not take any meds for it. She just laid in her bed and her pain would not go away. No nausea or vomiting or palpitations. No recent falls or injury. 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 Denies heartburn but has barrets esophagus and hiatal hernia. She also has hx of bilateral PE 04/2020 and was noted with DVT RLE via sono about a month ago and still complains of right calf pain. Her repeat CTA was neg for central PE. No passing out or complains of dizziness. PAST MEDICAL HISTORY Past Medical History Cardiovascular: Hyperlipidemia, Mild CM Pulmonary: Pulmonary embolus, RLE DVT CENTRAL NERVOUS SYSTEM: Other (tremors) GI: Constipation, GERD, Other (barretts; hiatal hernia;schatskis ring) Heme/Onc: Anemia NOS (recent with transfusion) Hepatobiliary: Cholelithiasis Psych: Anxiety Musculoskeletal: low back pain, Osteoarthritis ENT: Allergic Rhinitis Renal/: UTI Endocrine: Hypothyroidism Dermatology: No pertinent hx PAST SURGICAL HISTORY Past Surgical History Cholecystectomy, Tubal Ligation FAMILY HISTORY Family History: Heart Disease SOCIAL HISTORY Smoke: No ALCOHOL: none Drugs: None Lives: with Family CURRENT MEDICATIONS CURRENT MEDICATIONS Current Medications Medications (Trade) Dose Ordered Sig/Mary Route PRN Reason Start Time Stop Time Status Last Admin Dose Admin Aspirin (Barron Aspirin) 325 mg 1X ONCE PO 11/24/20 03:15 11/24/20 03:22 DC 11/24/20 03:21 Sodium Chloride 1,000 ml @ 1,000 mls/hr 1X ONCE IV 11/24/20 03:30 11/24/20 04:29 DC 11/24/20 03:19 Fentanyl Citrate (Fentanyl 2ml Vial) 50 mcg 1X ONCE IV 11/24/20 03:30 11/24/20 03:31 DC 11/24/20 03:22 Iohexol (Omnipaque 350 Mg/ml) 100 ml 1X ONCE IV 11/24/20 04:00 11/24/20 04:01 DC 11/24/20 03:42 ALLERGIES ALLERGIES: Coded Allergies: No Known Drug Allergies (Unverified , 09/18/20) ROS Review of System 14 point ROS evaluated with pertinent positives noted per HPI PHYSICAL EXAM General: Alert, Oriented X3, Cooperative, No acute distress HEENT: Atraumatic, Mucous membr. moist/pink Lungs: Other (upper rhonchi) Heart: Regular rate (SR/SB), Normal S1, Normal S2, No murmurs Abdomen: Soft, No tenderness Extremities: No cyanosis, No edema Skin: No breakdown, No significant lesion Neuro: Normal speech, Sensation intact Psych/Mental Status: Mental status NL, Mood NL MUSCULOSKELETAL: Osteoarthritic changes both hands VITALS/I&O VITALS/I&O: Vital Signs Date Time Temp Pulse Resp B/P (MAP) Pulse Ox O2 Delivery O2 Flow Rate FiO2 11/24/20 07:00 97.8 50 18 125/66 (85) 96 Room Air 97.8 I & O 11/23/20 11/23/20 11/24/20 14:59 22:59 06:59 Intake Total 1000 ml Balance 1000 ml LABS Lab: Laboratory Tests Test 11/24/20 02:44 11/24/20 05:02 11/24/20 06:35 White Blood Count 6.2 x10^3/uL (4.0-11.0) Red Blood Count 4.64 x10^6/uL (3.50-5.40) Hemoglobin 15.3 g/dL (12.0-15.5) Hematocrit 45.2 % (36.0-47.0) Mean Corpuscular Volume 97 fL (79-100) Mean Corpuscular Hemoglobin 33 pg (25-35) Mean Corpuscular Hemoglobin Concent 34 g/dL (31-37) Red Cell Distribution Width 14.8 % (11.5-14.5) H Platelet Count 243 x10^3/uL (140-400) Neutrophils (%) (Auto) 52 % (31-73) Lymphocytes (%) (Auto) 36 % (24-48) Monocytes (%) (Auto) 9 % (0-9) Eosinophils (%) (Auto) 2 % (0-3) Basophils (%) (Auto) 1 % (0-3) Neutrophils # (Auto) 3.2 x10^3/uL (1.8-7.7) Lymphocytes # (Auto) 2.2 x10^3/uL (1.0-4.8) Monocytes # (Auto) 0.5 x10^3/uL (0.0-1.1) Eosinophils # (Auto) 0.1 x10^3/uL (0.0-0.7) Basophils # (Auto) 0.1 x10^3/uL (0.0-0.2) D-Dimer (Bel) < 0.27 ug/mlFEU Sodium Level 144 mmol/L (136-145) Potassium Level 3.9 mmol/L (3.5-5.1) Chloride Level 106 mmol/L (98-107) Carbon Dioxide Level 28 mmol/L (21-32) Anion Gap 10 (6-14) Blood Urea Nitrogen 13 mg/dL (7-20) Creatinine 0.9 mg/dL (0.6-1.0) Estimated GFR (Cockcroft-Gault) 64.3 BUN/Creatinine Ratio 14 (6-20) Glucose Level 96 mg/dL (70-99) Calcium Level 9.0 mg/dL (8.5-10.1) Magnesium Level 2.2 mg/dL (1.8-2.4) Total Bilirubin 0.3 mg/dL (0.2-1.0) Aspartate Amino Transferase (AST) 17 U/L (15-37) Alanine Aminotransferase (ALT) 24 U/L (14-59) Alkaline Phosphatase 106 U/L (46-116) Troponin I Quantitative < 0.017 ng/mL (0.000-0.055) < 0.017 ng/mL (0.000-0.055) DH-Gdh-R-Type Natriuretic Peptide 45 pg/mL (0-124) Total Protein 7.2 g/dL (6.4-8.2) Albumin 3.8 g/dL (3.4-5.0) Albumin/Globulin Ratio 1.1 (1.0-1.7) Lipase 138 U/L (73-393) Urine Collection Type Unknown Urine Color Yellow Urine Clarity Clear Urine pH 6.0 (<5.0-8.0) Urine Specific [place] >=1.030 (1.000-1.030) Urine Protein Negative mg/dL (NEG-TRACE) Urine Glucose (UA) Negative mg/dL (NEG) Urine Ketones (Stick) Negative mg/dL (NEG) Urine Blood Negative (NEG) Urine Nitrite Negative (NEG) Urine Bilirubin Negative (NEG) Urine Urobilinogen Dipstick 0.2 mg/dL (0.2 mg/dL) Urine Leukocyte Esterase Negative (NEG) Urine RBC 0 /HPF (0-2) Urine WBC Occ /HPF (0-4) Urine Squamous Epithelial Cells Mod /LPF Urine Bacteria Few /HPF (0-FEW) Laboratory Tests 11/24/20 02:44 Laboratory Tests 11/24/20 02:44 ECHOCARDIOGRAM ECHOCARDIOGRAM <Conclusion> The left ventricle is normal size. The left ventricular systolic function is low normal to mildly decreased. The Ejection Fraction is 45-50%. There is minimal global hypokinesis of the left ventricle. Doppler and Color Flow revealed no significant aortic regurgitation. There is no significant aortic valvular stenosis. Doppler and Color Flow revealed no mitral valve regurgitation noted. Doppler and Color Flow revealed trace tricuspid regurgitation with an estimated PAP of 26 mmHg. DATE: 07/06/20 [id number] STRESS TEST STRESS TEST Conclusion 1. Abnormal baseline EKG but no EKG evidence of stress-induced ischemia. 2. Nuclear imaging shows no reversible ischemia or infarct. 3. Intact LV systolic function with an ejection fraction of 64%. 4. Moderately low to low risk Lexiscan nuclear stress test. DATE: 07/06/20 [id number] ASSESSMENT/PLAN ASSESSMENT/PLAN 1. Atypical CP: Doubt ACS. Recent MPI unremarkable for ischemia, trops nml. P ossibly from hiatal hernia 2. Hx of barrets esophagus with mod hiatal hernia: Normal EGD otherwise per GI 3. Suspect persistent DVT with hx of PE: +RLE pain. CTA neg for central PE 4. Hypothyroidism: TSH at 23, defer to PCP. on replacement 5. Metabolic syndrome 6. Hx of mild CM 7. Asymptomatic SB: lowest mid40s likely from hypothyroidism Recommendations 1. Will obtain limited TTE and note EF and PA pressure. If PA pressure is high then may need to consider for V/Q and note any CTEPH 2. Continue reflux meds. GI cocktail 3. FLP 4. Continue xarelto 5. Avoid AV megan blocking agents ANGLE MONTANA MD 11/24/20 1637: CARDIAC CONSULT ASSESSMENT/PLAN ASSESSMENT/PLAN Patient seen and examined. Agree with LANDSCAPER's assessment and plan. Chest pain with atypical features and most probably GI etiology Myocardial infarction has been ruled out Limited 2D echo showed LVEF 45 to 50%, unchanged from prior evaluation Recent Lexiscan nuclear stress test did not show any significant ischemia Okay for DC from cardiac standpoint. Thank you for your consultation. TORIE SLOAN APRN Nov 24, 2020 08:34 ANGLE MONTANA MD Nov 24, 2020 16:37
[2020-11-24] MEDS ORDERED: LISINOPRIL 5 MG TABLET. PO SCH (09:00)
[2020-11-24] MEDS ORDERED: ASCORBIC ACID 500 MG TABLET PO SCH (09:00)
[2020-11-24] MEDS ORDERED: PANTOPRAZOLE 40 MG TABLET.DR. PO SCH (09:00)
[2020-11-24] MEDS ORDERED: valACYclovir 500 MG TABLET. PO SCH (09:00)
[2020-11-24] MEDS ORDERED: PRIMIDONE 250 MG TABLET PO SCH (09:00)
[2020-11-24] MEDS ORDERED: SUCRALFATE 1 GM TABLET. PO SCH (09:00)
[2020-11-24] MEDS ORDERED: FERROUS SULFATE 325 MG TABLET. PO SCH (09:00)
[2020-11-24 09:11] LABS: CHOLESTEROL/HDL RATIO 5.7
[2020-11-24] MEDS ORDERED: ACETAMINOPHEN 325 MG TABLET. PO PRN (10:15)
[2020-11-24] MEDS ORDERED: DICLOFENAC SODIUM 1% TOPICAL GEL 100GM TUBE. TP SCH (10:15)
[2020-11-24] MEDS ORDERED: LIDO:MAALOX 1:1 20 ML SINGLE DOSE. SWSW ONE (10:15)
[2020-11-24 10:36] VITALS: BP 97/66
--- NOTE | 2020-11-24 14:29 | NUR ---
SS following for discharge planning. SS reviewed pt chart and discussed with pt RN. Pt is from home and is currently on room air. Cardiology consulted. Pt having ECHO today. Discharge plan is to home when medically ready. SS will continue to follow for discharge planning.
[2020-11-24 15:00] VITALS: BP 111/72
--- NOTE | 2020-11-24 15:20 | PDOC3 ---
Discharge Summary Visit Information Date of Admission: Nov 24, 2020 Date of Discharge: Nov 24, 2020 Admitting Diagnosis: Chest pain Final Diagnosis Problems Medical Problems: (1) Chest pain Status: Acute Brief Hospital Course Allergies Allergies Coded Allergies Type Severity Reaction Last Updated Verified No Known Drug Allergies 09/18/20 No Vital Signs Vital Signs Date Time Temp Pulse Resp B/P (MAP) Pulse Ox O2 Delivery O2 Flow Rate FiO2 11/24/20 12:25 97 Room Air 11/24/20 10:36 97.6 61 18 97/66 (76) 97.6 Lab Results Laboratory Tests Test 11/24/20 02:44 11/24/20 05:02 11/24/20 06:35 11/24/20 08:55 White Blood Count 6.2 x10^3/uL (4.0-11.0) Red Blood Count 4.64 x10^6/uL (3.50-5.40) Hemoglobin 15.3 g/dL (12.0-15.5) Hematocrit 45.2 % (36.0-47.0) Mean Corpuscular Volume 97 fL (79-100) Mean Corpuscular Hemoglobin 33 pg (25-35) Mean Corpuscular Hemoglobin Concent 34 g/dL (31-37) Red Cell Distribution Width 14.8 % (11.5-14.5) Platelet Count 243 x10^3/uL (140-400) Neutrophils (%) (Auto) 52 % (31-73) Lymphocytes (%) (Auto) 36 % (24-48) Monocytes (%) (Auto) 9 % (0-9) Eosinophils (%) (Auto) 2 % (0-3) Basophils (%) (Auto) 1 % (0-3) Neutrophils # (Auto) 3.2 x10^3/uL (1.8-7.7) Lymphocytes # (Auto) 2.2 x10^3/uL (1.0-4.8) Monocytes # (Auto) 0.5 x10^3/uL (0.0-1.1) Eosinophils # (Auto) 0.1 x10^3/uL (0.0-0.7) Basophils # (Auto) 0.1 x10^3/uL (0.0-0.2) D-Dimer (Bel) < 0.27 ug/mlFEU Sodium Level 144 mmol/L (136-145) Potassium Level 3.9 mmol/L (3.5-5.1) Chloride Level 106 mmol/L (98-107) Carbon Dioxide Level 28 mmol/L (21-32) Anion Gap 10 (6-14) Blood Urea Nitrogen 13 mg/dL (7-20) Creatinine 0.9 mg/dL (0.6-1.0) Estimated GFR (Cockcroft-Gault) 64.3 BUN/Creatinine Ratio 14 (6-20) Glucose Level 96 mg/dL (70-99) Calcium Level 9.0 mg/dL (8.5-10.1) Magnesium Level 2.2 mg/dL (1.8-2.4) Total Bilirubin 0.3 mg/dL (0.2-1.0) Aspartate Amino Transf (AST/SGOT) 17 U/L (15-37) Alanine Aminotransferase (ALT/SGPT) 24 U/L (14-59) Alkaline Phosphatase 106 U/L (46-116) Troponin I Quantitative < 0.017 ng/mL (0.000-0.055) < 0.017 ng/mL (0.000-0.055) < 0.017 ng/mL (0.000-0.055) NE-Yiw-O-Type Natriuretic Peptide 45 pg/mL (0-124) Total Protein 7.2 g/dL (6.4-8.2) Albumin 3.8 g/dL (3.4-5.0) Albumin/Globulin Ratio 1.1 (1.0-1.7) Triglycerides Level 141 mg/dL (0-150) Cholesterol Level 222 mg/dL (0-200) LDL Cholesterol, Calculated 155 mg/dL (0-100) VLDL Cholesterol, Calculated 28 mg/dL (0-40) Non-HDL Cholesterol Calculated 183 mg/dL (0-129) HDL Cholesterol 39 mg/dL (40-60) Cholesterol/HDL Ratio 5.7 Lipase 138 U/L (73-393) Urine Collection Type Unknown Urine Color Yellow Urine Clarity Clear Urine pH 6.0 (<5.0-8.0) Urine Specific [place] >=1.030 (1.000-1.030) Urine Protein Negative mg/dL (NEG-TRACE) Urine Glucose (UA) Negative mg/dL (NEG) Urine Ketones (Stick) Negative mg/dL (NEG) Urine Blood Negative (NEG) Urine Nitrite Negative (NEG) Urine Bilirubin Negative (NEG) Urine Urobilinogen Dipstick 0.2 mg/dL (0.2 mg/dL) Urine Leukocyte Esterase Negative (NEG) Urine RBC 0 /HPF (0-2) Urine WBC Occ /HPF (0-4) Urine Squamous Epithelial Cells Mod /LPF Urine Bacteria Few /HPF (0-FEW) Vitamin B12 Level 384 pg/mL (247-911) Thyroid Stimulating Hormone (TSH) 23.897 uIU/mL (0.358-3.74) Laboratory Tests Test 11/24/20 02:44 11/24/20 05:02 11/24/20 06:35 11/24/20 08:55 White Blood Count 6.2 x10^3/uL (4.0-11.0) Red Blood Count 4.64 x10^6/uL (3.50-5.40) Hemoglobin 15.3 g/dL (12.0-15.5) Hematocrit 45.2 % (36.0-47.0) Mean Corpuscular Volume 97 fL (79-100) Mean Corpuscular Hemoglobin 33 pg (25-35) Mean Corpuscular Hemoglobin Concent 34 g/dL (31-37) Red Cell Distribution Width 14.8 % (11.5-14.5) Platelet Count 243 x10^3/uL (140-400) Neutrophils (%) (Auto) 52 % (31-73) Lymphocytes (%) (Auto) 36 % (24-48) Monocytes (%) (Auto) 9 % (0-9) Eosinophils (%) (Auto) 2 % (0-3) Basophils (%) (Auto) 1 % (0-3) Neutrophils # (Auto) 3.2 x10^3/uL (1.8-7.7) Lymphocytes # (Auto) 2.2 x10^3/uL (1.0-4.8) Monocytes # (Auto) 0.5 x10^3/uL (0.0-1.1) Eosinophils # (Auto) 0.1 x10^3/uL (0.0-0.7) Basophils # (Auto) 0.1 x10^3/uL (0.0-0.2) D-Dimer (Bel) < 0.27 ug/mlFEU Sodium Level 144 mmol/L (136-145) Potassium Level 3.9 mmol/L (3.5-5.1) Chloride Level 106 mmol/L (98-107) Carbon Dioxide Level 28 mmol/L (21-32) Anion Gap 10 (6-14) Blood Urea Nitrogen 13 mg/dL (7-20) Creatinine 0.9 mg/dL (0.6-1.0) Estimated GFR (Cockcroft-Gault) 64.3 BUN/Creatinine Ratio 14 (6-20) Glucose Level 96 mg/dL (70-99) Calcium Level 9.0 mg/dL (8.5-10.1) Magnesium Level 2.2 mg/dL (1.8-2.4) Total Bilirubin 0.3 mg/dL (0.2-1.0) Aspartate Amino Transf (AST/SGOT) 17 U/L (15-37) Alanine Aminotransferase (ALT/SGPT) 24 U/L (14-59) Alkaline Phosphatase 106 U/L (46-116) Troponin I Quantitative < 0.017 ng/mL (0.000-0.055) < 0.017 ng/mL (0.000-0.055) < 0.017 ng/mL (0.000-0.055) UB-Wbk-Y-Type Natriuretic Peptide 45 pg/mL (0-124) Total Protein 7.2 g/dL (6.4-8.2) Albumin 3.8 g/dL (3.4-5.0) Albumin/Globulin Ratio 1.1 (1.0-1.7) Triglycerides Level 141 mg/dL (0-150) Cholesterol Level 222 mg/dL (0-200) LDL Cholesterol, Calculated 155 mg/dL (0-100) VLDL Cholesterol, Calculated 28 mg/dL (0-40) Non-HDL Cholesterol Calculated 183 mg/dL (0-129) HDL Cholesterol 39 mg/dL (40-60) Cholesterol/HDL Ratio 5.7 Lipase 138 U/L (73-393) Urine Collection Type Unknown Urine Color Yellow Urine Clarity Clear Urine pH 6.0 (<5.0-8.0) Urine Specific [place] >=1.030 (1.000-1.030) Urine Protein Negative mg/dL (NEG-TRACE) Urine Glucose (UA) Negative mg/dL (NEG) Urine Ketones (Stick) Negative mg/dL (NEG) Urine Blood Negative (NEG) Urine Nitrite Negative (NEG) Urine Bilirubin Negative (NEG) Urine Urobilinogen Dipstick 0.2 mg/dL (0.2 mg/dL) Urine Leukocyte Esterase Negative (NEG) Urine RBC 0 /HPF (0-2) Urine WBC Occ /HPF (0-4) Urine Squamous Epithelial Cells Mod /LPF Urine Bacteria Few /HPF (0-FEW) Vitamin B12 Level 384 pg/mL (247-911) Thyroid Stimulating Hormone (TSH) 23.897 uIU/mL (0.358-3.74) Brief Hospital Course Ms Ag is a 60yo F w/ PMHx hypertension, hypothyroid, RLE DVT (peroneal) and pulmonary emboli, anemia, GERD who presents to the ED on 11/23/2020 overnight c/o sudden onset chest pain and right leg pain. She awoke at 10 PM with sudden onset 10/10 sharp chest pain located substernally, non-radiating. Patient has not done or taken anything that is improved this pain. This pain is reproducible by pressing down on sternum. Food and liquid worsen it. She did have EGD and colonoscopy planned in September 2020 Patient also complains of right leg pain located in her calf to mid thigh, this began 2 days ago and has been increasing. Patient has a past medical history of DVT which he takes Xarelto as well as pulmonary embolism. Patient denies any fever, chills, nausea, vomiting. Patient was driven to the emergency department by daughter. She underwent CTPA which was negative for pulmonary emboli. Still with bibasilar discoid atelectasis. EKG normal sinus rhythm with rate of 67 bpm, leftward axis meets criteria for left ventricular hypertrophy. V1 V2 Q and ST segment consistent with likely prior anteroseptal infarct Labs with WBC 6.2, Hb 15.3, platelets 243, NA 144, K3.9, BUN 13, CR 0.9, glucose 96, mag 2.2, lipase 138, LFTs within normal laboratory limits, D-dimer 0, BNP 45, trop x2 were 0. Admitted for further observation. TSH returned 23. Pain improved slightly with topical voltaren. Pain reproducible consistent with costochondritis. LDL returned at 155, started on atorvastatin per cardiology. Of note she has been taking her levothyroxine with all her other medications and had a recent increase in dosing. I have advised her taking sucralfate, iron and a proton pump inhibitor is probably causing malabsorption of the medication and requiring higher doses, whereas taking it separately would be more appropriate. She does have a med-minder at home with 3 daily slots and currently only uses the morning and evening slots. I have advised her to use the middle slot for levothyroxine as a reminder this should be taken separately, preferably on an empty stomach. Right ankle radiograph performed, I cannot visualize a fracture or soft tissue swelling. Limited echocardiogram performed as well, read pending. Consults: Cardiology Problem list: Chest pain - Likely GERD vs costochondritis more likely, less likely ACS, ruled out PE. Cardiology consulted. Topical voltaren. PPI. Telemetry and final troponin reviewed without abnormalities Hypothyroidism - TSH > 20, she is symptomatic. Needs levothyroxine does timing adjustment Hypertension - cont home meds RLE DVT and pulmonary emboli - on repeat CTPA no emboli noted. Does have right LE peroneal DVT GERD - needs PPI RLE pain - tib-fib, ankle XR without fracture Greater than 70 minutes spent on same day admit and d/c Discharge Information Condition at Discharge: Improved Follow Up: Weeks Disposition/Orders: D/C to Home Scheduled Ascorbate Calcium (Vitamin C) 500 Mg Tablet, 500 MG PO DAILY for supplement, (Reported) Entered as Reported by: VARGHESE VILLANUEVA on 05/06/20 1354 Last Action: Converted on 11/24/20752 by KARRI VALDEZ MD Ferrous Sulfate (Ferrous Sulfate) 325 Mg Tablet, 1 TAB PO DAILY for anemia, #30 Ref 3 (Reported) Entered as Reported by: Roland Parada on 11/24/20 0609 Last Action: Continued on 11/24/20752 by KARRI VALDEZ MD Levothyroxine Sodium (Levothyroxine Sodium) 125 Mcg Tablet, 125 MCG PO DAILY for hypothyroid, (Reported) Entered as Reported by: KIKO BYNUM RN on 03/19/19 5966 Last Action: Continued on 11/24/20752 by KARRI VALDEZ MD Lisinopril (Lisinopril) 5 Mg Tablet, 1 TAB PO DAILY for htn, #30 Ref 5 (Reported) Entered as Reported by: Roland Parada on 11/24/20610 Last Action: Continued on 11/24/20752 by KARRI VALDEZ MD Pantoprazole Sodium (Pantoprazole Sodium ) 40 Mg Tablet.dr, 40 MG PO DAILYAC for GERD, (Reported) Entered as Reported by: Roland Parada on 11/24/20609 Last Action: Continued on 11/24/20752 by KARRI VALDEZ MD Primidone (Primidone) 250 Mg Tablet, 250 MG PO DAILY for anxiety, (Reported) Entered as Reported by: YAQUELIN PARISI on 09/25/18 1538 Last Action: Continued on 11/24/20752 by KARRI VALDEZ MD Primidone (Mysoline) 250 Mg Tablet, 250 MG PO DAILY for shakes, (Reported) Entered as Reported by: Roland Parada on 11/24/20611 Last Action: New Order on 11/24/20611 by Roland Parada Rivaroxaban (Xarelto) 20 Mg Tablet, 1 TAB PO QHS for for blood clots for 30 Days, #30 Ref 0 (Reported) with food Entered as Reported by: Roland Parada on 11/24/20609 Last Action: Converted on 11/24/20752 by KARRI VALDEZ MD Sucralfate (Sucralfate) 1 Gm Tablet, 1 GM PO BID for other, (Reported) Entered as Reported by: VARGHESE VILLANUEVA on 05/06/20 1354 Last Action: Continued on 11/24/20752 by KARRI VALDEZ MD Valacyclovir Hcl (Valacyclovir) 500 Mg Tablet, 1 TAB PO DAILY for unknown, #90 Ref 3 (Reported) Entered as Reported by: YAQUELIN PARIIS on 09/25/18 2900 Last Action: Continued on 11/24/20752 by KARRI VALDEZ MD Scheduled PRN Albuterol Sulfate (Proair Hfa Inhaler) 8.5 Gm Hfa.aer.ad, 2 PUFF IH PRN Q4-6HRS PRN for wheezing for 21 Days, #1 Ref 0 (Reported) Entered as Reported by: VARGHESE VILLANUEVA on 05/06/20 135 Last Action: Continued on 11/24/20 0753 by KARRI VALDEZ MD Justicifation of Admission Dx: Justifications for Admission: Justification of Admission Dx: Yes KARRI VALDEZ MD Nov 24, 2020 15:20
--- NOTE | 2020-11-24 15:53 | CARD ---
MR#: [id number] Date of Study: 11/24/2020 Ordering Physician: TORIE SLOAN, Referring Physician: TORIE SLOAN Tech: Ashley Mixon [facility] APPROVED REPORT EXAM: Two-dimensional and M-mode echocardiogram with Doppler and color Doppler. Other Information Quality : AverageHR: 55bpm Rhythm : NSR INDICATION Cardiomyopathy Chest Pain RISK FACTORS Hypertension Obesity 2D DIMENSIONS Left Atrium(2D)3.7 (1.6-4.0cm)IVSd0.7 (0.7-1.1cm) Aortic Root(2D)2.8 (2.0-3.7cm)LVDd4.6 (3.9-5.9cm) LVOT Diameter2.0 (1.8-2.4cm)PWd0.9 (0.7-1.1cm) LVDs3.2 (2.5-4.0cm)FS (%) 30.7 % SV56.2 mlLVEF(%)58.3 (>50%) Tricuspid Valve TR P. [id number]/sTR Peak Gr.26mmHg LEFT VENTRICLE The left ventricle is normal size. There is normal left ventricular wall thickness. The left ventricu lar systolic function is mildly impaired. The ejection fraction is estimated at 45-50%, unchanged com pared to prior echo. There is global hypokinesis of the left ventricle. RIGHT VENTRICLE The right ventricle is normal size. There is normal right ventricular wall thickness. The right ventr icular systolic function is normal. ATRIA The left atrium size is normal. The right atrium size is normal. The interatrial septum is intact wit h no evidence for an atrial septal defect or patent foramen ovale as noted on 2-D or Doppler imaging. AORTIC VALVE The aortic valve is normal in structure and function. There is no significant aortic valvular stenosi s. MITRAL VALVE The mitral valve is normal in structure and function. There is no evidence of mitral valve prolapse. There is no mitral valve stenosis. TRICUSPID VALVE The tricuspid valve is normal in structure and function. Doppler and Color Flow revealed mild tricusp id regurgitation. Estimated PAP 30 mmHg. There is no tricuspid valve stenosis. GREAT VESSELS The aortic root is normal in size. PERICARDIAL EFFUSION There is no evidence of significant pericardial effusion. Critical Notification Critical Value: No <Conclusion> The left ventricular systolic function is mildly impaired. The ejection fraction is estimated at 45-50%, unchanged compared to prior echo. Mild tricuspid regurgitation. Estimated PAP 30 mmHg. There is no evidence of significant pericardial effusion. Signed by : Jaspreet Branch, Electronically Approved : 11/24/2020 15:53:18
--- NOTE | 2020-11-24 16:00 | RAD ---
XR EXAM OF ANKLE_RIGHT 2 VIEWS History: Reason: Pain, injury, no known injury / Spl. Instructions: / History: Technique: 2 views right ankle Comparison: None. Findings: Normal alignment. No fracture. Plantar calcaneal spur. Mild medial malleolus spurring. Impression: 1. No acute osseous abnormality. Electronically signed by: Dom Mccray DO (11/24/2020 3:58 PM) [id number]
[2020-11-24] MEDS ORDERED: ATOR10TA60 PO (16:15)
[2020-11-24] MEDS ORDERED: RIVAROXABAN 10 MG TABLET. PO SCH (18:00)
[2020-11-24] MEDS ORDERED: ATORVASTATIN CALCIUM 10 MG TABLET. PO SCH (21:00)
== END 2020-11-24 17:05 | disposition home or self-care (01) ==
LOC: ER 02:31 → 2 SOUTH 05:00
PROVIDERS: ADMIT Family Medicine; ATTEND Family Medicine
DX: R07.89 Other chest pain (principal); I10 Essential (primary) hypertension; E03.9 Hypothyroidism, unspecified; I82.401 Acute embolism and thrombosis of unspecified deep veins of right lower extremity; I82.459 Acute embolism and thrombosis of unspecified peroneal vein; I26.99 Other pulmonary embolism without acute cor pulmonale; E78.00 Pure hypercholesterolemia, unspecified; E78.5 Hyperlipidemia, unspecified; E88.81 Metabolic syndrome and other insulin resistance; I25.2 Old myocardial infarction; J98.11 Atelectasis; K21.9 Gastro-esophageal reflux disease without esophagitis; K22.70 Barrett's esophagus without dysplasia; K44.9 Diaphragmatic hernia without obstruction or gangrene; K90.9 Intestinal malabsorption, unspecified; M19.90 Unspecified osteoarthritis, unspecified site; F41.9 Anxiety disorder, unspecified; D64.9 Anemia, unspecified; M94.0 Chondrocostal junction syndrome [Tietze]; Z86.711 Personal history of pulmonary embolism; Z86.718 Personal history of other venous thrombosis and embolism; Z79.82 Long term (current) use of aspirin; Z90.49 Acquired absence of other specified parts of digestive tract; Z98.51 Tubal ligation status
CPT/HCPCS: 36415; 71275; 73600; 80053; 80061; 81001; 82607; 83690; 83735; 83880; 84443; 84484; 85025; 85379; 93005; 93308; 96361; 96374; 99285; G0378; J3010; J7030; J7613; Q9967; G0379

== ENCOUNTER 2020-12-07 13:03 | Inpatient (IN) | payer OTHER ==
[~2020-12-07] VITALS: Ht 152.4 cm; Wt 82.0 kg
[~2020-12-07 13:03] MED LIST changes: +ATOR10TA60 PO; +LISI-517 PO; +PRIM250T28 PO; +RIVA20TA2 PO
[2020-12-07] MEDS ORDERED: IV NORMAL SALINE 1000ML BAG 1,000 ML IV SCH (13:30)
--- NOTE | 2020-12-07 13:43 | EKG ---
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
--- NOTE | 2020-12-07 13:50 | RAD ---
EXAMINATION: CT STROKE HEAD W/O (CT HEAD WITHOUT IV CONTRAST) CLINICAL HISTORY: Left-sided facial droop, weakness, dizziness ED 16 / Spl. Instruct ions: / History: TECHNIQUE: Serial axial images without IV contrast were obtained from the vertex to the foramen magnu m. CT Dose Reduction Employed: One or more of the following individualized dose reduction techniques wer e utilized for this examination: 1. Automated exposure control 2. Adjustment of the mA and/or kV ac cording to patient size 3. Use of iterative reconstruction technique. COMPARISON: 08/18/2020 FINDINGS: Acute Change: No evidence of an acute infarct or other acute parenchymal process. Hemorrhage: No evidence of acute intracranial hemorrhage. Mass Lesion/Mass Effect: No evidence of intracranial mass or extraaxial fluid collection. No signific ant mass effect. Parenchyma: Mild generalized volume loss. Parenchyma otherwise within normal limits for age. Ventricles: Ventricles within normal limits for age. Paranasal Sinuses and Skull Base: Visualized paranasal sinuses clear. Visualized skull base and soft tissues unremarkable. IMPRESSION: No evidence of acute intracranial abnormality. FOR INTERNAL CODING PURPOSES Critical result: Findings discussed with Quentin Cho at 12/07/2020 1:43 PM. RESULT CODE: (C) Electronically signed by: Sandro Ramos DO (12/07/2020 1:47 PM) [id number]
[2020-12-07 13:57] LABS: BASO % 1 % (0-3); EOS # 0.1 x10^3/uL (0.0-0.7); EOS % 1 % (0-3); HEMOGLOBIN 14.3 g/dL (12.0-15.5); LYMPH # 1.6 x10^3/uL (1.0-4.8); LYMPH % 29 % (24-48); MEAN CORPUSCULAR HEMOGLOBIN 33 pg (25-35); MEAN CORPUSCULAR HGB CONC 34 g/dL (31-37); MEAN CORPUSCULAR VOLUME 98 fL (79-100); MONO # 0.4 x10^3/uL (0.0-1.1); MONO % 8 % (0-9); NEUT # 3.5 x10^3/uL (1.8-7.7); NEUT % 62 % (31-73); PLATELET COUNT 231 x10^3/uL (140-400); RED BLOOD COUNT 4.29 x10^6/uL (3.50-5.40); RED CELL DISTRIBUTION WIDTH 13.5 % (11.5-14.5); WHITE BLOOD COUNT 5.7 x10^3/uL (4.0-11.0)
[2020-12-07 14:11] LABS: PROTHROMBIN TIME PATIENT 15.5 SEC (11.7-14.0)
[2020-12-07 14:12] LABS: ANION GAP 8 (6-14); BLOOD UREA NITROGEN 15 mg/dL (7-20); BUN/CREATININE RATIO 17 (6-20); CALCIUM 8.5 mg/dL (8.5-10.1); CARBON DIOXIDE 27 mmol/L (21-32); CHLORIDE 109 mmol/L (98-107); CREATININE 0.9 mg/dL (0.6-1.0); GFR 64.3; GLUCOSE 75 mg/dL (70-99); POTASSIUM 3.5 mmol/L (3.5-5.1); SODIUM 144 mmol/L (136-145)
[2020-12-07 14:17] LABS: ALBUMIN 3.9 g/dL (3.4-5.0); ALBUMIN/GLOBULIN RATIO 1.4 (1.0-1.7); ALK PHOS 94 U/L (46-116); AST (SGOT) 16 U/L (15-37); TOTAL BILIRUBIN 0.3 mg/dL (0.2-1.0); TOTAL PROTEIN 6.7 g/dL (6.4-8.2)
[2020-12-07 14:19] LABS: ALT (SGPT) < 6 U/L (14-59)
--- NOTE | 2020-12-07 14:25 | RAD ---
EXAM: CHEST 1 VIEW History: Weakness COMPARISON: 05/17/2020 TECHNIQUE: Single portable radiograph of the chest FINDINGS: Mild cardiomegaly. Mild prominent bilateral interstitial lung markings. The costophrenic s ulci are clear and well demarcated. IMPRESSION: Minimal prominent bilateral interstitial lung markings likely mild congestive changes or interstitial infiltrates. Electronically signed by: Adi Robins MD (12/07/2020 2:22 PM) [id number]
[2020-12-07] MEDS ORDERED: CONTRAST GIVEN. MC PRN (14:45)
[2020-12-07] MEDS ORDERED: IOHEXOL 300 MG/ML 100ML VIAL. IV ONE (14:45)
[2020-12-07] MEDS ORDERED: IOHEXOL 350 MG/ML 100 ML VIAL. IV ONE (14:45)
--- NOTE | 2020-12-07 15:27 | RAD ---
Exam: CTA head and neck INDICATION: Left-sided facial droop TECHNIQUE: Sequential axial images through the head and neck obtained following the administration of 75 mL of Isovue-370 IV contrast. Sagittal and coronal reformatted images were reconstructed from the axial data and reviewed. 3-D reformatted images were reconstructed from the axial data and reviewed. Exposure: One or more of the following in the visualized dose reduction techniques were utilized for this examination: 1. Automated exposure control 2. Adjustment of the MA and/or KV according to patient size 3. Use of iterative of reconstructive technique Comparisons: CT head without contrast same day FINDINGS: CTA NECK: Visualized portions of the thoracic aorta are unremarkable. Standard three-vessel aortic arch anatomy . Right common carotid artery is patent without evidence of stenosis, occlusion or aneurysm. Cervical s egment of the right internal carotid artery is patent without evidence of stenosis, occlusion or abno rmality. Left common carotid artery is patent without evidence of stenosis, occlusion or aneurysm. Cervical se gment of the left internal carotid artery is patent without evidence of stenosis, occlusion or aneury sm. Right vertebral artery is patent without evidence of stenosis, occlusion or aneurysm. Left vertebral artery is patent without evidence of stenosis, occlusion or aneurysm. Visualized paraspinal soft tissue are unremarkable. CTA head: Intracranial segments of the right internal carotid artery are patent without evidence of stenosis, o cclusion or aneurysm. Right MCA is patent. Right TITO is patent. Intracranial segments of the left internal carotid artery are patent without evidence of stenosis, oc clusion or aneurysm. Left MCA is patent. Left TITO is patent. Basilar artery is patent without evidence of stenosis, occlusion or aneurysm. extended insurance clerk are patent bilater ally. IMPRESSION: Patent intracranial cervical arterial vasculature without evidence of stenosis, occlusion or aneurysm . FOR INTERNAL CODING PURPOSES Critical result: Findings discussed with Mayra at 12/07/2020 3:20 PM. RESULT CODE: (C) Electronically signed by: Cindi Mahmood MD (12/07/2020 3:25 PM) [facility]
[2020-12-07] MEDS ORDERED: ONDANSETRON PF 4 MG/2 ML VIAL. IV PRN (15:45)
[2020-12-07] MEDS ORDERED: MORPHINE SULFATE 4 MG/ML VIAL. IV PRN (15:45)
--- NOTE | 2020-12-07 17:18 | PDOC1 ---
History and Physical Date of Admission Date of Admission DATE: 12/07/20 TIME: 17:02 Identification/Chief Complaint Chief Complaint Weakness Source Source: Patient History of Present Illness History of Present Illness Patient is a 60-year-old female with past medical history HLD, DVT, who presents to the ED with complaints of weakness for the past 2-3 days. She reports associated dizziness this morning, worse with ambulation. 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 CTA head neck and CT head without acute process. She lives at home with her [id number]. Upon my evaluation in the ER I was concerned about some possible right-sided facial droop. Will need patient for further medical management. Past Medical History Cardiovascular: Hyperlipidemia Pulmonary: Pulmonary embolus CENTRAL NERVOUS SYSTEM: Other GI: Constipation, GERD, Other Heme/Onc: Anemia NOS Hepatobiliary: Cholelithiasis Psych: Anxiety Musculoskeletal: low back pain, Osteoarthritis Infectious disease: Herpes simplex2 Renal/: UTI Endocrine: Hypothyroidism Past Surgical History Past Surgical History: Cholecystectomy, Tubal Ligation Family History Family History: Heart Disease Social History Smoke: No ALCOHOL: none Drugs: None Current Medications Current Medications Current Medications Sodium Chloride 1,000 ml @ 1,000 mls/hr Q1H IV Last administered on 12/07/20at 14:49; Start 12/07/20 at 13:30; Stop 12/07/20 at 14:29; Status DC Iohexol (Omnipaque 350 Mg/ml) 75 ml 1X ONCE IV ; Start 12/07/20 at 14:45; Stop 12/07/20 at 14:46; Status DC Info (CONTRAST GIVEN -- Rx MONITORING) 1 each PRN DAILY PRN MC SEE COMMENTS; Start 12/07/20 at 14:45; Stop 12/09/20 at 14:44 Iohexol (Omnipaque 300 Mg/ml) 75 ml 1X ONCE IV Last administered on 12/07/20at 14:51; Start 12/07/20 at 14:45; Stop 12/07/20 at 14:46; Status DC Ondansetron HCl (Zofran) 4 mg PRN Q8HRS PRN IV NAUSEA/VOMITING; Start 12/07/20 at 15:45; Stop 12/08/20 at 15:44 Morphine Sulfate (Morphine Sulfate) 4 mg PRN Q2HR PRN IV PAIN; Start 12/07/20 at 15:45; Stop 12/08/20 at 15:44 Active Scripts Active Atorvastatin Calcium 10 Mg Tablet 20 Mg PO QHS 30 Days Reported Mysoline (Primidone) 250 Mg Tablet 250 Mg PO DAILY Lisinopril 5 Mg Tablet 1 Tab PO DAILY Xarelto (Rivaroxaban) 20 Mg Tablet 1 Tab PO QHS 30 Days with food Pantoprazole Sodium (Pantoprazole Sodium) 40 Mg Tablet.dr 40 Mg PO DAILYAC Ferrous Sulfate 325 Mg Tablet 1 Tab PO DAILY Proair Hfa Inhaler (Albuterol Sulfate) 8.5 Gm Hfa.aer.ad 2 Puff IH PRN Q4-6HRS PRN 21 Days Vitamin C (Ascorbate Calcium) 500 Mg Tablet 500 Mg PO DAILY Sucralfate 1 Gm Tablet 1 Gm PO BID Levothyroxine Sodium 125 Mcg Tablet 125 Mcg PO DAILY Valacyclovir (Valacyclovir Hcl) 500 Mg Tablet 1 Tab PO DAILY Allergies Allergies: Coded Allergies: No Known Drug Allergies (Unverified , 09/18/20) ROS Review of System GENERAL: No history of weight change, weakness or fevers. SKIN: No bruising, hair changes or rashes. EYES: No blurred, double or loss of vision. NOSE AND THROAT: No history of nosebleeds, hoarseness or sore throat. HEART: Denies chest pain, denies palpitations. LUNGS: Denies cough, hemoptysis, wheezing or shortness of breath. GASTROINTESTINAL: Abdominal pain, nausea, vomiting. GENITOURINARY: Denies dysuria, frequency, urgency, hematuria. NEUROLOGIC: Denies history of numbness, tingling, tremor or weakness. PSYCHIATRIC: Denies anxiety, denies depression. ENDOCRINE: No history of heat or cold intolerance, polyuria or polydipsia. EXTREMITIES: Denies muscle weakness, joint pain, pain on walking or stiffness. Physical Exam Physical Exam General: Alert, Oriented X3, Cooperative, No acute distress HEENT: Right facial droop. PERRLA, EOMI Lungs: Clear to auscultation, Normal air movement Heart: RRR, no murmurs Cardiovascular: S1, S2 Abdomen: Normal bowel sounds, Soft, No tenderness Extremities: No clubbing, No cyanosis Skin: No rashes, No significant lesion Neuro: Strength bilateral upper extremities 3/5. Strength bilateral lower extremities 5/5. Normal speech, Normal tone, Sensation intact Psych/Mental Status: Mental status NL, Mood NL Vitals Vitals Vital Signs Date Time Temp Pulse Resp B/P (MAP) Pulse Ox O2 Delivery O2 Flow Rate FiO2 12/07/20 16:17 68 122/59 (80) 97 Room Air 12/07/20 14:21 23 12/07/20 13:10 97.3 97.3 Labs Labs Laboratory Tests Test 12/07/20 13:21 12/07/20 13:46 12/07/20 14:14 Glucose (Fingerstick) 114 mg/dL (70-99) White Blood Count 5.7 x10^3/uL (4.0-11.0) Red Blood Count 4.29 x10^6/uL (3.50-5.40) Hemoglobin 14.3 g/dL (12.0-15.5) Hematocrit 42.0 % (36.0-47.0) Mean Corpuscular Volume 98 fL (79-100) Mean Corpuscular Hemoglobin 33 pg (25-35) Mean Corpuscular Hemoglobin Concent 34 g/dL (31-37) Red Cell Distribution Width 13.5 % (11.5-14.5) Platelet Count 231 x10^3/uL (140-400) Neutrophils (%) (Auto) 62 % (31-73) Lymphocytes (%) (Auto) 29 % (24-48) Monocytes (%) (Auto) 8 % (0-9) Eosinophils (%) (Auto) 1 % (0-3) Basophils (%) (Auto) 1 % (0-3) Neutrophils # (Auto) 3.5 x10^3/uL (1.8-7.7) Lymphocytes # (Auto) 1.6 x10^3/uL (1.0-4.8) Monocytes # (Auto) 0.4 x10^3/uL (0.0-1.1) Eosinophils # (Auto) 0.1 x10^3/uL (0.0-0.7) Basophils # (Auto) 0.0 x10^3/uL (0.0-0.2) Prothrombin Time 15.5 SEC (11.7-14.0) Prothromb Time International Ratio 1.3 (0.8-1.1) Activated Partial Thromboplast Time 32 SEC (24-38) Sodium Level 144 mmol/L (136-145) Potassium Level 3.5 mmol/L (3.5-5.1) Chloride Level 109 mmol/L (98-107) Carbon Dioxide Level 27 mmol/L (21-32) Anion Gap 8 (6-14) Blood Urea Nitrogen 15 mg/dL (7-20) Creatinine 0.9 mg/dL (0.6-1.0) Estimated GFR (Cockcroft-Gault) 64.3 BUN/Creatinine Ratio 17 (6-20) Glucose Level 75 mg/dL (70-99) Calcium Level 8.5 mg/dL (8.5-10.1) Total Bilirubin 0.3 mg/dL (0.2-1.0) Aspartate Amino Transf (AST/SGOT) 16 U/L (15-37) Alanine Aminotransferase (ALT/SGPT) < 6 U/L (14-59) Alkaline Phosphatase 94 U/L (46-116) Troponin I Quantitative < 0.017 ng/mL (0.000-0.055) Total Protein 6.7 g/dL (6.4-8.2) Albumin 3.9 g/dL (3.4-5.0) Albumin/Globulin Ratio 1.4 (1.0-1.7) Lactic Acid Level 1.5 mmol/L (0.4-2.0) Laboratory Tests Test 12/07/20 13:21 12/07/20 13:46 12/07/20 14:14 Glucose (Fingerstick) 114 mg/dL (70-99) White Blood Count 5.7 x10^3/uL (4.0-11.0) Red Blood Count 4.29 x10^6/uL (3.50-5.40) Hemoglobin 14.3 g/dL (12.0-15.5) Hematocrit 42.0 % (36.0-47.0) Mean Corpuscular Volume 98 fL (79-100) Mean Corpuscular Hemoglobin 33 pg (25-35) Mean Corpuscular Hemoglobin Concent 34 g/dL (31-37) Red Cell Distribution Width 13.5 % (11.5-14.5) Platelet Count 231 x10^3/uL (140-400) Neutrophils (%) (Auto) 62 % (31-73) Lymphocytes (%) (Auto) 29 % (24-48) Monocytes (%) (Auto) 8 % (0-9) Eosinophils (%) (Auto) 1 % (0-3) Basophils (%) (Auto) 1 % (0-3) Neutrophils # (Auto) 3.5 x10^3/uL (1.8-7.7) Lymphocytes # (Auto) 1.6 x10^3/uL (1.0-4.8) Monocytes # (Auto) 0.4 x10^3/uL (0.0-1.1) Eosinophils # (Auto) 0.1 x10^3/uL (0.0-0.7) Basophils # (Auto) 0.0 x10^3/uL (0.0-0.2) Prothrombin Time 15.5 SEC (11.7-14.0) Prothromb Time International Ratio 1.3 (0.8-1.1) Activated Partial Thromboplast Time 32 SEC (24-38) Sodium Level 144 mmol/L (136-145) Potassium Level 3.5 mmol/L (3.5-5.1) Chloride Level 109 mmol/L (98-107) Carbon Dioxide Level 27 mmol/L (21-32) Anion Gap 8 (6-14) Blood Urea Nitrogen 15 mg/dL (7-20) Creatinine 0.9 mg/dL (0.6-1.0) Estimated GFR (Cockcroft-Gault) 64.3 BUN/Creatinine Ratio 17 (6-20) Glucose Level 75 mg/dL (70-99) Calcium Level 8.5 mg/dL (8.5-10.1) Total Bilirubin 0.3 mg/dL (0.2-1.0) Aspartate Amino Transf (AST/SGOT) 16 U/L (15-37) Alanine Aminotransferase (ALT/SGPT) < 6 U/L (14-59) Alkaline Phosphatase 94 U/L (46-116) Troponin I Quantitative < 0.017 ng/mL (0.000-0.055) Total Protein 6.7 g/dL (6.4-8.2) Albumin 3.9 g/dL (3.4-5.0) Albumin/Globulin Ratio 1.4 (1.0-1.7) Lactic Acid Level 1.5 mmol/L (0.4-2.0) Images Images PORTABLE CHEST 1V EXAM: CHEST 1 VIEW History: Weakness COMPARISON: 05/17/2020 TECHNIQUE: Single portable radiograph of the chest FINDINGS: Mild cardiomegaly. Mild prominent bilateral interstitial lung markings. The costophrenic sulci are clear and well demarcated. IMPRESSION: Minimal prominent bilateral interstitial lung markings likely mild congestive changes or interstitial infiltrates. CT CODE STROKE HEAD WO EXAMINATION: CT STROKE HEAD W/O (CT HEAD WITHOUT IV CONTRAST) CLINICAL HISTORY: Left-sided facial droop, weakness, dizziness ED 16 / [facility]. Instructions: / History: TECHNIQUE: Serial axial images without IV contrast were obtained from the vertex to the foramen magnum. CT Dose Reduction Employed: One or more of the following individualized dose reduction techniques were utilized for this examination: 1. Automated exposure control 2. Adjustment of the mA and/or kV according to patient size 3. Use of iterative reconstruction technique. COMPARISON: 08/18/2020 FINDINGS: Acute Change: No evidence of an acute infarct or other acute parenchymal process. Hemorrhage: No evidence of acute intracranial hemorrhage. Mass Lesion/Mass Effect: No evidence of intracranial mass or extraaxial fluid collection. No significant mass effect. Parenchyma: Mild generalized volume loss. Parenchyma otherwise within normal limits for age. Ventricles: Ventricles within normal limits for age. Paranasal Sinuses and Skull Base: Visualized paranasal sinuses clear. Visualized skull base and soft tissues unremarkable. IMPRESSION: No evidence of acute intracranial abnormality. CT ANGIOGRAPHY HEAD AND NECK Exam: CTA head and neck INDICATION: Left-sided facial droop TECHNIQUE: Sequential axial images through the head and neck obtained following the administration of 75 mL of Isovue-370 IV contrast. Sagittal and coronal reformatted images were reconstructed from the axial data and reviewed. 3-D reformatted images were reconstructed from the axial data and reviewed. Exposure: One or more of the following in the visualized dose reduction techniques were utilized for this examination: 1. Automated exposure control 2. Adjustment of the MA and/or KV according to patient size 3. Use of iterative of reconstructive technique Comparisons: CT head without contrast same day FINDINGS: CTA NECK: Visualized portions of the thoracic aorta are unremarkable. Standard three- vessel aortic arch anatomy. Right common carotid artery is patent without evidence of stenosis, occlusion or aneurysm. Cervical segment of the right internal carotid artery is patent without evidence of stenosis, occlusion or abnormality. Left common carotid artery is patent without evidence of stenosis, occlusion or aneurysm. Cervical segment of the left internal carotid artery is patent without evidence of stenosis, occlusion or aneurysm. Right vertebral artery is patent without evidence of stenosis, occlusion or aneurysm. Left vertebral artery is patent without evidence of stenosis, occlusion or aneurysm. Visualized paraspinal soft tissue are unremarkable. CTA head: Intracranial segments of the right internal carotid artery are patent without evidence of stenosis, occlusion or aneurysm. Right MCA is patent. Right TITO is patent. Intracranial segments of the left internal carotid artery are patent without evidence of stenosis, occlusion or aneurysm. Left MCA is patent. Left TITO is patent. Basilar artery is patent without evidence of stenosis, occlusion or aneurysm. housekeeper cleaning cooking are patent bilaterally. IMPRESSION: Patent intracranial cervical arterial vasculature without evidence of stenosis, occlusion or aneurysm. VTE Prophylaxis Ordered VTE Prophylaxis Devices: No VTE Pharmacological Prophylaxi: Yes Assessment/Plan Assessment/Plan Acute CVA Weakness Physical debility Plan: CTA head and neck and CT head on admission without acute findings Will admit patient with neurology consult Lipid panel and vitamin B12 pending PT/OT Resume home medications Will hold primidone as this interacts with Xarelto to decrease Xarelto levels and efficacy. FEN - NPO until bedside swallow, then cardiac diet PPX - Xarelto FULL CODE Dispo - inpatient for above; patient names her daughter (Elena) as her surrogate decision-maker. Advance Care Planning: Total time spent [id number] with patient greater than 17 minutes in discussion with goals of care, comfort care, end-of-life care, pain management, code status. Justifications for Admission Other Justification PE and low Hb JUJU RIVERA MD Dec 07, 2020 17:18
[2020-12-07] MEDS ORDERED: MAGNESIUM HYDROXIDE 2,400 MG/30 ML ORAL.SUSP. PO PRN (17:30)
[2020-12-07] MEDS ORDERED: BISACODYL 10 MG SUPP.RECT. PR PRN (17:30)
[2020-12-07] MEDS ORDERED: ACETAMINOPHEN 325 MG TABLET. PO PRN (17:30)
[2020-12-07] MEDS ORDERED: ONDANSETRON PF 4 MG/2 ML VIAL. IVP PRN (17:30)
[2020-12-07] MEDS ORDERED: CALCIUM CARBONATE 500 MG TAB.CHEW PO PRN (17:30)
[2020-12-07] MEDS ORDERED: MAG HYDROX/ALUMINUM HYD/SIMETH 30 ML ORAL.SUSP PO PRN (17:30)
[2020-12-07 17:36] LABS: CHOLESTEROL/HDL RATIO 3.8
[2020-12-07 19:30] VITALS: BP 105/64
[2020-12-07] MEDS: ATORVASTATIN CALCIUM 20 MG TABLET PO SCH (21:57)
[2020-12-07] MEDS: HYDROcodone/APAP 5/325MG 1 TAB TABLET PO PRN (21:57)
[2020-12-07] MEDS: RIVAROXABAN 10 MG TABLET. PO SCH (22:00)
[2020-12-07 23:00] VITALS: BP 120/56
[2020-12-08] VITALS (8 sets, daily range): BP systolic 83–140; BP diastolic 43–77
[2020-12-08] MEDS ORDERED: IV NORMAL SALINE 1000ML BAG 1,000 ML IV ONE (03:30)
[2020-12-08] MEDS: LEVOTHYROXINE 125 MCG TABLET PO SCH (05:55)
--- NOTE | 2020-12-08 06:31 | PDOC ---
[employer] PROGRESS NOTE Date of Service DOS: DATE: 12/08/20 TIME: 06:25 Chief Complaint Chief Complaint Acute CVA? Weakness Near syncope Physical debility Plan: CTA head and neck and CT head on admission without acute findings Will admit patient with neurology consult Lipid panel and vitamin B12 pending PT/OT Resume home medications Will hold primidone as this interacts with Xarelto to decrease Xarelto levels and efficacy. FEN - NPO until bedside swallow, then cardiac diet PPX - Xarelto FULL CODE Dispo - inpatient for above; patient names her daughter (Elena) as her surrogate decision-maker. Advance Care Planning: Total time spent [id number] with patient greater than 17 minutes in discussion with goals of care, comfort care, end-of-life care, pain management, code status. History of Present Illness History of Present Illness Patient is a 60-year-old female with past medical history HLD, DVT, who presents to the ED with complaints of weakness for the past 2-3 days. She reports associated dizziness this morning, worse with ambulation. 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 CTA head neck and CT head without acute process. She lives at home with her [id number]. Upon my evaluation in the ER I was concerned about some possible right-sided facial droop. Will need patient for further medical management. 12/08/2020 Patient seen and evaluated bedside. Afebrile, no acute events overnight. She has positive orthostatic vitals. Some hypotension and bradycardia overnight as she slept. She had echocardiogram on 07/06/2020 with normal left ventricular size, low normal to mildly decreased left ventricular function, ejection fraction 45-50%, no significant aortic valve stenosis, estimated PAP 26 mmHg. Neurology work-up pending at this time. Will consult cardiology for near syncope and obtain limited echocardiogram. Worked with OT, recommending home with home health. Discussed with RN. Vitals/I&O Vitals/I&O: Vital Signs Date Time Temp Pulse Resp B/P (MAP) Pulse Ox O2 Delivery O2 Flow Rate FiO2 12/08/20 03:10 56 14 95/48 (64) Room Air 12/08/20 03:00 98.5 96 98.5 I & O 12/07/20 12/07/20 12/08/20 15:00 23:00 07:00 Intake Total 1000 ml Output Total 700 ml Balance 1000 ml -700 ml Physical Exam General: Alert, Cooperative, No acute distress Heart: No murmurs Lungs: Clear Abdomen: Soft, No tenderness Extremities: No clubbing, No cyanosis Skin: No rashes, No breakdown Labs Labs: Laboratory Tests Test 12/07/20 13:21 12/07/20 13:46 12/07/20 14:14 Glucose (Fingerstick) 114 mg/dL (70-99) White Blood Count 5.7 x10^3/uL (4.0-11.0) Red Blood Count 4.29 x10^6/uL (3.50-5.40) Hemoglobin 14.3 g/dL (12.0-15.5) Hematocrit 42.0 % (36.0-47.0) Mean Corpuscular Volume 98 fL (79-100) Mean Corpuscular Hemoglobin 33 pg (25-35) Mean Corpuscular Hemoglobin Concent 34 g/dL (31-37) Red Cell Distribution Width 13.5 % (11.5-14.5) Platelet Count 231 x10^3/uL (140-400) Neutrophils (%) (Auto) 62 % (31-73) Lymphocytes (%) (Auto) 29 % (24-48) Monocytes (%) (Auto) 8 % (0-9) Eosinophils (%) (Auto) 1 % (0-3) Basophils (%) (Auto) 1 % (0-3) Neutrophils # (Auto) 3.5 x10^3/uL (1.8-7.7) Lymphocytes # (Auto) 1.6 x10^3/uL (1.0-4.8) Monocytes # (Auto) 0.4 x10^3/uL (0.0-1.1) Eosinophils # (Auto) 0.1 x10^3/uL (0.0-0.7) Basophils # (Auto) 0.0 x10^3/uL (0.0-0.2) Prothrombin Time 15.5 SEC (11.7-14.0) Prothromb Time International Ratio 1.3 (0.8-1.1) Activated Partial Thromboplast Time 32 SEC (24-38) Sodium Level 144 mmol/L (136-145) Potassium Level 3.5 mmol/L (3.5-5.1) Chloride Level 109 mmol/L (98-107) Carbon Dioxide Level 27 mmol/L (21-32) Anion Gap 8 (6-14) Blood Urea Nitrogen 15 mg/dL (7-20) Creatinine 0.9 mg/dL (0.6-1.0) Estimated GFR (Cockcroft-Gault) 64.3 BUN/Creatinine Ratio 17 (6-20) Glucose Level 75 mg/dL (70-99) Calcium Level 8.5 mg/dL (8.5-10.1) Total Bilirubin 0.3 mg/dL (0.2-1.0) Aspartate Amino Transf (AST/SGOT) 16 U/L (15-37) Alanine Aminotransferase (ALT/SGPT) < 6 U/L (14-59) Alkaline Phosphatase 94 U/L (46-116) Troponin I Quantitative < 0.017 ng/mL (0.000-0.055) Total Protein 6.7 g/dL (6.4-8.2) Albumin 3.9 g/dL (3.4-5.0) Albumin/Globulin Ratio 1.4 (1.0-1.7) Triglycerides Level 124 mg/dL (0-150) Cholesterol Level 152 mg/dL (0-200) LDL Cholesterol, Calculated 87 mg/dL (0-100) VLDL Cholesterol, Calculated 25 mg/dL (0-40) Non-HDL Cholesterol Calculated 112 mg/dL (0-129) HDL Cholesterol 40 mg/dL (40-60) Cholesterol/HDL Ratio 3.8 Lactic Acid Level 1.5 mmol/L (0.4-2.0) Assessment and Plan Problems: (1) Weakness (2) Near syncope Comment Review of Relevant I have reviewed the following items willian (where applicable) has been applied. Medications: Current Medications Medications (Trade) Dose Ordered Sig/Mary Route PRN Reason Start Time Stop Time Status Last Admin Dose Admin Sodium Chloride 1,000 ml @ 1,000 mls/hr Q1H IV 12/07/20 13:30 12/07/20 14:29 DC 12/07/20 14:49 Iohexol (Omnipaque 300 Mg/ml) 75 ml 1X ONCE IV 12/07/20 14:45 12/07/20 14:46 DC 12/07/20 14:51 Acetaminophen/ Hydrocodone Bitart (Lortab 5/325) 1 tab PRN Q4HRS PRN PO PAIN 12/07/20 17:30 12/07/20 21:57 Atorvastatin Calcium (Lipitor) 20 mg QHS PO 12/07/20 21:00 12/07/20 21:57 Levothyroxine Sodium (Synthroid) 125 mcg DAILY06 PO 12/08/20 06:00 12/08/20 05:55 Rivaroxaban (Xarelto) 20 mg QHS PO 12/07/20 21:00 12/07/20 22:00 Sodium Chloride 1,000 ml @ 1,000 mls/hr 1X ONCE IV 12/08/20 03:30 12/08/20 04:29 DC 12/08/20 03:22 Justifications for Admission Other Justification CVA JUJU RIVERA MD Dec 08, 2020 06:31
[2020-12-08 06:34] LABS: BASO % 1 % (0-3); EOS # 0.1 x10^3/uL (0.0-0.7); EOS % 2 % (0-3); HEMATOCRIT 41.2 % (36.0-47.0); HEMOGLOBIN 13.7 g/dL (12.0-15.5); LYMPH # 1.4 x10^3/uL (1.0-4.8); LYMPH % 33 % (24-48); MEAN CORPUSCULAR HEMOGLOBIN 33 pg (25-35); MEAN CORPUSCULAR HGB CONC 33 g/dL (31-37); MEAN CORPUSCULAR VOLUME 99 fL (79-100); MONO # 0.4 x10^3/uL (0.0-1.1); MONO % 10 % (0-9); NEUT # 2.3 x10^3/uL (1.8-7.7); NEUT % 54 % (31-73); PLATELET COUNT 216 x10^3/uL (140-400); RED BLOOD COUNT 4.17 x10^6/uL (3.50-5.40); RED CELL DISTRIBUTION WIDTH 13.8 % (11.5-14.5); WHITE BLOOD COUNT 4.2 x10^3/uL (4.0-11.0)
[2020-12-08] MEDS: PANTOPRAZOLE 40 MG TABLET.DR. PO SCH (06:35)
[2020-12-08 07:01] LABS: CALCIUM 8.5 mg/dL (8.5-10.1); CREATININE 0.7 mg/dL (0.6-1.0); GFR 85.9; POTASSIUM 3.6 mmol/L (3.5-5.1)
[2020-12-08] MEDS: FERROUS SULFATE 325 MG TABLET. PO SCH (08:07)
--- NOTE | 2020-12-08 08:54 | PDOC2 ---
NEUROLOGY CONSULT Date of Service DOS: DATE: 12/08/20 TIME: 08:44 Reason for Consult Reason for Consult: Generalized weakness and dizziness Referring Physician Referring Physician: Dr. Sam Source Source: Chart review, Patient History of Present Illness History of Present Illness The patient is a 60-year-old right-handed female who for the past 3 days has felt weak and dizzy. I used to follow her for vertigo years ago. She denies true vertigo, just feels overall weak and off balance. She had the Covid vaccine 3 months ago and has had no recent infections. She denies dysarthria, dysphagia, diplopia, or focal weakness. She felt like she is about to pass out at the bus stop yesterday as well as at work, so came to the emergency department. Dr. Sam detected some slight right facial drooping yesterday. There is no history of stroke, seizure, or head injury. Past Medical History Cardiovascular: Hyperlipidemia Pulmonary: Pulmonary embolus CENTRAL NERVOUS SYSTEM: Other (Vertigo, we never found a cause) GI: Constipation, GERD, Hemorrhoids, Other (Barber's esophagus) Heme/Onc: Anemia NOS Hepatobiliary: Cholelithiasis Psych: Anxiety Musculoskeletal: low back pain, Osteoarthritis Infectious disease: Herpes simplex2 Renal/: UTI, Other (Fibroids) Endocrine: Hypothyroidism Past Surgical History Past Surgical History: Tubal Ligation, Other (Thyroid cancer) Family History Family History: CAD, Other (Alcoholism) Social History Social History Single, no alcohol or tobacco, 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 [employer] Current Medications Current Medications Current Medications Sodium Chloride 1,000 ml @ 1,000 mls/hr Q1H IV Last administered on 12/07/20at 14:49; Start 12/07/20 at 13:30; Stop 12/07/20 at 14:29; Status DC Iohexol (Omnipaque 350 Mg/ml) 75 ml 1X ONCE IV ; Start 12/07/20 at 14:45; Stop 12/07/20 at 14:46; Status DC Info (CONTRAST GIVEN -- Rx MONITORING) 1 each PRN DAILY PRN MC SEE COMMENTS; Start 12/07/20 at 14:45; Stop 12/09/20 at 14:44 Iohexol (Omnipaque 300 Mg/ml) 75 ml 1X ONCE IV Last administered on 12/07/20at 14:51; Start 12/07/20 at 14:45; Stop 12/07/20 at 14:46; Status DC Ondansetron HCl (Zofran) 4 mg PRN Q8HRS PRN IV NAUSEA/VOMITING; Start 12/07/20 at 15:45; Stop 12/08/20 at 15:44 Morphine Sulfate (Morphine Sulfate) 4 mg PRN Q2HR PRN IV PAIN; Start 12/07/20 at 15:45; Stop 12/08/20 at 15:44 Ondansetron HCl (Zofran) 4 mg PRN Q6HRS PRN IVP NAUSEA/VOMITING; Start 12/07/20 at 17:30 Al Hydroxide/Mg Hydroxide (Mylanta Plus Xs) 30 ml PRN Q3HRS PRN PO HEARTBURN / GAS; Start 12/07/20 at 17:30 Calcium Carbonate/ Glycine (Tums) 500 mg PRN Q3HRS PRN PO UPSET STOMACH; Start 12/07/20 at 17:30 Zolpidem Tartrate (Ambien) 5 mg PRN QHS PRN PO INSOMNIA, MAY REPEAT IN 1HR; Start 12/07/20 at 17:30 Acetaminophen/ Hydrocodone Bitart (Lortab 5/325) 1 tab PRN Q4HRS PRN PO PAIN Last administered on 12/07/20at 21:57; Start 12/07/20 at 17:30 Acetaminophen (Tylenol) 650 mg PRN Q6HRS PRN PO Headaches, Temp > 101.5F; Start 12/07/20 at 17:30 Magnesium Hydroxide (Milk Of Magnesia) 2,400 mg PRN Q12HR PRN PO CONSTIPATION; Start 12/07/20 at 17:30 Bisacodyl (Dulcolax Supp) 10 mg PRN DAILY PRN [place] CONSTIPATION-2ND CHOICE; Start 12/07/20 at 17:30 Atorvastatin Calcium (Lipitor) 20 mg QHS PO Last administered on 12/07/20at 21:57; Start 12/07/20 at 21:00 Ferrous Sulfate (Feosol) 325 mg DAILY PO Last administered on 12/08/20at 08:07; Start 12/08/20 at 09:00 Levothyroxine Sodium (Synthroid) 125 mcg DAILY06 PO Last administered on 12/08/20at 05:55; Start 12/08/20 at 06:00 Lisinopril (Prinivil) 5 mg DAILY PO ; Start 12/08/20 at 09:00; Stop 12/08/20 at 08:18; Status DC Pantoprazole Sodium (Protonix) 40 mg DAILYAC PO Last administered on 12/08/20at 06:35; Start 12/08/20 at 07:30 Rivaroxaban (Xarelto) 20 mg QHS PO Last administered on 12/07/20at 22:00; Start 12/07/20 at 21:00 Sodium Chloride 1,000 ml @ 1,000 mls/hr 1X ONCE IV Last administered on 12/08/20at 03:22; Start 12/08/20 at 03:30; Stop 12/08/20 at 04:29; Status DC Active Scripts Active Atorvastatin Calcium 10 Mg Tablet 20 Mg PO QHS 30 Days Reported Mysoline (Primidone) 250 Mg Tablet 250 Mg PO DAILY Lisinopril 5 Mg Tablet 1 Tab PO DAILY Xarelto (Rivaroxaban) 20 Mg Tablet 1 Tab PO QHS 30 Days with food Pantoprazole Sodium (Pantoprazole Sodium) 40 Mg Tablet.dr 40 Mg PO DAILYAC Ferrous Sulfate 325 Mg Tablet 1 Tab PO DAILY Proair Hfa Inhaler (Albuterol Sulfate) 8.5 Gm Hfa.aer.ad 2 Puff IH PRN Q4-6HRS PRN 21 Days Vitamin C (Ascorbate Calcium) 500 Mg Tablet 500 Mg PO DAILY Sucralfate 1 Gm Tablet 1 Gm PO BID Levothyroxine Sodium 125 Mcg Tablet 125 Mcg PO DAILY Valacyclovir (Valacyclovir Hcl) 500 Mg Tablet 1 Tab PO DAILY Allergies Allergies: Coded Allergies: No Known Drug Allergies (Unverified , 09/18/20) ROS Review of System Negative for fever, chills, weight loss, shortness of breath, chest pain, indigestion, hematochezia, melena, and dysuria. Full 14-point review of systems is negative. Physical Exam Physical Examination General: Well-developed, well-nourished white female in no acute distress HEENT: Normocephalic andatraumatic. Temporal arteriespulsatile and nontender. Neck: Supple without bruit, no meningismus Musculoskeletal: Stability:see neurologic. Gait exam:see neurologic. Tone:see neurologic.Strength:see neurologic. Neurological: Mental Status:intact, orientation, memory, attention span/concentration, language, fund of knowledge normal, but consistent with intellectual disability. Cranial Nerves:Pupils equal and reactive to light, extraocular movements areintact, visual jordan are full to confrontation. Facial sensation is normal. There is no facial asymmetry. Vestibulo-ocular reflex is intact. Palate elevates and tongue protrudes in midline. All other cranial related problems are negative except as mentioned before.Reflexes:1+ and symmetric with flexor plantar responses. Motor:Able to develop 5/5 strength with normal tone and bulk. Coordination:Finger-nose finger and aeoo-cu-huxo testing are normal. Rapid alternating movements and fine finger movements are intact. Gait:Not tested. Sensory:Normal pinprick, vibration, light touch, proprioception. Vitals VITALS Vital Signs Date Time Temp Pulse Resp B/P (MAP) Pulse Ox O2 Delivery O2 Flow Rate FiO2 12/08/20 07:00 97.8 54 18 107/66 (80) 100 Room Air 97.8 Labs Labs Laboratory Tests Test 12/07/20 13:21 12/07/20 13:46 12/07/20 14:14 12/08/20 05:45 Glucose (Fingerstick) 114 mg/dL (70-99) White Blood Count 5.7 x10^3/uL (4.0-11.0) 4.2 x10^3/uL (4.0-11.0) Red Blood Count 4.29 x10^6/uL (3.50-5.40) 4.17 x10^6/uL (3.50-5.40) Hemoglobin 14.3 g/dL (12.0-15.5) 13.7 g/dL (12.0-15.5) Hematocrit 42.0 % (36.0-47.0) 41.2 % (36.0-47.0) Mean Corpuscular Volume 98 fL (79-100) 99 fL (79-100) Mean Corpuscular Hemoglobin 33 pg (25-35) 33 pg (25-35) Mean Corpuscular Hemoglobin Concent 34 g/dL (31-37) 33 g/dL (31-37) Red Cell Distribution Width 13.5 % (11.5-14.5) 13.8 % (11.5-14.5) Platelet Count 231 x10^3/uL (140-400) 216 x10^3/uL (140-400) Neutrophils (%) (Auto) 62 % (31-73) 54 % (31-73) Lymphocytes (%) (Auto) 29 % (24-48) 33 % (24-48) Monocytes (%) (Auto) 8 % (0-9) 10 % (0-9) Eosinophils (%) (Auto) 1 % (0-3) 2 % (0-3) Basophils (%) (Auto) 1 % (0-3) 1 % (0-3) Neutrophils # (Auto) 3.5 x10^3/uL (1.8-7.7) 2.3 x10^3/uL (1.8-7.7) Lymphocytes # (Auto) 1.6 x10^3/uL (1.0-4.8) 1.4 x10^3/uL (1.0-4.8) Monocytes # (Auto) 0.4 x10^3/uL (0.0-1.1) 0.4 x10^3/uL (0.0-1.1) Eosinophils # (Auto) 0.1 x10^3/uL (0.0-0.7) 0.1 x10^3/uL (0.0-0.7) Basophils # (Auto) 0.0 x10^3/uL (0.0-0.2) 0.0 x10^3/uL (0.0-0.2) Prothrombin Time 15.5 SEC (11.7-14.0) Prothromb Time International Ratio 1.3 (0.8-1.1) Activated Partial Thromboplast Time 32 SEC (24-38) Sodium Level 144 mmol/L (136-145) 146 mmol/L (136-145) Potassium Level 3.5 mmol/L (3.5-5.1) 3.6 mmol/L (3.5-5.1) Chloride Level 109 mmol/L (98-107) 110 mmol/L (98-107) Carbon Dioxide Level 27 mmol/L (21-32) 24 mmol/L (21-32) Anion Gap 8 (6-14) 12 (6-14) Blood Urea Nitrogen 15 mg/dL (7-20) 12 mg/dL (7-20) Creatinine 0.9 mg/dL (0.6-1.0) 0.7 mg/dL (0.6-1.0) Estimated GFR (Cockcroft-Gault) 64.3 85.9 BUN/Creatinine Ratio 17 (6-20) Glucose Level 75 mg/dL (70-99) 96 mg/dL (70-99) Calcium Level 8.5 mg/dL (8.5-10.1) 8.5 mg/dL (8.5-10.1) Total Bilirubin 0.3 mg/dL (0.2-1.0) Aspartate Amino Transf (AST/SGOT) 16 U/L (15-37) Alanine Aminotransferase (ALT/SGPT) < 6 U/L (14-59) Alkaline Phosphatase 94 U/L (46-116) Troponin I Quantitative < 0.017 ng/mL (0.000-0.055) Total Protein 6.7 g/dL (6.4-8.2) Albumin 3.9 g/dL (3.4-5.0) Albumin/Globulin Ratio 1.4 (1.0-1.7) Triglycerides Level 124 mg/dL (0-150) Cholesterol Level 152 mg/dL (0-200) LDL Cholesterol, Calculated 87 mg/dL (0-100) VLDL Cholesterol, Calculated 25 mg/dL (0-40) Non-HDL Cholesterol Calculated 112 mg/dL (0-129) HDL Cholesterol 40 mg/dL (40-60) Cholesterol/HDL Ratio 3.8 Lactic Acid Level 1.5 mmol/L (0.4-2.0) Thyroid Stimulating Hormone (TSH) 9.389 uIU/mL (0.358-3.74) Laboratory Tests Test 12/07/20 13:21 12/07/20 13:46 12/07/20 14:14 12/08/20 05:45 Glucose (Fingerstick) 114 mg/dL (70-99) White Blood Count 5.7 x10^3/uL (4.0-11.0) 4.2 x10^3/uL (4.0-11.0) Red Blood Count 4.29 x10^6/uL (3.50-5.40) 4.17 x10^6/uL (3.50-5.40) Hemoglobin 14.3 g/dL (12.0-15.5) 13.7 g/dL (12.0-15.5) Hematocrit 42.0 % (36.0-47.0) 41.2 % (36.0-47.0) Mean Corpuscular Volume 98 fL (79-100) 99 fL (79-100) Mean Corpuscular Hemoglobin 33 pg (25-35) 33 pg (25-35) Mean Corpuscular Hemoglobin Concent 34 g/dL (31-37) 33 g/dL (31-37) Red Cell Distribution Width 13.5 % (11.5-14.5) 13.8 % (11.5-14.5) Platelet Count 231 x10^3/uL (140-400) 216 x10^3/uL (140-400) Neutrophils (%) (Auto) 62 % (31-73) 54 % (31-73) Lymphocytes (%) (Auto) 29 % (24-48) 33 % (24-48) Monocytes (%) (Auto) 8 % (0-9) 10 % (0-9) Eosinophils (%) (Auto) 1 % (0-3) 2 % (0-3) Basophils (%) (Auto) 1 % (0-3) 1 % (0-3) Neutrophils # (Auto) 3.5 x10^3/uL (1.8-7.7) 2.3 x10^3/uL (1.8-7.7) Lymphocytes # (Auto) 1.6 x10^3/uL (1.0-4.8) 1.4 x10^3/uL (1.0-4.8) Monocytes # (Auto) 0.4 x10^3/uL (0.0-1.1) 0.4 x10^3/uL (0.0-1.1) Eosinophils # (Auto) 0.1 x10^3/uL (0.0-0.7) 0.1 x10^3/uL (0.0-0.7) Basophils # (Auto) 0.0 x10^3/uL (0.0-0.2) 0.0 x10^3/uL (0.0-0.2) Prothrombin Time 15.5 SEC (11.7-14.0) Prothromb Time International Ratio 1.3 (0.8-1.1) Activated Partial Thromboplast Time 32 SEC (24-38) Sodium Level 144 mmol/L (136-145) 146 mmol/L (136-145) Potassium Level 3.5 mmol/L (3.5-5.1) 3.6 mmol/L (3.5-5.1) Chloride Level 109 mmol/L (98-107) 110 mmol/L (98-107) Carbon Dioxide Level 27 mmol/L (21-32) 24 mmol/L (21-32) Anion Gap 8 (6-14) 12 (6-14) Blood Urea Nitrogen 15 mg/dL (7-20) 12 mg/dL (7-20) Creatinine 0.9 mg/dL (0.6-1.0) 0.7 mg/dL (0.6-1.0) Estimated GFR (Cockcroft-Gault) 64.3 85.9 BUN/Creatinine Ratio 17 (6-20) Glucose Level 75 mg/dL (70-99) 96 mg/dL (70-99) Calcium Level 8.5 mg/dL (8.5-10.1) 8.5 mg/dL (8.5-10.1) Total Bilirubin 0.3 mg/dL (0.2-1.0) Aspartate Amino Transf (AST/SGOT) 16 U/L (15-37) Alanine Aminotransferase (ALT/SGPT) < 6 U/L (14-59) Alkaline Phosphatase 94 U/L (46-116) Troponin I Quantitative < 0.017 ng/mL (0.000-0.055) Total Protein 6.7 g/dL (6.4-8.2) Albumin 3.9 g/dL (3.4-5.0) Albumin/Globulin Ratio 1.4 (1.0-1.7) Triglycerides Level 124 mg/dL (0-150) Cholesterol Level 152 mg/dL (0-200) LDL Cholesterol, Calculated 87 mg/dL (0-100) VLDL Cholesterol, Calculated 25 mg/dL (0-40) Non-HDL Cholesterol Calculated 112 mg/dL (0-129) HDL Cholesterol 40 mg/dL (40-60) Cholesterol/HDL Ratio 3.8 Lactic Acid Level 1.5 mmol/L (0.4-2.0) Thyroid Stimulating Hormone (TSH) 9.389 uIU/mL (0.358-3.74) Images Images CT STROKE HEAD W/O (CT HEAD WITHOUT IV CONTRAST) CLINICAL HISTORY: Left-sided facial droop, weakness, dizziness ED 16 / Spl. Instructions: / History: TECHNIQUE: Serial axial images without IV contrast were obtained from the vertex to the foramen magnum. CT Dose Reduction Employed: One or more of the following individualized dose reduction techniques were utilized for this examination: 1. Automated exposure control 2. Adjustment of the mA and/or kV according to patient size 3. Use of iterative reconstruction technique. COMPARISON: 08/18/2020 FINDINGS: Acute Change: No evidence of an acute infarct or other acute parenchymal proc ess. Hemorrhage: No evidence of acute intracranial hemorrhage. Mass Lesion/Mass Effect: No evidence of intracranial mass or extraaxial fluid collection. No significant mass effect. Parenchyma: Mild generalized volume loss. Parenchyma otherwise within normal limits for age. Ventricles: Ventricles within normal limits for age. Paranasal Sinuses and Skull Base: Visualized paranasal sinuses clear. Visualized skull base and soft tissues unremarkable. IMPRESSION: No evidence of acute intracranial abnormality. CTA head and neck INDICATION: Left-sided facial droop TECHNIQUE: Sequential axial images through the head and neck obtained following the administration of 75 mL of Isovue-370 IV contrast. Sagittal and coronal reformatted images were reconstructed from the axial data and reviewed. 3-D reformatted images were reconstructed from the axial data and reviewed. Exposure: One or more of the following in the visualized dose reduction techniques were utilized for this examination: 1. Automated exposure control 2. Adjustment of the MA and/or KV according to patient size 3. Use of iterative of reconstructive technique Comparisons: CT head without contrast same day FINDINGS: CTA NECK: Visualized portions of the thoracic aorta are unremarkable. Standard three- vessel aortic arch anatomy. Right common carotid artery is patent without evidence of stenosis, occlusion or aneurysm. Cervical segment of the right internal carotid artery is patent without evidence of stenosis, occlusion or abnormality. Left common carotid artery is patent without evidence of stenosis, occlusion or aneurysm. Cervical segment of the left internal carotid artery is patent without evidence of stenosis, occlusion or aneurysm. Right vertebral artery is patent without evidence of stenosis, occlusion or aneurysm. Left vertebral artery is patent without evidence of stenosis, occlusion or aneurysm. Visualized paraspinal soft tissue are unremarkable. CTA head: Intracranial segments of the right internal carotid artery are patent without evidence of stenosis, occlusion or aneurysm. Right MCA is patent. Right TITO is patent. Intracranial segments of the left internal carotid artery are patent without evidence of stenosis, occlusion or aneurysm. Left MCA is patent. Left TITO is patent. Basilar artery is patent without evidence of stenosis, occlusion or aneurysm. regional retail sales manager are patent bilaterally. IMPRESSION: Patent intracranial cervical arterial vasculature without evidence of stenosis, occlusion or aneurysm. Assessment/Plan Assessment/Plan Impression: Nonspecific dizziness, lightheadedness, no evidence of central or peripheral vestibular dysfunction, no evidence of stroke, polyneuropathy, radiculopathy, myelopathy. She is actually able to develop full strength. I wonder about some viral illness, nonorganic disorder, rule out stroke. Recommendations: MRI of the brain Rehabilitation modalities Further work-up depending on results Thank you for letting me help with the patient's care. ELMER MEEK MD Dec 08, 2020 08:54
[2020-12-08] MEDS ORDERED: LISINOPRIL 5 MG TABLET. PO SCH (09:00)
--- NOTE | 2020-12-08 10:50 | NUR ---
SW following. Discussed with RN, pt from home with daughter in law, room air, cardiac diet. Pt having an echo today. Brain MRI ordered. PT ordered, OT recommending home health. SW will continue to follow.
[2020-12-08] MEDS: ANTI-COAG MONITOR BY PHARMACY. MC PRN (10:55)
--- NOTE | 2020-12-08 11:29 | PDOC2 ---
[employer]IE [employer] 12/08/20 1129: CARDIAC CONSULT DATE OF CONSULT Date of Consult DATE: 12/08/20 TIME: 11:14 REASON FOR CONSULT Reason for Consult: near syncope REFERRING PHYSICIAN Referring Physician: Flaco SOURCE Source: Chart review, Patient HISTORY OF PRESENT ILLNESS HISTORY OF PRESENT ILLNESS This is a pleasant 60 yo female admitted for complains of dizziness. Reports that she was working yesterday and was shaky. [place]. She has been feeling dizzy particularly when she stands up and has black spots in her visual field and the surrounding was spinning as well. No chest pain and no significant SOA. Reports no recent falls or injury but has been having shakiness and feeling wobbly when walking. She does take lisinopril and primidone for tremors. No palpitations and no recent passing out. No ENT issues recently. No recent infection or respiratory symptoms. Admits drinking only 3 galsses of H20 a day and a can of pop. PAST MEDICAL HISTORY Past Medical History Cardiovascular: Hyperlipidemia, Mild CM Pulmonary: Pulmonary embolus, RLE DVT CENTRAL NERVOUS SYSTEM: Other (tremors) GI: Constipation, GERD, Other (barretts; hiatal hernia;schatskis ring) Heme/Onc: Anemia NOS (recent with transfusion) Hepatobiliary: Cholelithiasis Psych: Anxiety Musculoskeletal: low back pain, Osteoarthritis ENT: Allergic Rhinitis Renal/: UTI Endocrine: Hypothyroidism Dermatology: No pertinent hx PAST SURGICAL HISTORY Past Surgical History Cholecystectomy, Tubal Ligation FAMILY HISTORY Family History: Heart Disease SOCIAL HISTORY Smoke: No ALCOHOL: none Drugs: None Lives: with Family CURRENT MEDICATIONS CURRENT MEDICATIONS Current Medications Medications (Trade) Dose Ordered Sig/Mary Route PRN Reason Start Time Stop Time Status Last Admin Dose Admin Sodium Chloride 1,000 ml @ 1,000 mls/hr Q1H IV 12/07/20 13:30 12/07/20 14:29 DC 12/07/20 14:49 Iohexol (Omnipaque 300 Mg/ml) 75 ml 1X ONCE IV 12/07/20 14:45 12/07/20 14:46 DC 12/07/20 14:51 Acetaminophen/ Hydrocodone Bitart (Lortab 5/325) 1 tab PRN Q4HRS PRN PO PAIN 12/07/20 17:30 12/07/20 21:57 Atorvastatin Calcium (Lipitor) 20 mg QHS PO 12/07/20 21:00 12/07/20 21:57 Ferrous Sulfate (Feosol) 325 mg DAILY PO 12/08/20 09:00 12/08/20 08:07 Levothyroxine Sodium (Synthroid) 125 mcg DAILY06 PO 12/08/20 06:00 12/08/20 05:55 Pantoprazole Sodium (Protonix) 40 mg DAILYAC PO 12/08/20 07:30 12/08/20 06:35 Rivaroxaban (Xarelto) 20 mg QHS PO 12/07/20 21:00 12/07/20 22:00 Sodium Chloride 1,000 ml @ 1,000 mls/hr 1X ONCE IV 12/08/20 03:30 12/08/20 04:29 DC 12/08/20 03:22 Info (Anti-Coagulation Monitoring By Pharmacy) 1 each PRN DAILY PRN MC SEE COMMENTS 12/08/20 10:45 12/08/20 10:55 ALLERGIES ALLERGIES: Coded Allergies: No Known Drug Allergies (Unverified , 09/18/20) ROS Review of System 14 point ROS evaluated with pertinent positives noted per HPI PHYSICAL EXAM General: Alert, Oriented X3, Cooperative, No acute distress HEENT: Atraumatic, Mucous membr. moist/pink Heart: Regular rate (SR per EKG) Abdomen: Soft, No tenderness Extremities: No cyanosis, No edema Skin: No breakdown, No significant lesion Neuro: Normal speech, Sensation intact Psych/Mental Status: Mental status NL, Mood NL MUSCULOSKELETAL: Osteoarthritic changes both hands VITALS/I&O VITALS/I&O: Vital Signs Date Time Temp Pulse Resp B/P (MAP) Pulse Ox O2 Delivery O2 Flow Rate FiO2 12/08/20 08:59 75 109/73 (85) 12/08/20 07:00 97.8 18 100 Room Air 97.8 I & O 12/07/20 12/07/20 12/08/20 15:00 23:00 07:00 Intake Total 1000 ml Output Total 700 ml Balance 1000 ml -700 ml LABS Lab: Laboratory Tests Test 12/07/20 13:21 12/07/20 13:46 12/07/20 14:14 12/08/20 05:45 Glucose (Fingerstick) 114 mg/dL (70-99) H White Blood Count 5.7 x10^3/uL (4.0-11.0) 4.2 x10^3/uL (4.0-11.0) Red Blood Count 4.29 x10^6/uL (3.50-5.40) 4.17 x10^6/uL (3.50-5.40) Hemoglobin 14.3 g/dL (12.0-15.5) 13.7 g/dL (12.0-15.5) Hematocrit 42.0 % (36.0-47.0) 41.2 % (36.0-47.0) Mean Corpuscular Volume 98 fL (79-100) 99 fL (79-100) Mean Corpuscular Hemoglobin 33 pg (25-35) 33 pg (25-35) Mean Corpuscular Hemoglobin Concent 34 g/dL (31-37) 33 g/dL (31-37) Red Cell Distribution Width 13.5 % (11.5-14.5) 13.8 % (11.5-14.5) Platelet Count 231 x10^3/uL (140-400) 216 x10^3/uL (140-400) Neutrophils (%) (Auto) 62 % (31-73) 54 % (31-73) Lymphocytes (%) (Auto) 29 % (24-48) 33 % (24-48) Monocytes (%) (Auto) 8 % (0-9) 10 % (0-9) H Eosinophils (%) (Auto) 1 % (0-3) 2 % (0-3) Basophils (%) (Auto) 1 % (0-3) 1 % (0-3) Neutrophils # (Auto) 3.5 x10^3/uL (1.8-7.7) 2.3 x10^3/uL (1.8-7.7) Lymphocytes # (Auto) 1.6 x10^3/uL (1.0-4.8) 1.4 x10^3/uL (1.0-4.8) Monocytes # (Auto) 0.4 x10^3/uL (0.0-1.1) 0.4 x10^3/uL (0.0-1.1) Eosinophils # (Auto) 0.1 x10^3/uL (0.0-0.7) 0.1 x10^3/uL (0.0-0.7) Basophils # (Auto) 0.0 x10^3/uL (0.0-0.2) 0.0 x10^3/uL (0.0-0.2) Prothrombin Time 15.5 SEC (11.7-14.0) H Prothrombin Time INR 1.3 (0.8-1.1) H Activated Partial Thromboplast Time 32 SEC (24-38) Sodium Level 144 mmol/L (136-145) 146 mmol/L (136-145) H Potassium Level 3.5 mmol/L (3.5-5.1) 3.6 mmol/L (3.5-5.1) Chloride Level 109 mmol/L (98-107) H 110 mmol/L (98-107) H Carbon Dioxide Level 27 mmol/L (21-32) 24 mmol/L (21-32) Anion Gap 8 (6-14) 12 (6-14) Blood Urea Nitrogen 15 mg/dL (7-20) 12 mg/dL (7-20) Creatinine 0.9 mg/dL (0.6-1.0) 0.7 mg/dL (0.6-1.0) Estimated GFR (Cockcroft-Gault) 64.3 85.9 BUN/Creatinine Ratio 17 (6-20) Glucose Level 75 mg/dL (70-99) 96 mg/dL (70-99) Calcium Level 8.5 mg/dL (8.5-10.1) 8.5 mg/dL (8.5-10.1) Total Bilirubin 0.3 mg/dL (0.2-1.0) Aspartate Amino Transferase (AST) 16 U/L (15-37) Alanine Aminotransferase (ALT) < 6 U/L (14-59) L Alkaline Phosphatase 94 U/L (46-116) Troponin I Quantitative < 0.017 ng/mL (0.000-0.055) Total Protein 6.7 g/dL (6.4-8.2) Albumin 3.9 g/dL (3.4-5.0) Albumin/Globulin Ratio 1.4 (1.0-1.7) Triglycerides Level 124 mg/dL (0-150) Cholesterol Level 152 mg/dL (0-200) LDL Cholesterol, Calculated 87 mg/dL (0-100) VLDL Cholesterol, Calculated 25 mg/dL (0-40) Non-HDL Cholesterol Calculated 112 mg/dL (0-129) HDL Cholesterol 40 mg/dL (40-60) Cholesterol/HDL Ratio 3.8 Lactic Acid Level 1.5 mmol/L (0.4-2.0) Vitamin B12 Level 490 pg/mL (247-911) Thyroid Stimulating Hormone (TSH) 9.389 uIU/mL (0.358-3.74) H Laboratory Tests 12/07/20 13:46 12/08/20 05:45 Laboratory Tests 12/07/20 13:46 12/08/20 05:45 ECHOCARDIOGRAM ECHOCARDIOGRAM <Conclusion> The left ventricular systolic function is mildly impaired. The ejection fraction is estimated at 45-50%, unchanged compared to prior echo. Mild tricuspid regurgitation. Estimated PAP 30 mmHg. There is no evidence of significant pericardial effusion. DATE: 11/24/20 [id number] STRESS TEST STRESS TEST Conclusion 1. Abnormal baseline EKG but no EKG evidence of stress-induced ischemia. 2. Nuclear imaging shows no reversible ischemia or infarct. 3. Intact LV systolic function with an ejection fraction of 64%. 4. Moderately low to low risk Lexiscan nuclear stress test. DATE: 07/06/20 [id number] ASSESSMENT/PLAN ASSESSMENT/PLAN 1. Presyncope: due to orthostasis with associated poor PO hydration. Neuro imaging negative for acute changes so far. Awaiting brain MRI. neuro following 2. Hx of barrets esophagus with mod hiatal hernia 3. RLE DVT with hx of PE: 10/19/2020 sono occlusive venous thrombosis involving a right peroneal vein. No central PE from recent CTA 4. Hypothyroidism: TSH better at 9 from 23 on replacement 5. Metabolic syndrome 6. Hx of mild NICM: EF at 45-50% compensated 7. Hx of Asymptomatic SB 8. Vertigo/ataxia: likely side effects of primidone. Will defer to neurology. Recommendations 1. IVF x1 and will repeat orthos post infusion. check UA. Pro NT-BNP. Encourage hydration adequacy. Transfer to [facility] for tele monitoring. Hold lisinopril. 2. Continue reflux meds 3. Continue xarelto 4. Avoid AV megan blocking agents. QTc 394 5. Will consider for ANGLE GALVAN MD 12/08/20 1529: CARDIAC CONSULT ASSESSMENT/PLAN ASSESSMENT/PLAN Patient seen and examined. Agree with [facility]'s assessment and plan. Dizziness/near syncope most probably secondary to hypovolemia/orthostasis -agree with intravenous hydration Mild chronic systolic heart failure well compensated Continue Xarelto for history of DVT/PE We will consider outpatient event monitor recording Thank you for your consultation TORIE SLOAN APRN Dec 08, 2020 11:29 ANGLE [place] MD Dec 08, 2020 15:29
[2020-12-08] MEDS ORDERED: IV 1/2 NORMAL SALINE 1,000 ML IV ONE (12:00)
--- NOTE | 2020-12-08 12:42 | RAD ---
MRI BRAIN WO History:Reason: Weakness, dizziness / Spl. Instructions: / History: Technique: Multiplanar, multi sequential MR imaging was performed of the brain without contrast. Comparison: None Findings: No acute infarct. No intracranial hemorrhage. No mass effect. No hydrocephalus. Tiny pineal cyst rosy ures 4 mm. Mild brain parenchymal volume loss. Mild foci of FLAIR hyperintensity within the hemispheric white ma tter, most often due to chronic microvascular ischemia. Imaged orbits are unremarkable. Minimal right inferior maxillary sinus mucosal thickening. Mastoid ai r cells are clear. Impression: 1. No acute intracranial abnormality. Electronically signed by: Dom Mccray DO (12/08/2020 12:40 PM) [id number]
[2020-12-08] MEDS ORDERED: POLYETHYLENE GLYCOL 3350 17 GM PACKET. PO ONE (13:00)
[2020-12-08 13:10] LABS: BILIRUBIN,URINE NEGATIVE (NEG); CLARITY,URINE CLEAR; COLOR,URINE YELLOW; NITRITE,URINE NEGATIVE (NEG); PH,URINE 6.5 (<5.0-8.0); PROTEIN,URINE NEGATIVE (NEG-TRACE); UROBILINOGEN,URINE 0.2 mg/dL (0.2 mg/dL)
[2020-12-08 13:27] LABS: BACTERIA,URINE MANY /HPF (0-FEW); RBC,URINE 0 /HPF (0-2); WBC,URINE OCC /HPF (0-4)
[2020-12-08] MEDS: ATORVASTATIN CALCIUM 20 MG TABLET PO SCH (20:34)
[2020-12-08] MEDS: ZOLPIDEM 5 MG TABLET. PO PRN (20:34)
[2020-12-08] MEDS: HYDROcodone/APAP 5/325MG 1 TAB TABLET PO PRN (20:34)
[2020-12-08] MEDS: RIVAROXABAN 10 MG TABLET. PO SCH (20:34)
[2020-12-09] VITALS (8 sets, daily range): BP systolic 105–140; BP diastolic 58–74
[2020-12-09] MEDS: PANTOPRAZOLE 40 MG TABLET.DR. PO SCH (07:37)
[2020-12-09] MEDS: LEVOTHYROXINE 125 MCG TABLET PO SCH (07:37)
[2020-12-09] MEDS: FERROUS SULFATE 325 MG TABLET. PO SCH (09:33)
--- NOTE | 2020-12-09 10:55 | PDOC ---
PROGRESS NOTES Date of Service DATE: 12/09/20 TIME: 10:51 Assessment Nonspecific dizziness, lightheadedness, no evidence of central or peripheral vestibular dysfunction, no evidence of stroke, polyneuropathy, radiculopathy, myelopathy. She is actually able to develop full strength. I wonder about some viral illness, nonorganic disorder, rule out stroke. MRI is negative, so there is no primary neurological issue. Note that she does have some mild orthostasis that could contribute Essential tremor, currently off her primidone, does not feel better off of it. Plan No additional neurological studies needed Rehabilitation modalities Subjective Still feels dizzy when she stands up and weak, does not want to go home Objective Vital Signs Date Time Temp Pulse Resp B/P (MAP) Pulse Ox O2 Delivery O2 Flow Rate FiO2 12/09/20 07:46 Room Air 12/09/20 07:00 97.7 54 20 106/66 (79) 96 97.7 Intake and Output 12/09/20 07:00 Intake Total 1190 ml Balance 1190 ml Intake Oral 1190 ml # Voids 3 # Bowel Movements 1 PHYSICAL EXAM Alert. Oriented to time, place and person. Intellectual disability PERRL. EOMI. CN: no focal findings. Muscle tone: normal. Muscle strength: 5/5 DTR: 1+ Plantar reflex: Flexor Gait: not examined in bed. Sensory exam: no abnormal findings. No cerebellar signs elicited. Mild postural tremor Review of Relevant I have reviewed the following items willian (where applicable) has been applied. Labs Laboratory Tests Test 12/07/20 13:21 12/07/20 13:46 12/07/20 14:14 12/08/20 05:45 Glucose (Fingerstick) 114 mg/dL (70-99) White Blood Count 5.7 x10^3/uL (4.0-11.0) 4.2 x10^3/uL (4.0-11.0) Red Blood Count 4.29 x10^6/uL (3.50-5.40) 4.17 x10^6/uL (3.50-5.40) Hemoglobin 14.3 g/dL (12.0-15.5) 13.7 g/dL (12.0-15.5) Hematocrit 42.0 % (36.0-47.0) 41.2 % (36.0-47.0) Mean Corpuscular Volume 98 fL (79-100) 99 fL (79-100) Mean Corpuscular Hemoglobin 33 pg (25-35) 33 pg (25-35) Mean Corpuscular Hemoglobin Concent 34 g/dL (31-37) 33 g/dL (31-37) Red Cell Distribution Width 13.5 % (11.5-14.5) 13.8 % (11.5-14.5) Platelet Count 231 x10^3/uL (140-400) 216 x10^3/uL (140-400) Neutrophils (%) (Auto) 62 % (31-73) 54 % (31-73) Lymphocytes (%) (Auto) 29 % (24-48) 33 % (24-48) Monocytes (%) (Auto) 8 % (0-9) 10 % (0-9) Eosinophils (%) (Auto) 1 % (0-3) 2 % (0-3) Basophils (%) (Auto) 1 % (0-3) 1 % (0-3) Neutrophils # (Auto) 3.5 x10^3/uL (1.8-7.7) 2.3 x10^3/uL (1.8-7.7) Lymphocytes # (Auto) 1.6 x10^3/uL (1.0-4.8) 1.4 x10^3/uL (1.0-4.8) Monocytes # (Auto) 0.4 x10^3/uL (0.0-1.1) 0.4 x10^3/uL (0.0-1.1) Eosinophils # (Auto) 0.1 x10^3/uL (0.0-0.7) 0.1 x10^3/uL (0.0-0.7) Basophils # (Auto) 0.0 x10^3/uL (0.0-0.2) 0.0 x10^3/uL (0.0-0.2) Prothrombin Time 15.5 SEC (11.7-14.0) Prothromb Time International Ratio 1.3 (0.8-1.1) Activated Partial Thromboplast Time 32 SEC (24-38) Sodium Level 144 mmol/L (136-145) 146 mmol/L (136-145) Potassium Level 3.5 mmol/L (3.5-5.1) 3.6 mmol/L (3.5-5.1) Chloride Level 109 mmol/L (98-107) 110 mmol/L (98-107) Carbon Dioxide Level 27 mmol/L (21-32) 24 mmol/L (21-32) Anion Gap 8 (6-14) 12 (6-14) Blood Urea Nitrogen 15 mg/dL (7-20) 12 mg/dL (7-20) Creatinine 0.9 mg/dL (0.6-1.0) 0.7 mg/dL (0.6-1.0) Estimated GFR (Cockcroft-Gault) 64.3 85.9 BUN/Creatinine Ratio 17 (6-20) Glucose Level 75 mg/dL (70-99) 96 mg/dL (70-99) Calcium Level 8.5 mg/dL (8.5-10.1) 8.5 mg/dL (8.5-10.1) Total Bilirubin 0.3 mg/dL (0.2-1.0) Aspartate Amino Transf (AST/SGOT) 16 U/L (15-37) Alanine Aminotransferase (ALT/SGPT) < 6 U/L (14-59) Alkaline Phosphatase 94 U/L (46-116) Troponin I Quantitative < 0.017 ng/mL (0.000-0.055) Total Protein 6.7 g/dL (6.4-8.2) Albumin 3.9 g/dL (3.4-5.0) Albumin/Globulin Ratio 1.4 (1.0-1.7) Triglycerides Level 124 mg/dL (0-150) Cholesterol Level 152 mg/dL (0-200) LDL Cholesterol, Calculated 87 mg/dL (0-100) VLDL Cholesterol, Calculated 25 mg/dL (0-40) Non-HDL Cholesterol Calculated 112 mg/dL (0-129) HDL Cholesterol 40 mg/dL (40-60) Cholesterol/HDL Ratio 3.8 Lactic Acid Level 1.5 mmol/L (0.4-2.0) [id number]-Type Natriuretic Peptide 198 pg/mL (0-124) Vitamin B12 Level 490 pg/mL (247-911) Thyroid Stimulating Hormone (TSH) 9.389 uIU/mL (0.358-3.74) Test 12/08/20 12:50 Urine Collection Type Unknown Urine Color Yellow Urine Clarity Clear Urine pH 6.5 (<5.0-8.0) Urine Specific [place] 1.010 (1.000-1.030) Urine Protein Negative mg/dL (NEG-TRACE) Urine Glucose (UA) Negative mg/dL (NEG) Urine Ketones (Stick) Negative mg/dL (NEG) Urine Blood Negative (NEG) Urine Nitrite Negative (NEG) Urine Bilirubin Negative (NEG) Urine Urobilinogen Dipstick 0.2 mg/dL (0.2 mg/dL) Urine Leukocyte Esterase Negative (NEG) Urine RBC 0 /HPF (0-2) Urine WBC Occ /HPF (0-4) Urine Squamous Epithelial Cells Many /LPF Urine Bacteria Many /HPF (0-FEW) Laboratory Tests Test 12/08/20 12:50 Urine Collection Type Unknown Urine Color Yellow Urine Clarity Clear Urine pH 6.5 (<5.0-8.0) Urine Specific [place] 1.010 (1.000-1.030) Urine Protein Negative mg/dL (NEG-TRACE) Urine Glucose (UA) Negative mg/dL (NEG) Urine Ketones (Stick) Negative mg/dL (NEG) Urine Blood Negative (NEG) Urine Nitrite Negative (NEG) Urine Bilirubin Negative (NEG) Urine Urobilinogen Dipstick 0.2 mg/dL (0.2 mg/dL) Urine Leukocyte Esterase Negative (NEG) Urine RBC 0 /HPF (0-2) Urine WBC Occ /HPF (0-4) Urine Squamous Epithelial Cells Many /LPF Urine Bacteria Many /HPF (0-FEW) Medications Current Medications Sodium Chloride 1,000 ml @ 1,000 mls/hr Q1H IV Last administered on 12/07/20at 14:49; Start 12/07/20 at 13:30; Stop 12/07/20 at 14:29; Status DC Iohexol (Omnipaque 350 Mg/ml) 75 ml 1X ONCE IV ; Start 12/07/20 at 14:45; Stop 12/07/20 at 14:46; Status DC Info (CONTRAST GIVEN -- Rx MONITORING) 1 each PRN DAILY PRN MC SEE COMMENTS; Start 12/07/20 at 14:45; Stop 12/09/20 at 14:44 Iohexol (Omnipaque 300 Mg/ml) 75 ml 1X ONCE IV Last administered on 12/07/20at 14:51; Start 12/07/20 at 14:45; Stop 12/07/20 at 14:46; Status DC Ondansetron HCl (Zofran) 4 mg PRN Q8HRS PRN IV NAUSEA/VOMITING; Start 12/07/20 at 15:45; Stop 12/08/20 at 15:44; Status DC Morphine Sulfate (Morphine Sulfate) 4 mg PRN Q2HR PRN IV PAIN; Start 12/07/20 at 15:45; Stop 12/08/20 at 15:44; Status DC Ondansetron HCl (Zofran) 4 mg PRN Q6HRS PRN IVP NAUSEA/VOMITING; Start 12/07/20 at 17:30 Al Hydroxide/Mg Hydroxide (Mylanta Plus Xs) 30 ml PRN Q3HRS PRN PO HEARTBURN / GAS; Start 12/07/20 at 17:30 Calcium Carbonate/ Glycine (Tums) 500 mg PRN Q3HRS PRN PO UPSET STOMACH; Start 12/07/20 at 17:30 Zolpidem Tartrate (Ambien) 5 mg PRN QHS PRN PO INSOMNIA, MAY REPEAT IN 1HR Last administered on 12/08/20at 20:34; Start 12/07/20 at 17:30 Acetaminophen/ Hydrocodone Bitart (Lortab 5/325) 1 tab PRN Q4HRS PRN PO PAIN Last administered on 12/08/20at 20:34; Start 12/07/20 at 17:30 Acetaminophen (Tylenol) 650 mg PRN Q6HRS PRN PO Headaches, Temp > 101.5F; Start 12/07/20 at 17:30 Magnesium Hydroxide (Milk Of Magnesia) 2,400 mg PRN Q12HR PRN PO CONSTIPATION; Start 12/07/20 at 17:30 Bisacodyl (Dulcolax Supp) 10 mg PRN DAILY PRN IA CONSTIPATION-2ND CHOICE; Start 12/07/20 at 17:30 Atorvastatin Calcium (Lipitor) 20 mg QHS PO Last administered on 12/08/20at 20:34; Start 12/07/20 at 21:00 Ferrous Sulfate (Feosol) 325 mg DAILY PO Last administered on 12/09/20at 09:33; Start 12/08/20 at 09:00 Levothyroxine Sodium (Synthroid) 125 mcg DAILY06 PO Last administered on 12/09/20at 07:37; Start 12/08/20 at 06:00 Lisinopril (Prinivil) 5 mg DAILY PO ; Start 12/08/20 at 09:00; Stop 12/08/20 at 08:18; Status DC Pantoprazole Sodium (Protonix) 40 mg DAILYAC PO Last administered on 12/09/20at 07:37; Start 12/08/20 at 07:30 Rivaroxaban (Xarelto) 20 mg QHS PO Last administered on 12/08/20at 20:34; Start 12/07/20 at 21:00 Sodium Chloride 1,000 ml @ 1,000 mls/hr 1X ONCE IV Last administered on 12/08/20at 03:22; Start 12/08/20 at 03:30; Stop 12/08/20 at 04:29; Status DC Info (Anti-Coagulation Monitoring By Pharmacy) 1 each PRN DAILY PRN MC SEE COMMENTS Last administered on 12/08/20at 10:55; Start 12/08/20 at 10:45 Sodium Chloride 1,000 ml @ 125 mls/hr 1X ONCE IV Last administered on 12/08/20at 11:40; Start 12/08/20 at 12:00; Stop 12/08/20 at 19:59; Status DC Polyethylene Glycol (miraLAX PACKET) 17 gm 1X ONCE PO Last administered on 12/08/20at 13:06; Start 12/08/20 at 13:00; Stop 12/08/20 at 13:01; Status DC Active Scripts Active Atorvastatin Calcium 10 Mg Tablet 20 Mg PO QHS 30 Days Reported Mysoline (Primidone) 250 Mg Tablet 250 Mg PO DAILY Lisinopril 5 Mg Tablet 1 Tab PO DAILY Xarelto (Rivaroxaban) 20 Mg Tablet 1 Tab PO QHS 30 Days with food Pantoprazole Sodium (Pantoprazole Sodium) 40 Mg Tablet.dr 40 Mg PO DAILYAC Ferrous Sulfate 325 Mg Tablet 1 Tab PO DAILY Proair Hfa Inhaler (Albuterol Sulfate) 8.5 Gm Hfa.aer.ad 2 Puff IH PRN Q4-6HRS PRN 21 Days Vitamin C (Ascorbate Calcium) 500 Mg Tablet 500 Mg PO DAILY Sucralfate 1 Gm Tablet 1 Gm PO BID Levothyroxine Sodium 125 Mcg Tablet 125 Mcg PO DAILY Valacyclovir (Valacyclovir Hcl) 500 Mg Tablet 1 Tab PO DAILY Vitals/I & O Vital Sign - Last 24 Hours 12/08/20 12/08/20 12/08/20 12/08/20 15:20 19:00 20:00 20:34 Temp 97.8 97.8 97.8 97.8 Pulse 61 62 Resp 18 17 19 B/P (MAP) 101/62 (75) 111/68 (82) Pulse Ox 96 96 O2 Delivery Room Air Room Air Room Air Room Air 12/08/20 12/08/20 12/09/20 12/09/20 21:00 23:00 02:41 07:00 Temp 98.4 98.0 97.7 98.4 98.0 97.7 Pulse 45 46 54 Resp 19 17 17 20 B/P (MAP) 106/56 (73) 115/58 (77) 106/66 (79) Pulse Ox 96 46 96 O2 Delivery Room Air Room Air Room Air Room Air 12/09/20 07:46 O2 Delivery Room Air Intake and Output 12/08/20 12/08/20 12/09/20 15:00 23:00 07:00 Intake Total 200 ml 990 ml Balance 200 ml 990 ml Images MRI BRAIN WO History:Reason: Weakness, dizziness / Spl. Instructions: / History: Technique: Multiplanar, multi sequential MR imaging was performed of the brain without contrast. Comparison: None Findings: No acute infarct. No intracranial hemorrhage. No mass effect. No hydrocephalus. Tiny pineal cyst measures 4 mm. Mild brain parenchymal volume loss. Mild foci of FLAIR hyperintensity within the hemispheric white matter, most often due to chronic microvascular ischemia. Imaged orbits are unremarkable. Minimal right inferior maxillary sinus mucosal thickening. Mastoid air cells are clear. Impression: 1. No acute intracranial abnormality. Justicifation of Admission Dx: Justifications for Admission: Justification of Admission Dx: Yes ELMER MEEK MD Dec 09, 2020 10:54
[2020-12-09] MEDS: ANTI-COAG MONITOR BY PHARMACY. MC PRN (11:12)
--- NOTE | 2020-12-09 12:34 | PDOC ---
[facility] PROGRESS NOTE Date of Service DOS: DATE: 12/09/20 TIME: 12:31 Chief Complaint Chief Complaint Acute CVA? Weakness Near syncope Physical debility Plan: CTA head and neck and CT head on admission without acute findings Will admit patient with neurology consult Lipid panel and vitamin B12 pending PT/OT Resume home medications Will hold primidone as this interacts with Xarelto to decrease Xarelto levels and efficacy. FEN - NPO until bedside swallow, then cardiac diet PPX - Xarelto FULL CODE Dispo - inpatient for above; patient names her daughter (lEena) as her surrogate decision-maker. Advance Care Planning: Total time spent [id number] with patient greater than 17 minutes in discussion with goals of care, comfort care, end-of-life care, pain management, code status. History of Present Illness History of Present Illness Patient is a 60-year-old female with past medical history HLD, DVT, who presents to the ED with complaints of weakness for the past 2-3 days. She reports associated dizziness this morning, worse with ambulation. 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 CTA head neck and CT head without acute process. She lives at home with her [id number]. Upon evaluation in the ER concerned about some possible right- sided facial droop. Admitted inpatient for further medical management. Consults: Neurology, Cardiology 12/08/2020 Patient seen and evaluated bedside. Afebrile, no acute events overnight. She has positive orthostatic vitals. Some hypotension and bradycardia overnight as she slept. She had echocardiogram on 07/06/2020 with normal left ventricular size, low normal to mildly decreased left ventricular function, ejection fraction 45-50%, no significant aortic valve stenosis, estimated PAP 26 mmHg. Afebrile. Positive orthostatics again today. She is still feeling dizzy except when sitting. Unsteady on her feet. She does not feel safe go home as she feels as though she is going to fall currently. Is having some rectal pain and constipation. Has history of hemorrhoids. Vitals/I&O Vitals/I&O: Vital Signs Date Time Temp Pulse Resp B/P (MAP) Pulse Ox O2 Delivery O2 Flow Rate FiO2 12/09/20 11:00 98.1 58 20 140/74 (96) 94 Room Air 98.1 I & O 12/08/20 12/08/20 12/09/20 15:00 23:00 07:00 Intake Total 200 ml 990 ml Balance 200 ml 990 ml Physical Exam General: Alert, Oriented X3, Cooperative, No acute distress Heart: Regular rate (SR per EKG) Lungs: Clear Abdomen: Soft, No tenderness Extremities: No cyanosis, No edema Skin: No breakdown, No significant lesion Labs Labs: Laboratory Tests Test 12/08/20 12:50 Urine Collection Type Unknown Urine Color Yellow Urine Clarity Clear Urine pH 6.5 (<5.0-8.0) Urine Specific [place] 1.010 (1.000-1.030) Urine Protein Negative mg/dL (NEG-TRACE) Urine Glucose (UA) Negative mg/dL (NEG) Urine Ketones (Stick) Negative mg/dL (NEG) Urine Blood Negative (NEG) Urine Nitrite Negative (NEG) Urine Bilirubin Negative (NEG) Urine Urobilinogen Dipstick 0.2 mg/dL (0.2 mg/dL) Urine Leukocyte Esterase Negative (NEG) Urine RBC 0 /HPF (0-2) Urine WBC Occ /HPF (0-4) Urine Squamous Epithelial Cells Many /LPF Urine Bacteria Many /HPF (0-FEW) Comment Review of Relevant I have reviewed the following items willian (where applicable) has been applied. Medications: Current Medications Medications (Trade) Dose Ordered Sig/Mary Route PRN Reason Start Time Stop Time Status Last Admin Dose Admin Polyethylene Glycol (miraLAX PACKET) 17 gm 1X ONCE PO 12/08/20 13:00 12/08/20 13:01 DC 12/08/20 13:06 Justifications for Admission Other Justification CVA KARRI VALDEZ MD Dec 09, 2020 12:33
[2020-12-09] MEDS ORDERED: POLYETHYLENE GLYCOL 3350 17 GM PACKET. PO ONE (12:45)
[2020-12-09] MEDS ORDERED: HYDROCORTISONE 2.5% RECTAL CREAM 30GM TUBE. RC PRN (12:45)
--- NOTE | 2020-12-09 13:41 | PDOC ---
TORIE SLOAN SYSTEMS INTEGRATOR 12/09/20 1341: CARDIO Progress Notes Date and Time Date of Service 12/09/2020 Time of Evaluation 1330 Subjective Subjective: No Chest Pain, No shortness of breath, No Palpitations, Other (still gets dizzy with standing up) Vitals Vitals Vital Signs Date Time Temp Pulse Resp B/P (MAP) Pulse Ox O2 Delivery O2 Flow Rate FiO2 12/09/20 11:00 98.1 58 20 140/74 (96) 94 Room Air 98.1 Weight Weight [ ] Input and Output Intake and Output Intake and Output 12/09/20 07:00 Intake Total 1190 ml Balance 1190 ml Intake Oral 1190 ml # Voids 3 # Bowel Movements 1 Physical Exam HEENT: Neck Supple W Full Motion Chest: Symmetric LUNGS: Other (diminished bases) Heart: RRR (SR/SB) Abdomen: Soft N/T Extremities: No Edema, No Calf Tenderness Neurology: alert, oriented, follow commands Assessment Assessment 1. Presyncope: due to orthostasis. Neuro imaging negative for acute changes so far 2. Hx of barrets esophagus with mod hiatal hernia 3. RLE DVT with hx of PE: 10/19/2020 sono occlusive venous thrombosis involving a right peroneal vein. No central PE from recent CTA 4. Hypothyroidism: TSH better at 9 from 23 on replacement 5. Metabolic syndrome 6. Hx of mild NICM: EF at 45-50% compensated 7. Hx of Asymptomatic SB: HR 40-50s with good chronotropic response. Not the cause of her dizziness. No arrhythmias otherwise 8. Vertigo/ataxia: likely side effects of primidone. Will defer to neurology. Recommendations 1. Remains with orthostasis despite volume repletion. Will start mechanical compressions then will recheck afterwards 2. Continue reflux meds. No further lisinopril 3. Continue xarelto 4. Avoid AV megan blocking agents. QTc 394 5. Will consider for [facility] Justicifation of Admission Dx: Justifications for Admission: Justification of Admission Dx: Yes ANGLE OMNTANA MD 12/10/20 1310: CARDIO Progress Notes Assessment Assessment Patient seen and examined 12/09/2020. Agree with COMPRESSOR ASSEMBLER's assessment and plan. Dizziness/near syncope most probably secondary to hypovolemia/orthostasis - patient remains orthostatic despite intravenous hydration Mild chronic systolic heart failure well compensated Continue Xarelto for history of DVT/PE Agree with holding lisinopril We will consider outpatient event monitor recording TORIE SLOAN APRN Dec 09, 2020 13:41 ANGLE MONTANA MD Dec 10, 2020 13:10
--- NOTE | 2020-12-09 15:03 | NUR ---
SW following. Discussed with RN, pt from home, room air, cardiac diet. PT/OT recommending home health. Carlos Barraza RN meeting with pt to discuss home health. Anticipate discharge in the next day or two. SW will continue to follow.
[2020-12-09] MEDS: ZOLPIDEM 5 MG TABLET. PO PRN (20:40)
[2020-12-09] MEDS: ATORVASTATIN CALCIUM 20 MG TABLET PO SCH (20:40)
[2020-12-09] MEDS: RIVAROXABAN 10 MG TABLET. PO SCH (20:40)
[2020-12-09] MEDS: HYDROcodone/APAP 5/325MG 1 TAB TABLET PO PRN (20:40)
[2020-12-10 03:00] VITALS: BP 115/60
[2020-12-10] MEDS: LEVOTHYROXINE 125 MCG TABLET PO SCH (05:59)
[2020-12-10 07:00] VITALS: BP 124/72
[2020-12-10] MEDS: PANTOPRAZOLE 40 MG TABLET.DR. PO SCH (07:31)
[2020-12-10] MEDS: FERROUS SULFATE 325 MG TABLET. PO SCH (08:49)
--- NOTE | 2020-12-10 10:02 | PDOC ---
[facility] PROGRESS NOTE Date of Service DOS: DATE: 12/10/20 TIME: 10:02 Chief Complaint Chief Complaint A/P: Weakness Near syncope Physical debility Dizziness Orthostatic hypotension - improved with mechanical compression, taking levothyroxine and stopping her lisinopril Hx of barrets esophagus with mod hiatal hernia RLE DVT with hx of PE: 10/19/2020 sono occlusive venous thrombosis involving a right peroneal vein. No central PE from recent CTA Hypothyroidism: TSH better at 9 from 23 on replacement NICM: EF at 45-50% compensated. cannot tolerate BB due to bradycardia and hypotension Hx of Asymptomatic SB: HR 40-50s with good chronotropic response. Not the cause of her dizziness. No arrhythmias otherwise Vertigo/ataxia - likely side effects of primidone. Plan: CTA head and neck and CT head on admission without acute findings Will hold primidone as this interacts with Xarelto to decrease Xarelto levels and efficacy. FEN - NPO until bedside swallow, then cardiac diet PPX - Xarelto FULL CODE Dispo - inpatient for above; patient names her daughter (Elena) as her surrogate decision-maker. Advance Care Planning: Total time spent [id number] with patient greater than 17 minutes in discussion with goals of care, comfort care, end-of-life care, pain management, code status. History of Present Illness History of Present Illness Patient is a 60-year-old female with past medical history HLD, DVT, who presents to the ED with complaints of weakness for the past 2-3 days. She reports associated dizziness this morning, worse with ambulation. 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 CTA head neck and CT head without acute process. She lives at home with her [id number]. Upon evaluation in the ER concerned about some possible right- sided facial droop. Admitted inpatient for further medical management. Consults: Neurology, Cardiology 12/08/2020 Patient seen and evaluated bedside. Afebrile, no acute events overnight. She has positive orthostatic vitals. Some hypotension and bradycardia overnight as she slept. She had echocardiogram on 07/06/2020 with normal left ventricular size, low normal to mildly decreased left ventricular function, ejection fraction 45-50%, no significant aortic valve stenosis, estimated PAP 26 mmHg. 12/09: Afebrile. Positive orthostatics again today. She is still feeling dizzy except when sitting. Unsteady on her feet. She does not feel safe go home as she feels as though she is going to fall currently. Is having some rectal pain and constipation. Has history of hemorrhoids. Feeling better, still dizzy. Has been dizzy for 20 years like this, she admits it is the same. BP up off her antihypertensives and with compression stockings. D/w cardiology ok for home, possibly outpatient [facility], though she does not wish for telemetry studies further. Possible neuro referral to Dr. Lees in [place] Vitals/I&O Vitals/I&O: Vital Signs Date Time Temp Pulse Resp B/P (MAP) Pulse Ox O2 Delivery O2 Flow Rate FiO2 12/10/20 07:33 Room Air 12/10/20 07:00 98.1 55 18 124/72 (89) 98 98.1 I & O 12/09/20 12/09/20 12/10/20 15:00 23:00 07:00 Intake Total 240 ml 440 ml 240 ml Balance 240 ml 440 ml 240 ml Physical Exam General: Alert, Oriented X3, Cooperative, No acute distress Heart: Regular rate (SR per EKG) Lungs: Clear Abdomen: Soft, No tenderness Extremities: No cyanosis, No edema Skin: No breakdown, No significant lesion Comment Review of Relevant I have reviewed the following items willian (where applicable) has been applied. Medications: Current Medications Medications (Trade) Dose Ordered Sig/Mary Route PRN Reason Start Time Stop Time Status Last Admin Dose Admin Hydrocortisone (Proctosol-Hc) 1 mary PRN DAILY PRN RC hemorrhoid pain 12/09/20 12:45 12/09/20 20:41 Polyethylene Glycol (miraLAX PACKET) 17 gm 1X ONCE PO 12/09/20 12:45 12/09/20 12:46 DC 12/09/20 12:45 Justifications for Admission Other Justification CVA KARRI VALDEZ MD Dec 10, 2020 10:02
[2020-12-10 11:00] VITALS: BP 111/66
[2020-12-10] MEDS ORDERED: MECL12.582 PO (11:15)
[2020-12-10] MEDS: ANTI-COAG MONITOR BY PHARMACY. MC PRN (11:51)
--- NOTE | 2020-12-10 12:05 | NUR ---
SW following. Discussed with RN, discharge order for home with self care. SW spoke with Carlos Barraza RN, it was very borderline as to whether pt would qualify for home health. RN advised no SW needs.
--- NOTE | 2020-12-10 13:42 | PDOC ---
PROGRESS NOTES Date of Service DATE: 12/10/20 TIME: 13:41 Assessment Nonspecific dizziness, lightheadedness, no evidence of central or peripheral vestibular dysfunction, no evidence of stroke, polyneuropathy, radiculopathy, myelopathy. She is actually able to develop full strength. I wonder about some viral illness, nonorganic disorder, rule out stroke. MRI is negative, so there is no primary neurological issue. Note that she does have some mild orthostasis that could contribute Essential tremor, currently off her primidone, does not feel better off of it. Plan No additional neurological studies needed Rehabilitation modalities, home with home health therapy I could not solve this dizziness when I saw the patient more than 20 years ago, perhaps referral for outpatient vestibular testing with, for instance, Dr. Lees, in [place] Subjective Feels somewhat better, willing to go home Objective Vital Signs Date Time Temp Pulse Resp B/P (MAP) Pulse Ox O2 Delivery O2 Flow Rate FiO2 12/10/20 11:00 98.0 84 18 111/66 (81) 97 Room Air 98.0 Intake and Output 12/10/20 07:00 Intake Total 920 ml Balance 920 ml Intake Oral 920 ml # Voids 3 # Bowel Movements 2 PHYSICAL EXAM Alert. Oriented to time, place and person. Intellectual disability PERRL. EOMI. CN: no focal findings. Muscle tone: normal. Muscle strength: 5/5 DTR: 1+ Plantar reflex: Flexor Gait: Hard to describe, I would best term this consistent with a lack of confidence Sensory exam: no abnormal findings. No cerebellar signs elicited. Mild postural tremor Review of Relevant I have reviewed the following items willian (where applicable) has been applied. Medications Current Medications Sodium Chloride 1,000 ml @ 1,000 mls/hr Q1H IV Last administered on 12/07/20at 14:49; Start 12/07/20 at 13:30; Stop 12/07/20 at 14:29; Status DC Iohexol (Omnipaque 350 Mg/ml) 75 ml 1X ONCE IV ; Start 12/07/20 at 14:45; Stop 12/07/20 at 14:46; Status DC Info (CONTRAST GIVEN -- Rx MONITORING) 1 each PRN DAILY PRN MC SEE COMMENTS; Start 12/07/20 at 14:45; Stop 12/09/20 at 14:44; Status DC Iohexol (Omnipaque 300 Mg/ml) 75 ml 1X ONCE IV Last administered on 12/07/20at 14:51; Start 12/07/20 at 14:45; Stop 12/07/20 at 14:46; Status DC Ondansetron HCl (Zofran) 4 mg PRN Q8HRS PRN IV NAUSEA/VOMITING; Start 12/07/20 at 15:45; Stop 12/08/20 at 15:44; Status DC Morphine Sulfate (Morphine Sulfate) 4 mg PRN Q2HR PRN IV PAIN; Start 12/07/20 at 15:45; Stop 12/08/20 at 15:44; Status DC Ondansetron HCl (Zofran) 4 mg PRN Q6HRS PRN IVP NAUSEA/VOMITING; Start 12/07/20 at 17:30 Al Hydroxide/Mg Hydroxide (Mylanta Plus Xs) 30 ml PRN Q3HRS PRN PO HEARTBURN / GAS; Start 12/07/20 at 17:30 Calcium Carbonate/ Glycine (Tums) 500 mg PRN Q3HRS PRN PO UPSET STOMACH; Start 12/07/20 at 17:30 Zolpidem Tartrate (Ambien) 5 mg PRN QHS PRN PO INSOMNIA, MAY REPEAT IN 1HR Last administered on 12/09/20at 20:40; Start 12/07/20 at 17:30 Acetaminophen/ Hydrocodone Bitart (Lortab 5/325) 1 tab PRN Q4HRS PRN PO PAIN Last administered on 12/09/20at 20:40; Start 12/07/20 at 17:30 Acetaminophen (Tylenol) 650 mg PRN Q6HRS PRN PO Headaches, Temp > 101.5F; Start 12/07/20 at 17:30 Magnesium Hydroxide (Milk Of Magnesia) 2,400 mg PRN Q12HR PRN PO CONSTIPATION; Start 12/07/20 at 17:30 Bisacodyl (Dulcolax Supp) 10 mg PRN DAILY PRN PA CONSTIPATION; Start 12/07/20 at 17:30 Atorvastatin Calcium (Lipitor) 20 mg QHS PO Last administered on 12/09/20at 20:40; Start 12/07/20 at 21:00 Ferrous Sulfate (Feosol) 325 mg DAILY PO Last administered on 12/10/20at 08:49; Start 12/08/20 at 09:00 Levothyroxine Sodium (Synthroid) 125 mcg DAILY06 PO Last administered on 12/10/20at 05:59; Start 12/08/20 at 06:00 Lisinopril (Prinivil) 5 mg DAILY PO ; Start 12/08/20 at 09:00; Stop 12/08/20 at 08:18; Status DC Pantoprazole Sodium (Protonix) 40 mg DAILYAC PO Last administered on 12/10/20at 07:31; Start 12/08/20 at 07:30 Rivaroxaban (Xarelto) 20 mg QHS PO Last administered on 12/09/20at 20:40; Start 12/07/20 at 21:00 Sodium Chloride 1,000 ml @ 1,000 mls/hr 1X ONCE IV Last administered on 12/08/20at 03:22; Start 12/08/20 at 03:30; Stop 12/08/20 at 04:29; Status DC Info (Anti-Coagulation Monitoring By Pharmacy) 1 each PRN DAILY PRN MC SEE COMMENTS Last administered on 12/10/20at 11:51; Start 12/08/20 at 10:45 Sodium Chloride 1,000 ml @ 125 mls/hr 1X ONCE IV Last administered on 12/08/20at 11:40; Start 12/08/20 at 12:00; Stop 12/08/20 at 19:59; Status DC Polyethylene Glycol (miraLAX PACKET) 17 gm 1X ONCE PO Last administered on 12/08/20at 13:06; Start 12/08/20 at 13:00; Stop 12/08/20 at 13:01; Status DC Hydrocortisone (Proctosol-Hc) 1 mary PRN DAILY PRN RC hemorrhoid pain Last administered on 12/09/20at 20:41; Start 12/09/20 at 12:45 Polyethylene Glycol (miraLAX PACKET) 17 gm 1X ONCE PO Last administered on 12/09/20at 12:45; Start 12/09/20 at 12:45; Stop 12/09/20 at 12:46; Status DC Active Scripts Active Meclizine Hcl 12.5 Mg Tablet 1 Tab PO PRN TID PRN 10 Days Reported Mysoline (Primidone) 250 Mg Tablet 250 Mg PO DAILY Xarelto (Rivaroxaban) 20 Mg Tablet 1 Tab PO QHS 30 Days with food Pantoprazole Sodium (Pantoprazole Sodium) 40 Mg Tablet.dr 40 Mg PO DAILYAC Ferrous Sulfate 325 Mg Tablet 1 Tab PO DAILY Proair Hfa Inhaler (Albuterol Sulfate) 8.5 Gm Hfa.aer.ad 2 Puff IH PRN Q4-6HRS PRN 21 Days Vitamin C (Ascorbate Calcium) 500 Mg Tablet 500 Mg PO DAILY Sucralfate 1 Gm Tablet 1 Gm PO BID Levothyroxine Sodium 125 Mcg Tablet 125 Mcg PO DAILY Valacyclovir (Valacyclovir Hcl) 500 Mg Tablet 1 Tab PO DAILY Vitals/I & O Vital Sign - Last 24 Hours 12/09/20 12/09/20 12/09/20 12/09/20 15:00 15:01 15:02 19:00 Temp 98.4 98.4 Pulse 54 64 75 Resp 20 B/P (MAP) 105/69 (81) 132/66 (88) 108/73 (85) Pulse Ox 97 O2 Delivery Room Air Room Air 12/09/20 12/09/20 12/09/20 12/09/20 20:00 20:14 20:40 21:10 Temp 97.7 97.7 Pulse 57 Resp 18 B/P (MAP) 138/74 (95) Pulse Ox 98 98 98 O2 Delivery Room Air Room Air Room Air Room Air 12/09/20 12/10/20 12/10/20 12/10/20 22:53 03:00 07:00 07:33 Temp 97.9 98.3 98.1 97.9 98.3 98.1 Pulse 57 50 55 Resp 18 17 18 B/P (MAP) 109/71 (84) 115/60 (78) 124/72 (89) Pulse Ox 97 96 98 O2 Delivery Room Air Room Air Room Air Room Air 12/10/20 11:00 Temp 98.0 98.0 Pulse 84 Resp 18 B/P (MAP) 111/66 (81) Pulse Ox 97 O2 Delivery Room Air Intake and Output 12/09/20 12/09/20 12/10/20 15:00 23:00 07:00 Intake Total 240 ml 440 ml 240 ml Balance 240 ml 440 ml 240 ml Justicifation of Admission Dx: Justifications for Admission: Justification of Admission Dx: Yes ELMER MEEK MD Dec 10, 2020 13:42
[2020-12-10 15:14] VITALS: BP 117/73
--- NOTE | 2020-12-10 15:37 | NUR ---
Pt left unit at 1535 by wheelchair via private vehicle. IV removed without complication, VSS. Discharge paperwork discussed with pt, verbalizes understanding.
--- NOTE | 2020-12-10 16:27 | PDOC ---
TORIE SLOAN OPERATIONS AND MAINTENANCE SUPERVISOR 12/10/20 1627: CARDIO Progress Notes Date and Time Date of Service 12/10/2020 Time of Evaluation 1210 Subjective Subjective: No Chest Pain, No shortness of breath, No Palpitations, Other (feels better today) Vitals Vitals Vital Signs Date Time Temp Pulse Resp B/P (MAP) Pulse Ox O2 Delivery O2 Flow Rate FiO2 12/10/20 15:14 98.2 64 117/73 (88) 97 Room Air 98.2 12/10/20 11:00 18 Weight Weight [ ] Input and Output Intake and Output Intake and Output 12/10/20 07:00 Intake Total 920 ml Balance 920 ml Intake Oral 920 ml # Voids 3 # Bowel Movements 2 Physical Exam HEENT: Neck Supple W Full Motion Chest: Symmetric LUNGS: Other (diminished bases) Heart: RRR (SR/SB) Abdomen: Soft N/T Extremities: No Edema, No Calf Tenderness Neurology: alert, oriented, follow commands Assessment Assessment 1. Presyncope: due to orthostasis. Neuro imaging negative for acute changes so far. Improved with mechanical compression 2. Hx of barrets esophagus with mod hiatal hernia 3. RLE DVT with hx of PE: 10/19/2020 sono occlusive venous thrombosis involving a right peroneal vein. No central PE from recent CTA 4. Hypothyroidism: TSH better at 9 from 23 on replacement 5. Metabolic syndrome 6. Hx of mild NICM: EF at 45-50% compensated 7. Hx of Asymptomatic SB: HR 40-50s with good chronotropic response. Not the cause of her dizziness. No arrhythmias otherwise 8. Vertigo/ataxia: likely side effects of primidone. Will defer to neurology. Recommendations 1. Continue mechanical compressions 2. Continue reflux meds. No further lisinopril 3. Continue xarelto 4. Avoid AV megan blocking agents. QTc 394 5. Will consider for MCOT, follow up as scheduled Justicifation of Admission Dx: Justifications for Admission: Justification of Admission Dx: Yes ANGLE MONTANA MD 12/10/200: CARDIO Progress Notes Assessment Assessment Patient seen and examined. 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 Dizziness/near syncope most probably secondary to hypovolemia/orthostasis - patient remains orthostatic despite intravenous hydration Mild chronic systolic heart failure well compensated Continue Xarelto for history of DVT/PE Plan outpatient event monitor recording TORIE SLOAN APRN Dec 10, 2020 16:27 ANGLE MONTANA MD Dec 10, 2020 21:10
--- NOTE | 2020-12-10 23:03 | PDOC3 ---
Discharge Summary Visit Information Date of Admission: Dec 07, 2020 Date of Discharge: Dec 10, 2020 Admitting Diagnosis: Vertigo Final Diagnosis Orthostatic hypotension Brief Hospital Course Allergies Allergies Coded Allergies Type Severity Reaction Last Updated Verified No Known Drug Allergies 09/18/20 No Vital Signs Vital Signs Date Time Temp Pulse Resp B/P (MAP) Pulse Ox O2 Delivery O2 Flow Rate FiO2 12/10/20 15:14 98.2 64 117/73 (88) 97 Room Air 98.2 12/10/20 11:00 18 Brief Hospital Course Patient is a 60-year-old female with past medical history HLD, DVT, who presents to the ED with complaints of weakness for the past 2-3 days. She reports associated dizziness this morning, worse with ambulation. 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 CTA head neck and CT head without acute process. She lives at home with her [id number]. Upon evaluation in the ER concerned about some possible right- sided facial droop. Admitted inpatient for further medical management. Consults: Neurology, Cardiology 12/08/2020 Patient seen and evaluated bedside. Afebrile, no acute events overnight. She has positive orthostatic vitals. Some hypotension and bradycardia overnight as she slept. She had echocardiogram on 07/06/2020 with normal left ventricular size, low normal to mildly decreased left ventricular function, ejection fraction 45-50%, no significant aortic valve stenosis, estimated PAP 26 mmHg. 12/09: Afebrile. Positive orthostatics again today. She is still feeling dizzy except when sitting. Unsteady on her feet. She does not feel safe go home as she feels as though she is going to fall currently. Is having some rectal pain and constipation. Has history of hemorrhoids. Feeling better, still dizzy. Has been dizzy for 20 years like this, she admits it is the same. BP up off her antihypertensives and with compression stockings. D/w cardiology ok for home, possibly outpatient MCOT, though she does not wish for telemetry studies further. Possible neuro referral to Dr. Lees in [place] Problem list: Weakness Near syncope Physical debility Dizziness Orthostatic hypotension - improved with mechanical compression, taking levothyroxine and stopping her lisinopril Hx of barrets esophagus with mod hiatal hernia RLE DVT with hx of PE: 10/19/2020 sono occlusive venous thrombosis involving a right peroneal vein. No central PE from recent CTA Hypothyroidism: TSH better at 9 from 23 on replacement NICM: EF at 45-50% compensated. cannot tolerate BB due to bradycardia and hypotension Hx of Asymptomatic SB: HR 40-50s with good chronotropic response. Not the cause of her dizziness. No arrhythmias otherwise Vertigo/ataxia - likely side effects of primidone. Plan: CTA head and neck and CT head on admission without acute findings Will hold primidone as this interacts with Xarelto to decrease Xarelto levels and efficacy. Advance Care Planning: Total time spent [id number] with patient greater than 17 minutes in discussion with goals of care, comfort care, end-of-life care, pain management, code status. Greater than 30 minutes spent on d/c Discharge Information Condition at Discharge: Improved Follow Up: Weeks (1) Disposition/Orders: D/C to Home Scheduled Ascorbate Calcium (Vitamin C) 500 Mg Tablet, 500 MG PO DAILY for supplement, (Reported) Entered as Reported by: VARGHESE VILLANUEVA on 05/06/20 1354 Last Action: Reviewed on 12/07/202204 by RAHEEM EDMOND Ferrous Sulfate (Ferrous Sulfate) 325 Mg Tablet, 1 TAB PO DAILY for anemia, #30 Ref 3 (Reported) Entered as Reported by: Roland Parada on 11/24/20608 Last Action: Reviewed on 12/07/202204 by RAHEEM EDMOND Levothyroxine Sodium (Levothyroxine Sodium) 125 Mcg Tablet, 125 MCG PO DAILY for hypothyroid, (Reported) Entered as Reported by: KIKO BYNUM RN on 03/19/19 5904 Last Action: Reviewed on 12/07/202204 by RAHEEM EDMOND Pantoprazole Sodium (Pantoprazole Sodium ) 40 Mg Tablet.dr, 40 MG PO DAILYAC for GERD, (Reported) Entered as Reported by: Roland Parada on 11/24/20609 Last Action: Reviewed on 12/07/202204 by RAHEEM EDMOND Primidone (Mysoline) 250 Mg Tablet, 250 MG PO DAILY for shakes, (Reported) Entered as Reported by: Roland Parada on 11/24/20611 Last Action: Reviewed on 12/07/202204 by RAHEEM EDMOND Rivaroxaban (Xarelto) 20 Mg Tablet, 1 TAB PO QHS for for blood clots for 30 Days, #30 Ref 0 (Reported) with food Entered as Reported by: Roland Parada on 11/24/20 0610 Last Action: Reviewed on 12/07/202204 by RAHEEM EDMOND Sucralfate (Sucralfate) 1 Gm Tablet, 1 GM PO BID for other, (Reported) Entered as Reported by: VARGHESE VILLANUEVA on 05/06/20 1354 Last Action: Reviewed on 12/07/202204 by RAHEEM EDMOND Valacyclovir Hcl (Valacyclovir) 500 Mg Tablet, 1 TAB PO DAILY for unknown, #90 Ref 3 (Reported) Entered as Reported by: YAQUELIN PARISI on 09/25/18 1539 Last Action: Reviewed on 12/07/202204 by RAHEEM EDMOND Scheduled PRN Albuterol Sulfate (Proair Hfa Inhaler) 8.5 Gm Hfa.aer.ad, 2 PUFF IH PRN Q4-6HRS PRN for wheezing for 21 Days, #1 Ref 0 (Reported) Entered as Reported by: VARGHESE VILLANUEVA on 05/06/20 135 Last Action: Reviewed on 12/07/202204 by RAHEEM EDMOND Meclizine Hcl (Meclizine Hcl) 12.5 Mg Tablet, 1 TAB PO PRN TID PRN for dizziness for 10 Days, #10 Ref 3 Prescribed by: KARRI VALDEZ MD on 12/10/20 1115 Discontinued Medications Atorvastatin Calcium (Atorvastatin Calcium) 10 Mg Tablet, 20 MG PO QHS for HLD for 30 Days, #60 Ref 2 Prescribed by: KARRI VALDEZ MD on 11/24/20 1615 Last Action: Reviewed on 12/07/202204 by RAHEEM EDMOND Lisinopril (Lisinopril) 5 Mg Tablet, 1 TAB PO DAILY for htn, #30 Ref 5 (Reported) Entered as Reported by: Roland Parada on 11/24/20 0611 Last Action: Reviewed on 12/07/202204 by RAHEEM EDMOND Justicifation of Admission Dx: Justifications for Admission: Justification of Admission Dx: Yes KARRI VALDEZ MD Dec 10, 2020 23:03
== END 2020-12-10 15:41 | disposition home or self-care (01) | DRG 312 ==
LOC: ER 13:03 → ED HOLD 15:36 → OBSVTOIN 17:23 → 4 NORTH 19:30 → 6 SOUTH 12-08 13:32
PROVIDERS: ADMIT Family Medicine; ATTEND Family Medicine
DX: I95.1 Orthostatic hypotension (principal); I50.22 Chronic systolic (congestive) heart failure; I42.8 Other cardiomyopathies; E86.1 Hypovolemia; E03.9 Hypothyroidism, unspecified; G25.0 Essential tremor; Z79.01 Long term (current) use of anticoagulants; Z82.49 Family history of ischemic heart disease and other diseases of the circulatory system; Z85.850 Personal history of malignant neoplasm of thyroid; Z86.711 Personal history of pulmonary embolism; Z86.718 Personal history of other venous thrombosis and embolism; F41.9 Anxiety disorder, unspecified; K21.9 Gastro-esophageal reflux disease without esophagitis; E78.5 Hyperlipidemia, unspecified; M19.90 Unspecified osteoarthritis, unspecified site; M54.5 Low back pain; Z90.49 Acquired absence of other specified parts of digestive tract; Z98.51 Tubal ligation status; E88.81 Metabolic syndrome and other insulin resistance
CPT/HCPCS: 36415; 70450; 70496; 70498; 70551; 71045; 80048; 80053; 80061; 81001; 82607; 82962; 83605; 83880; 84443; 84484; 85025; 85610; 85730; 93005; 96360; 99285; G0378; G0379; J3490; J7030; Q9967; 97110-GP; 97116-GP; 97530-GO; 97530-GP; 97535-GO

== ENCOUNTER → 2020-12-29 | Outpatient (CLI) | payer OTHER ==
[2020-12-10 15:14] VITALS: BP 117/73
[~2020-12-29] MED LIST changes: +MECL12.582 PO
== END ==
LOC: LAB 09:03
PROVIDERS: ATTEND Family Medicine
DX: E03.9 Hypothyroidism, unspecified (principal)
CPT/HCPCS: 36415; 84443

== ENCOUNTER 2021-02-02 11:34 | Emergency (ER) | payer OTHER ==
[~2021-02-02] VITALS: Ht 165.1 cm; Wt 68.1 kg
[2021-02-02 11:59] LABS: BASO % 1 % (0-3); EOS # 0.1 x10^3/uL (0.0-0.7); EOS % 1 % (0-3); HEMATOCRIT 48.3 % (36.0-47.0); HEMOGLOBIN 16.3 g/dL (12.0-15.5); LYMPH # 1.5 x10^3/uL (1.0-4.8); LYMPH % 29 % (24-48); MEAN CORPUSCULAR HEMOGLOBIN 32 pg (25-35); MEAN CORPUSCULAR HGB CONC 34 g/dL (31-37); MEAN CORPUSCULAR VOLUME 94 fL (79-100); MONO # 0.4 x10^3/uL (0.0-1.1); MONO % 8 % (0-9); NEUT # 3.3 x10^3/uL (1.8-7.7); NEUT % 62 % (31-73); PLATELET COUNT 254 x10^3/uL (140-400); RED BLOOD COUNT 5.12 x10^6/uL (3.50-5.40); RED CELL DISTRIBUTION WIDTH 12.7 % (11.5-14.5); WHITE BLOOD COUNT 5.3 x10^3/uL (4.0-11.0)
[2021-02-02] MEDS ORDERED: IV NORMAL SALINE 1000ML BAG 1,000 ML IV SCH (12:00)
[2021-02-02] MEDS ORDERED: ONDANSETRON PF 4 MG/2 ML VIAL. IVP ONE (12:00)
--- NOTE | 2021-02-02 12:01 | PHYS DOC ---
Past Medical History Past Medical History: DVT, GERD, High Cholesterol, Hypothyroid, Uterine F ibroids, Other Additional Past Medical Histor: fibroids, ACID REFLUX,PE Past Surgical History: Cholecystectomy, Tubal ligation Smoking Status: Never Smoker Alcohol Use: None Drug Use: None General Adult EDM: Chief Complaint: ABDOMINAL PAIN HPI: HPI: Patient is a 60 year old female who presented to ER for evaluation of abdominal pain with nausea and diarrhea for the last 3 days. Patient says she feels weak and dehydrated, she has not been able to keep them down. Patient IS having abdominal cramping pain. Patient felt hot and chilled. 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 Patient states she had stomach problem in the past, she has hiatal hernia, she is under the care of the GI specialist. Patient said her bowel backed up easily. Review of Systems: Review of Systems: Constitutional: Positive for chill. Eyes: Denies change in visual acuity. [] HENT: Denies nasal congestion or sore throat. [] Respiratory: Denies cough or shortness of breath. [] Cardiovascular: Denies chest pain or edema. [] GI: Positive for abdominal pain with nausea and diarrhea, no vomiting yet. : Denies dysuria. [] Musculoskeletal: Denies back pain or joint pain. [] Integument: Denies rash. [] Neurologic: Denies headache, focal weakness or sensory changes. [] Endocrine: Denies polyuria or polydipsia. [] Lymphatic: Denies swollen glands. [] Psychiatric: Denies depression or anxiety. [] Heart Score: C/O Chest Pain: N/A Risk Factors: Risk Factors: DM, Current or recent (<one month) smoker, HTN, HLP, family history of CAD, obesity. Risk Scores: Score 0 - 3: 2.5% MACE over next 6 weeks - Discharge Home Score 4 - 6: 20.3% MACE over next 6 weeks - Admit for Clinical Observation Score 7 - 10: 72.7% MACE over next 6 weeks - Early Invasive Strategies Current Medications: Current Medications Medications (Trade) Dose Ordered Sig/Mary Start Time Stop Time Status Last Admin Dose Admin Ondansetron HCl (Zofran) 4 mg 1X ONCE 02/02/21 12:00 02/02/21 12:01 Sodium Chloride 1,000 ml @ 1,000 mls/hr Q1H 02/02/21 12:00 02/02/21 12:59 Allergies: Allergies: Allergies Coded Allergies Type Severity Reaction Last Updated Verified No Known Drug Allergies 09/18/20 No Physical Exam: PE: Constitutional: Well developed, well nourished, no acute distress, non-toxic appearance. [] HENT: Normocephalic, atraumatic, bilateral external ears normal, oropharynx moist, no oral exudates, nose normal. [] Eyes: PERRLA, EOMI, conjunctiva normal, no discharge. [] Neck: Normal range of motion, no tenderness, supple, no stridor. [] Cardiovascular:Heart rate regular rhythm, no murmur [] Lungs & Thorax: Bilateral breath sounds clear to auscultation [] Abdomen: Bowel sounds normal, soft, There is tenderness in epigastric area, no masses, no pulsatile masses. [] Skin: Warm, dry, no erythema, no rash. [] Back: No tenderness, no CVA tenderness. [] Extremities: No tenderness, no cyanosis, no clubbing, ROM intact, no edema. [] Neurologic: Alert and oriented X 3, normal motor function, normal sensory function, no focal deficits noted. [] Psychologic: Affect normal, judgement normal, mood normal. [] Current Patient Data: Labs: Laboratory Tests Test 02/02/21 11:50 02/02/21 12:07 White Blood Count 5.3 x10^3/uL Red Blood Count 5.12 x10^6/uL Hemoglobin 16.3 g/dL Hematocrit 48.3 % Mean Corpuscular Volume 94 fL Mean Corpuscular Hemoglobin 32 pg Mean Corpuscular Hemoglobin Concent 34 g/dL Red Cell Distribution Width 12.7 % Platelet Count 254 x10^3/uL Neutrophils (%) (Auto) 62 % Lymphocytes (%) (Auto) 29 % Monocytes (%) (Auto) 8 % Eosinophils (%) (Auto) 1 % Basophils (%) (Auto) 1 % Neutrophils # (Auto) 3.3 x10^3/uL Lymphocytes # (Auto) 1.5 x10^3/uL Monocytes # (Auto) 0.4 x10^3/uL Eosinophils # (Auto) 0.1 x10^3/uL Basophils # (Auto) 0.0 x10^3/uL Sodium Level 143 mmol/L Potassium Level 3.7 mmol/L Chloride Level 105 mmol/L Carbon Dioxide Level 25 mmol/L Anion Gap 13 Blood Urea Nitrogen 9 mg/dL Creatinine 0.7 mg/dL Estimated GFR (Cockcroft-Gault) 85.9 BUN/Creatinine Ratio 13 Glucose Level 97 mg/dL Calcium Level 9.1 mg/dL Magnesium Level 2.0 mg/dL Total Bilirubin 0.7 mg/dL Aspartate Amino Transf (AST/SGOT) 19 U/L Alanine Aminotransferase (ALT/SGPT) 28 U/L Alkaline Phosphatase 107 U/L Total Protein 7.4 g/dL Albumin 3.9 g/dL Albumin/Globulin Ratio 1.1 Lipase 86 U/L Urine Collection Type Unknown Urine Color Yellow Urine Clarity Clear Urine pH 6.0 Urine Specific [place] 1.020 Urine Protein Negative mg/dL Urine Glucose (UA) Negative mg/dL Urine Ketones (Stick) Negative mg/dL Urine Blood Negative Urine Nitrite Negative Urine Bilirubin Negative Urine Urobilinogen Dipstick 0.2 mg/dL Urine Leukocyte Esterase Negative Urine RBC 0 /HPF Urine WBC 1-4 /HPF Urine Squamous Epithelial Cells Many /LPF Urine Bacteria Many /HPF Urine Mucus Slight /LPF Current Medications Medications (Trade) Dose Ordered Sig/Mary Route PRN Reason Start Time Stop Time Status Last Admin Dose Admin Sodium Chloride 1,000 ml @ 1,000 mls/hr Q1H IV 02/02/21 12:00 02/02/21 12:59 DC 02/02/21 12:11 Ondansetron HCl (Zofran) 4 mg 1X ONCE IVP 02/02/21 12:00 02/02/21 12:01 DC 02/02/21 12:11 Iohexol (Omnipaque 300 Mg/ml) 75 ml 1X ONCE IV 02/02/21 13:00 02/02/21 13:01 DC 02/02/21 13:03 Info (CONTRAST GIVEN -- Rx MONITORING) 1 each PRN DAILY PRN MC SEE COMMENTS 02/02/21 13:00 02/04/21 12:59 Morphine Sulfate (Morphine Sulfate) 4 mg 1X ONCE IV 02/02/21 13:00 02/02/21 13:01 DC 02/02/21 13:50 Vital Signs: Vital Signs Date Time Temp Pulse Resp B/P (MAP) Pulse Ox O2 Delivery O2 Flow Rate FiO2 02/02/21 11:44 97.6 68 20 152/85 (107) 96 Room Air 97.6 EKG: EKG: [] Radiology/Procedures: Radiology/Procedures: [][facility] [address] [place] [address] IMAGING REPORT Signed PATIENT: NIMISHA BLAKE ACCOUNT: [id number] : 1960 LOCATION: ER AGE: 60 SEX: F EXAM STATUS: REG ER ORD. PHYSICIAN: CHRISTAL CASE DO REASON: abdominal pain PROCEDURE: CT ABD PELV W/ IV CONTRST ONLY EXAM: CT Abdomen and Pelvis with IV contrast CLINICAL HISTORY: abdominal pain COMPARISON: 05/05/2020 TECHNIQUE: Helical CT of the abdomen and pelvis was performed following the administration of intravenous contrast. Axial, coronal and sagittal reformatted images were generated. PQRS compliance statement - One or more of the following individualized dose red uction techniques were utilized for this study: 1. Automated exposure control 2. Adjustment of the mA and/or kV according to patient size 3. Use of iterative reconstruction technique FINDINGS: Lower Chest: Lung bases are clear. Abdomen and Pelvis: Moderate-sized hiatal hernia. Hepatic hypoattenuation likely fatty liver. Low- density right hepatic lobe lesion is too small to accurately characterize. There has been a cholecystectomy. Low-density pancreatic head/neck lesion measures millimeters, previously described as stable to 2011 although those images are not available for comparison today. Symmetric nephrograms. No focal renal lesion. No hydronephrosis. No hydroureter. Bladder is unremarkable. Moderate colonic stool content. No small or large bowel dilatation. No bowel obstruction. No abdominal pelvic ascites. No abdominal pelvic lymphadenopathy. Bones: No aggressive osseous lesion. Symphysis uterus degenerative changes. Multilevel degenerative changes of lower lumbar spine are also seen. IMPRESSION: Moderate-sized hiatal hernia No bowel obstruction. Moderate colonic stool content aspiration. Hepatic hypoattenuation likely fatty liver. Electronically signed by: Franklin Wolf MD (02/02/2021 2:01 PM) [id number] DICTATED and SIGNED BY: FRANKLIN WOLF MD DATE: 02/02/21 [id number] Course & Med Decision Making: Course & Med Decision Making Pertinent Labs and Imaging studies reviewed. (See chart for details) Patient is a 52-year-old female who presented to ER due to abdominal pain with nausea vomiting, some diarrhea. CT scan of the abdomen pelvis shows a moderate size abdominal hernia, large amount of stool in her colon. Patient was given medication in ER, she feel much better, no nausea vomiting while she was in the ER. Patient will be discharged home with Fleet enema and magnesium citrate Dragon Disclaimer: Dragon Disclaimer: This electronic medical record was generated, in whole or in part, using a voice recognition dictation system. Departure Departure Impression: Primary Impression: Abdominal pain Additional Impression: Constipation Disposition: HOME / SELF CARE / HOMELESS Condition: IMPROVED Referrals: Clif RIZVI MD (PCP) Follow up with your doctor this week. Patient Instructions: Abdominal Pain, Constipation, Adult Additional Instructions: Thank you for visiting our Emergency Department. We appreciate you trusting us with your care. If any additional problems come up don't hesitate to return to visit us. Please follow up with your primary care provider so they can plan additional care if needed and know about the problem that you had. If symptoms worsen come back to the Emergency Department. Any concerning symptoms that start such as chest pain, shortness of air, weakness or numbness on one side of the body, running high fevers or any other concerning symptoms return to the ER. Scripts Ondansetron Hcl (ZOFRAN) 4 Mg Tablet 1 TAB PO Q6HRS PRN for NAUSEA, #20 TAB Prov: CHRISTAL CASE DO 02/02/21 CHRISTAL CASE DO Feb 02, 2021 12:01
[2021-02-02 12:17] LABS: CALCIUM 9.1 mg/dL (8.5-10.1); CREATININE 0.7 mg/dL (0.6-1.0); GFR 85.9; POTASSIUM 3.7 mmol/L (3.5-5.1)
[2021-02-02 12:23] LABS: ALBUMIN 3.9 g/dL (3.4-5.0); ALBUMIN/GLOBULIN RATIO 1.1 (1.0-1.7); TOTAL BILIRUBIN 0.7 mg/dL (0.2-1.0); TOTAL PROTEIN 7.4 g/dL (6.4-8.2)
[2021-02-02 12:25] LABS: BILIRUBIN,URINE NEGATIVE (NEG); CLARITY,URINE CLEAR; COLOR,URINE YELLOW; NITRITE,URINE NEGATIVE (NEG); PROTEIN,URINE NEGATIVE (NEG-TRACE); UROBILINOGEN,URINE 0.2 mg/dL (0.2 mg/dL)
[2021-02-02 12:38] LABS: BACTERIA,URINE MANY /HPF (0-FEW); RBC,URINE 0 /HPF (0-2)
[2021-02-02] MEDS ORDERED: IOHEXOL 300 MG/ML 100ML VIAL. IV ONE (13:00)
[2021-02-02] MEDS ORDERED: MORPHINE SULFATE 4 MG/ML VIAL. IV ONE (13:00)
[2021-02-02] MEDS ORDERED: CONTRAST GIVEN. MC PRN (13:00)
--- NOTE | 2021-02-02 14:03 | RAD ---
EXAM: CT Abdomen and Pelvis with IV contrast CLINICAL HISTORY: abdominal pain COMPARISON: 05/05/2020 TECHNIQUE: Helical CT of the abdomen and pelvis was performed following the administration of intrave nous contrast. Axial, coronal and sagittal reformatted images were generated. PQRS compliance statement - One or more of the following individualized dose reduction techniques wer e utilized for this study: 1. Automated exposure control 2. Adjustment of the mA and/or kV according to patient size 3. Use of iterative reconstruction technique FINDINGS: Lower Chest: Lung bases are clear. Abdomen and Pelvis: Moderate-sized hiatal hernia. Hepatic hypoattenuation likely fatty liver. Low-density right hepatic l obe lesion is too small to accurately characterize. There has been a cholecystectomy. Low-density whaley creatic head/neck lesion measures millimeters, previously described as stable to 2010 although those images are not available for comparison today. Symmetric nephrograms. No focal renal lesion. No hydronephrosis. No hydroureter. Bladder is unremarka ble. Moderate colonic stool content. No small or large bowel dilatation. No bowel obstruction. No abdominal pelvic ascites. No abdominal pelvic lymphadenopathy. Bones: No aggressive osseous lesion. Symphysis uterus degenerative changes. Multilevel degenerative changes of lower lumbar spine are also seen. IMPRESSION: Moderate-sized hiatal hernia No bowel obstruction. Moderate colonic stool content aspiration. Hepatic hypoattenuation likely fatty liver. Electronically signed by: Franklin Nieves MD (02/02/2021 2:01 PM) [id number]
[2021-02-02 15:46] VITALS: BP 135/82
[2021-02-02] MEDS ORDERED: MAGNESIUM CITRATE 296 ML SOLUTION. PO ONE (16:00)
[2021-02-02] MEDS ORDERED: SODIUM PHOSPHATES 19/7GM 133 ML ENEMA. PR ONE (16:00)
[2021-02-02] MEDS ORDERED: ONDA4TAB7 PO (16:10)
== END 2021-02-02 16:18 | disposition home or self-care (01) ==
LOC: ER 11:34
DX: K59.00 Constipation, unspecified (principal); E78.00 Pure hypercholesterolemia, unspecified; E03.9 Hypothyroidism, unspecified; K21.9 Gastro-esophageal reflux disease without esophagitis; K44.9 Diaphragmatic hernia without obstruction or gangrene; Z86.718 Personal history of other venous thrombosis and embolism; Z90.49 Acquired absence of other specified parts of digestive tract; Z98.51 Tubal ligation status
CPT/HCPCS: 36415; 74177; 80053; 81001; 83690; 83735; 85025; 87086; 96361; 96374; 96375; 99285; J2270; J2405; J7030; Q9967

== ENCOUNTER 2021-02-22 06:32 | Emergency (ER) | payer OTHER ==
[~2021-02-22] VITALS: Ht 152.4 cm; Wt 68.0 kg
[~2021-02-22 06:32] MED LIST changes: +ONDA4TAB7 PO
--- NOTE | 2021-02-22 06:51 | EKG ---
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
[2021-02-22 06:57] LABS: BASO # 0.1 x10^3/uL (0.0-0.2); BASO % 1 % (0-3); EOS # 0.1 x10^3/uL (0.0-0.7); EOS % 2 % (0-3); HEMATOCRIT 45.2 % (36.0-47.0); HEMOGLOBIN 15.2 g/dL (12.0-15.5); LYMPH # 1.6 x10^3/uL (1.0-4.8); LYMPH % 31 % (24-48); MEAN CORPUSCULAR HEMOGLOBIN 32 pg (25-35); MEAN CORPUSCULAR HGB CONC 34 g/dL (31-37); MEAN CORPUSCULAR VOLUME 95 fL (79-100); MONO # 0.3 x10^3/uL (0.0-1.1); MONO % 5 % (0-9); NEUT # 3.2 x10^3/uL (1.8-7.7); NEUT % 61 % (31-73); PLATELET COUNT 231 x10^3/uL (140-400); RED BLOOD COUNT 4.79 x10^6/uL (3.50-5.40); RED CELL DISTRIBUTION WIDTH 12.6 % (11.5-14.5); WHITE BLOOD COUNT 5.3 x10^3/uL (4.0-11.0)
--- NOTE | 2021-02-22 07:04 | PHYS DOC ---
Past Medical History Past Medical History: DVT, GERD, High Cholesterol, Hypothyroid, Uterine Fibroids, Other Additional Past Medical Histor: fibroids, ACID REFLUX,PE Past Surgical History: Cholecystectomy, Tubal ligation Smoking Status: Never Smoker Alcohol Use: None Drug Use: None General Adult EDM: Chief Complaint: CHEST PAIN HPI: HPI: 60-year-old female past medical history of hypothyroidism, hyperlipidemia, GERD, DVT and PE on Xarelto (diagnosed in November 2020), presents the ED with complaints of left sided sharp, nonradiating chest pain stating "I couldn't sleep all night," with associated sweating, decreased strength and fatigue. Pain started last night around 9 PM, has not taken anything for the pain. 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 No known history of Covid. No history of CAD or cocaine abuse. No personal or family history of AAA, AAD, CTD (ehlos danlos or marfans), cardiac arrhythmias (need for AICD), CAD or sudden or unexplainable (under 50 years of age or with exertion). Review of Systems: Review of Systems: Constitutional: Denies fever or chills. [] Eyes: Denies change in visual acuity. [] HENT: Denies nasal congestion or sore throat. [] Respiratory: Denies cough or hemoptysis Cardiovascular: Denies syncope or edema. [] GI: Denies abdominal pain, nausea, vomiting, bloody stools or diarrhea. [] : Denies dysuria or hematuria Musculoskeletal: Denies back pain or joint pain. [] Integument: Denies rash or blistering lesions Neurologic: Denies headache, focal weakness or sensory changes. [] Endocrine: Denies polyuria or polydipsia. [] Lymphatic: Denies swollen glands. [] Psychiatric: Denies depression or anxiety. [] Heart Score: C/O Chest Pain: Yes HEART Score for Chest Pain: HEART Score for Chest Pain Response (Comments) Value History Slighlty/Non-Suspicious 0 ECG Nonspecific Repolarizatio 1 Age >45 - < 65 1 Risk Factors 1 or 2 Risk Factors 1 Troponin < Normal Limit 0 Total 3 Risk Factors: Risk Factors: DM, Current or recent (<one month) smoker, HTN, HLP, family history of CAD, obesity. Risk Scores: Score 0 - 3: 2.5% MACE over next 6 weeks - Discharge Home Score 4 - 6: 20.3% MACE over next 6 weeks - Admit for Clinical Observation Score 7 - 10: 72.7% MACE over next 6 weeks - Early Invasive Strategies Allergies: Allergies: Allergies Coded Allergies Type Severity Reaction Last Updated Verified No Known Drug Allergies 09/18/20 No Physical Exam: PE: Constitutional: Well developed, well nourished, no acute distress, non-toxic appearance, tired appearing/sleeping in stretcher HENT: Normocephalic, atraumatic, Eyes: EOMI, conjunctiva normal, no discharge. Neck: Normal range of motion, supple, Cardiovascular: S1/2 present, regular rhythm Lungs & Thorax: Speaking in full sentences, bilateral equal chest rise, no tac hypnea or increased work of breathing Abdomen: soft, no tenderness, Skin: Warm, dry, no erythema, no rash. [] Back: No tenderness, no CVA tenderness. [] Extremities: No tenderness, no cyanosis, no lower extremity edema Neurologic: Alert and oriented X 3, normal motor function, normal sensory fun ction, no focal deficits noted. [] Psychologic: Affect normal, judgement normal, mood normal. [] Current Patient Data: Labs: Laboratory Tests Test 02/22/21 06:45 White Blood Count 5.3 x10^3/uL (4.0-11.0) Red Blood Count 4.79 x10^6/uL (3.50-5.40) Hemoglobin 15.2 g/dL (12.0-15.5) Hematocrit 45.2 % (36.0-47.0) Mean Corpuscular Volume 95 fL (79-100) Mean Corpuscular Hemoglobin 32 pg (25-35) Mean Corpuscular Hemoglobin Concent 34 g/dL (31-37) Red Cell Distribution Width 12.6 % (11.5-14.5) Platelet Count 231 x10^3/uL (140-400) Neutrophils (%) (Auto) 61 % (31-73) Lymphocytes (%) (Auto) 31 % (24-48) Monocytes (%) (Auto) 5 % (0-9) Eosinophils (%) (Auto) 2 % (0-3) Basophils (%) (Auto) 1 % (0-3) Neutrophils # (Auto) 3.2 x10^3/uL (1.8-7.7) Lymphocytes # (Auto) 1.6 x10^3/uL (1.0-4.8) Monocytes # (Auto) 0.3 x10^3/uL (0.0-1.1) Eosinophils # (Auto) 0.1 x10^3/uL (0.0-0.7) Basophils # (Auto) 0.1 x10^3/uL (0.0-0.2) Laboratory Tests 02/22/21 06:45 EKG: EKG: Sinus rhythm 65 bpm, left axis deviation, normal intervals, T wave inversion in leads II, III, aVF and V3, no ST elevations or ST depressions, -T wave inversions are new compared to EKG from 05/05/2020 Radiology/Procedures: Radiology/Procedures: []IMAGING REPORT Signed PATIENT: NIMISHA BLKAE ACCOUNT: [id number] : 1960 LOCATION: ER AGE: 60 SEX: F EXAM STATUS: REG ER ORD. PHYSICIAN: AIME HO DO REASON: cp PROCEDURE: PORTABLE CHEST 1V INDICATION: Reason: cp / Spl. Instructions: / History: COMPARISON: December 07, 2020 FINDINGS: Single view of chest obtained. Enlarged cardiomediastinal silhouette. Density projecting over the cardiac silhouette which could be secondary to hiatal hernia. Appearance the lungs is similar to prior without definite new region of consolidation. Left lung base is obscured secondary to cardiac silhouette obscuring. There is some sclerotic foci projecting over the bilateral proximal humerus again seen. IMPRESSION: * Enlarged cardiac silhouette with additional density projecting over the cardiac silhouette which could be from hiatal hernia. * No definite new region of airspace consolidation. * Sclerotic foci bilateral proximal humerus partially seen. Most commonly from bone island unless the patient has known history of neoplasm Electronically signed by: Silas Foreman MD (02/22/2021 7:16 AM) [id number] DICTATED and SIGNED BY: SILAS FOREMAN MD DATE: 02/22/21 [id number] IMAGING REPORT Signed PATIENT: NIMISHA BLAKE ACCOUNT: [id number] : 1960 LOCATION: ER AGE: 60 SEX: F EXAM STATUS: REG ER ORD. PHYSICIAN: AIME HO DO REASON: cp, h/o pe on xarelto, r/o pe PROCEDURE: CT ANGIOGRAPHY CHEST CTA CHEST History: Chest pain, history of PE on Xarelto. Rule out PE. Comparison: CTA chest 11/28/2020. Technique: CTA of the pulmonary arteries with intravenous contrast. Coronal and lateral 3-D MIPS reformats were provided. Findings: Pulmonary arteries: No pulmonary embolism identified. Aorta and great vessels: No aneurysm of the aortic arch or thoracic aorta is seen. Thyroid: No significant abnormalities. Mediastinum and tracey: No mediastinal masses or adenopathy is seen. Esophagus: The thoracic esophagus is unremarkable. There is a moderate hiatal hernia. Heart: The heart is normal in size. There is no pericardial effusion. Airways: The visualized tracheobronchial tree is normal. Lungs: Bilateral upper greater than lower ground glass opacities, similar to comparison. Pleural space: There is no pneumothorax or pleural effusion. Upper abdomen: Moderate hiatal hernia. Cholecystectomy clips. Osseous structures and soft tissues: Within normal limits for age. Impression: 1. No pulmonary embolism, aortic dissection or aortic aneurysm. 2. Bilateral groundglass opacities similar to comparison are nonspecific and may represent artifact of exhalatory technique. 3. Moderate hiatal hernia. ------ Exposure: One or more of the following individualized dose reduction techniques were utilized for this examination: 1. Automated exposure control 2. Adjustment of the mA and/or kV according to patient size 3. Use of iterative reconstruction technique. Electronically signed by: Ryder Barnes MD (02/22/2021 8:05 AM) [facility] DICTATED and SIGNED BY: RYDER BARNES MD DATE: 02/22/21 [id number] Course & Med Decision Making: Course & Med Decision Making Pertinent Labs and Imaging studies reviewed. (See chart for details) Concern for atypical chest pain in a low risk patient, 2 troponin negative, heart score 3, CTA of the chest showing no pulmonary embolus. Patient with no history of neoplasm-CT printed to take to primary care physician. Nonspecific ggo on CT, similar to prior. Patient required no supplemental oxygen. Patient well-appearing, afebrile, sleeping comfortably in ED stretcher. Will discharge home with strict ED return precautions were given for chest pain, syncope, nausea, vomiting, diaphoresis or neurologic deficits. Encouraged urgent outpatie nt follow-up with PMD and cardiology. Life-threatening processes were considered but are low suspicion at this time, given history, physical exam and ED workup. Pt was educated on all prescription medications and adverse effects. All patient's questions were answered and pt was stable at time of discharge. Life/limb-threatening differential includes but is not limited to, acute myocardial infarction, aortic dissection, congestive heart failure, esophageal injury including rupture, surgical abdomen, arrhythmia, cardiomyopathy, myocarditis, pericarditis, peptic ulcer disease, pneumomediastinum, pneumonia, pneumothorax, pulmonary embolus, unstable angina, rib fracture, contusion, pericardial tamponade or effusion, traumatic injury including mediastinal hemorrhage or hematoma, or pulmonary contusion. I have spoken with the patient and/or caregivers. I explained the patient's condition, diagnoses and treatment plan based on the information available to me at this time. I have answered the patient and/or caregiver's questions and addressed any concerns. The patient and/or caregivers have a good understanding of patient's diagnosis, condition and treatment plan as can be expected at this point. Vital signs have been stable. Patient's condition is stable and appropriate for discharge from the emergency department. Patient will pursue further outpatient evaluation with primary care physician or other designated or consulting physician as outlined in the discharge instructions. The patient and/or caregivers are agreeable to this plan of care and follow-up instructions have been explained in detail. The patient and/or caregivers have received these instructions in written form and have expressed an understanding of the discharge instructions. The patient and/or caregivers are aware that any significant change of condition or worsening of symptoms should prompt immediate return to this or the closest emergency department or call to 911. Jez Disclaimer: Jez Disclaimer: This electronic medical record was generated, in whole or in part, using a voice recognition dictation system. Departure Departure Impression: Primary Impression: Atypical chest pain Disposition: HOME / SELF CARE / HOMELESS Condition: STABLE Referrals: Clif RIZVI MD (PCP) in 1-2 days for re-evaluation Patient Instructions: Chest Pain (Nonspecific) Additional Instructions: FOLLOW UP WITH CARDIOLOGY: FOR DEFINITIVE MANAGEMENT/nonemergent evaluation of chest pain [facility] [address] [facility] [address] [place] [address] EMERGENCY DEPARTMENT GENERAL DISCHARGE INSTRUCTIONS Thank you for coming to Emergency Department (ED) today and trusting us with you care. We trust that you had a positive experience in our Emergency Department. If you wish to speak to the department management, you may call the Director at [phone]. YOUR FOLLOW UP INSTRUCTIONS ARE FOLLOWS: 1. Do you have a private Doctor? If you do not have a private doctor, please ask for a resource list of physicians or clinics that may be able to assist you with follow up care. 2. The Emergency Physicain has interpreted your x-rays. The X-Ray specialist will also review them. If there is a change in the findings, you will be notified in 48 hours when at all possible. 3. A lab test or culture has been done, your results will be reviewed and you will be notified if you need a change in treatment. ADDITIONAL INSTRUCTIONS AND INFORMATION: 1. Your care today has been supervised by a physician who is specially trained in emergency care. Many problems require more than one evaluation for a complete diagnosis and treatment. We recommend that you schedule your follow up appointment as recommended to ensure complete treatment of you illness or injury. If you are unable to obtain follow up care and continue to have a problem, or if your condition worsens, we recommend that you return to the ED. 2. We are not able to safely determine your condition over the phone nor are we able to give sound medical advice over the phone. For these safety reasons, if you call for medical advice we will ask you to come to the ED for further evaluation. 3. If you have any questions regarding these discharge instructions please call the ED at [phone]. SAFETY INFORMATION: In the interest of safety, wellness, and injury prevention; we encourage you to wear your sealbelt, if you smoke; quite smoking, and we encourage family to use a protective helmet for bicycling and other sporting events that present an increased risk for head injury. IF YOUR SYMPTOMS WORSEN OR NEW SYMPTOMS DEVELOP, OR YOU HAVE CONCERNS ABOUT YOUR CONDITION; OR IF YOUR CONDITION WORSENS WHILE YOU ARE WAITING FOR YOUR FOLLOW UP APPOINTMENT; EITHER CONTACT YOUR PRIMARY CARE DOCTOR, THE PHYSICIAN WHOSE NAME AND NUMBER YOU WERE GIVEN, OR RETURN TO THE ED IMMEDIATELY. AIME GUERRERO DO Feb 22, 2021 07:04
[2021-02-22 07:11] LABS: CALCIUM 9.1 mg/dL (8.5-10.1); CREATININE 0.8 mg/dL (0.6-1.0); GFR 73.7; POTASSIUM 3.8 mmol/L (3.5-5.1)
[2021-02-22 07:17] LABS: ALBUMIN 3.8 g/dL (3.4-5.0); ALBUMIN/GLOBULIN RATIO 1.1 (1.0-1.7); TOTAL BILIRUBIN 0.6 mg/dL (0.2-1.0); TOTAL PROTEIN 7.3 g/dL (6.4-8.2)
--- NOTE | 2021-02-22 07:18 | RAD ---
INDICATION: Reason: cp / Spl. Instructions: / History: COMPARISON: December 07, 2020 FINDINGS: Single view of chest obtained. Enlarged cardiomediastinal silhouette. Density projecting over the cardiac silhouette which could be secondary to hiatal hernia. Appearance the lungs is similar to prior without definite new region of consolidation. Left lung base is obscured secondary to cardiac silhouette obscuring. There is some sclerotic foci projecting over the bilateral proximal humerus again seen. IMPRESSION: * Enlarged cardiac silhouette with additional density projecting over the cardiac silhouette which c ould be from hiatal hernia. * No definite new region of airspace consolidation. * Sclerotic foci bilateral proximal humerus partially seen. Most commonly from bone island unless th e patient has known history of neoplasm Electronically signed by: Erik Bird MD (02/22/2021 7:16 AM) [id number]
[2021-02-22] MEDS ORDERED: CONTRAST GIVEN. MC PRN (07:45)
[2021-02-22] MEDS ORDERED: IOHEXOL 350 MG/ML 100 ML VIAL. IV ONE (07:45)
--- NOTE | 2021-02-22 08:07 | RAD ---
CTA CHEST History: Chest pain, history of PE on Xarelto. Rule out PE. Comparison: CTA chest 11/28/2020. Technique: CTA of the pulmonary arteries with intravenous contrast. Coronal and lateral 3-D MIPS refo rmats were provided. Findings: Pulmonary arteries: No pulmonary embolism identified. Aorta and great vessels: No aneurysm of the aortic arch or thoracic aorta is seen. Thyroid: No significant abnormalities. Mediastinum and tracey: No mediastinal masses or adenopathy is seen. Esophagus: The thoracic esophagus is unremarkable. There is a moderate hiatal hernia. Heart: The heart is normal in size. There is no pericardial effusion. Airways: The visualized tracheobronchial tree is normal. Lungs: Bilateral upper greater than lower ground glass opacities, similar to comparison. Pleural space: There is no pneumothorax or pleural effusion. Upper abdomen: Moderate hiatal hernia. Cholecystectomy clips. Osseous structures and soft tissues: Within normal limits for age. Impression: 1. No pulmonary embolism, aortic dissection or aortic aneurysm. 2. Bilateral groundglass opacities similar to comparison are nonspecific and may represent artifact of exhalatory technique. 3. Moderate hiatal hernia. ------ Exposure: One or more of the following individualized dose reduction techniques were utilized for thi s examination: 1. Automated exposure control 2. Adjustment of the mA and/or kV according to patient size 3. Use of iterative reconstruction technique. Electronically signed by: Ryder Armenta MD (02/22/2021 8:05 AM) [facility]
[2021-02-22 10:00] LABS: BARBITURATES NEG (NEG); BENZODIAZEPINES NEG (NEG); CANNABINOIDS NEG (NEG); COCAINE NEG (NEG); METHADONE NEG (NEG); OPIATES NEG (NEG); PHENCYCLIDINE NEG (NEG)
[2021-02-22 10:02] LABS: AMPHETAMINE/METHAMPHETAMINE NEG (NEG)
[2021-02-22 11:55] VITALS: BP 144/82
--- NOTE | 2021-02-22 14:56 | EKG ---
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
== END 2021-02-22 11:59 | disposition home or self-care (01) ==
LOC: ER 06:32
DX: R07.89 Other chest pain (principal); R53.83 Other fatigue; K21.9 Gastro-esophageal reflux disease without esophagitis; E78.00 Pure hypercholesterolemia, unspecified; E03.9 Hypothyroidism, unspecified; Z86.718 Personal history of other venous thrombosis and embolism; Z90.49 Acquired absence of other specified parts of digestive tract; Z98.51 Tubal ligation status; Z86.711 Personal history of pulmonary embolism
CPT/HCPCS: 36415; 71045; 71275; 80053; 80307; 83880; 84484; 85025; 93005; 99285; Q9967

== ENCOUNTER 2021-03-16 06:42 | Outpatient (CLI) | payer OTHER ==
[~2021-03-16] VITALS: Ht 153.7 cm; Wt 65.9 kg
[2021-03-16] VITALS (11 sets, daily range): BP systolic 104–130; BP diastolic 55–75
[2021-03-16] MEDS ORDERED: LIDOCAINE 1% Multi-Dose 20 ML VIAL. ONE (07:44)
[2021-03-16] MEDS ORDERED: IODIXANOL 320 MG/ML 100 ML VIAL. ONE (07:44)
[2021-03-16 07:45] LABS: HEMATOCRIT 44.3 % (36.0-47.0); HEMOGLOBIN 14.9 g/dL (12.0-15.5); RED BLOOD COUNT 4.8 x10^6/uL (3.50-5.40); RED CELL DISTRIBUTION WIDTH 12.9 % (11.5-14.5); WHITE BLOOD COUNT 5.1 x10^3/uL (4.0-11.0)
[2021-03-16 07:49] LABS: CALCIUM 9.1 mg/dL (8.5-10.1); CREATININE 0.7 mg/dL (0.6-1.0); GFR 85.9; POTASSIUM 3.8 mmol/L (3.5-5.1)
[2021-03-16 07:52] LABS: PROTHROMBIN TIME PATIENT 12.4 SEC (11.7-14.0)
[2021-03-16] MEDS ORDERED: IODIXANOL 320 MG/ML 100 ML VIAL. IART ONE (08:00)
[2021-03-16] MEDS ORDERED: fentaNYL PF VIAL 100 MCG/2 ML VIAL IV ONE (08:00)
[2021-03-16] MEDS ORDERED: MIDAZOLAM HCL/PF 2 MG/2 ML VIAL. IV ONE (08:00)
[2021-03-16] MEDS ORDERED: LIDOCAINE 1% Multi-Dose 20 ML VIAL. INJ ONE (08:00)
[2021-03-16] MEDS ORDERED: fentaNYL PF VIAL 100 MCG/2 ML VIAL ONE (08:15)
[2021-03-16] MEDS ORDERED: MIDAZOLAM HCL/PF 2 MG/2 ML VIAL. ONE (08:15)
--- NOTE | 2021-03-16 09:20 | PDOC ---
MODERATE SEDATION ASSESSMENT RISKS/ALTERNATIVES Risks/Alternatives Risks and alternatives of this type of sedation and procedure discussed with: RISK/ALTERNATIVES: Patient H & P ON CHART H & P H & P on chart and reviewed for co-morbid conditions and appropriate labs. H&P ON CHART: Yes STATUS PREG STATUS ASSESSED: N/A MEDS/ALLERGIES REVIEWED Meds/Allergies Reviewed Medications and Allergies including time and route of recently administered narcotics and sedatives. MEDS/ALLERGIES REVIEWED: Yes ASA RATING ASA RATING: II AIRWAY ASSESSMENT Airway Assessment Airway patency, oral function limitations, presence of caps, crowns, dentures, partials, and ability to extend neck assessed. AIRWAY ASSESSMENT: Yes MALLAMPATI SCORE MALLAMPATI SCORE: II PRE-SEDATION ASSESSMENT PRE-SEDATION ASSESSMENT: Yes ANGLE MONTANA MD Mar 16, 2021 09:20
[2021-03-16] MEDS ORDERED: NITROGLYCERIN SUBLINGUAL 0.4 MG BOTTLE OF 25. SL PRN (09:30)
[2021-03-16] MEDS ORDERED: IV 1/2 NORMAL SALINE 1,000 ML IV SCH (09:30)
--- NOTE | 2021-03-16 09:31 | CARD ---
MR#: [id number] Date of Study: 03/16/2021 Ordering Physician: ANGLE MONTANA, Referring Physician: Angela CASTREJON: BAILEY CHOWDHURY APPROVED REPORT Technologist: BAILEY CHOWDHURY Nurse: Ana Chin RN Procedure(s) performed: Right and left heart catheterization, selective coronary angiography and left ventriculography MODERATE SEDATION TIME: 42 MINS FLUORO TIME: 4.5 MIN DOSE: 32 GYCM2 CONTRAST: 57CC VISI INDICATION The indication(s) include : Chest pain and dyspnea on exertion concerning for unstable angina. [facility] Clinical Frailty Scale [facility] Clinical Frailty Scale: Mildly Frail Heart Failure Heart Failure: No CASE TECHNIQUE IV conscious sedation was used throughout procedure with appropriate monitoring and was performed in the presence of a registered nurse who was an independent trained observer other than the physician p erforming the procedure. During this case, Fluoroscopy and low osmolar contrast were used for imaging . Specimen(s) Removed: No Estimated Blood loss: 15 cc's. PROCEDURE NARRATIVE After explaining the risk, benefits and alternative options, informed consent was obtained for patien t. Patient was brought to cardiac Disc Pad Grinding Machine Feeder and her right groin was prepped and draped in the usual f ashion. 20 cc of 2% lidocaine was infiltrated into the skin and subcutaneous tissues for local anest hesia. Arterial and venous accesses were obtained in the right common femoral artery and vein respec tively and 6 and 8 Maldivian sheaths inserted. A 7.5 Maldivian [place] catheter was then advanced under fluoroscopic guidance and intracardiac pressures and oxygen saturations measured. Subsequently, 6 Fr ench JL4 6 Maldivian JR4 catheters were used to perform selective angiography of the left and right fabiola nary arteries. 6 Maldivian pigtail catheter was used to perform left ventriculography. Patient tolerat ed the procedure well. Hemostasis was achieved using Angio-Seal. There were no immediate complicati ons. FINDINGS A. RIGHT HEART CATHETERIZATION 1. Intracardiac pressures: Mean right atrial pressure 5 mmHg, right ventricular pressure 31/1 mmHg, pulmonary artery pressure 30/9 mmHg with a mean PA pressure of 18 mmHg and mean pulmonary capillary w edge pressure of 9 mmHg. No pulmonary hypertension. 2. Oxygen saturations: Right atrium 75.9%, pulmonary artery 76.5%, femoral arterial sheath 97.8%. N o evidence of intracardiac shunt. 3. Cardiac output by Manuelito method 3.15 L/min. B. LEFT HEART CATHETERIZATION 1. Hemodynamics: Left ventricular end-diastolic pressure 15 mmHg. No pullback gradient across aorti c valve 2. Left ventriculography: Borderline normal left ventricle systolic function with ejection fraction estimated at 50%. 1+ mitral regurgitation seen. 3. Coronary angiography: a. The left main coronary artery arose from the left sinus of Valsalva, gave rise to the left anteri or descending and left circumflex arteries and did not show any significant stenosis. b. The left anterior descending artery did not show any significant stenosis. c. The left circumflex artery did not show any significant stenosis. d. The right coronary artery was a large and dominant vessel arising from the right sinus of Valsalv a that did not show any significant stenosis. Conclusion 1. No significant coronary artery disease 2. Borderline normal left ventricle systolic function with ejection fraction estimated at 50%. 3. Normal right and left-sided filling pressures without any significant pulmonary hypertension. 4. No evidence of intracardiac shunt. Recommendations Medical Therapy Signed by : Angle Montana, Electronically Approved : 03/16/2021 09:30:38
== END 2021-03-16 12:57 ==
LOC: CCL 06:42
PROVIDERS: ATTEND Internal Medicine Cardiovascular Disease
DX: R07.9 Chest pain, unspecified (principal); R06.09 Other forms of dyspnea; I10 Essential (primary) hypertension; K21.9 Gastro-esophageal reflux disease without esophagitis; E78.00 Pure hypercholesterolemia, unspecified; E03.9 Hypothyroidism, unspecified; F41.9 Anxiety disorder, unspecified; Z86.711 Personal history of pulmonary embolism; Z86.718 Personal history of other venous thrombosis and embolism; Z79.899 Other long term (current) drug therapy; Z90.49 Acquired absence of other specified parts of digestive tract; Z98.51 Tubal ligation status; Z98.890 Other specified postprocedural states
CPT/HCPCS: 36415; 80048; 85027; 85610; 93460; 99152; 99153; C1760; C1769; C1773; C1894; G0269; J1644; J2250; J3010; J3490; Q9967

== ENCOUNTER 2021-05-09 20:41 | Emergency (ER) | payer OTHER ==
[~2021-05-09] VITALS: Ht 165.1 cm; Wt 70.0 kg
--- NOTE | 2021-05-09 21:09 | PHYS DOC ---
Past Medical History Past Medical History: DVT, GERD, High Cholesterol, Hypothyroid, Uterine F ibroids, Other Additional Past Medical Histor: fibroids, ACID REFLUX,PE Past Surgical History: Cholecystectomy, Tubal ligation Smoking Status: Never Smoker Alcohol Use: None Drug Use: None General Adult EDM: Chief Complaint: DIZZY/LIGHT HEADED HPI: HPI: Patient is a 60-year-old female presenting via POV for dizziness. Patient reports suffering a mechanical fall and hitting her head on household furniture 7 days ago. She is on Xarelto for prior DVT, did not lose consciousness at that time but never sought emergency/medical care. States she suffered focal pain to her left posterior occiput without any known laceration or injury. Has had a dull headache and just overall felt more fatigued than usual. Reports 2 days ago she started feeling dizzy that was worse with positional changes. She went to work today and symptoms did not fully improve and so, she presents to our ER for evaluation. Besides history of DVT requiring Xarelto use, she has history of hypothyroidism and low vitamin D B12 which is addressed in outpatient setting. No other major changes in health. She is fully vaccinated against COVID-19 but does endorse symptoms such as postnasal drip, sore throat, fatigue and generalized body aches and pains. Review of Systems: Review of Systems: Fourteen body systems of review of systems have been reviewed. See HPI for pertinent positives and negative responses, other tee all other systems are negative, non-pertinent or non-contributory Heart Score: C/O Chest Pain: No HEART Score for Chest Pain: HEART Score for Chest Pain Response (Comments) Value History Slighlty/Non-Suspicious 0 ECG Normal 0 Age >45 - < 65 1 Risk Factors 1 or 2 Risk Factors 1 Troponin < Normal Limit 0 Total 2 Risk Factors: Risk Factors: DM, Current or recent (<one month) smoker, HTN, HLP, family history of CAD, obesity. Risk Scores: Score 0 - 3: 2.5% MACE over next 6 weeks - Discharge Home Score 4 - 6: 20.3% MACE over next 6 weeks - Admit for Clinical Observation Score 7 - 10: 72.7% MACE over next 6 weeks - Early Invasive Strategies Allergies: Allergies: Allergies Coded Allergies Type Severity Reaction Last Updated Verified No Known Drug Allergies 09/18/20 No Physical Exam: PE: Constitutional: Pt is oriented to person, place, and time. Pt appears well-developed and well- nourished. HEENT: Head: Normocephalic and atraumatic. TMs clear, no hemotympanum Conjunctivae and EOM are normal. Pupils are equal, round, and reactive to light. Oropharynx is clear and moist. No hematomas or lacerations or abrasions to face or scalp OP clear, no blood, no malocclusion, dentition intact Nares clear, no nasal septal hematoma Midface stable Neck: C-spine midline nontender, no step-offs Cardiovascular: Normal rate, regular rhythm and normal heart sounds. Pulmonary/Chest: Effort normal and breath sounds normal. No respiratory distress. No wheezes. CTA bilaterally Abdominal: Soft. Bowel sounds are normal. Pt exhibits no distension. There is no tenderness. Musculoskeletal: No bony tenderness to extremities, no deformities, full ROM extremities Chest wall stable Pelvis stable and non-tender No vertebral TTP and spine without stepoffs Neurological: Pt is alert and oriented to person, place, and time. Moving all extremities willfully, able to wiggle all fingers and toes Alert and oriented x 3 Sensation grossly intact Skin: Skin is warm and dry. No abrasions, no lacerations Psychiatric: Behavior is appropriate for situation Current Patient Data: Labs: Laboratory Tests Test 05/09/21 21:05 05/09/21 21:10 SARS-CoV-2 Antigen (Rapid) Negative White Blood Count 6.8 x10^3/uL Red Blood Count 4.49 x10^6/uL Hemoglobin 13.9 g/dL Hematocrit 41.0 % Mean Corpuscular Volume 91 fL Mean Corpuscular Hemoglobin 31 pg Mean Corpuscular Hemoglobin Concent 34 g/dL Red Cell Distribution Width 13.8 % Platelet Count 240 x10^3/uL Neutrophils (%) (Auto) 58 % Lymphocytes (%) (Auto) 28 % Monocytes (%) (Auto) 11 % Eosinophils (%) (Auto) 2 % Basophils (%) (Auto) 1 % Neutrophils # (Auto) 3.9 x10^3/uL Lymphocytes # (Auto) 1.9 x10^3/uL Monocytes # (Auto) 0.8 x10^3/uL Eosinophils # (Auto) 0.1 x10^3/uL Basophils # (Auto) 0.1 x10^3/uL Sodium Level 142 mmol/L Potassium Level 3.7 mmol/L Chloride Level 105 mmol/L Carbon Dioxide Level 24 mmol/L Anion Gap 13 Blood Urea Nitrogen 18 mg/dL Creatinine 1.0 mg/dL Estimated GFR (Cockcroft-Gault) 56.9 BUN/Creatinine Ratio 18 Glucose Level 113 mg/dL Glucose (Fingerstick) 133 mg/dL Calcium Level 8.9 mg/dL Total Bilirubin 0.3 mg/dL Aspartate Amino Transf (AST/SGOT) 17 U/L Alanine Aminotransferase (ALT/SGPT) 29 U/L Alkaline Phosphatase 109 U/L Troponin I Quantitative < 0.017 ng/mL Total Protein 6.9 g/dL Albumin 3.4 g/dL Albumin/Globulin Ratio 1.0 Vital Signs: Vital Signs Date Time Temp Pulse Resp B/P (MAP) Pulse Ox O2 Delivery O2 Flow Rate FiO2 05/09/21 21:05 76 20 128/68 (88) 96 Room Air 05/09/21 20:57 98.5 98.5 EKG: EKG: EKG ordered and interpreted by myself at 2108 hrs. as sinus rhythm at 72 bpm, unremarkable intervals, left axis deviation, no STEMI Radiology/Procedures: Radiology/Procedures: Exam: Chest one view INDICATION: Dizzy TECHNIQUE: Frontal view of the chest Comparisons: 02/22/2021 FINDINGS: The cardiomediastinal silhouette and pulmonary vessels are within normal limits. The lung and pleural spaces are clear. Large hiatal hernia. IMPRESSION: No acute cardiopulmonary process. Electronically signed by: Cindi Mahmood MD (05/09/2021 10:14 PM) [facility] ///////////// EXAM: CT head and cervical spine without contrast INDICATION: Fall on blood thinners, dizziness COMPARISON: CT head 12/07/2020 TECHNIQUE: Axial CT imaging through the head and cervical spine without intravenous contrast. Sagittal and coronal reformats of the cervical spine were obtained. One or more of the following individualized dose reduction techniques were utilized for this examination: 1. Automated exposure control 2. Adjustment of the mA and/or kV according to patient size 3. Use of iterative reconstruction technique. FINDINGS: CT head: The ventricles and sulci are mildly enlarged. Morris-white matter differentiation is maintained. There is no intracranial hemorrhage, acute infarct, or mass lesion. Basal cisterns are clear. The skull and scalp are intact. Paranasal sinuses and mastoid air cells are clear. Globes and orbits are intact.. CT cervical spine: No acute fracture. Alignment is normal. The craniocervical junction and atlantoaxial interval are maintained. There is mild degenerative disc at C5-C6 and C6-C7. There is moderate bilateral foraminal narrowing at these levels. No significant facet arthrosis. Prevertebral soft tissues normal. IMPRESSION: 1. No acute intracranial abnormality. 2. No acute osseous abnormality of the cervical spine. Electronically signed by: Ruby Walter MD (05/09/2021 9:33 PM) [facility] Course & Med Decision Making: Course & Med Decision Making Pertinent Labs and Imaging studies reviewed. (See chart for details) [] Dragon Disclaimer: Dragon Disclaimer: This electronic medical record was generated, in whole or in part, using a voice recognition dictation system. Departure Departure Impression: Primary Impression: Closed head injury without loss of consciousness Additional Impression: Post concussion syndrome Disposition: HOME / SELF CARE / HOMELESS Condition: STABLE Referrals: Clif RIZVI MD (PCP) Additional Instructions: You were seen for a headache after head trauma. Your CT scan did not show any acute fracture or bleeding. You most likely have symptoms consistent with postconcussive syndrome. You should avoid any further head trauma. Please keep your scheduled follow-up with your primary care physician tomorrow morning for further diagnostic work-up, intervention and referrals as indicated. You should return to the ED if you develop worsening pain, numbness, tingling, weakness, vomiting, vision change, or any other new or concerning symptoms. TRACY HIGGINS DO May 09, 2021 21:09
[2021-05-09 21:32] LABS: BASO # 0.1 x10^3/uL (0.0-0.2); BASO % 1 % (0-3); EOS # 0.1 x10^3/uL (0.0-0.7); EOS % 2 % (0-3); HEMOGLOBIN 13.9 g/dL (12.0-15.5); LYMPH # 1.9 x10^3/uL (1.0-4.8); LYMPH % 28 % (24-48); MEAN CORPUSCULAR HEMOGLOBIN 31 pg (25-35); MEAN CORPUSCULAR HGB CONC 34 g/dL (31-37); MEAN CORPUSCULAR VOLUME 91 fL (79-100); MONO # 0.8 x10^3/uL (0.0-1.1); MONO % 11 % (0-9); NEUT # 3.9 x10^3/uL (1.8-7.7); NEUT % 58 % (31-73); PLATELET COUNT 240 x10^3/uL (140-400); RED BLOOD COUNT 4.49 x10^6/uL (3.50-5.40); RED CELL DISTRIBUTION WIDTH 13.8 % (11.5-14.5); WHITE BLOOD COUNT 6.8 x10^3/uL (4.0-11.0)
--- NOTE | 2021-05-09 21:36 | RAD ---
EXAM: CT head and cervical spine without contrast INDICATION: Fall on blood thinners, dizziness COMPARISON: CT head 12/07/2020 TECHNIQUE: Axial CT imaging through the head and cervical spine without intravenous contrast. Sagitta l and coronal reformats of the cervical spine were obtained. One or more of the following individualized dose reduction techniques were utilized for this examinat ion: 1. Automated exposure control 2. Adjustment of the mA and/or kV according to patient size 3. Use of iterative reconstruction technique. FINDINGS: CT head: The ventricles and sulci are mildly enlarged. Morris-white matter differentiation is maintained. There is no intracranial hemorrhage, acute infarct, or mass lesion. Basal cisterns are clear. The skull and scalp are intact. Paranasal sinuses and mastoid air cells are clear. Globes and orbits are intact.. CT cervical spine: No acute fracture. Alignment is normal. The craniocervical junction and atlantoaxial interval are valeria ntained. There is mild degenerative disc at C5-C6 and C6-C7. There is moderate bilateral foraminal na rrowing at these levels. No significant facet arthrosis. Prevertebral soft tissues normal. IMPRESSION: 1. No acute intracranial abnormality. 2. No acute osseous abnormality of the cervical spine. Electronically signed by: Ruby Walter MD (05/09/2021 9:33 PM) [facility]
[2021-05-09 21:42] LABS: CALCIUM 8.9 mg/dL (8.5-10.1); GFR 56.9; POTASSIUM 3.7 mmol/L (3.5-5.1)
[2021-05-09 21:47] LABS: ALBUMIN 3.4 g/dL (3.4-5.0); TOTAL BILIRUBIN 0.3 mg/dL (0.2-1.0); TOTAL PROTEIN 6.9 g/dL (6.4-8.2)
--- NOTE | 2021-05-09 22:16 | RAD ---
Exam: Chest one view INDICATION: Dizzy TECHNIQUE: Frontal view of the chest Comparisons: 02/22/2021 FINDINGS: The cardiomediastinal silhouette and pulmonary vessels are within normal limits. The lung and pleural spaces are clear. Large hiatal hernia. IMPRESSION: No acute cardiopulmonary process. Electronically signed by: Cindi Mahmood MD (05/09/2021 10:14 PM) [facility]
[2021-05-09 22:30] VITALS: BP 106/56
--- NOTE | 2021-05-10 02:23 | EKG ---
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
--- NOTE | 2021-05-10 15:57 | NUR ---
IP: Patient notified of negative COVID19 test result. Verbalized understanding.
== END 2021-05-09 22:49 | disposition home or self-care (01) ==
LOC: ER 20:41
DX: S09.90XA Unspecified injury of head, initial encounter (principal); Z20.822 Contact with and (suspected) exposure to COVID-19; F07.81 Postconcussional syndrome; M54.2 Cervicalgia; K21.9 Gastro-esophageal reflux disease without esophagitis; E78.00 Pure hypercholesterolemia, unspecified; E03.9 Hypothyroidism, unspecified; Z86.718 Personal history of other venous thrombosis and embolism; W18.09XA Striking against other object with subsequent fall, initial encounter; Y93.89 Activity, other specified; Y92.89 Other specified places as the place of occurrence of the external cause; Y99.8 Other external cause status
CPT/HCPCS: 36415; 70450; 71045; 72125; 80053; 82962; 84484; 85025; 87426; 93005; 99285; U0003; U0005

== ENCOUNTER → 2021-06-30 | Outpatient (CLI) | payer OTHER ==
[~2021-06-30] MED LIST changes: +CLIN-94 PO; -CLIN300C9 PO; +CYCL10TA19 PO; +HYDR-2761 PO; -LISI-517 PO; +LISI5TAB15 PO; +ZOLPIDEM 5 MG TABLET. PO PRN
--- NOTE | 2021-07-01 13:22 | SLEEP ---
DATE OF STUDY: 06/30/2021 SLEEP STUDY REFERRING PHYSICIAN: Dr. Rizvi. The patient is 60 years old who weighs 160 pounds with a BMI of 29. The patient's Big Sky score was 15. The patient underwent diagnostic sleep study performed at [facility] During the night study, the patient spent 558 minutes in bed and slept for 532 minutes with a sleep efficiency of 95%. Sleep latency was 2 minutes with a REM latency of 69 minutes. Sleep architecture showed normal stage 1 and stage 2 sleep, normal slow wave and normal REM sleep. During the night of study, the patient had 56 obstructive apneas, 17 mixed apneas, 2 central apneas and 16 hypopneas. The patient's AHI was 10 per hour. Supine AHI 12 per hour and REM AHI of 29 per hour. EKG monitoring revealed mean heart rate of 64 beats per minute. No sustained arrhythmias observed. PLMs were seen at index of 34 per hour, but only 2 per hour caused EEG arousals. Nocturnal oximetry study revealed a mean oxygen saturation of 94% with a lowest of 88%. Due to low AHI, the patient did not meet the split night criteria for CPAP initiation. IMPRESSION: 1. Mild obstructive sleep apnea with moderate increase during REM sleep. Total AHI 10 per hour with a REM AHI of 29 per hour. 2. No significant nocturnal hypoxia. 3. Moderate PLMs without any significant EEG arousals. This does not need to be treated unless the patient has symptoms of restless legs during the day. RECOMMENDATIONS: 1. The patient is clinically symptomatic with an Big Sky score of 15. I would recommend the patient should be given a trial of CPAP. This can be done as an in-lab versus home auto CPAP. 2. Once the patient is optimally treated with CPAP, then follow up in 4-6 weeks to assess compliance and to document clinical improvement. 3. Weight loss to the ideal body weight is recommended. 4. Avoid BUSINESS INTELLIGENCE DIRECTOR depressants. 5. Cautioned regarding driving until symptoms of sleep apnea resolve with above recommendations. CHAS/SHASHANK/SUSI DR: Khris TID: [id number] CC: Clif RIZVI MD
== END ==
LOC: SLPLAB 18:29
PROVIDERS: ATTEND Family Medicine
DX: G47.33 Obstructive sleep apnea (adult) (pediatric) (principal)
CPT/HCPCS: 95810

== ENCOUNTER → 2021-07-14 | Outpatient (CLI) | payer OTHER ==
[~2021-07-14] MED LIST changes: -ZOLPIDEM 5 MG TABLET. PO PRN
[2021-07-14 08:27] LABS: BASO % 1 % (0-3); EOS # 0.1 x10^3/uL (0.0-0.7); EOS % 1 % (0-3); HEMATOCRIT 44.5 % (36.0-47.0); HEMOGLOBIN 14.7 g/dL (12.0-15.5); LYMPH # 1.5 x10^3/uL (1.0-4.8); LYMPH % 29 % (24-48); MEAN CORPUSCULAR HEMOGLOBIN 30 pg (25-35); MEAN CORPUSCULAR HGB CONC 33 g/dL (31-37); MEAN CORPUSCULAR VOLUME 91 fL (79-100); MONO # 0.5 x10^3/uL (0.0-1.1); MONO % 9 % (0-9); NEUT # 3.1 x10^3/uL (1.8-7.7); NEUT % 60 % (31-73); PLATELET COUNT 240 x10^3/uL (140-400); RED BLOOD COUNT 4.88 x10^6/uL (3.50-5.40); RED CELL DISTRIBUTION WIDTH 13.6 % (11.5-14.5); WHITE BLOOD COUNT 5.1 x10^3/uL (4.0-11.0)
== END ==
LOC: LAB 08:05
PROVIDERS: ATTEND Family Medicine
DX: E03.9 Hypothyroidism, unspecified (principal); D64.9 Anemia, unspecified; E53.8 Deficiency of other specified B group vitamins
CPT/HCPCS: 36415; 82607; 84443; 85025

== ENCOUNTER 2021-07-17 18:43 | Emergency (ER) | payer OTHER ==
[~2021-07-17] VITALS: Ht 165.1 cm; Wt 60.0 kg
[~2021-07-17 18:43] MED LIST changes: -CYCL10TA19 PO; -HYDR-2761 PO
--- NOTE | 2021-07-17 21:22 | PHYS DOC ---
Past Medical History Past Medical History: DVT, GERD, High Cholesterol, Hypothyroid, Uterine F ibroids, Other Additional Past Medical Histor: fibroids, ACID REFLUX,PE Past Surgical History: Cholecystectomy, Tubal ligation Smoking Status: Never Smoker Alcohol Use: None Drug Use: None General Adult EDM: Chief Complaint: LOWER EXT PAIN HPI: HPI: Patient is a 60 year old female with a history of DVT to the right lower extremity on Xarelto presenting today complaining of 10 out of 10 sharp intermittent pain on the right lower extremity starting from the thigh going down, symptoms began this morning. Patient states the pain is worse on ambulation. Denies anything specifically relieving the pain, she states she has tried taking Tylenol with no relief. Patient is concerned she has another DVT. Review of Systems: Review of Systems: Constitutional: Denies fever or chills. [] Eyes: Denies change in visual acuity. [] HENT: Denies nasal congestion or sore throat. [] Respiratory: Denies cough or shortness of breath. [] Cardiovascular: Denies chest pain or edema. [] GI: Denies abdominal pain, nausea, vomiting, bloody stools or diarrhea. [] : Denies dysuria. [] Musculoskeletal: Reports right lower extremity pain. Denies back pain or joint pain. [] Integument: Denies rash. [] Neurologic: Denies headache, focal weakness or sensory changes. [] Psychiatric: Denies depression or anxiety. [] Heart Score: C/O Chest Pain: N/A Risk Factors: Risk Factors: DM, Current or recent (<one month) smoker, HTN, HLP, family history of CAD, obesity. Risk Scores: Score 0 - 3: 2.5% MACE over next 6 weeks - Discharge Home Score 4 - 6: 20.3% MACE over next 6 weeks - Admit for Clinical Observation Score 7 - 10: 72.7% MACE over next 6 weeks - Early Invasive Strategies Allergies: Allergies: Allergies Coded Allergies Type Severity Reaction Last Updated Verified No Known Drug Allergies 09/18/20 No Physical Exam: PE: Constitutional: Well developed, well nourished, no acute distress, non-toxic appearance. [] HENT: Normocephalic, atraumatic, bilateral external ears normal, oropharynx moist, no oral exudates, nose normal. [] Eyes: PERRLA, EOMI, conjunctiva normal, no discharge. [] Neck: Normal range of motion, no tenderness, supple, no stridor. [] Cardiovascular:Heart rate regular rhythm, no murmur [] Lungs & Thorax: Bilateral breath sounds clear to auscultation [] Abdomen: Bowel sounds normal, soft, no tenderness, no masses, no pulsatile masses. [] Skin: Warm, dry, no erythema, no rash. [] Back: No tenderness, no CVA tenderness. [] Extremities: No tenderness, no cyanosis, no clubbing, ROM intact, trace edema noted to the right ankle, negative Homans' sign to the right lower extremity. Neurologic: Alert and oriented X 3, normal motor function, normal sensory function, no focal deficits noted. [] Psychologic: Affect normal, judgement normal, mood normal. [] Current Patient Data: Vital Signs: Vital Signs Date Time Temp Pulse Resp B/P (MAP) Pulse Ox O2 Delivery O2 Flow Rate FiO2 07/17/21 19:43 98.1 73 20 106/56 (73) 98 Room Air 98.1 EKG: EKG: [] Radiology/Procedures: Radiology/Procedures: [] Course & Med Decision Making: Course & Med Decision Making Pertinent Labs and Imaging studies reviewed. (See chart for details) This is a 60-year-old female patient with history of DVT to the right lower extremity on Xarelto presenting today complaining of right lower extremity pain that began today. Patient is concerned she has another DVT. Venous Doppler of the left lower extremity is negative. Discharge to home. Follow-up with PCP in 1 week Jez Disclaimer: Jez Disclaimer: This electronic medical record was generated, in whole or in part, using a voice recognition dictation system. Departure Departure Impression: Primary Impression: Lower extremity pain, right Disposition: HOME / SELF CARE / HOMELESS Condition: STABLE Referrals: Clif RIZVI MD (PCP) Follow-up next week Patient Instructions: Musculoskeletal Pain Additional Instructions: You were evaluated in the emergency room for right lower extremity pain, your ultrasound of the right lower extremity is negative for any acute findings. Please follow-up with your doctor next week. Come back to the ED at any point symptoms worsen. Scripts Cyclobenzaprine Hcl (CYCLOBENZAPRINE HCL) 10 Mg Tablet 1 TAB PO TID, #30 TAB Prov: LINH MCINTYER APRN 07/17/21 Hydrocodone Bit/Acetaminophen (HYDROCODONE-APAP 5-325 ) 1 Tab Tablet 1 TAB PO PRN Q6HRS PRN for PAIN, #10 TAB 0 Refills Prov: LINH MCINTYRE APRN 07/17/21 LINH MCINTYRE APRN Jul 17, 2021 21:22
[2021-07-17 21:41] VITALS: BP 151/82
[2021-07-17] MEDS ORDERED: HYDR-2761 PO (22:07)
[2021-07-17] MEDS ORDERED: CYCL10TA19 PO (22:07)
--- NOTE | 2021-07-17 22:27 | RAD ---
Exam: Right lower extremity venous duplex study INDICATION: Leg swelling TECHNIQUE: Using a combination of real-time ultrasound imaging and color-flow and pulse Doppler imagi ng techniques along with graded compression and augmentation, duplex evaluation of the deep venous sy stems of rightlower extremity was performed. Multiple images were obtained. Findings: There is no sonographic evidence for deep venous thrombosis involving the visualized deep venous stru ctures of the right lower extremity. IMPRESSION: No acute DVT in the right lower extremities. Electronically signed by: Cindi Mahmood MD (07/17/2021 10:25 PM) [facility]
== END 2021-07-17 22:19 | disposition home or self-care (01) ==
LOC: ER 18:43
DX: M79.604 Pain in right leg (principal); E78.00 Pure hypercholesterolemia, unspecified; K21.9 Gastro-esophageal reflux disease without esophagitis; E03.9 Hypothyroidism, unspecified; Z86.718 Personal history of other venous thrombosis and embolism; Z90.49 Acquired absence of other specified parts of digestive tract; Z98.51 Tubal ligation status
CPT/HCPCS: 93971; 99285-25

== ENCOUNTER → 2021-08-10 | Outpatient (CLI) | payer OTHER ==
[2021-07-17 21:41] VITALS: BP 151/82
[~2021-08-10] MED LIST changes: +CYCL10TA19 PO; +HYDR-2761 PO
--- NOTE | 2021-08-11 12:08 | SLEEP ---
DATE OF STUDY: 08/10/2021 ATTENDING PHYSICIAN: Dr. Lazaro Rizvi. The patient is 60 years old who weighs 168 pounds with a BMI of 30.72. The patient had a previous diagnostic sleep study in June of this year at [facility]. The patient had mild KRISTIAN with moderate increase during REM sleep. Total AHI was 10 per hour with a REM AHI of 29 per hour. The patient returned to the sleep lab for CPAP titration study. During the night study, the patient spent 495 minutes in bed and slept for 472 minutes with a normal sleep efficiency of 95%. Sleep latency was 10 minutes with REM latency of 85 minutes. Sleep architecture showed normal stage 1 and stage 2 sleep, normal slow wave and normal REM sleep. The patient was started on CPAP at 5 cm water and titrated up to 9 cm water. At the final pressure, the patient slept for 147 minutes. The patient had supine as well as REM sleep. The patient's AHI was reduced to 2 per hour and oxygen saturation remained above 94%. The patient used a small size nasal pillows. EKG monitoring revealed no sustained arrhythmias. Average heart rate was 75 beats per minute. PLMs were seen at index of 22 per hour, but only 1 per hour caused EEG arousals. IMPRESSION: 1. Sleep apnea diagnosed by previous sleep study. 2. Moderate PLMs without any significant EEG arousals. RECOMMENDATIONS: 1. CPAP at 9 cm water completely eliminated the patient's sleep apnea and should be used on a nightly basis. 2. Follow up in 4-6 weeks to assess compliance with CPAP and to document clinical improvement. 3. Weight loss is advised. 4. Avoid FACILITY MAINTENANCE HELPER depressants. 5. Cautioned regarding driving until symptoms of sleep apnea resolve with the use of CPAP. 6. PLMs does not need to be treated unless the patient has symptoms of restless legs during the day. ALISA DR: Khris TID: [id number] CC: Clif RIZVI MD
== END ==
LOC: RT 18:22
PROVIDERS: ATTEND Internal Medicine Critical Care Medicine
DX: G47.33 Obstructive sleep apnea (adult) (pediatric) (principal); G47.61 Periodic limb movement disorder
CPT/HCPCS: 95811